=== PATIENT | female | born 1975 | race Caucasian/White ===

== ENCOUNTER → 2019-11-30 | Outpatient (CLI) | payer OTHER ==
[2019-11-30 09:51] LABS: Basophils # (A) 0.1 k/uL (0-0.2); Basophils % (A) 1 %; Eosinophils # (A) 0.3 k/uL (0-0.7); Eosinophils % (A) 4 %; HCT 34.2 % (34.0-46.0); HGB 10.5 gm/dL (11.4-16.0); Hypochromasia Moderate; Lymphocytes # (A) 1.7 k/uL (1.0-4.8); Lymphocytes % (A) 20 %; MCH 25.1 pg (25.0-35.0); MCHC 30.8 g/dL (31.0-37.0); MCV 81.4 fL (80.0-100.0); Monocytes # (A) 0.3 k/uL (0-1.0); Monocytes % (A) 4 %; Neutrophils % (A) 71 %; Platelet Count 238 k/uL (150-450); RDW 15.2 % (11.5-15.5); WBC 8.4 k/uL (3.8-10.6)
[2019-11-30 18:05] LABS: ALT 19 U/L (8-44); AST 10 U/L (13-35); African American GFR (CKD) 105.4 (60.0-200.0); Albumin/Globulin Ratio 1.91 (1.60-3.17); Alkaline Phosphatase 87 U/L (41-126); Calcium 9.3 mg/dL (8.7-10.3); Chloride 103 mmol/L (96-109); Chol/HDL Ratio 2.47; Cholesterol 126 mg/dL (0-200); Globulin 2.3 g/dL (1.6-3.3); Glucose 94 mg/dL (70-110); Non-African American GFR(CKD) 90.9 (60.0-200.0); Potassium 4.3 mmol/L (3.5-5.5); Sodium 139 mmol/L (135-145); Total Bilirubin 0.6 mg/dL (0.2-1.2); Total Protein 6.7 g/dL (6.2-8.2); Triglycerides <50.0 mg/dL (0.0-149.0)
== END | disposition home or self-care (01) ==
LOC: LABWHC1 08:51
PROVIDERS: ATTEND Midwife
DX: Z00.00 Encounter for general adult medical examination without abnormal findings (principal)
CPT/HCPCS: 36415; 80053; 80061; 84439; 84443; 85025

== ENCOUNTER → 2019-12-29 | Outpatient (CLI) | payer OTHER ==
--- NOTE | 2019-12-30 13:33 | MM ---
Reason for exam: screening (asymptomatic). Last mammogram was performed 4 years and 10 months ago. History: Family history of breast cancer in mother at age 58. Physical Findings: A clinical breast exam by your physician is recommended on an annual basis and results should be correlated with mammographic findings. MG 3D Screening Mammo W/Cad Bilateral CC and MLO view(s) were taken. XCCL and XCCM view(s) were taken of the left breast. Prior study comparison: March 01, 2015, bilateral MG screening mammo w CAD. There are scattered fibroglandular densities. No suspicious abnormality. Bilateral intramammary lymph nodes. No significant changes when compared with prior studies. ASSESSMENT: Negative, BI-RAD 1 RECOMMENDATION: Routine screening mammogram of both breasts in 1 year.
== END | disposition home or self-care (01) ==
LOC: RADMAMWWP 07:38
PROVIDERS: ATTEND Family Medicine
DX: Z12.31 Encounter for screening mammogram for malignant neoplasm of breast (principal)
CPT/HCPCS: 77063; 77067

== ENCOUNTER → 2022-05-17 | Outpatient (CLI) | payer OTHER ==
--- NOTE | 2022-05-17 09:19 | US ---
EXAMINATION TYPE: US venous doppler duplex LE DATE OF EXAM: 05/17/2022 8:54 AM COMPARISON: NONE CLINICAL HISTORY: R600 LOCALIZED EDEMA. SIDE PERFORMED: Bilateral TECHNIQUE: The lower extremity deep venous system is examined utilizing real time linear array sonog jero with graded compression, doppler sonography and color-flow sonography. VESSELS IMAGED: Common Femoral Vein Deep Femoral Vein Greater Saphenous Vein * Femoral Vein Popliteal Vein Small Saphenous Vein * Proximal Calf Veins (* superficial vessels) Right Leg: Negative for DVT Left Leg: Negative for DVT Scanning was performed over lump right calf, there is thrombosed varicosities noted with partial flow . IMPRESSION: No evidence for DVT at this time.
== END | disposition home or self-care (01) ==
LOC: RADUSWWP 08:33
PROVIDERS: ATTEND Family Medicine
DX: R60.0 Localized edema (principal)
CPT/HCPCS: 93970

== ENCOUNTER 2022-09-11 11:02 | Emergency (ER) | payer OTHER ==
[2022-09-11 11:09] VITALS: PULSE 105; RESP 20; TEMP 96.2
[2022-09-11 11:22] VITALS: BP 177/120
[2022-09-11] MEDS ORDERED: CEPHALEXIN 500 MG CAP PO STA (11:28)
[2022-09-11] MEDS ORDERED: SULFAMETHOX-TMP 800-160MG 1 EACH TAB PO STA (11:28)
[2022-09-11] MEDS ORDERED: MUPIROCIN 2% OINT 22 GM TUBE TOPICAL ONE (11:37)
--- NOTE | 2022-09-11 11:39 | ED ---
Skin/Abscess/FB HPI - General Chief complaint: Skin/Abscess/Foreign Body Stated complaint: cellulitis Time Seen by Provider: 09/11/22 11:15 Source: patient, family, RN notes reviewed Mode of arrival: ambulatory Limitations: no limitations - History of Present Illness Initial comments: This is a 46 year old female who presents to the emergency department for a bilateral lower extremity cellulitis. States that last week, she had scabs on her legs and began picking at them. Shortly afterwards, her legs became swollen and red. Believes that she is starting to get a cellulitis on both legs. There is only pain to the left leg. States that the infections are oozing on both legs. She has been applying zinc cream and keeping them wrapped. Denies any fevers, shortness of breath, nausea, or vomiting. She attributes her elevated blood pressure here to being anxious. Denies any fevers, chills, sore throat, cough, dyspnea, chest pain, pa lpitations, abdominal pain, nausea, vomiting, diarrhea, back pain, or headaches. MD complaint: rash Onset/Timin -: days(s) Tetanus Up to Date: yes Location: LLE, RLE Treatments Prior to Arrival: bandages, OTC topical medication - Related Data Home Medications Medication Instructions Recorded Confirmed Atorvastatin [Lipitor] 20 mg PO W/LUNCH 09/11/22 09/11/22 Dulaglutide [Trulicity] 0.75 mg SQ MO 09/11/22 09/11/22 Furosemide [Lasix] 20 mg PO DAILY 09/11/22 09/11/22 Furosemide [Lasix] 40 mg PO DAILY@1500 09/11/22 09/11/22 Losartan [Cozaar] 25 mg PO W/SUPPER 09/11/22 09/11/22 Losartan [Cozaar] 50 mg PO DAILY 09/11/22 09/11/22 metFORMIN HCL [Glucophage] 500 mg PO BID-W/MEALS 09/11/22 09/11/22 Previous Rx's Medication Instructions Recorded Mupirocin 2% Oint [Bactroban 2% 1 applic TOPICAL TID #22 gm 09/11/22 Oint] Sulfamethox-Tmp 800-160Mg [Bactrim 1 tab PO Q12HR 10 Days #20 tab 09/11/22 DS 800-160 mg] Allergies Allergy/AdvReac Type Severity Reaction Status Date / Time No Known Allergies Allergy Verified 09/11/22 12:38 Review of Systems ROS Statement: Those systems with pertinent positive or pertinent negative responses have been documented in the HPI. ROS Other: All systems not noted in ROS Statement are negative. Past Medical History Past Medical History: Heart Failure, Hypertension, Pneumonia History of Any Multi-Drug Resistant Organisms: None Reported Past Surgical History: Section, Coronary Bypass/CABG Additional Past Surgical History / Comment(s): open heart at age 7 Past Psychological History: Anxiety Smoking Status: Former smoker Past Alcohol Use History: None Reported Past Drug Use History: None Reported General Exam Limitations: no limitations General appearance: alert, in no apparent distress Head exam: Present: atraumatic, normocephalic, normal inspection Respiratory exam: Present: normal lung sounds bilaterally. Absent: respiratory distress, wheezes, rales, rhonchi, stridor Cardiovascular Exam: Present: regular rate, normal rhythm, normal heart sounds. Absent: systolic murmur, diastolic murmur, rubs, gallop, clicks Extremities exam: Present: other (Swelling, erythema, and increased heat to the bilateral lower extremities. There are open wounds on the anterior aspect of both legs minor active drainage. 2+ dorsalis pedis and tibialis posterior pulses bilaterally. Capillary refill less than 2 seconds.) Neurological exam: Present: alert, oriented X3, CN II-XII intact Psychiatric exam: Present: normal affect, normal mood Course Vital Signs 09/11/22 09/11/22 11:05 11:21 Temperature 96.2 F L Pulse Rate 105 H Respiratory 20 Rate Blood Pressure 201/89 177/120 O2 Sat by Pulse 95 Oximetry Medical Decision Making - Medical Decision Making This is a 46-year-old female who presents to the emergency department for bilateral lower extremity cellulitis. Lab work reveals no signs of leukocytosis, however inflammatory markers are elevated. Wound cultures were obtained and are pending. X-ray of the bilateral lower extremities obtained, and my interpretation of this revealed bilateral soft tissue edema. I see no evidence of subcutaneous gas or osseous erosion to suggest a necrotizing fasciitis or osteonecrosis. She was given a dose of Bactrim and Keflex in the emergency department, and her wounds were covered with mupirocin ointment and the dressings were changed. Rx for 10 day course of Bactrim provided along with mupirocin ointment. She is instructed to apply the mupirocin ointment when she changes her bandages. Discussed with the patient that due to the extent of the cellulitis and her multiple comorbidities, admission can be discussed, however the patient declined at this time. She was given very strict return parameters, in that if she develops fevers, chills, nausea, vomiting, or feels otherwise unwell, she should return immediately. Return precautions reviewed in depth, the patient is instructed to return to the emergency department with any new, worsening, or concerning symptoms. Patient verbalized understanding. This case was discussed in detail with the attending ED physician. Presentation, findings, and treatment plan discussed in detail as well. - Lab Data Result diagrams: 09/11/22 11:32 09/11/22 11:32 Lab Results 09/11/22 09/11/22 Range/Units : 11:32 WBC 8.7 (3.8-10.6) k/uL RBC 4.82 (3.80-5.40) m/uL Hgb 12.7 (11.4-16.0) gm/dL Hct 41.4 (34.0-46.0) % MCV 85.9 (80.0-100.0) fL MCH 26.3 (25.0-35.0) pg MCHC 30.7 L (31.0-37.0) g/dL RDW 15.9 H (11.5-15.5) % Plt Count 251 (150-450) k/uL MPV 9.3 Hypochromasia Marked Sodium 137 (137-145) mmol/L Potassium 4.1 (3.5-5.1) mmol/L Chloride 101 (98-107) mmol/L Carbon Dioxide 28 (22-30) mmol/L Anion Gap 8 mmol/L BUN 11 (7-17) mg/dL Creatinine 0.74 (0.52-1.04) mg/dL Est GFR (CKD-EPI)AfAm >90 (>60 ml/min/1.73 sqM) Est GFR (CKD-EPI)NonAf >90 (>60 ml/min/1.73 sqM) Glucose 120 H (74-99) mg/dL Calcium 9.0 (8.4-10.2) mg/dL Total Bilirubin 1.9 H (0.2-1.3) mg/dL AST 12 L (14-36) U/L ALT 20 (4-34) U/L Alkaline Phosphatase 147 H (38-126) U/L C-Reactive Protein 1.9 H (<1.0) mg/dL Total Protein 7.4 (6.3-8.2) g/dL Albumin 4.0 (3.5-5.0) g/dL - Radiology Data Radiology results: report reviewed, image reviewed Disposition Clinical Impression: Cellulitis Disposition: HOME SELF-CARE Instructions (If sedation given, give patient instructions): Cellulitis (ED) Additional Instructions: Return to the emergency department with any new, worsening, or concerning symptoms and if you develop fevers, chills, nausea, vomiting, or feel otherwise unwell. Take the Bactrim as prescribed for 10 days. Apply mupirocin ointment each time you change the dressings. Follow up with your primary care provider in 1-2 days. Prescriptions: Sulfamethox-Tmp 800-160Mg [Bactrim DS 800-160 mg] 1 tab PO Q12HR 10 Days #20 tab Mupirocin 2% Oint [Bactroban 2% Oint] 1 applic TOPICAL TID #22 gm Is patient prescribed a controlled substance at d/c from ED?: No Referrals: Stalin Robles MD [Primary Care Provider] - 1-2 days
[2022-09-11 11:54] LABS: Potassium 4.1 mmol/L (3.5-5.1)
[2022-09-11 11:55] LABS: ALT 20 U/L (4-34); AST 12 U/L (14-36); African American GFR (CKD) >90 (>60 ml/min/1.73 sqM); Alkaline Phosphatase 147 U/L (38-126); Anion Gap 8 mmol/L; Blood Urea Nitrogen 11 mg/dL (7-17); C Reactive Protein 1.9 mg/dL (<1.0); Carbon Dioxide 28 mmol/L (22-30); Chloride 101 mmol/L (98-107); Glucose 120 mg/dL (74-99); Non-African American GFR(CKD) >90 (>60 ml/min/1.73 sqM); Sodium 137 mmol/L (137-145); Total Bilirubin 1.9 mg/dL (0.2-1.3); Total Protein 7.4 g/dL (6.3-8.2)
[2022-09-11 11:58] LABS: HCT 41.4 % (34.0-46.0); HGB 12.7 gm/dL (11.4-16.0); Hypochromasia Marked; MCH 26.3 pg (25.0-35.0); MCHC 30.7 g/dL (31.0-37.0); MCV 85.9 fL (80.0-100.0); Mean Platelet Volume 9.3; Platelet Count 251 k/uL (150-450); RBC 4.82 m/uL (3.80-5.40); RDW 15.9 % (11.5-15.5); WBC 8.7 k/uL (3.8-10.6)
--- NOTE | 2022-09-11 12:13 | XR ---
EXAMINATION TYPE: XR tibia fibula bilateral DATE OF EXAM: 09/11/2022 12:01 PM INDICATION: Patient age:Female; 46 years old; Reason for study: Redness, swelling; COMPARISON: None TECHNIQUE: The bilateral tibia/fibula was examined in AP and lateral projections. FINDINGS: Diffuse soft tissue edema throughout the lower extremities. No evidence of fracture. No baljeet dence of osseous erosion or subcutaneous gas. Achilles calcaneal enthesophyte bilaterally calcaneal p lantar spurring on the left. There is degeneration changes with osteophyte formation of the knees inc luding tibial plateau and the patella. IMPRESSION: 1. No evidence of acute fracture. 2. Soft tissue edema throughout the visualized legs. 3. Moderate bilateral knee osteoarthrosis changes.
[2022-09-11 13:46] LABS: Eosinophils # (M) 0.17 k/uL (0-0.7); Lymphocytes # (M) 0.78 k/uL (1.0-4.8); Neutrophils # (M) 7.05 k/uL (1.3-7.7); Neutrophils % (M) 81 %; Nucleated Red Blood Cells 0 /100 WBC (0-0); Total Cells Counted 100
[2022-09-11 13:50] LABS: Anisocytosis (M) Present
[2022-09-11 14:03] LABS: Erythrocyte Sedimentation Rate 9 mm/hr (0-20)
== END 2022-09-11 14:25 | disposition home or self-care (01) ==
LOC: EC 11:02
DX: L03.115 Cellulitis of right lower limb (principal); L03.116 Cellulitis of left lower limb; I11.0 Hypertensive heart disease with heart failure; I50.9 Heart failure, unspecified; F41.9 Anxiety disorder, unspecified; Z87.891 Personal history of nicotine dependence; Z79.811 Long term (current) use of aromatase inhibitors; Z79.899 Other long term (current) drug therapy
CPT/HCPCS: 36415; 80053; 85025; 85652; 86140; 87070; 87075; 87205; 99283

== ENCOUNTER 2023-01-20 18:31 | Inpatient (IN) | payer OTHER ==
[2023-01-20] MEDS ORDERED: LORazepam 2 MG/ML INJ IV STA (19:09)
[2023-01-20 20:09] LABS: INR 1.2 (<1.2); Partial Thromboplastin Time 23.3 sec (22.0-30.0); Prothrombin Time 12.6 sec (9.0-12.0)
[2023-01-20 20:10] LABS: Anisocytosis Slight; Basophils % (A) 0 %; Eosinophils # (A) 0.1 k/uL (0-0.7); Eosinophils % (A) 1 %; HCT 41.6 % (34.0-46.0); Hypochromasia Slight; Lymphocytes % (A) 13 %; MCH 26.9 pg (25.0-35.0); MCHC 31.2 g/dL (31.0-37.0); MCV 86.4 fL (80.0-100.0); Mean Platelet Volume 8.7; Monocytes # (A) 0.3 k/uL (0-1.0); Monocytes % (A) 4 %; Neutrophils # (A) 5.7 k/uL (1.3-7.7); Neutrophils % (A) 79 %; Platelet Count 226 k/uL (150-450); RBC 4.82 m/uL (3.80-5.40); RDW 18.4 % (11.5-15.5); WBC 7.3 k/uL (3.8-10.6)
[2023-01-20 20:12] LABS: ALT 19 U/L (4-34); AST 14 U/L (14-36); African American GFR (CKD) >90 (>60 ml/min/1.73 sqM); Alkaline Phosphatase 156 U/L (38-126); Amylase 31 U/L (30-110); Anion Gap 8 mmol/L; Blood Urea Nitrogen 14 mg/dL (7-17); Calcium 9.2 mg/dL (8.4-10.2); Carbon Dioxide 28 mmol/L (22-30); Chloride 100 mmol/L (98-107); Glucose 97 mg/dL (74-99); Lipase 155 U/L (23-300); Non-African American GFR(CKD) >90 (>60 ml/min/1.73 sqM); Potassium 4.3 mmol/L (3.5-5.1); Sodium 136 mmol/L (137-145); Total Protein 7.7 g/dL (6.3-8.2)
--- NOTE | 2023-01-20 20:32 | ED ---
General Adult HPI - General Chief complaint: Skin/Abscess/Foreign Body Stated complaint: poss blood clot Time Seen by Provider: 01/20/23 18:43 Source: patient Mode of arrival: wheelchair Limitations: no limitations - History of Present Illness Initial comments: Patient is a 47-year-old female with history of hypertension, hyperlipidemia, diabetes presenting with multiple complaints. Patient states that at home she has a scab near the right knee that was profusely bleeding. Patient is not on any blood thinners. Patient applied a dressing which she bled through and reported to the ER for evaluation. She was concerned that she had a blood clot because she was bleeding so much. Patient also has sores and cellulitis to the bilateral lower legs which has been ongoing since August. She was on oral antibiotics back in August but has not been on any antibiotics since then. She is also complaining of massive swelling to the abdomen as well as swelling to the bilateral lower extremities. She denies any chest pain or difficulty breathing. No palpitations or weakness. No fevers or chills. No nausea or vomiting. - Related Data Home Medications Medication Instructions Recorded Confirmed Atorvastatin [Lipitor] 20 mg PO W/LUNCH 09/11/22 01/20/23 Furosemide [Lasix] 20 mg PO DAILY 09/11/22 01/20/23 Furosemide [Lasix] 40 mg PO DAILY@1500 09/11/22 01/20/23 Losartan [Cozaar] 25 mg PO W/SUPPER 09/11/22 01/20/23 Losartan [Cozaar] 50 mg PO DAILY 09/11/22 01/20/23 metFORMIN HCL [Glucophage] 500 mg PO BID-W/MEALS 09/11/22 01/20/23 Silver Sulfadiazine [SSD 1% Cream] 1 applic TOPICAL DAILY PRN 01/20/23 01/20/23 Allergies Allergy/AdvReac Type Severity Reaction Status Date / Time No Known Allergies Allergy Verified 01/20/23 19:24 Review of Systems ROS Statement: Those systems with pertinent positive or pertinent negative responses have been documented in the HPI. ROS Other: All systems not noted in ROS Statement are negative. Past Medical History Past Medical History: Heart Failure, Hypertension, Pneumonia History of Any Multi-Drug Resistant Organisms: None Reported Past Surgical History: Section, Coronary Bypass/CABG Additional Past Surgical History / Comment(s): open heart at age 7 Past Psychological History: Anxiety Smoking Status: Former smoker Past Alcohol Use History: None Reported Past Drug Use History: None Reported General Exam Limitations: no limitations General appearance: alert, anxious Head exam: Present: atraumatic, normocephalic, normal inspection Eye exam: Present: normal appearance Neck exam: Present: normal inspection Respiratory exam: Present: normal lung sounds bilaterally. Absent: respiratory distress, wheezes, rales, rhonchi, stridor Cardiovascular Exam: Present: normal rhythm, tachycardia, normal heart sounds. Absent: systolic murmur, diastolic murmur, rubs, gallop, clicks GI/Abdominal exam: Present: distended. Absent: tenderness, guarding, rebound Expanded GI/Abdominal exam: Present: ascites Neurological exam: Present: alert, oriented X3, CN II-XII intact Psychiatric exam: Present: anxious Skin exam: Present: erythema Course Vital Signs 01/20/23 01/20/23 18:35 23:07 Temperature 97.7 F Pulse Rate 107 H Respiratory 18 Rate Blood Pressure 153/91 O2 Sat by Pulse 95 94 L Oximetry EKG Findings - EKG Comments: EKG Findings:: Sinus rhythm ventricular rate 89. MD interval 160. QRS 124. QT 373. QTC 420. Right bundle branch block. Indeterminate axis. T-wave inversion in leads 2, 3, aVF and V1 through V6. No previous EKG for comparison. Medical Decision Making - Medical Decision Making Was pt. sent in by a medical professional or institution ([facility], HOME DEPOT REP, urgent care, hospital, or correction...) When possible be specific @ -No Did you speak to anyone other than the patient for history (EMS, parent, family, police, friend...)? What history was obtained from this source @ -No Did you review nursing and triage notes (agree or disagree)? Why? @ -I reviewed and agree with nursing and triage notes Were old charts reviewed (outside hosp., previous admission, EMS record, old EKG, old radiological studies, urgent care reports/EKG's, correction records)? Report findings @ -No old charts were reviewed Differential Diagnosis (chest pain, altered mental status, abdominal pain women, abdominal pain men, vaginal bleeding, weakness, fever, dyspnea, syncope, headache, dizziness, GI bleed, back pain, seizure, CVA, palpatations, mental health, musculoskeletal)? @ -Differential includes CHF, cirrhosis, renal failure, this is not an all inclusive list EKG interpreted by me (3pts min.). @ -As above X-rays interpreted by me (1pt min.). @ -Chest x-ray shows mild coarsening of the interstitial markings could be some pulmonary fibrosis. No significant change. Stable cardiomegaly. CT interpreted by me (1pt min.). @ -There is moderate abdominal ascites. There is significant subcutaneous edema around the abdomen and pelvis. Hepatosplenomegaly. No dilated ducts. Mild pulmonary interstitial infiltrates. U/S interpreted by me (1pt. min.). @ -None done What testing was considered but not performed or refused? (CT, X-rays, U/S, labs)? Why? @ -None What meds were considered but not given or refused? Why? @ -None Did you discuss the management of the patient with other professionals (professionals i.e. , PA, HOME DEPOT REP, lab, RT, psych nurse, clinical social worker, cap coverer, teacher, vice squad police officer, case management specialist)? Give summary @ -Discussed with admitting ISAIAS Nirali Burnette Was smoking cessation discussed for >3mins.? @ -No Was critical care preformed (if so, how long)? @ -No Were there social determinants of health that impacted care today? How? (Homelessness, low income, unemployed, alcoholism, drug addiction, transportation, low edu. Level, literacy, decrease access to med. care, long-term, rehab)? @ -No Was there de-escalation of care discussed even if they declined (Discuss DNR or withdrawal of care, Hospice)? DNR status @ -No What co-morbidities impacted this encounter? (DM, HTN, Smoking, COPD, CAD, Cancer, CVA, ARF, Chemo, Hep., AIDS, mental health diagnosis, sleep apnea, morbid obesity)? @ -Diabetes, hypertension, hyperlipidemia, heart failure Was patient admitted / discharged? Hospital course, mention meds given and route, prescriptions, significant lab abnormalities, going to OR and other pertinent info. @ -Patient is a 47-year-old female presenting with multiple complaints. Patie nt states earlier she had a scab that was continuously bleeding that she was unable to get under control. Patient has multiple wounds as well as redness and swelling to the bilateral lower extremities. She is also having an increase in abdominal swelling that is drastically worsened over the last week. Lab work shows no leukocytosis or anemia. EKG shows T-wave inversion in the inferior and lateral leads. Troponin is less than 0.012. Patient is not having any chest pain or difficulty breathing. BNP 2880. Chest x-ray shows no overt heart failure. Patient will be admitted for cellulitis and anasarca. I spoke with admitting ISAIAS Nirali Burentte from [facility] accepted admission. Patient is agreeable with this plan. I discussed this case with my attending Dr. Cheema. Undiagnosed new problem with uncertain prognosis? @ -No Drug Therapy requiring intensive monitoring for toxicity (Heparin, Nitro, Insulin, Cardizem)? @ -No Were any procedures done? @ -No Diagnosis/symptom? @ -Cellulitis Acute, or Chronic, or Acute on Chronic? @ -Acute Uncomplicated (without systemic symptoms) or Complicated (systemic symptoms)? @ -Complicated Side effects of treatment? @ -No Exacerbation, Progression, or Severe Exacerbation? @ -No Poses a threat to life or bodily function? How? (Chest pain, [place], [place], pneumonia, PE, COPD, DKA, ARF, appy, cholecystitis, CVA, Diverticulitis, Homicidal, Suicidal, threat to staff... and all critical care pts) @ -Yes - Lab Data Result diagrams: 01/20/23 19:34 01/20/23 19:34 Lab Results 01/20/23 01/20/23 01/20/23 Range/Units 19:34 19:34 19:34 WBC 7.3 (3.8-10.6) k/uL RBC 4.82 (3.80-5.40) m/uL Hgb 13.0 (11.4-16.0) gm/dL Hct 41.6 (34.0-46.0) % MCV 86.4 (80.0-100.0) fL MCH 26.9 (25.0-35.0) pg MCHC 31.2 (31.0-37.0) g/dL RDW 18.4 H (11.5-15.5) % Plt Count 226 (150-450) k/uL MPV 8.7 Neutrophils % 79 % Lymphocytes % 13 % Monocytes % 4 % Eosinophils % 1 % Basophils % 0 % Neutrophils # 5.7 (1.3-7.7) k/uL Lymphocytes # 1.0 (1.0-4.8) k/uL Monocytes # 0.3 (0-1.0) k/uL Eosinophils # 0.1 (0-0.7) k/uL Basophils # 0.0 (0-0.2) k/uL Hypochromasia Slight Anisocytosis Slight PT (9.0-12.0) sec INR (<1.2) APTT (22.0-30.0) sec Sodium 136 L (137-145) mmol/L Potassium 4.3 (3.5-5.1) mmol/L Chloride 100 (98-107) mmol/L Carbon Dioxide 28 (22-30) mmol/L Anion Gap 8 mmol/L BUN 14 (7-17) mg/dL Creatinine 0.63 (0.52-1.04) mg/dL Est GFR (CKD-EPI)AfAm >90 (>60 ml/min/1.73 sqM) Est GFR (CKD-EPI)NonAf >90 (>60 ml/min/1.73 sqM) Glucose 97 (74-99) mg/dL Plasma Lactic Acid Jordon 0.9 (0.7-2.0) mmol/L Calcium 9.2 (8.4-10.2) mg/dL Total Bilirubin 2.0 H (0.2-1.3) mg/dL AST 14 (14-36) U/L ALT 19 (4-34) U/L Alkaline Phosphatase 156 H (38-126) U/L Troponin I (0.000-0.034) ng/mL NT-Pro-B Natriuret Pep pg/mL Total Protein 7.7 (6.3-8.2) g/dL Albumin 4.0 (3.5-5.0) g/dL Amylase 31 (30-110) U/L Lipase 155 (23-300) U/L 01/20/23 01/20/23 01/20/23 Range/Units 19:34 19:34 20:32 WBC (3.8-10.6) k/uL RBC (3.80-5.40) m/uL Hgb (11.4-16.0) gm/dL Hct (34.0-46.0) % MCV (80.0-100.0) fL MCH (25.0-35.0) pg MCHC (31.0-37.0) g/dL RDW (11.5-15.5) % Plt Count (150-450) k/uL MPV Neutrophils % % Lymphocytes % % Monocytes % % Eosinophils % % Basophils % % Neutrophils # (1.3-7.7) k/uL Lymphocytes # (1.0-4.8) k/uL Monocytes # (0-1.0) k/uL Eosinophils # (0-0.7) k/uL Basophils # (0-0.2) k/uL Hypochromasia Anisocytosis PT 12.6 H (9.0-12.0) sec INR 1.2 H (<1.2) APTT 23.3 (22.0-30.0) sec Sodium (137-145) mmol/L Potassium (3.5-5.1) mmol/L Chloride (98-107) mmol/L Carbon Dioxide (22-30) mmol/L Anion Gap mmol/L BUN (7-17) mg/dL Creatinine (0.52-1.04) mg/dL Est GFR (CKD-EPI)AfAm (>60 ml/min/1.73 sqM) Est GFR (CKD-EPI)NonAf (>60 ml/min/1.73 sqM) Glucose (74-99) mg/dL Plasma Lactic Acid Jordon (0.7-2.0) mmol/L Calcium (8.4-10.2) mg/dL Total Bilirubin (0.2-1.3) mg/dL AST (14-36) U/L ALT (4-34) U/L Alkaline Phosphatase (38-126) U/L Troponin I <0.012 (0.000-0.034) ng/mL NT-Pro-B Natriuret Pep 2880 pg/mL Total Protein (6.3-8.2) g/dL Albumin (3.5-5.0) g/dL Amylase (30-110) U/L Lipase (23-300) U/L Disposition Clinical Impression: Cellulitis, Anasarca Disposition: ADMITTED IP TO THIS [facility] Condition: Fair Time of Disposition: 21:54
--- NOTE | 2023-01-20 20:52 | XR ---
EXAMINATION TYPE: XR chest 2V DATE OF EXAM: 01/20/2023 COMPARISON: 04/16/2022 HISTORY: Short of breath TECHNIQUE: 2 views FINDINGS: Heart appears slightly enlarged. No heart failure. There is mild coarsening of the intersti tial markings. There are chest leads. No pleural effusion. Bony thorax is intact. IMPRESSION: Mild coarsening of the interstitial markings could be some pulmonary fibrosis. No signifi cant change. Stable cardiomegaly.
--- NOTE | 2023-01-20 21:36 | CT ---
EXAMINATION TYPE: CT abdomen pelvis w con DATE OF EXAM: 01/20/2023 COMPARISON: None HISTORY: ASCITES CT DLP: 4135.9 mGycm Automated exposure control for dose reduction was used. CONTRAST: Performed with IV Contrast, patient injected with 100 mL of Isovue 300. The lung bases show mild increased interstitial density. No pleural effusion. Heart is enlarged. No p ericardial effusion. There is subcutaneous edema around the abdomen. There is moderate abdominal ascites fluid. Liver is s ignificantly enlarged and measures 25 cm. Spleen is intact. Spleen enlarged and measures 15 cm. No pa ncreatic mass. Gallbladder is intact. The stomach is intact. There is no adrenal mass. Kidneys show satisfactory contrast opacification. No hydronephrosis. Ureter s are not dilated. Delayed images show normal renal excretion. No retroperitoneal adenopathy. Bladder distends smoothly. Uterus is intact. No evidence of a bowel obstruction. There is normal enhancement of the portal venous system. No evide nce of thrombosis. No evidence of free air. Appendix not seen. The lumbar vertebra appear intact. No compression fracture. Posterior elements are intact. The bony p inés is intact. The hip joints are intact. Sacroiliac joints are intact. IMPRESSION: There is moderate abdominal ascites. There is significant subcutaneous edema around the abdomen and p inés. Hepatosplenomegaly. No dilated ducts. Mild pulmonary interstitial infiltrates.
[2023-01-20] MEDS ORDERED: VANCOMYCIN IV PER PHARMACY 1 EACH MISC MISCELLANE PRN (21:52)
[2023-01-20] MEDS ORDERED: VANCOMYCIN 2,000 MG in SODIUM CHLORIDE 0.9% 500 ML 500 ML IVPB STA (22:05)
[2023-01-20] MEDS ORDERED: NALOXONE 0.4 MG/ML 1 ML VIAL IV PRN (22:32)
[2023-01-21] MEDS: KETOROLAC 15 MG/ML 1 ML VIAL IVP PRN ×2 (00:12→13:40)
[2023-01-21 02:45] LABS: Appearance,Urine Clear (Clear); Bilirubin,Urine Negative (Negative); Blood,Urine Negative (Negative); Color,Urine Yellow; Glucose,Urine (UA) Negative (Negative); Ketones,Urine Negative (Negative); Leukocyte Esterase,Urine Negative (Negative); Nitrite,Urine Negative (Negative); Protein,Urine Negative (Negative); Specific Gravity,Urine 1.032 (1.001-1.035)
[2023-01-21] MEDS ORDERED: DEXTROSE 50% SYRINGE 50 ML IVP PRN ×2 (06:50)
[2023-01-21 07:32] LABS: Glucose,Whole Blood 115 mg/dL (70-110)
[2023-01-21] MEDS: INSULIN ASPART (NovoLOG) 100 UNIT/ML VIAL SQ SCH ×4 (08:35→20:40)
[2023-01-21] MEDS: FUROSEMIDE 20 MG TAB PO SCH (09:24)
[2023-01-21] MEDS: LOSARTAN 50 MG TAB PO SCH (09:24)
[2023-01-21 10:16] LABS: African American GFR (CKD) >90 (>60 ml/min/1.73 sqM); Non-African American GFR(CKD) >90 (>60 ml/min/1.73 sqM)
[2023-01-21 11:38] LABS: Glucose,Whole Blood 119 mg/dL (70-110)
[2023-01-21] MEDS ORDERED: VANCOMYCIN 2,000 MG in SODIUM CHLORIDE 0.9% 500 ML 500 ML IVPB SCH (12:00)
[2023-01-21] MEDS: ATORVASTATIN 20 MG TAB PO SCH (12:30)
[2023-01-21] MEDS: FUROSEMIDE 10 MG/ML 4 ML VIAL IV SCH ×2 (13:40→20:07)
[2023-01-21] MEDS ORDERED: FUROSEMIDE 40 MG TAB PO SCH (15:00)
--- NOTE | 2023-01-21 16:05 | P.HPIM ---
History of Present Illness H&P Date: 01/21/23 This is a pleasant 47-year-old female with medical history of congestive heart failure, chronic lower extremity edema and cellulitis, hypertension, open-heart surgery at the age of 7 secondary to coarctation of the aorta, former smoker quit about 1 month ago. Patient presents to the hospital with concern for increasing lower extremity edema and possible cellulitis bilaterally. Patient also reports a small area on the left knee that was bleeding profusely and reports loosing "quit a bit of blood". Patient has been following with her PCP and has been utilizing silvadene to lower extremities. Patient also reports abdominal distention. Denying chest pain, patient does report having increased shortness of breath with activity and unable to tolerate ambulating for long distances. Patient follows with cardiology and also pulmonary services. She reports having an outpatient echocardiogram done last january, she is maintained on lasix daily. Chest xray on admission is completed showing coarsening of the interstitial markings could be some pulmonary fibrosis. Stable cardiomegaly. Patient had abdominal pelvis CT showing moderate abdominal ascites. Significant subcutaneous edema around the abdomen and pelvis. Hepatosplenomegaly. No dilated ducts. Mild pulmonary interstitial infiltrates. There is pitting edema from the patients feet up to the umbilicus. Lower extremities reveal chronic skin c hanges, weeping serous fluid and also on the left mckeon there is some excoriation with sloughing. This will be cultured. INR is elevated at 1.2. Total bilirubin is elevated at 2.0 and alk phos is elevated. Troponin negative and proBNP 2880. Infectious disease is consulted and patient started on IV antibiotics. Patient will be started on IV lasix. REVIEW OF SYSTEMS: CONSTITUTIONAL: No fever, no malaise, no fatigue. HEENT: No recent visual problems or hearing problems. Denied any sore throat. CARDIOVASCULAR: No chest pain, orthopnea, PND, no palpitations, no syncope. PULMONARY: Reports shortness of breath, no cough, no hemoptysis. GASTROINTESTINAL: No diarrhea, no nausea, no vomiting, no abdominal pain. NEUROLOGICAL: No headaches, no weakness, no numbness. HEMATOLOGICAL: Denies any bleeding or petechiae. GENITOURINARY: Denies any burning micturition, frequency, or urgency. MUSCULOSKELETAL/RHEUMATOLOGICAL: Denies any joint pain, swelling, or any muscle pain. Reports lower extremity edema and weeping. ENDOCRINE: Denies any polyuria or polydipsia. The rest of the 14-point review of systems is negative. PHYSICAL EXAMINATION: GENERAL: The patient is alert and oriented x3, not in any acute distress. Well developed, well nourished. Obese. HEENT: Pupils are round and equally reacting to light. EOMI. No scleral icterus. No conjunctival pallor. Normocephalic, atraumatic. No pharyngeal erythema. No thyromegaly. CARDIOVASCULAR: S1 and S2 present. No murmurs, rubs, or gallops. PULMONARY: Chest is clear to auscultation, no wheezing or crackles. ABDOMEN: Soft, nontender, nondistended, normoactive bowel sounds. No palpable organomegaly. Edematous. MUSCULOSKELETAL: No joint swelling or deformity. EXTREMITIES: No cyanosis, clubbing, +3 pitting lower extremity edema NEUROLOGICAL: Gross neurological examination did not reveal any focal deficits. SKIN: redness to bilateral lower extremities with some sloughing/excoriation to the left mckeon. Weeping. Assessment and Plan Assessment Acute heart failure exacerbation unclear whether systolic or diastolic Bilateral acute on chronic lower extremity edema and cellulitis secondary to above Elevated bilirubin, alk phos likely from hepatic steatosis Hepatosplenomegaly Abdominal ascites likely from volume overload Hypertension Diabetes Mellitus type 2 maintained on metformin Congenital heart disease with open heart age 7 Former smoker Anxiety Obesity GI prophylaxis DVT prophylaxis Full Code Plan Continue on IV antibiotics and infectious disease consultation Wound culture Continue on IV lasix Q12 and recommend daily weight with strict intake and output monitoring Resume appropriate home medications Echocardiogram ordered and pending AM labs The impression and plan of care has been dictated by Katharine Sales, Nurse Practitioner as directed. Dr. Brandi MD I have performed a history and physical examination and medical decision making of this patient, discussed the same with the dictator, and agree with the dictators assessment and plan as written, documented as a scribe. Based on total visit time, I have performed more than 50% of this visit. Past Medical History Past Medical History: Heart Failure, Hypertension, Pneumonia History of Any Multi-Drug Resistant Organisms: None Reported Past Surgical History: Section, Coronary Bypass/CABG Additional Past Surgical History / Comment(s): open heart at age 7 Past Anesthesia/Blood Transfusion Reactions: No Reported Reaction Past Psychological History: Anxiety Smoking Status: Former smoker Past Alcohol Use History: None Reported Past Drug Use History: None Reported Medications and Allergies Home Medications Medication Instructions Recorded Confirmed Type Atorvastatin [Lipitor] 20 mg PO W/LUNCH 09/11/22 01/20/23 History Furosemide [Lasix] 20 mg PO DAILY 09/11/22 01/20/23 History Furosemide [Lasix] 40 mg PO DAILY@1500 09/11/22 01/20/23 History Losartan [Cozaar] 25 mg PO W/SUPPER 09/11/22 01/20/23 History Losartan [Cozaar] 50 mg PO DAILY 09/11/22 01/20/23 History metFORMIN HCL [Glucophage] 500 mg PO BID-W/MEALS 09/11/22 01/20/23 History Silver Sulfadiazine [SSD 1% Cream] 1 applic TOPICAL DAILY PRN 01/20/23 01/20/23 History Allergies Allergy/AdvReac Type Severity Reaction Status Date / Time No Known Allergies Allergy Verified 01/20/23 19:24 Physical Exam Vitals: Vital Signs Temp Pulse Pulse Resp BP BP Pulse Ox 01/21/23 07:31 97.7 F 95 20 145/92 92 L 01/21/23 01:18 97.5 F L 96 22 144/96 92 L 01/20/23 23:36 97.7 F 98 22 153/101 93 L 01/20/23 23:07 94 L 01/20/23 18:35 97.7 F 107 H 18 153/91 95 Intake and Output 01/21/23 01/21/23 01/21/23 06:59 14:59 22:59 Intake Total 118 Output Total 400 Balance -400 118 Intake: Oral 118 Output: Urine 400 Other: Voiding Method Bedside Commode Weight 151.953 kg Results CBC & Chem 7: 01/20/23 19:34 01/21/23 09:39 Labs: Abnormal Lab Results - Last 24 Hours (Table) 01/20/23 01/20/23 01/20/23 Range/Units 19:34 19:34 19:34 RDW 18.4 H (11.5-15.5) % PT 12.6 H (9.0-12.0) sec INR 1.2 H (<1.2) Sodium 136 L (137-145) mmol/L POC Glucose (mg/dL) (70-110) mg/dL Hemoglobin A1c (0.0-6.0) % Total Bilirubin 2.0 H (0.2-1.3) mg/dL Alkaline Phosphatase 156 H (38-126) U/L Creatine Kinase (30-135) U/L 01/20/23 01/21/23 01/21/23 Range/Units 19:34 07:30 09:39 RDW (11.5-15.5) % PT (9.0-12.0) sec INR (<1.2) Sodium (137-145) mmol/L POC Glucose (mg/dL) 115 H (70-110) mg/dL Hemoglobin A1c 6.4 H (0.0-6.0) % Total Bilirubin (0.2-1.3) mg/dL Alkaline Phosphatase (38-126) U/L Creatine Kinase 25 L (30-135) U/L 01/21/23 Range/Units 11:37 RDW (11.5-15.5) % PT (9.0-12.0) sec INR (<1.2) Sodium (137-145) mmol/L POC Glucose (mg/dL) 119 H (70-110) mg/dL Hemoglobin A1c (0.0-6.0) % Total Bilirubin (0.2-1.3) mg/dL Alkaline Phosphatase (38-126) U/L Creatine Kinase (30-135) U/L Thrombosis Risk Factor Assmnt - Choose All That Apply Any of the Below Risk Factors Present?: Yes Each Factor Represents 1 point: Age 41-60 years, Obesity (BMI >25), Swollen legs (current) Thrombosis Risk Factor Assessment Total Risk Factor Score: 3 Thrombosis Risk Factor Assessment Level: Moderate Risk Assessment and Plan Time with Patient: Greater than 30
[2023-01-21 16:50] LABS: Glucose,Whole Blood 128 mg/dL (70-110)
[2023-01-21] MEDS: LOSARTAN 25 MG TAB PO SCH (17:03)
[2023-01-21 20:40] LABS: Glucose,Whole Blood 92 mg/dL (70-110)
--- NOTE | 2023-01-21 22:43 | P.CONS ---
History of Present Illness - Reason for Consult Consult date: 01/21/23 Cellulitis Requesting physician: William Paz - Chief Complaint Bilateral lower extremity swelling and redness x days - History of Present Illness Patient is a 47-year-old female with a past medical history significant for hypertension hyperlipidemia diabetes mellitus presenting to the hospital with increasing swelling and redness to bilateral lower extremity especially the left lower leg, currently the patient did have a scab near the kneecap that was profusely bleeding subsequently patient noticed to have increasing swelling and redness patient complaining of pain to the lower extremity to be more of a sharp in nature 7-8 out of 10 in duration with associated swelling redness and minimal drainage patient did have some chills however no fever has been recorded during the hospital stay patient did have a normal white count kidney function has been normal patient liver exams are normal urine was negative blood cultures obtained which are currently pending patient did have a chest x-ray mild coarsening of the interstitial markings could be pulmonary fibrosis patient did have a CT abdominal pelvis moderate abdominal ascites significant subcutaneous edema patient was started on vancomycin infectious disease was consulted for further management of antibiotic therapy Review of Systems Positive point has been mentioned in the HPI rest of the systems are negative Past Medical History Past Medical History: Heart Failure, Hypertension, Pneumonia History of Any Multi-Drug Resistant Organisms: None Reported Past Surgical History: Section, Coronary Bypass/CABG Additional Past Surgical History / Comment(s): open heart at age 7 Past Anesthesia/Blood Transfusion Reactions: No Reported Reaction Past Psychological History: Anxiety Smoking Status: Former smoker Past Alcohol Use History: None Reported Past Drug Use History: None Reported Medications and Allergies Home Medications Medication Instructions Recorded Confirmed Type Atorvastatin [Lipitor] 20 mg PO W/LUNCH 09/11/22 01/20/23 History Losartan [Cozaar] 25 mg PO W/SUPPER 09/11/22 01/20/23 History Losartan [Cozaar] 50 mg PO DAILY 09/11/22 01/20/23 History metFORMIN HCL [Glucophage] 500 mg PO BID-W/MEALS 09/11/22 01/20/23 History Silver Sulfadiazine [SSD 1% Cream] 1 applic TOPICAL DAILY PRN 01/20/23 01/20/23 History Bumetanide [BUMEX] 2 mg PO BID #60 tab 01/23/23 Rx Sildenafil [Revatio] 20 mg PO TID #90 tab 01/23/23 Rx Cephalexin [Keflex] 500 mg PO Q8HR 10 Days #30 cap 01/24/23 Rx Ciprofloxacin HCl [Cipro] 500 mg PO BID 10 Days #20 tab 01/24/23 Rx Allergies Allergy/AdvReac Type Severity Reaction Status Date / Time No Known Allergies Allergy Verified 01/20/23 19:24 Physical Exam Vitals: Vital Signs Temp Pulse Pulse Resp BP BP Pulse Ox 01/21/23 07:31 97.7 F 95 20 145/92 92 L 01/21/23 01:18 97.5 F L 96 22 144/96 92 L 01/20/23 23:36 97.7 F 98 22 153/101 93 L 01/20/23 23:07 94 L 01/20/23 18:35 97.7 F 107 H 18 153/91 95 Intake and Output 01/20/23 01/21/23 01/21/23 22:59 06:59 14:59 Intake Total 118 Output Total 400 Balance -400 118 Intake: Oral 118 Output: Urine 400 Other: Voiding Method Bedside Commode Weight 151.953 kg 151.953 kg GENERAL DESCRIPTION: Middle-aged female lying in bed, no distress. No tachypnea or accessory muscle of respiration use. HEENT: Shows Pallor , no scleral icterus. Oral mucous membrane is dry. NECK: Trachea central, no thyromegaly. LUNGS: Unlabored breathing. Clear to auscultation anteriorly. No wheeze or crackle. HEART: S1, S2, regular rate and rhythm. No loud murmur ABDOMEN: Soft, no tenderness , guarding or rigidity, no organomegaly EXTREMITIES: Bilateral lower extremity with swelling redness and superficial ulceration no foul-smelling drainage SKIN: No rash, no masses palpable. NEUROLOGICAL: The patient is awake, alert, oriented x3, mood and affect normal. Results CBC & Chem 7: 01/24/23 06:47 01/24/23 06:47 Labs: Abnormal Lab Results - Last 24 Hours (Table) 01/20/23 01/20/23 01/20/23 Range/Units 19:34 19:34 19:34 RDW 18.4 H (11.5-15.5) % PT 12.6 H (9.0-12.0) sec INR 1.2 H (<1.2) Sodium 136 L (137-145) mmol/L POC Glucose (mg/dL) (70-110) mg/dL Hemoglobin A1c (0.0-6.0) % Total Bilirubin 2.0 H (0.2-1.3) mg/dL Alkaline Phosphatase 156 H (38-126) U/L Creatine Kinase (30-135) U/L 01/20/23 01/21/23 01/21/23 Range/Units 19:34 07:30 09:39 RDW (11.5-15.5) % PT (9.0-12.0) sec INR (<1.2) Sodium (137-145) mmol/L POC Glucose (mg/dL) 115 H (70-110) mg/dL Hemoglobin A1c 6.4 H (0.0-6.0) % Total Bilirubin (0.2-1.3) mg/dL Alkaline Phosphatase (38-126) U/L Creatine Kinase 25 L (30-135) U/L 01/21/23 Range/Units 11:37 RDW (11.5-15.5) % PT (9.0-12.0) sec INR (<1.2) Sodium (137-145) mmol/L POC Glucose (mg/dL) 119 H (70-110) mg/dL Hemoglobin A1c (0.0-6.0) % Total Bilirubin (0.2-1.3) mg/dL Alkaline Phosphatase (38-126) U/L Creatine Kinase (30-135) U/L Assessment and Plan (1) Bilateral lower leg cellulitis Status: Acute Code(s): L03.116 - CELLULITIS OF LEFT LOWER LIMB; L03.115 - CELLULITIS OF RIGHT LOWER LIMB SNOMED Code(s): 351312268 Plan: 1patient with bilateral lower extremity cellulitis left greater than the right in this patient who did have evidence of fluid overload likely from underlying cardiac etiology with diffuse swelling redness likely streptococcal disease clinically doubt MRSA infection 2-discontinue vancomycin 3-start the patient on cefazolin 2 g every 8 hours We will follow on clinical condition and cultures to further adjust medication if needed Thank you for this consultation we will follow the patient along with you Time with Patient: Greater than 30
[2023-01-22] MEDS: KETOROLAC 15 MG/ML 1 ML VIAL IVP PRN (01:56)
[2023-01-22 05:58] LABS: Glucose,Whole Blood 107 mg/dL (70-110)
[2023-01-22] MEDS: INSULIN ASPART (NovoLOG) 100 UNIT/ML VIAL SQ SCH ×4 (06:04→20:58)
--- NOTE | 2023-01-22 09:15 | CA ---
Transthoracic Echo Report Name: Fabiola Macias Age: 47 Gender: F : 1975 Exam Date: 01/21/2023 12:52 Exam Location: [facility] Ht (in): 68 Wt (lb): 335 Ordering Physician: Katharine Sales Attending/Referring Phys: Henrry DENNIS [employer] Yousif Flores RDCS Procedure CPT: Indications: chf Cardiac Hx: COPD; Pulm. Emphysema; HTN; CAD; CHF; Varicous Lower Limbs; Technical Quality: Poor Contrast 1: Lumason Total Dose (mL): 4 Contrast 2: Total Dose (mL): MEASUREMENTS (Male / Female) Normal Values 2D ECHO LV Diastolic Diameter PLAX 3.2 cm 4.2 - 5.9 / 3.9 - 5.3 cm LV Systolic Diameter PLAX 2.5 cm LV Fractional Shortening PLAX 22.9 % IVS Diastolic Thickness 1.6 cm 0.6 - 1.0 / 0.6 - 0.9 cm IVS Systolic Thickness 3.3 cm LVPW Diastolic Thickness 1.6 cm 0.6 - 1.0 / 0.6 - 0.9 cm LVPW Systolic Thickness 2.9 cm LV Relative Wall Thickness 1.0 LVOT Diameter 1.9 cm LA Systolic Diameter LX 4.3 cm 3.0 - 4.0 / 2.7 - 3.8 cm LV Diastolic Volume MOD BP 114.1 cm??? 67 - 155 / 56 - 104 cm??? LV Systolic Volume MOD BP 70.7 cm??? 22 - 58 / 19 - 49 cm??? LV Ejection Fraction MOD BP 38.0 % >= 55 % LV Stroke Volume MOD BP 43.3 cm??? LV Diastolic Volume MOD 4C 106.9 cm??? LV Systolic Volume MOD 4C 69.0 cm??? LV Ejection Fraction MOD 4C 35.5 % LV Stroke Volume MOD 4C 38.0 cm??? LV Diastolic Length 4C 8.7 cm LV Systolic Length 4C 6.9 cm LV Diastolic Volume MOD 2C 109.7 cm??? LV Systolic Volume MOD 2C 68.4 cm??? LV Ejection Fraction MOD 2C 37.7 % LV Stroke Volume MOD 2C 41.3 cm??? LV Diastolic Length 2C 7.8 cm LV Systolic Length 2C 6.2 cm Ascending Aorta Diameter 2.6 cm M-MODE Aortic Root Diameter MM 3.1 cm LA Systolic Diameter MM 1.1 cm LA Ao Ratio MM 0.4 AV Cusp Separation MM 1.0 cm DOPPLER AV Peak Velocity 299.0 cm/s AV Peak Gradient 35.8 mmHg AV Mean Velocity 207.2 cm/s AV Mean Gradient 19.4 mmHg AV Velocity Time Integral 73.6 cm LVOT Peak Velocity 97.2 cm/s LVOT Peak Gradient 3.8 mmHg LVOT Mean Velocity 64.5 cm/s LVOT Mean Gradient 2.0 mmHg LVOT Velocity Time Integral 16.7 cm LVOT Stroke Volume 49.2 cm??? LVOT Stroke Volume Index 19.3 ml/m??? AV Area Cont Eq vti 0.7 cm??? AV Area Cont Eq pk 1.0 cm??? MV Peak Velocity 164.3 cm/s MV Peak Gradient 10.8 mmHg MV Mean Velocity 126.3 cm/s MV Mean Gradient 6.8 mmHg MV Velocity Time Integral 37.2 cm MV Deceleration [place] 998.3 cm/s??? MR Peak Velocity 577.6 cm/s MR Peak Gradient 133.5 mmHg MR Mean Velocity 427.6 cm/s MR Mean Gradient 83.2 mmHg MR Velocity Time Integral 145.0 cm Mitral E Point Velocity 149.5 cm/s Mitral A Point Velocity 123.0 cm/s Mitral E to A Ratio 1.2 MV Deceleration Time 149.7 ms MV E' Velocity 6.8 cm/s Mitral E to MV E' Ratio 22.0 TR Peak Velocity 424.8 cm/s TR Peak Gradient 72.2 mmHg Right Ventricular Systolic Press 82.2 mmHg PV Peak Velocity 109.8 cm/s PV Peak Gradient 4.8 mmHg RVOT Peak Velocity 102.4 cm/s RVOT Peak Gradient 4.2 mmHg FINDINGS Left Ventricle Left ventricular ejection fraction is estimated at 50-55%. Moderate concentric left ventricular hypertrophy measuring 1.6cm. Right Ventricle Severe right ventricular dilatation with RV to LV ratio of approximately 2:1. Right ventricular hypertrophy. Septal flattening consistent with right ventricular volume and pressure overload. Thickened moderator band with atypical attatchment near the basal anteroseptal wall. RVSP- 82 mm Hg. Right Atrium Mild to moderate right atrial dilatation. Left Atrium Mild left atrial dilatation. Mitral Valve Moderate mitral annular calcification. Mild to moderate mitral regurgitation. Aortic Valve Trileaflet aortic valve. Diffuse thickening of the aortic valve cusps with reduced excursion. Mild to moderate aortic stenosis with a peak gradient of 35.8 mmHg and a mean gradient of 19.4 mmHg. AVmx-299cm/s Tricuspid Valve Severe tricuspid regurgitation. Pulmonic Valve Mild pulmonic regurgitation. Pericardium Small pericardial effusion. Aorta Normal size aortic root and proximal ascending aorta. CONCLUSIONS Left ventricular ejection fraction 50-55% Moderate concentric left ventricular hypertrophy Severe right ventricular dilation Right ventricular hypertrophy Septal flattening consistent with right ventricular volume and pressure overload Severe pulmonary hypertension Mild to moderate mitral regurgitation Mild to moderate aortic stenosis Severe tricuspid regurgitation Small pericardial effusion Previewed by: Dr. Daniel Hodges DO (Electronically Signed) Final Date: 22 January 2023 09:14
[2023-01-22 09:21] LABS: African American GFR (CKD) 103.2 (60.0-200.0); Anion Gap 10.7 mmol/L (10.00-18.00); BUN/Creat Ratio 16.25 Ratio (12.00-20.00); Carbon Dioxide 24.3 mmol/L (20.0-27.5); Potassium 4.2 mmol/L (3.5-5.5)
[2023-01-22] MEDS: LOSARTAN 50 MG TAB PO SCH (09:23)
[2023-01-22] MEDS: FUROSEMIDE 10 MG/ML 4 ML VIAL IV SCH ×2 (09:23→21:10)
[2023-01-22] MEDS: FUROSEMIDE 20 MG TAB PO SCH (09:30)
[2023-01-22 11:29] LABS: Glucose,Whole Blood 103 mg/dL (70-110)
--- NOTE | 2023-01-22 11:52 | P.CRDCN ---
History of Present Illness History of present illness: HISTORY OF PRESENT ILLNESS: This is a 47 year old female with a past medical history significant for hypertension, open-heart surgery at the age of 7 secondary to coarctation of the aorta( Patient no longer follows with a congenital sales specialist. She said the last time she saw someone was at age 18) , congestive heart failure, and nicotine dependence who recently quit smoking. Patient follows in the office with Dr. Bro. We have been asked to see the patient in consultation for CHF. Patient examined at the bedside. Patient is admitted to the hospital secondary to cellulitis and acute on chronic congestive heart failure. She reports abdominal swelling that started a couple months ago. She reports SOB with ambulation. She currently denies chest pain or pressure. She is currently receiving IV lasix 40mg Q12 hours. She states she has only been taking her lasix once a day at home because she is busy during the day and did not want to have to use the bathroom frequently. It is noted that when the patient saw her primary tax examining technician, Dr. Bro, in March 2022 he recommended that she be referred to [facility] pulmonary hypertension clinic. The patient states that she has not contacted the [facility] for evaluation. * EKG reveals sinus mechanism with right bundle branch block * Chest xray mild coarsening of interstitial markings could be some pulmonary fibrosis. No significant change. Stable cardiomegaly. * CT abdomen pelvis: Moderate abdominal ascites. Significant subcutaneous edema around the abdomen and pelvis. Hepatosplenomegaly. Mild pulmonary interstitial infiltrates * Laboratory data: W BC 7.3. Hemoglobin 13.0. Platelet count 226. Sodium 135. Potassium 4.2. BUN 13. Creatinine 0.80. Troponin negative 1. ProBNP 2880. * Current home cardiac medications include losartan 50 mg in the morning and 25 mg at night, Lasix 40 mg in the afternoon, and Lipitor 20 mg with lunch * Echocardiogram obtained revealing ejection fraction 50-55%, moderate concentric left ventricular hypertrophy, severe right ventricular dilation, right ventricular hypertrophy, septal flattening consistent with right ventricular volume pressure overload, severe pulmonary hypertension, [id number] mitral regurgitation, [id number] aortic stenosis, severe tricuspid regurgitation, and small pericardial effusion REVIEW OF SYSTEMS: At the time of my exam: CONSTITUTIONAL: Denies fever or chills. HEENT: Denies blurred vision, vision changes, or eye pain. Denies hemoptysis CARDIOVASCULAR: Denies chest pain. Denies orthopnea. Denies PND. Denies palpitations RESPIRATORY: Denies shortness of breath. GASTROINTESTINAL: Denies abdominal pain. Denies nausea or vomiting. HEMATOLOGIC: Denies bleeding disorders. GENITOURINARY: Denies any blood in urine. SKIN: Denies pruitis. Denies rash. PHYSICAL EXAM: VITAL SIGNS: Reviewed. GENERAL: Well-developed in no acute distress. HEENT: Head is normocephalic. Pupils are equal, round. Sclerae anicteric. Mucous membranes of the mouth are moist. Neck supple. No JVD or thyromegaly LUNGS: Respirations even and unlabored. Lungs essentially clear to auscultation bilaterally. HEART: Regular rate and rhythm. S1 and S2 heard. ABDOMEN: Distended. Evidence of abdominal ascites present. EXTREMITIES: Normal range of motion. No clubbing or cyanosis. Peripheral pulses intact. Significant bilateral lower extremity edema with cellulitis present. Gauze dressings to bilateral lower extremities NEUROLOGIC: Awake and alert. Oriented x 3. ASSESSMENT: Bilateral lower extremity cellulitis Acute on chronic congestive heart failure with preserved EF, right sided heart failure Severe pulmonary hypertension, RVSP 82 Severe right ventricular dilatation with RV to LV ratio of 2:1 Hdhk-on-padxvfev aortic stenosis Mild to moderate mitral regurgitation Severe tricuspid regurgitation Open-heart surgery at the age of 7 secondary to coarctation of the aorta Hypertension PLAN: -Dr. Hodges spoke in depth with the patient regarding her pulmonary hypertension. Patient somewhat unreceptive to information being presented to her. She is focused on being discharged home so she can leave for vacation to [place] on . She continued to repeat that she needs to be discharged so she can "exercise and eat the right foods to get better". Dr Hodges reinforced significance of patients diagnosis and the recommend treatment. However, she continues to discuss exercising, the food list that her family member gave her, and being discharged to go on vacation. -From a cardiology standpoint, would recommend right heart cath. However patient would require aggressive diuresis prior to this as she is significantly volume overloaded. This would require the patient to stay in the hospital for approximately 3-5 more days and patient is adamant about being discharged tomorrow to on vacation. -Recommend continuing IV Lasix at this time. Daily weights, accurate I&O, and monitoring of kidney function. -We will add Zaroxolyn 5 mg daily and Sildenafil 20 mg 3 times a day -Patient instructed to take her Lasix TWICE A DAY when she is discharged -Patient given the phone number to [facility] to call for evaluation. Patient verbalized understanding. -Further recommendations pending patient course Nurse practitioner note has been reviewed by physician. Signing provider agrees with the documented findings, assessment, and plan of care. Past Medical History Past Medical History: Heart Failure, Hypertension, Pneumonia History of Any Multi-Drug Resistant Organisms: None Reported Past Surgical History: Section, Coronary Bypass/CABG Additional Past Surgical History / Comment(s): open heart at age 7 Past Anesthesia/Blood Transfusion Reactions: No Reported Reaction Past Psychological History: Anxiety Smoking Status: Former smoker Past Alcohol Use History: None Reported Past Drug Use History: None Reported Medications and Allergies Home Medications Medication Instructions Recorded Confirmed Type Atorvastatin [Lipitor] 20 mg PO W/LUNCH 09/11/22 01/20/23 History Furosemide [Lasix] 20 mg PO DAILY 09/11/22 01/20/23 History Furosemide [Lasix] 40 mg PO DAILY@1500 09/11/22 01/20/23 History Losartan [Cozaar] 25 mg PO W/SUPPER 09/11/22 01/20/23 History Losartan [Cozaar] 50 mg PO DAILY 09/11/22 01/20/23 History metFORMIN HCL [Glucophage] 500 mg PO BID-W/MEALS 09/11/22 01/20/23 History Silver Sulfadiazine [SSD 1% Cream] 1 applic TOPICAL DAILY PRN 01/20/23 01/20/23 History Allergies Allergy/AdvReac Type Severity Reaction Status Date / Time No Known Allergies Allergy Verified 01/20/23 19:24 Physical Exam Vitals: Vital Signs Temp Pulse Resp BP Pulse Ox 01/22/23 07:36 97.4 F L 89 17 143/96 91 L 01/22/23 07:15 89 17 01/22/23 01:59 97.6 F 86 24 131/92 93 L 01/21/23 20:28 85 20 01/21/23 19:26 97.3 F L 87 22 142/93 95 01/21/23 14:54 97.7 F 61 19 153/99 93 L Intake and Output 01/21/23 01/22/23 01/22/23 22:59 06:59 14:59 Intake Total 118 1130 Output Total 600 2150 Balance -482 -1020 Intake: Intake, IV Titration 50 Amount ceFAZolin 2 gm In Sodium 50 Chloride 0.9% 50 ml @ 100 mls/hr IVPB Q8HR [facility] Rx# :[id number] Oral 118 1080 Output: Urine 600 2150 Other: Voiding Method Bedside Commode Weight 150.4 kg Results 01/20/23 19:34 01/22/23 06:13 Comprehensive Metabolic Panel 01/22/23 Range/Units 06:13 Sodium 135 (135-145) mmol/L Potassium 4.2 (3.5-5.5) mmol/L Chloride 100 (96-109) mmol/L Carbon Dioxide 24.3 (20.0-27.5) mmol/L BUN 13.0 (9.0-27.0) mg/dL Creatinine 0.8 (0.6-1.5) mg/dL Glucose 94 (70-110) mg/dL Calcium 9.0 (8.7-10.3) mg/dL Current Medications Generic Name Dose Route Start Last Admin Trade Name Freq PRN Reason Stop Dose Admin Atorvastatin Calcium 20 mg 01/21/23 12:30 01/21/23 12:30 Atorvastatin 20 Mg Tab PO 20 mg W/LUNCH SABIHA Administration Dextrose/Water 25 ml 01/21/23 06:50 Dextrose 50% Syringe 50 Ml IVP PER PROTOCOL PRN Hypoglycemia Protocol Dextrose/Water 50 ml 01/21/23 06:50 Dextrose 50% Syringe 50 Ml IVP PER PROTOCOL PRN Hypoglycemia Protocol Furosemide 40 mg 01/21/23 13:30 01/22/23 09:23 Furosemide 10 Mg/Ml 4 Ml Vial IV 40 mg Q12HR SABIHA Administration Cefazolin Sodium 2 gm/ Sodium 50 mls @ 100 mls/hr 01/21/23 16:00 01/22/23 08:30 Chloride IVPB 100 mls/hr Q8HR SABIHA Administration Protocol Insulin Aspart 0 unit 01/21/23 07:30 01/22/23 06:04 Insulin Aspart (Novolog) 100 Unit/Ml Vial SQ Not Given ACHS SABIHA Protocol Lorazepam 0.5 mg 01/20/23 23:24 Lorazepam 0.5 Mg Tab PO Q6HR PRN Anxiety Losartan Potassium 25 mg 01/21/23 17:30 01/21/23 17:03 Losartan 25 Mg Tab PO 25 mg W/SUPPER SABIHA Administration Losartan Potassium 50 mg 01/21/23 09:00 01/22/23 09:23 Losartan 50 Mg Tab PO 50 mg DAILY SABIHA Administration Naloxone HCl 0.2 mg 01/20/23 22:32 Naloxone 0.4 Mg/Ml 1 Ml Vial IV Q2M PRN Opioid Reversal Silver Sulfadiazine 1 applic 01/21/23 06:49 Silver Sulfadiazine 1% Cream 25 Gm Tube TOPICAL DAILY PRN wound care Protocol Intake and Output 01/21/23 01/22/23 01/22/23 22:59 06:59 14:59 Intake Total 118 1130 Output Total 600 2150 Balance -482 1020 Intake: Intake, IV Titration 50 Amount ceFAZolin 2 gm In Sodium 50 Chloride 0.9% 50 ml @ 100 mls/hr IVPB Q8HR [facility] Rx# :[id number] Oral 118 1080 Output: Urine 600 2150 Other: Voiding Method Bedside Commode Weight 150.4 kg 01/20/23 19:34 01/22/23 06:13
[2023-01-22] MEDS: metOLazone 5 MG TAB PO SCH (14:12)
[2023-01-22] MEDS: ATORVASTATIN 20 MG TAB PO SCH (14:12)
[2023-01-22] MEDS: SILDENAFIL 20 MG TAB PO SCH ×3 (14:13→21:10)
--- NOTE | 2023-01-22 14:31 | P.PN ---
Subjective Progress Note Date: 01/22/23 Principal diagnosis: Bilateral lower extremity cellulitis Patient is a 47-year-old female with a past medical history significant for hypertension hyperlipidemia diabetes mellitus presenting to the hospital with increasing swelling and redness to bilateral lower extremity especially the left lower leg, has been diagnosed with bilateral lower extremity cellulitis. On today's evaluation that is 01/22/2023, the patient denies having any fever or any chills, the patient is breathing comfortably and is currently on room air, denies any chest pain shortness of breath or cough overall pain and swelling to the leg has decreased in intensity Objective - Vital Signs Vital signs: Vital Signs Temp 97.4 F L 01/22/23 07:36 Pulse 89 01/22/23 07:36 Resp 17 01/22/23 07:36 BP 143/96 01/22/23 07:36 Pulse Ox 91 L 01/22/23 07:36 FiO2 Intake & Output 01/21/23 01/22/23 01/22/23 18:59 06:59 18:59 Intake Total 236 1130 Output Total 600 2150 1400 Balance -364 -1020 -1400 Weight 150.4 kg Intake: Intake, IV Titration 50 Amount ceFAZolin 2 gm In Sodium 50 Chloride 0.9% 50 ml @ 100 mls/hr IVPB Q8HR [facility] Rx# :[id number] Oral 236 1080 Output: Urine 600 2150 1400 Other: Voiding Method Bedside Commode - Exam GENERAL DESCRIPTION: A middle-age female up in the chair in no distress RESPIRATORY SYSTEM: Unlabored breathing , decreased breath sounds at bases HEART: S1 S2 regular rate and rhythm , ABDOMEN: Soft , no tenderness EXTREMITIES: Bilateral lower extremity swelling redness slightly decreased - Labs CBC & Chem 7: 01/20/23 19:34 01/22/23 06:13 Labs: Abnormal Lab Results - Last 24 Hours (Table) 01/21/23 Range/Units 16:48 POC Glucose (mg/dL) 128 H (70-110) mg/dL Microbiology - Last 24 Hours (Table) 01/21/23 14:20 Gram Stain - Preliminary Leg - Left Wound Culture - Preliminary 01/21/23 14:20 Anaerobic Culture - Preliminary Leg - Left 01/20/23 19:34 Blood Culture - Preliminary Blood No Growth after 24 hours 01/20/23 19:34 Blood Culture - Preliminary Blood No Growth after 24 hours Assessment and Plan (1) Bilateral lower leg cellulitis Current Visit: Yes Status: Acute Code(s): L03.116 - CELLULITIS OF LEFT LOWER LIMB; L03.115 - CELLULITIS OF RIGHT LOWER LIMB SNOMED Code(s): 046982590 Plan: 1patient with bilateral lower extremity cellulitis left greater than the right in this patient who did have evidence of fluid overload likely from underlying cardiac etiology with diffuse swelling redness likely streptococcal disease clinically doubt MRSA infection 2Patient to continue with cefazolin 2 g every 8 hours and monitor clinical course closely Time with Patient: Less than 30
--- NOTE | 2023-01-22 15:13 | P.PN ---
Subjective Progress Note Date: 01/22/23 This is a pleasant 47-year-old female with medical history of congestive heart failure, chronic lower extremity edema and cellulitis, hypertension, open-heart surgery at the age of 7 secondary to coarctation of the aorta, former smoker quit about 1 month ago. Patient presents to the hospital with concern for increasing lower extremity edema and possible cellulitis bilaterally. Patient also reports a small area on the left knee that was bleeding profusely and reports loosing "quit a bit of blood". Patient has been following with her PCP and has been utilizing silvadene to lower extremities. Patient also reports abdominal distention. Denying chest pain, patient does report having increased shortness of breath with activity and unable to tolerate ambulating for long distances. Patient follows with cardiology and also pulmonary services. She reports having an outpatient echocardiogram done last january, she is maintained on lasix daily. Chest xray on admission is completed showing coarsening of the interstitial markings could be some pulmonary fibrosis. Stable cardiomegaly. Patient had abdominal pelvis CT showing moderate abdominal ascites. Significant subcutaneous edema around the abdomen and pelvis. Hepatosplenomegaly. No dilated ducts. Mild pulmonary interstitial infiltrates. There is pitting edema from the patients feet up to the umbilicus. Lower extremities reveal chronic skin changes , weeping serous fluid and also on the left mckeon there is some excoriation with sloughing. This will be cultured. INR is elevated at 1.2. Total bilirubin is elevated at 2.0 and alk phos is elevated. Troponin negative and proBNP 2880. Infectious disease is consulted and patient started on IV antibiotics. Patient will be started on IV lasix. 01/22/2023 Patient is evaluated today on medical floor. Patient has been started on IV lasix and diuresed over 2.7 L in the last 24 hours. Cultures are pending at this time. Patient is being followed by infectious disease and antibiotics have been adjusted to IV cefazolin. Echocardiogram has been done showing an EF of 50-55% with severe right ventricular dilation. There is septal flattening consistent with right ventricular volume and pressure overload. Severe pulmonary hypertension, Mild to moderate mitral regurgitation, mild to moderate aortic re gurgitation, Severe tricuspid regurgitation, and small pericardial effusion. Patient was referred to the [facility] pulmonary hypertension clinic in the past and has not followed up. Cardiology has recommended right heart catheterization which will require aggressive diuresis prior and patient is adament about discharge home tomorrow for a family vacation scheduled for . Patient is focused on diet and exercise. Electrolytes are unremarkable today and kidney function remains stable. Patient is afebrile, heart rate 89, blood pressure 143/96, 91% room air. Review of Systems Constitutional: Denied any fatigue denied any fever. Cardio vascular: denied any chest pain, palpitations Gastrointestinal: denied any nausea, vomiting, diarrhea Pulmonary: Denied any shortness of breath at rest cough Neurologic denied any new focal deficits All inpatient medications were reviewed and appropriate changes in these medications as dictated in the interval history and assessment and plan. PHYSICAL EXAMINATION: GENERAL: The patient is alert and oriented x3, not in any acute distress. Well developed, well nourished. Obese. HEENT: Pupils are round and equally reacting to light. EOMI. No scleral icterus. No conjunctival pallor. Normocephalic, atraumatic. No pharyngeal erythema. No thyromegaly. CARDIOVASCULAR: S1 and S2 present. No murmurs, rubs, or gallops. PULMONARY: Chest is clear to auscultation, no wheezing or crackles. ABDOMEN: Soft, nontender, nondistended, normoactive bowel sounds. No palpable organomegaly. Edematous. MUSCULOSKELETAL: No joint swelling or deformity. EXTREMITIES: No cyanosis, clubbing, +3 pitting lower extremity edema NEUROLOGICAL: Gross neurological examination did not reveal any focal deficits. SKIN: redness to bilateral lower extremities with weeping serous drainage Assessment and Plan Assessment Acute on chronic heart failure diastolic dysfunction Severe pulmonary hypertension and severe right ventricular dilation Valvular heart disease and mild to moderate aortic stenosis Bilateral acute on chronic lower extremity edema and cellulitis secondary to above Elevated bilirubin, alk phos likely from hepatic steatosis Hepatosplenomegaly Abdominal ascites likely from volume overload Hypertension and hypertensive cardiovascular disease Diabetes Mellitus type 2 maintained on metformin Congenital heart disease with open heart age 7 Former smoker Anxiety Obesity GI prophylaxis DVT prophylaxis Full Code Plan Continue on IV antibiotics and infectious disease consultation Wound culture and blood culture pending Continue on IV lasix Q12 and recommend daily weight with strict intake and output monitoring Echocardiogram completed and reviewed cardiology has been consulted Patient recommended to continue diuresis with possible right heart carth Patient is recommended to follow up at the [facility] pulmonary hypertension clinic was recommended back in March of 2022 patient has not followed up yet. AM labs The impression and plan of care has been dictated by Katharine Sales, Nurse Practitioner as directed. Dr. Brandi MD I have performed a history and physical examination and medical decision making of this patient, discussed the same with the dictator, and agree with the dictators assessment and plan as written, documented as a scribe. Based on total visit time, I have performed more than 50% of this visit. Objective - Vital Signs Vital signs: Vital Signs Temp 97.4 F L 01/22/23 07:36 Pulse 89 01/22/23 07:36 Resp 17 01/22/23 07:36 BP 143/96 01/22/23 07:36 Pulse Ox 91 L 01/22/23 07:36 FiO2 Intake & Output 01/21/23 01/22/23 01/22/23 18:59 06:59 18:59 Intake Total 236 1130 Output Total 600 2150 Balance -364 -1020 Weight 150.4 kg Intake: Intake, IV Titration 50 Amount ceFAZolin 2 gm In Sodium 50 Chloride 0.9% 50 ml @ 100 mls/hr IVPB Q8HR [facility] Rx# :[id number] Oral 236 1080 Output: Urine 600 2150 - Labs CBC & Chem 7: 01/20/23 19:34 01/22/23 06:13 Labs: Abnormal Lab Results - Last 24 Hours (Table) 01/21/23 01/21/23 01/21/23 Range/Units 09:39 11:37 16:48 POC Glucose (mg/dL) 119 H 128 H (70-110) mg/dL Creatine Kinase 25 L (30-135) U/L Microbiology - Last 24 Hours (Table) 01/21/23 14:20 Gram Stain - Preliminary Leg - Left Wound Culture - Preliminary 01/21/23 14:20 Anaerobic Culture - Preliminary Leg - Left 01/20/23 19:34 Blood Culture - Preliminary Blood No Growth after 24 hours 01/20/23 19:34 Blood Culture - Preliminary Blood No Growth after 24 hours Assessment and Plan Time with Patient: Greater than 30
[2023-01-22 16:31] LABS: Glucose,Whole Blood 121 mg/dL (70-110)
[2023-01-22] MEDS: HEPARIN SODIUM,PORCINE/PF 5,000 UNIT/0.5 ML SYRINGE SQ SCH (17:11)
[2023-01-22] MEDS: LOSARTAN 25 MG TAB PO SCH (17:11)
[2023-01-22 20:42] LABS: Glucose,Whole Blood 109 mg/dL (70-110)
[2023-01-22] MEDS: LORazepam 0.5 MG TAB PO PRN (21:10)
[2023-01-23] MEDS: HEPARIN SODIUM,PORCINE/PF 5,000 UNIT/0.5 ML SYRINGE SQ SCH ×3 (00:47→14:46)
[2023-01-23 06:24] LABS: Glucose,Whole Blood 115 mg/dL (70-110)
[2023-01-23] MEDS: INSULIN ASPART (NovoLOG) 100 UNIT/ML VIAL SQ SCH ×4 (06:25→20:54)
[2023-01-23] MEDS: LORazepam 0.5 MG TAB PO PRN (08:35)
[2023-01-23] MEDS: FUROSEMIDE 10 MG/ML 4 ML VIAL IV SCH ×2 (09:45→21:09)
[2023-01-23] MEDS: metOLazone 5 MG TAB PO SCH (09:46)
[2023-01-23] MEDS: LOSARTAN 50 MG TAB PO SCH (09:46)
[2023-01-23] MEDS: SILDENAFIL 20 MG TAB PO SCH ×3 (09:46→22:18)
[2023-01-23] MEDS: FAMOTIDINE 20 MG TAB PO SCH (09:46)
[2023-01-23 09:55] LABS: African American GFR (CKD) 103.2 (60.0-200.0); Albumin 3.9 g/dL (3.8-4.9); Albumin/Globulin Ratio 1.22 (1.60-3.17); Anion Gap 15.1 mmol/L (10.00-18.00); Blood Urea Nitrogen 11.2 mg/dL (9.0-27.0); Calcium 9.4 mg/dL (8.7-10.3); Carbon Dioxide 24.9 mmol/L (20.0-27.5); Globulin 3.2 g/dL (1.6-3.3); Potassium 3.7 mmol/L (3.5-5.5); Total Bilirubin 1.4 mg/dL (0.30-1.20); Total Protein 7.1 g/dL (6.2-8.2)
--- NOTE | 2023-01-23 09:59 | P.PN ---
Subjective Progress Note Date: 01/23/23 HISTORY OF PRESENT ILLNESS: This is a 47 year old female with a past medical history significant for hypertension, open-heart surgery at the age of 7 secondary to coarctation of the aorta( Patient no longer follows with a congenital biology specialist. She said the last time she saw someone was at age 18) , congestive heart failure, and nicotine dependence who recently quit smoking. Patient follows in the office with Dr. Bro. We have been asked to see the patient in consultation for CHF. Patient examined at the bedside. Patient is admitted to the hospital secondary to cellulitis and acute on chronic congestive heart failure. She reports abdominal swelling that started a couple months ago. She reports SOB with ambulation. She currently denies chest pain or pressure. She is currently receiving IV lasix 40mg Q12 hours. She states she has only been taking her lasix once a day at home because she is busy during the day and did not want to have to use the bathroom frequently. It is noted that when the patient saw her primary varnish finisher, Dr. Bro, in March 2022 he recommended that she be referred to [facility] pulmonary hypertension clinic. The patient s tates that she has not contacted the [facility] for evaluation. * EKG reveals sinus mechanism with right bundle branch block * Chest xray mild coarsening of interstitial markings could be some pulmonary fibrosis. No significant change. Stable cardiomegaly. * CT abdomen pelvis: Moderate abdominal ascites. Significant subcutaneous edema around the abdomen and pelvis. Hepatosplenomegaly. Mild pulmonary interstitial infiltrates * Laboratory data: W BC 7.3. Hemoglobin 13.0. Platelet count 226. Sodium 135. Potassium 4.2. BUN 13. Creatinine 0.80. Troponin negative 1. ProBNP 288 0. * Current home cardiac medications include losartan 50 mg in the morning and 25 mg at night, Lasix 40 mg in the afternoon, and Lipitor 20 mg with lunch * Echocardiogram obtained revealing ejection fraction 50-55%, moderate concentric left ventricular hypertrophy, severe right ventricular dilation, right ventricular hypertrophy, septal flattening consistent with right ventricular volume pressure overload, severe pulmonary hypertension, bemk-hv-jskhokjo mitral regurgitation, gyld-co-kegmbsmi aortic stenosis, severe tricuspid regurgitation, and small pericardial effusion 01/23/2023 Patient examined this morning at the bedside. Patient denies chest pain or pressure. Denies SOB. She remains on IV lasix. Patient is adament about being discharged home today. PHYSICAL EXAM: VITAL SIGNS: Reviewed. GENERAL: Well-developed in no acute distress. HEENT: Head is normocephalic. Pupils are equal, round. Sclerae anicteric. Mucous membranes of the mouth are moist. Neck supple. No JVD or thyromegaly LUNGS: Respirations even and unlabored. Lungs essentially clear to auscultation bilaterally. HEART: Regular rate and rhythm. S1 and S2 heard. ABDOMEN: Distended. Evidence of abdominal ascites present. EXTREMITIES: Normal range of motion. No clubbing or cyanosis. Peripheral pulses intact. Significant bilateral lower extremity edema with cellulitis pres ent. Gauze dressings to bilateral lower extremities NEUROLOGIC: Awake and alert. Oriented x 3. ASSESSMENT: Bilateral lower extremity cellulitis Acute on chronic congestive heart failure with preserved EF, right sided heart failure Severe pulmonary hypertension, RVSP 82 Severe right ventricular dilatation with RV to LV ratio of 2:1 Enky-kb-nnomfxew aortic stenosis Mild to moderate mitral regurgitation Severe tricuspid regurgitation Open-heart surgery at the age of 7 secondary to coarctation of the aorta Hypertension PLAN: Plan dated 01/22/2023 -Dr. Hodges spoke in depth with the patient regarding her pulmonary hypertension. Patient somewhat unreceptive to information being presented to her. She is focused on being discharged home so she can leave for vacation to [place] on . She continued to repeat that she needs to be discharged so she can "exercise and eat the right foods to get better". Dr Hodges reinforced significance of patients diagnosis and the recommend treatment. However, she continues to discuss exercising, the food list that her family member gave her, and being discharged to go on vacation. -From a cardiology standpoint, would recommend right heart cath. However patient would require aggressive diuresis prior to this as she is significantly volume overloaded. This would require the patient to stay in the hospital for approximately 3-5 more days and patient is adamant about being discharged tomorrow to on vacation. -Recommend continuing IV Lasix at this time. Daily weights, accurate I&O, and monitoring of kidney function. -We will add Zaroxolyn 5 mg daily and Sildenafil 20 mg 3 times a day -Patient instructed to take her Lasix TWICE A DAY when she is discharged -Patient given the phone number to [facility] to call for evaluation. Patient verbalized understanding. -Further recommendations pending patient course Plan dated 01/23/2023 Continue current cardiac medications Transition to Bumex 2mg BID at discharge instead of Lasix Patient states she did not call [facility] yesterday although she was given the phone number. Patient once again encouraged to do so. Patient adament about being discharged today as she has some family issues going on with her daughter who is living in some unsafe and poor conditions and patient is leaving for vacation tomorrow. Will defer discharge to primary medicine. Nurse practitioner note has been reviewed by physician. Signing provider agrees with the documented findings, assessment, and plan of care. Objective - Vital Signs Vital signs: Vital Signs Temp 97.7 F 01/23/23 02:12 Pulse 87 01/23/23 07:40 Resp 16 01/23/23 07:40 BP 120/80 01/23/23 02:12 Pulse Ox 90 L 01/23/23 02:12 FiO2 Intake & Output 01/22/23 01/23/23 01/23/23 18:59 06:59 18:59 Intake Total 1130 Output Total 3400 2600 Balance -3400 -1470 Weight 143.4 kg Intake: Intake, IV Titration 50 Amount ceFAZolin 2 gm In Sodium 50 Chloride 0.9% 50 ml @ 100 mls/hr IVPB Q8HR [facility] Rx# :[id number] Oral 1080 Output: Urine 3400 2600 Other: Voiding Method Bedside Commode Toilet Toilet # Voids 3 - Labs CBC & Chem 7: 01/20/23 19:34 01/22/23 06:13 Labs: Abnormal Lab Results - Last 24 Hours (Table) 01/22/23 01/23/23 Range/Units 16:30 06:22 POC Glucose (mg/dL) 121 H 115 H (70-110) mg/dL Microbiology - Last 24 Hours (Table) 01/21/23 14:20 Gram Stain - Preliminary Leg - Left Wound Culture - Preliminary Gram Neg Bacilli Presumptive Staph aureus 01/20/23 19:34 Blood Culture - Preliminary Blood No Growth after 48 hours 01/20/23 19:34 Blood Culture - Preliminary Blood No Growth after 48 hours
[2023-01-23 11:41] LABS: Glucose,Whole Blood 113 mg/dL (70-110)
[2023-01-23] MEDS: CEFEPIME 2 GM in SODIUM CHLORIDE 0.9% 100 ML IVPB SCH ×2 (12:15→21:08)
[2023-01-23] MEDS: ATORVASTATIN 20 MG TAB PO SCH (12:15)
[2023-01-23 14:20] LABS: HIV 2 AB Non-Reactive (Non-Reactive); HIV AB P24 Non-Reactive (Non-Reactive); HIV P24 AG Non-Reactive (Non-Reactive)
[2023-01-23 16:33] LABS: Glucose,Whole Blood 104 mg/dL (70-110)
[2023-01-23] MEDS: LOSARTAN 25 MG TAB PO SCH (16:51)
--- NOTE | 2023-01-23 18:33 | P.PN ---
Subjective Progress Note Date: 01/23/23 Principal diagnosis: Bilateral lower extremity cellulitis Patient is a 47-year-old female with a past medical history significant for hypertension hyperlipidemia diabetes mellitus presenting to the hospital with increasing swelling and redness to bilateral lower extremity especially the left lower leg, has been diagnosed with bilateral lower extremity cellulitis. On today's evaluation that is 01/23/2023, the patient remains to be afebrile, the patient is breathing comfortably on room air, the patient denies any chest pain shortness of breath or cough overall pain and swelling to the leg has decreased in intensity, the patient has been insisting on going home Objective - Vital Signs Vital signs: Vital Signs Temp 98.1 F 01/23/23 08:20 Pulse 73 01/23/23 08:20 Resp 19 01/23/23 08:20 BP 120/75 01/23/23 08:20 Pulse Ox 99 01/23/23 08:20 FiO2 Intake & Output 01/22/23 01/23/23 01/23/23 18:59 06:59 18:59 Intake Total 1130 Output Total 3400 2600 Balance -3400 -1470 Weight 143.4 kg Intake: Intake, IV Titration 50 Amount ceFAZolin 2 gm In Sodium 50 Chloride 0.9% 50 ml @ 100 mls/hr IVPB Q8HR [facility] Rx# :[id number] Oral 1080 Output: Urine 3400 2600 Other: Voiding Method Bedside Commode Toilet Toilet # Voids 3 - Exam GENERAL DESCRIPTION: A middle-age female up in the chair in no distress RESPIRATORY SYSTEM: Unlabored breathing , decreased breath sounds at bases HEART: S1 S2 regular rate and rhythm , ABDOMEN: Soft , no tenderness EXTREMITIES: Bilateral lower extremity swelling redness slightly decreased - Labs CBC & Chem 7: 01/20/23 19:34 01/23/23 05:46 Labs: Abnormal Lab Results - Last 24 Hours (Table) 01/22/23 01/23/23 01/23/23 Range/Units 16:30 05:46 06:22 POC Glucose (mg/dL) 121 H 115 H (70-110) mg/dL Total Bilirubin 1.40 H (0.30-1.20) mg/dL AST 6 L (13-35) U/L Alkaline Phosphatase 144 H (41-126) U/L Albumin/Globulin Ratio 1.22 L (1.60-3.17) g/dL Microbiology - Last 24 Hours (Table) 01/21/23 14:20 Gram Stain - Preliminary Leg - Left Wound Culture - Preliminary Gram Neg Bacilli Presumptive Staph aureus 01/20/23 19:34 Blood Culture - Preliminary Blood No Growth after 48 hours 01/20/23 19:34 Blood Culture - Preliminary Blood No Growth after 48 hours Assessment and Plan (1) Bilateral lower leg cellulitis Current Visit: Yes Status: Acute Code(s): L03.116 - CELLULITIS OF LEFT LOWER LIMB; L03.115 - CELLULITIS OF RIGHT LOWER LIMB SNOMED Code(s): 872167698 Plan: 1patient with bilateral lower extremity cellulitis left greater than the right in this patient who did have evidence of fluid overload likely from underlying cardiac etiology with diffuse swelling redness likely streptococcal disease clinically doubt MRSA infection 2Patient local cultures currently growing staph aureus and gram-negative we will discontinue cefazolin and start the patient on cefepime to cover for both pathogen, patient has been advised to stay in hospital however she seems to be reluctant because of the family issues discussed with WOOD FURNITURE ASSEMBLER if the patient ended up signing AMA to consider oral Ceftin on discharge 10 days Time with Patient: Less than 30
[2023-01-23 20:51] LABS: Glucose,Whole Blood 139 mg/dL (70-110)
[2023-01-24] MEDS: HEPARIN SODIUM,PORCINE/PF 5,000 UNIT/0.5 ML SYRINGE SQ SCH ×3 (00:37→16:34)
[2023-01-24] MEDS: CEFEPIME 2 GM in SODIUM CHLORIDE 0.9% 100 ML IVPB SCH ×2 (05:21→13:29)
[2023-01-24 06:08] LABS: Glucose,Whole Blood 111 mg/dL (70-110)
[2023-01-24] MEDS: INSULIN ASPART (NovoLOG) 100 UNIT/ML VIAL SQ SCH ×2 (06:11→13:31)
[2023-01-24 07:47] LABS: African American GFR (CKD) >90 (>60 ml/min/1.73 sqM); Anion Gap 9 mmol/L; Blood Urea Nitrogen 12 mg/dL (7-17); Calcium 9.4 mg/dL (8.4-10.2); Carbon Dioxide 34 mmol/L (22-30); Chloride 92 mmol/L (98-107); Glucose 107 mg/dL (74-99); Non-African American GFR(CKD) >90 (>60 ml/min/1.73 sqM); Sodium 135 mmol/L (137-145)
[2023-01-24] MEDS: SILDENAFIL 20 MG TAB PO SCH ×2 (09:31→16:35)
[2023-01-24] MEDS: FUROSEMIDE 10 MG/ML 4 ML VIAL IV SCH (09:31)
[2023-01-24] MEDS: FAMOTIDINE 20 MG TAB PO SCH (09:31)
[2023-01-24] MEDS: LOSARTAN 50 MG TAB PO SCH (09:31)
[2023-01-24] MEDS: metOLazone 5 MG TAB PO SCH (09:31)
--- NOTE | 2023-01-24 09:53 | P.PN ---
Subjective Progress Note Date: 01/24/23 HISTORY OF PRESENT ILLNESS: This is a 47 year old female with a past medical history significant for hypertension, open-heart surgery at the age of 7 secondary to coarctation of the aorta( Patient no longer follows with a congenital management specialist. She said the last time she saw someone was at age 18) , congestive heart failure, and nicotine dependence who recently quit smoking. Patient follows in the office with Dr. Bro. We have been asked to see the patient in consultation for CHF. Patient examined at the bedside. Patient is admitted to the hospital secondary to cellulitis and acute on chronic congestive heart failure. She reports abdominal swelling that started a couple months ago. She reports SOB with ambulation. She currently denies chest pain or pressure. She is currently receiving IV lasix 40mg Q12 hours. She states she has only been taking her lasix once a day at home because she is busy during the day and did not want to have to use the bathroom frequently. It is noted that when the patient saw her primary recreation therapist, Dr. Bro, in March 2022 he recommended that she be referred to [facility] pulmonary hypertension clinic. The patient s tates that she has not contacted the [facility] for evaluation. * EKG reveals sinus mechanism with right bundle branch block * Chest xray mild coarsening of interstitial markings could be some pulmonary fibrosis. No significant change. Stable cardiomegaly. * CT abdomen pelvis: Moderate abdominal ascites. Significant subcutaneous edema around the abdomen and pelvis. Hepatosplenomegaly. Mild pulmonary interstitial infiltrates * Laboratory data: W BC 7.3. Hemoglobin 13.0. Platelet count 226. Sodium 135. Potassium 4.2. BUN 13. Creatinine 0.80. Troponin negative 1. ProBNP 288 0. * Current home cardiac medications include losartan 50 mg in the morning and 25 mg at night, Lasix 40 mg in the afternoon, and Lipitor 20 mg with lunch * Echocardiogram obtained revealing ejection fraction 50-55%, moderate concentric left ventricular hypertrophy, severe right ventricular dilation, right ventricular hypertrophy, septal flattening consistent with right ventricular volume pressure overload, severe pulmonary hypertension, lhul-zp-akiudgmp mitral regurgitation, bksf-ji-owcxcktb aortic stenosis, severe tricuspid regurgitation, and small pericardial effusion 01/23/2023 Patient examined this morning at the bedside. Patient denies chest pain or pressure. Denies SOB. She remains on IV lasix. Patient is adament about being discharged home today. 01/24/2023 patient examined this morning. She is sitting up in the chair. Patient denies chest pain or pressure. She denies shortness of breath. patient put out approximately 6 L of urine yesterday with a net fluid balance of -4870 mL. PHYSICAL EXAM: VITAL SIGNS: Reviewed. GENERAL: Well-developed in no acute distress. HEENT: Head is normocephalic. Pupils are equal, round. Sclerae anicteric. Mucous membranes of the mouth are moist. Neck supple. No JVD or thyromegaly LUNGS: Respirations even and unlabored. Lungs essentially clear to auscultation bilaterally. HEART: Regular rate and rhythm. S1 and S2 heard. ABDOMEN: Distended. Evidence of abdominal ascites present. EXTREMITIES: Normal range of motion. No clubbing or cyanosis. Peripheral pulses intact. Bilateral lower extremity edema with cellulitis present. Oz wraps to bilateral lower extremities NEUROLOGIC: Awake and alert. Oriented x 3. ASSESSMENT: Bilateral lower extremity cellulitis Acute on chronic congestive heart failure with preserved EF, right sided heart failure Severe pulmonary hypertension, RVSP 82 Severe right ventricular dilatation with RV to LV ratio of 2:1 Sgck-eq-elpfohrc aortic stenosis Mild to moderate mitral regurgitation Severe tricuspid regurgitation Open-heart surgery at the age of 7 secondary to coarctation of the aorta Hypertension PLAN: Plan dated 01/22/2023 -Dr. Hodges spoke in depth with the patient regarding her pulmonary hypertension. Patient somewhat unreceptive to information being presented to her. She is focused on being discharged home so she can leave for vacation to [place] on . She continued to repeat that she needs to be discharged so she can "exercise and eat the right foods to get better". Dr Hodges reinforced significance of patients diagnosis and the recommend treatment. However, she continues to discuss exercising, the food list that her family member gave her, and being discharged to go on vacation. -From a cardiology standpoint, would recommend right heart cath. However patient would require aggressive diuresis prior to this as she is significantly volume overloaded. This would require the patient to stay in the hospital for approximately 3-5 more days and patient is adamant about being discharged tomorrow to on vacation. -Recommend continuing IV Lasix at this time. Daily weights, accurate I&O, and monitoring of kidney function. -We will add Zaroxolyn 5 mg daily and Sildenafil 20 mg 3 times a day -Patient instructed to take her Lasix TWICE A DAY when she is discharged -Patient given the phone number to [facility] call for evaluation. Patient verbalized understanding. -Further recommendations pending patient course Plan dated 01/23/2023 Continue current cardiac medications Transition to Bumex 2mg BID at discharge instead of Lasix Patient states she did not call [facility] yesterday although she was given the phone number. Patient once again encouraged to do so. Patient adament about being discharged today as she has some family issues going on with her daughter who is living in some unsafe and poor conditions and patient is leaving for vacation tomorrow. Will defer discharge to primary medicine. Plan dated 01/24/2023 Patient on the phone this morning making an appointment for evaluation at [facility]. Referral given to patient. Patient is stable for discharge home today from a cardiac standpoint. Recommend Bumex 2 mg twice a day at the time of discharge. She is to follow up on an outpatient basis with Dr. Bro Nurse practitioner note has been reviewed by physician. Signing provider agrees with the documented findings, assessment, and plan of care. Objective - Vital Signs Vital signs: Vital Signs Temp 97.9 F 01/24/23 07:50 Pulse 99 01/24/23 07:50 Resp 15 01/24/23 07:50 BP 108/71 01/24/23 07:50 Pulse Ox 90 L 01/24/23 08:56 FiO2 Intake & Output 01/23/23 01/24/23 01/24/23 18:59 06:59 18:59 Intake Total 800 Output Total 1400 Balance -600 Weight 143.4 kg Intake: Intake, IV Titration 100 Amount Cefepime 2 gm In Sodium 100 Chloride 0.9% 100 ml @ 25 mls/hr IVPB Q8H [facility] Rx#: [id number] Oral 700 Output: Urine 1400 Other: Voiding Method Toilet Toilet # Bowel Movements 0 - Labs CBC & Chem 7: 01/20/23 19:34 01/24/23 06:47 Labs: Abnormal Lab Results - Last 24 Hours (Table) 01/23/23 01/23/23 01/23/23 Range/Units 05:46 11:39 20:49 Sodium (137-145) mmol/L Chloride (98-107) mmol/L Carbon Dioxide (22-30) mmol/L Glucose (74-99) mg/dL POC Glucose (mg/dL) 113 H 139 H (70-110) mg/dL Total Bilirubin 1.40 H (0.30-1.20) mg/dL AST 6 L (13-35) U/L Alkaline Phosphatase 144 H (41-126) U/L Albumin/Globulin Ratio 1.22 L (1.60-3.17) g/dL 01/24/23 01/24/23 Range/Units 06:06 06:47 Sodium 135 L (137-145) mmol/L Chloride 92 L (98-107) mmol/L Carbon Dioxide 34 H (22-30) mmol/L Glucose 107 H (74-99) mg/dL POC Glucose (mg/dL) 111 H (70-110) mg/dL Total Bilirubin (0.30-1.20) mg/dL AST (13-35) U/L Alkaline Phosphatase (41-126) U/L Albumin/Globulin Ratio (1.60-3.17) g/dL Microbiology - Last 24 Hours (Table) 01/21/23 14:20 Gram Stain - Final Leg - Left Wound Culture - Final Enterobacter cloacae Staphylococcus aureus 01/21/23 14:20 Anaerobic Culture - Preliminary Leg - Left 01/20/23 19:34 Blood Culture - Preliminary Blood No Growth after 72 hours 01/20/23 19:34 Blood Culture - Preliminary Blood No Growth after 72 hours
--- NOTE | 2023-01-24 10:55 | P.PN ---
Subjective Progress Note Date: 01/24/23 Principal diagnosis: Bilateral lower extremity cellulitis Patient is a 47-year-old female with a past medical history significant for hypertension hyperlipidemia diabetes mellitus presenting to the hospital with increasing swelling and redness to bilateral lower extremity especially the left lower leg, has been diagnosed with bilateral lower extremity cellulitis. On today's evaluation that is 01/24/2023, the patient continues to be afebrile, the patient is breathing comfortably on room air, the patient denies any chest pain shortness of breath or cough, the patient pain and swelling to the leg has decreased in intensity and no further drainage no diarrhea with antibiotic therapy Objective - Vital Signs Vital signs: Vital Signs Temp 97.9 F 01/24/23 07:50 Pulse 99 01/24/23 07:50 Resp 15 01/24/23 07:50 BP 108/71 01/24/23 07:50 Pulse Ox 90 L 01/24/23 08:56 FiO2 Intake & Output 01/23/23 01/24/23 01/24/23 18:59 06:59 18:59 Intake Total 800 Output Total 1400 Balance -600 Weight 143.4 kg Intake: Intake, IV Titration 100 Amount Cefepime 2 gm In Sodium 100 Chloride 0.9% 100 ml @ 25 mls/hr IVPB Q8H [facility] Rx#: [id number] Oral 700 Output: Urine 1400 Other: Voiding Method Toilet Toilet # Bowel Movements 0 - Exam GENERAL DESCRIPTION: A middle-age female up in the chair in no distress RESPIRATORY SYSTEM: Unlabored breathing , decreased breath sounds at bases HEART: S1 S2 regular rate and rhythm , ABDOMEN: Soft , no tenderness EXTREMITIES: Bilateral lower extremity currently covered with a Kerlix no drainage - Labs CBC & Chem 7: 01/20/23 19:34 01/24/23 06:47 Labs: Abnormal Lab Results - Last 24 Hours (Table) 01/23/23 01/23/23 01/23/23 Range/Units 05:46 11:39 20:49 Sodium (137-145) mmol/L Chloride (98-107) mmol/L Carbon Dioxide (22-30) mmol/L Glucose (74-99) mg/dL POC Glucose (mg/dL) 113 H 139 H (70-110) mg/dL Total Bilirubin 1.40 H (0.30-1.20) mg/dL AST 6 L (13-35) U/L Alkaline Phosphatase 144 H (41-126) U/L Albumin/Globulin Ratio 1.22 L (1.60-3.17) g/dL 01/24/23 01/24/23 Range/Units 06:06 06:47 Sodium 135 L (137-145) mmol/L Chloride 92 L (98-107) mmol/L Carbon Dioxide 34 H (22-30) mmol/L Glucose 107 H (74-99) mg/dL POC Glucose (mg/dL) 111 H (70-110) mg/dL Total Bilirubin (0.30-1.20) mg/dL AST (13-35) U/L Alkaline Phosphatase (41-126) U/L Albumin/Globulin Ratio (1.60-3.17) g/dL Microbiology - Last 24 Hours (Table) 01/21/23 14:20 Gram Stain - Final Leg - Left Wound Culture - Final Enterobacter cloacae Staphylococcus aureus 01/21/23 14:20 Anaerobic Culture - Preliminary Leg - Left 01/20/23 19:34 Blood Culture - Preliminary Blood No Growth after 72 hours 01/20/23 19:34 Blood Culture - Preliminary Blood No Growth after 72 hours Assessment and Plan (1) Bilateral lower leg cellulitis Current Visit: Yes Status: Acute Code(s): L03.116 - CELLULITIS OF LEFT LOWER LIMB; L03.115 - CELLULITIS OF RIGHT LOWER LIMB SNOMED Code(s): 721247715 Plan: 1patient with bilateral lower extremity cellulitis left greater than the right in this patient who did have evidence of fluid overload likely from underlying cardiac etiology with diffuse swelling redness likely streptococcal disease clinically doubt MRSA infection 2Patient local cultures grew Enterobacter and MSSA patient has been on cefepime she will be able to finish therapy with oral Cipro and Keflex and 10 days dis cussed with the RESIDENT DOCTOR for admitting team working on discharge Time with Patient: Less than 30
[2023-01-24 10:58] LABS: Basophils # (A) 0.05 X 10*3/uL (0.00-0.10); Basophils % (A) 0.6 %; Eosinophils # (A) 0.28 X 10*3/uL (0.04-0.35); Eosinophils % (A) 3.5 %; HCT 37.2 % (37.2-46.3); HGB 11.5 g/dL (12.0-15.0); Immature Grans, Automated 0.3 %; Lymphocytes # (A) 1.02 X 10*3/uL (0.90-5.00); Lymphocytes % (A) 12.8 %; MCH 26.3 pg (27.0-32.0); MCHC 30.9 g/dL (32.0-37.0); MCV 85.1 fL (80.0-97.0); Mean Platelet Volume 10.6 fL (9.5-12.2); Monocytes # (A) 0.65 X 10*3/uL (0.20-1.00); Monocytes % (A) 8.2 %; NRBC Per 100 WBC 0 /100 WBCS (0.0-0.0); Neutrophils # (A) 5.93 X 10*3/uL (1.80-7.70); Neutrophils % (A) 74.6 %; Platelet Count 241 X 10*3/uL (140-440); RBC 4.37 X 10*6/uL (4.10-5.20); RDW 19.6 % (11.5-14.5); WBC 7.95 X 10*3/uL (4.50-10.00)
[2023-01-24 11:49] LABS: Glucose,Whole Blood 105 mg/dL (70-110)
[2023-01-24 12:45] VITALS: BP 99/64; PULSE 93; RESP 18; TEMP 97.5
[2023-01-24] MEDS: ATORVASTATIN 20 MG TAB PO SCH (13:30)
--- NOTE | 2023-01-27 19:38 | P.DS ---
Providers Date of admission: 01/20/23 21:46 Expected date of discharge: 01/24/23 Attending physician: Kamaljit Combs Consults: 01/21/23 11:49 Consult Physician Routine Consulting Provider: Rehan Cannon Consult Reason/Comments: Cellulitis Do you want consulting provider notified?: Yes 01/22/23 09:59 Consult Physician Routine Consulting Provider: Saeid Jacob Consult Reason/Comments: CHF, small pericardial effusion Do you want consulting provider notified?: Yes Primary care physician: Stalin Robles Hospital Course: Final diagnosis Acute on chronic heart failure diastolic dysfunction Severe pulmonary hypertension and severe right ventricular dilation Valvular heart disease and mild to moderate aortic stenosis Bilateral acute on chronic lower extremity edema and cellulitis secondary to above Elevated bilirubin, alk phos likely from hepatic steatosis Hepatosplenomegaly Abdominal ascites likely from volume overload Hypertension and hypertensive cardiovascular disease Diabetes Mellitus type 2 maintained on 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 Patient will follow-up with Dr. Robles in the outpatient setting upon discharge. Patient is to follow-up with cardiology and infectious disease outpatient as scheduled. Patient will continue on oral antibiotics along with Lasix as mentioned below. Total time taken is greater than 35 minutes. Hospital course This is a 47-year-old female who was recently admitted with CHF exacerbation along with bilateral lower extremity cellulitis. Multiple medical consultations including infectious disease and cardiology following and patient was diuresed continuing with extremity edema and cardiology recommending to continue with IV diuresis and possible cardiac catheterization and patient would like to follow- up outpatient. Cultures growing some Enterobacter and staph aureus and will continue on oral medications and close outpatient follow-up with infectious disease. patient was adamant about leaving as she was going out of state where her daughter is as there are issues in her living situation and patient extremely anxious to leave. Patient reports she will follow-up with cardiology and continue on medications. Patient also reported she was driving to [place] and instructed frequent rest periods and getting up out of the car. Patient is high risk for readmission given her multiple comorbidities. Currently no reports of chest pain, shortness of breath, or palpitations. Patient is afebrile. No reports of nausea or vomiting and patient is tolerating diet. Patient will be discharged home today with extremely guarded prognosis as patient had been instructed to continue with current treatment while hospitalized although patient is adamant she has to leave to go help her daughter. A copy of this Dictation will be sent to primary care provider Dr. Stalin Robles Physical exam: Gen: This is a 47-year-old female who is awake, alert and oriented 3, well- developed, well-nourished, morbidly obese HEENT: Head is atraumatic, normocephalic. Pupils equal, round. Sclerae is anicteric. NECK: Supple. No JVD. No lymphadenopathy. No thyromegaly. LUNGS: Clear to auscultation. No wheezes or rhonchi. No intercostal retractions. HEART: Regular rate and rhythm. No murmur. ABDOMEN: Soft. Bowel sounds are present. No masses. No tenderness. EXTREMITIES: Bilateral lower extremity edema with extensive skin sloughing noted. No calf tenderness. NEUROLOGICAL: Patient is awake, alert and oriented x3. Cranial nerves 2 through 12 are grossly intact. Please refer to medication reconciliation sheet for a list of medications. The impression and plan of care has been dictated by Nirali Burnette, Nurse Practitioner as directed. Dr. Katiuska MD I have performed a history and examination and MDM of this patient, discussed the same with the dictator, and agree with the dictator's assessment and plan as written ,documented as a scribe. Based on total visit time, I have performed more than 50% of the visit. Patient Condition at Discharge: Fair Plan - Discharge Summary Discharge Rx Participant: Yes New Discharge Prescriptions: New Bumetanide [BUMEX] 2 mg PO BID #60 tab Sildenafil [Revatio] 20 mg PO TID #90 tab Ciprofloxacin HCl [Cipro] 500 mg PO BID 10 Days #20 tab Cephalexin [Keflex] 500 mg PO Q8HR 10 Days #30 cap Continue metFORMIN HCL [Glucophage] 500 mg PO BID-W/MEALS Losartan [Cozaar] 25 mg PO W/SUPPER Losartan [Cozaar] 50 mg PO DAILY Atorvastatin [Lipitor] 20 mg PO W/LUNCH Silver Sulfadiazine [SSD 1% Cream] 1 applic TOPICAL DAILY PRN PRN Reason: wound care Discontinued Furosemide [Lasix] 40 mg PO DAILY@1500 Furosemide [Lasix] 20 mg PO DAILY Discharge Medication List Atorvastatin [Lipitor] 20 mg PO W/LUNCH 09/11/22 [History] Losartan [Cozaar] 25 mg PO W/SUPPER 09/11/22 [History] Losartan [Cozaar] 50 mg PO DAILY 09/11/22 [History] metFORMIN HCL [Glucophage] 500 mg PO BID-W/MEALS 09/11/22 [History] Silver Sulfadiazine [SSD 1% Cream] 1 applic TOPICAL DAILY PRN 01/20/23 [History] Bumetanide [BUMEX] 2 mg PO BID #60 tab 01/23/23 [Rx] Sildenafil [Revatio] 20 mg PO TID #90 tab 01/23/23 [Rx] Cephalexin [Keflex] 500 mg PO Q8HR 10 Days #30 cap 01/24/23 [Rx] Ciprofloxacin HCl [Cipro] 500 mg PO BID 10 Days #20 tab 01/24/23 [Rx] Follow up Appointment(s)/Referral(s): Stalin Robles MD [Primary Care Provider] - 01/31/23 2:10 pm Isaiah Bro MD [STAFF PHYSICIAN] - 02/03/23 11:45 am Patient Instructions/Handouts: Edema (DC) Activity/Diet/Wound Care/Special Instructions: Activity Limited until follow-up Follow-up with primary care provider on discharge Follow-up with cardiology as discussed Continue taking medications as prescribed Continue heart healthy diabetic diet Discharge/Stand Alone Forms: Work/School Release Discharge Disposition: HOME SELF-CARE
--- NOTE | 2023-01-28 15:11 | CDI ---
Documentation Clarification Form Date: 01/28/2023 2:53:55 PM From: Elisabeth Ngo Admit Date: 01/20/2023 9:46:00 PM Patient Name: Fabiola Macias Visit Number: [id number] Discharge Date: 01/24/2023 4:55:00 PM ATTENTION: The Clinical Documentation Specialists (CDI) and [facility] Coding Staff appreciate your assistance in clarifying documentation. Please respond to the clarification below the line at the bottom and electronically sign. The CDI & [facility] Coding staff will review the response and follow-up if needed. Please note: Queries are made part of the Legal Health Record. If you have any questions, please contact the author of this message via ITS. Dr. William Paz Bilateral lower extremity cellulitis is documented throughout the chart. Patient also has diabetes on Metformin, documented throughout chart and in DCS. Please clarify if there is a relationship between the cellulitis and diabetes. History/Risk Factors: Diabetes, cellulitis Acute and Chronic diastolic CHF Clinical Indicators: Edema Treatment: Kefzol and Cefepime Please clarify the relationship, if any, which is clinically appropriate for this patient: [ ] Bilateral LE cellulitis is a complication of diabetes [ x ] Bilateral LE cellulitis is not a complication of diabetes. [ ] Other explanation of clinical findings (please specify) [ ] Unable to determine (no explanation for clinical findings) MTDD
== END 2023-01-24 16:55 | disposition home or self-care (01) | DRG 194 ==
LOC: EC 18:31 → 4SSUR 21:46
PROVIDERS: ADMIT Hospitalist; ATTEND Hospitalist
DX: I11.0 Hypertensive heart disease with heart failure (principal); L03.116 Cellulitis of left lower limb; L03.115 Cellulitis of right lower limb; R18.8 Other ascites; E66.9 Obesity, unspecified; Z68.42 Body mass index [BMI] 45.0-49.9, adult; E78.5 Hyperlipidemia, unspecified; F41.9 Anxiety disorder, unspecified; I08.3 Combined rheumatic disorders of mitral, aortic and tricuspid valves; I25.10 Atherosclerotic heart disease of native coronary artery without angina pectoris; I27.29 Other secondary pulmonary hypertension; I31.39 Other pericardial effusion (noninflammatory); I45.10 Unspecified right bundle-branch block; I50.33 Acute on chronic diastolic (congestive) heart failure; I50.82 Biventricular heart failure; K76.0 Fatty (change of) liver, not elsewhere classified; E11.9 Type 2 diabetes mellitus without complications; R79.1 Abnormal coagulation profile; Z79.84 Long term (current) use of oral hypoglycemic drugs; Z79.899 Other long term (current) drug therapy; Z87.891 Personal history of nicotine dependence; Z95.1 Presence of aortocoronary bypass graft; Z86.79 Personal history of other diseases of the circulatory system; Z28.310 Unvaccinated for COVID-19
CPT/HCPCS: 36415; 71046; 74177; 80048; 80053; 81003; 82150; 82550; 82565; 83036; 83605; 83690; 83880; 84484; 85025; 85610; 85730; 86038; 86431; 87040; 87070; 87075; 87077; 87186; 87205; 87390; 93005; 93306; 94760; 96374; 99285

== ENCOUNTER 2023-03-20 20:06 | Emergency (ER) | payer OTHER ==
[2023-03-20] MEDS ORDERED: TRANEXAMIC ACID 1,000 MG/10 ML VIAL IRRIGATION ONE (20:30)
--- NOTE | 2023-03-20 21:07 | ED ---
General Adult HPI - General Chief complaint: Skin/Abscess/Foreign Body Stated complaint: RT LEG SQUIRTING BLOOD Time Seen by Provider: 03/20/23 20:18 Source: patient Mode of arrival: ambulatory Limitations: no limitations - History of Present Illness Initial comments: Patient is a 47-year-old female presents to the emergency department for bleeding from scab. Patient was itching scab this afternoon which started bleeding . Patient has been unable to stop the bleed. She does not use blood thinners. - Related Data Home Medications Medication Instructions Recorded Confirmed Atorvastatin [Lipitor] 20 mg PO W/LUNCH 09/11/22 01/20/23 Losartan [Cozaar] 25 mg PO W/SUPPER 09/11/22 01/20/23 Losartan [Cozaar] 50 mg PO DAILY 09/11/22 01/20/23 metFORMIN HCL [Glucophage] 500 mg PO BID-W/MEALS 09/11/22 01/20/23 Silver Sulfadiazine [SSD 1% Cream] 1 applic TOPICAL DAILY PRN 01/20/23 01/20/23 Previous Rx's Medication Instructions Recorded Bumetanide [BUMEX] 2 mg PO BID #60 tab 01/23/23 Sildenafil [Revatio] 20 mg PO TID #90 tab 01/23/23 Cephalexin [Keflex] 500 mg PO Q8HR 10 Days #30 cap 01/24/23 Ciprofloxacin HCl [Cipro] 500 mg PO BID 10 Days #20 tab 01/24/23 Allergies Allergy/AdvReac Type Severity Reaction Status Date / Time No Known Allergies Allergy Verified 03/20/23 20:14 Review of Systems ROS Statement: Those systems with pertinent positive or pertinent negative responses have been documented in the HPI. ROS Other: All systems not noted in ROS Statement are negative. Past Medical History Past Medical History: Heart Failure, Hypertension, Pneumonia Additional Past Medical History / Comment(s): cellulitis History of Any Multi-Drug Resistant Organisms: None Reported Past Surgical History: Section, Coronary Bypass/CABG Additional Past Surgical History / Comment(s): open heart at age 7 Past Anesthesia/Blood Transfusion Reactions: No Reported Reaction Past Psychological History: Anxiety Smoking Status: Former smoker Past Alcohol Use History: None Reported Past Drug Use History: None Reported General Exam Limitations: no limitations General appearance: alert, in no apparent distress Eye exam: Present: normal appearance, PERRL, EOMI. Absent: scleral icterus, conjunctival injection, periorbital swelling Respiratory exam: Present: normal lung sounds bilaterally. Absent: respiratory distress, wheezes, rales, rhonchi, stridor Cardiovascular Exam: Present: regular rate, normal rhythm, normal heart sounds. Absent: systolic murmur, diastolic murmur, rubs, gallop, clicks Extremities exam: Present: other (1 mm bleeding scab right lateral thigh) Neurological exam: Present: alert, oriented X3, CN II-XII intact Psychiatric exam: Present: normal affect, normal mood Skin exam: Present: warm, dry, intact, normal color. Absent: rash Course Vital Signs 03/20/23 03/20/23 20:08 21:27 Temperature 98.2 F Pulse Rate 100 82 Respiratory 18 16 Rate Blood Pressure 152/89 148/82 O2 Sat by Pulse 93 L 97 Oximetry Procedures - Laceration Laceration #1 Site: lower extremity Anesthesia Technique: local infiltration Pre-repair: wound explored, irrigated extensively Size of Sutures: 4-0 Number of Sutures: 1 Technique: simple, interrupted Patient Tolerated Procedure: well, no complications Medical Decision Making - Medical Decision Making Was pt. sent in by a medical professional or institution (, PA, CLERK, urgent care, hospital, or jail...) When possible be specific @ -No Did you speak to anyone other than the patient for history (EMS, parent, family, police, friend...)? What history was obtained from this source @ -No Did you review nursing and triage notes (agree or disagree)? Why? @ -I reviewed and agree with nursing and triage notes Were old charts reviewed (outside hosp., previous admission, EMS record, old EKG, old radiological studies, urgent care reports/EKG's, jail records)? Report findings @ -No old charts were reviewed Differential Diagnosis (chest pain, altered mental status, abdominal pain women, abdominal pain men, vaginal bleeding, weakness, fever, dyspnea, syncope, headache, dizziness, GI bleed, back pain, seizure, CVA, palpatations, mental health)? @ -not applicable EKG interpreted by me (3pts min.). @ -As above X-rays interpreted by me (1pt min.). @ -None done CT interpreted by me (1pt min.). @ -None done U/S interpreted by me (1pt. min.). @ -[None done] What testing was considered but not performed or refused? (CT, X-rays, U/S, labs)? Why? @ -[None] What meds were considered but not given or refused? Why? @ -[None] Did you discuss the management of the patient with other professionals (professionals i.e. Dr., PA, CLERK, lab, RT, psych nurse, clinical social work aide, merchandising assistant, teacher, soil science technical officer, case checker)? Give summary @ -[No] Was smoking cessation discussed for >3mins.? @ -[No] Was critical care preformed (if so, how long)? @ -[No] Were there social determinants of health that impacted care today? How? (Homelessness, low income, unemployed, alcoholism, drug addiction, transpor tation, low edu. Level, literacy, decrease access to med. care, intermediate, rehab)? @ -[No] Was there de-escalation of care discussed even if they declined (Discuss DNR or withdrawal of care, Hospice)? DNR status @ -[No] What co-morbidities impacted this encounter? (DM, HTN, Smoking, COPD, CAD, Cancer, CVA, ARF, Chemo, Hep., AIDS, mental health diagnosis, sleep apnea, morbid obesity)? @ -[None] Was patient admitted / discharged? Hospital course, mention meds given and route, prescriptions, significant lab abnormalities, going to OR and other pertinent info. @ -Discharged. Applied pressure for 15 minutes scab continue to bleed. Then injected lidocaine with epi and did a [id number] suture which controlled bleeding. Patient observed for 15 minutes with no further bleeding. She is discharged with wound instructions. Undiagnosed new problem with uncertain prognosis? @ -[No] Drug Therapy requiring intensive monitoring for toxicity (Heparin, Nitro, Insulin, Cardizem)? @ -[No] Were any procedures done? @ -yes, suturing Diagnosis/symptom? @ -bleeding from wound Acute, or Chronic, or Acute on Chronic? @ -acute Uncomplicated (without systemic symptoms) or Complicated (systemic symptoms)? @ -uncomplicated Side effects of treatment? @ -[No] Exacerbation, Progression, or Severe Exacerbation? @ -[No] Poses a threat to life or bodily function? How? (Chest pain, [place], [place], pneumonia, PE, COPD, DKA, ARF, appy, cholecystitis, CVA, Diverticulitis, Homicidal, Suicidal, threat to staff... and all critical care pts) @No Dr. Mendoza is my attending Disposition Clinical Impression: Bleeding from wound Disposition: HOME SELF-CARE Condition: Good Instructions (If sedation given, give patient instructions): Acute Wound Care (ED) Additional Instructions: Ice and elevate leg. Please follow-up with your primary care provider in 1-2 days. Return to the emergency department if you experience new, concerning, or worsening symptoms. Is patient prescribed a controlled substance at d/c from ED?: No Referrals: Stalin Robles MD [Primary Care Provider] - 1-2 days
[2023-03-20 21:30] VITALS: BP 148/82; PULSE 82; RESP 16; TEMP 98.2
== END 2023-03-20 21:30 | disposition home or self-care (01) ==
LOC: EC 20:06
DX: L76.22 Postprocedural hemorrhage of skin and subcutaneous tissue following other procedure (principal); I11.0 Hypertensive heart disease with heart failure; I50.9 Heart failure, unspecified; F41.9 Anxiety disorder, unspecified; Z87.891 Personal history of nicotine dependence; Z79.899 Other long term (current) drug therapy
CPT/HCPCS: 12001; 99283

== ENCOUNTER 2023-04-04 10:32 | Emergency (ER) | payer OTHER ==
--- NOTE | 2023-04-04 11:51 | ED ---
General Adult HPI - General Chief complaint: Wound/Laceration Stated complaint: head injury/fall Time Seen by Provider: 04/04/23 10:57 Source: patient, family Mode of arrival: ambulatory Limitations: no limitations - History of Present Illness Initial comments: 47-year-old female presenting to the ED with chief complaint of laceration. Patient states that she was going up the stairs when her sandal got caught on her pant leg causing her to fall forward one step and hit her head to the carpet. This was unwitnessed. Denies LOC. Denies nausea or vomiting. Per family patient is acting appropriately. Tetanus status unknown. Patient denies being on blood thinners. Denies headache. Denies neck pain, weakness, or numbness. No other complaints. - Related Data Home Medications Medication Instructions Recorded Confirmed Atorvastatin [Lipitor] 20 mg PO W/LUNCH 09/11/22 01/20/23 Losartan [Cozaar] 25 mg PO W/SUPPER 09/11/22 01/20/23 Losartan [Cozaar] 50 mg PO DAILY 09/11/22 01/20/23 metFORMIN HCL [Glucophage] 500 mg PO BID-W/MEALS 09/11/22 01/20/23 Silver Sulfadiazine [SSD 1% Cream] 1 applic TOPICAL DAILY PRN 01/20/23 01/20/23 Previous Rx's Medication Instructions Recorded Bumetanide [BUMEX] 2 mg PO BID #60 tab 01/23/23 Sildenafil [Revatio] 20 mg PO TID #90 tab 01/23/23 Cephalexin [Keflex] 500 mg PO Q8HR 10 Days #30 cap 01/24/23 Ciprofloxacin HCl [Cipro] 500 mg PO BID 10 Days #20 tab 01/24/23 Allergies Allergy/AdvReac Type Severity Reaction Status Date / Time No Known Allergies Allergy Verified 04/04/23 10:38 Review of Systems ROS Statement: Those systems with pertinent positive or pertinent negative responses have been documented in the HPI. ROS Other: All systems not noted in ROS Statement are negative. Past Medical History Past Medical History: Heart Failure, Hypertension, Pneumonia Additional Past Medical History / Comment(s): cellulitis History of Any Multi-Drug Resistant Organisms: None Reported Past Surgical History: Section, Coronary Bypass/CABG Additional Past Surgical History / Comment(s): open heart at age 7 Past Anesthesia/Blood Transfusion Reactions: No Reported Reaction Past Psychological History: Anxiety Smoking Status: Former smoker Past Alcohol Use History: None Reported Past Drug Use History: None Reported General Exam Limitations: no limitations General appearance: alert, in no apparent distress Head exam: Present: normocephalic, other (this or step-off. No obvious deformity. The nail laceration approximately 7 inches on the forehead involving the dermis. No foreign objects.) Eye exam: Present: PERRL, EOMI ENT exam: Present: normal exam, other (Tongue midline uvula midline.) Neck exam: Present: other (No Midline cervical spinal tenderness to palpation.) Extremities exam: Present: other (Strength and sensation equal and intact in bilateral upper and lower extremities.) Neurological exam: Present: alert, oriented X3, CN II-XII intact Course Vital Signs 04/04/23 04/04/23 10:36 13:18 Temperature 98.1 F 98 F Pulse Rate 86 89 Respiratory 20 16 Rate Blood Pressure 152/85 122/79 O2 Sat by Pulse 99 98 Oximetry Procedures - Laceration Laceration #1 Indication: laceration Site: face Size (cm): 10 Description: linear (No foreign bodies), clean Depth: simple, single layer Anesthetic Used: lidocaine 1%, without epi Anesthesia Technique: local infiltration Amount (mls): 6 Pre-repair: wound explored, irrigated extensively Type of Sutures: vicryl Size of Sutures: 4-0 Number of Sutures: 15 Technique: simple, interrupted Patient Tolerated Procedure: well, no complications Medical Decision Making - Medical Decision Making Was pt. sent in by a medical professional or institution (, PA, BULK MAIL TECHNICIAN, urgent care, hospital, or [facility]...) When possible be specific @ -No Did you speak to anyone other than the patient for history (EMS, parent, family, police, friend...)? What history was obtained from this source @ -No Did you review nursing and triage notes (agree or disagree)? Why? @ -I reviewed and agree with nursing and triage notes Were old charts reviewed (outside hosp., previous admission, EMS record, old EKG, old radiological studies, urgent care reports/EKG's, [facility] records)? Report findings @ -Old charts reviewed showing no history of recent tetanus shot. Differential Diagnosis (chest pain, altered mental status, abdominal pain women, abdominal pain men, vaginal bleeding, weakness, fever, dyspnea, syncope, headache, dizziness, GI bleed, back pain, seizure, CVA, palpatations, mental health, musculoskeletal)? @ -Acute hemorrhage, cervical fracture, skull fracture. This is not meant to be an all-inclusive list. EKG interpreted by me (3pts min.). @ -None X-rays interpreted by me (1pt min.). @ -None done CT interpreted by me (1pt min.). @ -CT head and neck showed no acute findings. U/S interpreted by me (1pt. min.). @ -None done What testing was considered but not performed or refused? (CT, X-rays, U/S, labs)? Why? @ -None What meds were considered but not given or refused? Why? @ -None Did you discuss the management of the patient with other professionals (professionals i.e. , PA, BULK MAIL TECHNICIAN, lab, RT, psych nurse, 7th grade social studies teacher, poker room manager, teacher, licensed mortgage loan officer, embedded case manager)? Give summary @ -No Was smoking cessation discussed for >3mins.? @ -No Was critical care preformed (if so, how long)? @ -No Were there social determinants of health that impacted care today? How? (Homelessness, low income, unemployed, alcoholism, drug addiction, transportation, low edu. Level, literacy, decrease access to med. care, retirement, rehab)? @ -No Was there de-escalation of care discussed even if they declined (Discuss DNR or withdrawal of care, Hospice)? DNR status @ -No What co-morbidities impacted this encounter? (DM, HTN, Smoking, COPD, CAD, Cancer, CVA, ARF, Chemo, Hep., AIDS, mental health diagnosis, sleep apnea, morbid obesity)? @ -None Was patient admitted / discharged? Hospital course, mention meds given and route, prescriptions, significant lab abnormalities, going to OR and other pertinent info. @ -Discharged. Imaging studies as above. She had wound repaired please see procedure notes for further details. Tetanus updated. Discharged in stable condition. Undiagnosed new problem with uncertain prognosis? @ -No Drug Therapy requiring intensive monitoring for toxicity (Heparin, Nitro, Insulin, Cardizem)? @ -No Were any procedures done? @ -Yes, please see procedure note further details Diagnosis/symptom? @ -Laceration Acute, or Chronic, or Acute on Chronic? @ -Acute Uncomplicated (without systemic symptoms) or Complicated (systemic symptoms)? @ -Uncomplicated Side effects of treatment? @ -No Exacerbation, Progression, or Severe Exacerbation? @ -No Poses a threat to life or bodily function? How? (Chest pain, [place], [place], pneumonia, PE, COPD, DKA, ARF, appy, cholecystitis, CVA, Diverticulitis, Homicidal, Suicidal, threat to staff... and all critical care pts) @ -Yes, rule out acute hemorrhage Disposition Clinical Impression: Laceration Disposition: HOME SELF-CARE Additional Instructions: Please return to the Emergency Department if symptoms worsen or any other concerns. Wound care as discussed. Return in 7-10 days or present to PCP for removal. Is patient prescribed a controlled substance at d/c from ED?: No Referrals: Stalin Robles MD [Primary Care Provider] - 1-2 days Decision Time: 13:11
--- NOTE | 2023-04-04 12:03 | CT ---
EXAMINATION TYPE: CT brain lizette wo con DATE OF EXAM: 04/04/2023 COMPARISON: None HISTORY: 47-year-old female with pain after fall CT DLP: 1439.2 mGycm Automated exposure control for dose reduction was used. Technique: Examination of the head was done in axial plane without intravenous contrast. Coronal and sagittal reconstructions performed. CT of the cervical spine was obtained in axial plane without intravenous injection of contrast mater ial. Coronal and sagittal reformatted images were obtained from the axial views for evaluation of f ractures, spinal alignment and canal. FINDINGS: Head: Anterior frontal scalp contusion and laceration. No underlying calvarial fracture. There is no evidence of acute intracranial hemorrhage, acute ischemic changes, mass, mass-effect, or extra-axial fluid collection. There is no effacement of cerebral sulci or basal subarachnoid cister ns. There is no hydrocephalus. There is no midline shift. Hinojosa-white matter distinction is preserv ed. Paranasal sinuses and mastoid air cells are well pneumatized. Orbits and globes are intact. Cervical spine: Mild spondylotic change mid to lower cervical spine. Some straightening of the normal cervical lordos is could be positional or due to muscle spasm. Assessment of the spinal canal from C4 to C5 and below is limited due to artifact from the patient's shoulders. The alignment of the cervical spine is norm al on coronal and reformatted images. There is no cranial vertebral abnormality. Fracture of the cerv ical spine is not seen. Sagittal and coronal reformatted images confirm above findings. COMBINED IMPRESSION: 1. Frontal scalp laceration/contusion. No underlying calvarial fracture. No acute intracranial abnorm ality seen. 2. No acute fracture or malalignment of the cervical spine. Mild spondylotic change.
[2023-04-04] MEDS ORDERED: DIPH,PERTUS(ACELL)TETVAC-LF 0.5 ML VIAL IM ONE (12:08)
[2023-04-04] MEDS ORDERED: LIDOCAINE 1% INJ 10MG/ML (30 ML VIAL-PF) SQ ONE (12:11)
[2023-04-04] MEDS ORDERED: BACITRACIN OINT 1 EACH PACKET TOPICAL ONE (13:09)
[2023-04-04 13:20] VITALS: BP 122/79; PULSE 89; RESP 16; TEMP 98
== END 2023-04-04 13:39 | disposition home or self-care (01) ==
LOC: EC 10:32
DX: S01.01XA Laceration without foreign body of scalp, initial encounter (principal); I11.0 Hypertensive heart disease with heart failure; I50.9 Heart failure, unspecified; F41.9 Anxiety disorder, unspecified; Z79.899 Other long term (current) drug therapy; Z79.84 Long term (current) use of oral hypoglycemic drugs; Z87.891 Personal history of nicotine dependence; Z23 Encounter for immunization; W10.9XXA Fall (on) (from) unspecified stairs and steps, initial encounter
CPT/HCPCS: 72125; 70450; 90715; 99284; 90471; 12011; J2001

== ENCOUNTER 2023-04-14 08:16 | Emergency (ER) | payer OTHER ==
[2023-04-14 08:22] VITALS: BP 141/93; PULSE 95; RESP 20; TEMP 97.4
--- NOTE | 2023-04-14 08:50 | ED ---
Skin/Abscess/FB HPI - General Chief complaint: Skin/Abscess/Foreign Body Stated complaint: Right leg wound Time Seen by Provider: 04/14/23 08:23 Source: patient, RN notes reviewed Mode of arrival: ambulatory Limitations: no limitations - History of Present Illness Initial comments: This is a 47-year-old female who presents to the emergency department for a wound on the back of her right thigh. Patient states that she had a scab to this area that she was treated here for last month, as it would not stop bleeding. The scab was hanging off this morning and she caught it on part of her pants, causing it to bleed again. She subsequently covered the area with paper towel and is unsure if the bleeding has since stopped. She is not taking any blood thinners. Tetanus status is up-to-date. She also needs the sutures on her forehead removed that were placed 10 days ago after she fell. Denies any fevers, chills, sore throat, cough, dyspnea, chest pain, palpitations, abdominal pain, nausea, vomiting, diarrhea, back pain, or headaches. - Related Data Home Medications Medication Instructions Recorded Confirmed Atorvastatin [Lipitor] 20 mg PO W/LUNCH 09/11/22 01/20/23 Losartan [Cozaar] 25 mg PO W/SUPPER 09/11/22 01/20/23 Losartan [Cozaar] 50 mg PO DAILY 09/11/22 01/20/23 metFORMIN HCL [Glucophage] 500 mg PO BID-W/MEALS 09/11/22 01/20/23 Silver Sulfadiazine [SSD 1% Cream] 1 applic TOPICAL DAILY PRN 01/20/23 01/20/23 Previous Rx's Medication Instructions Recorded Bumetanide [BUMEX] 2 mg PO BID #60 tab 01/23/23 Sildenafil [Revatio] 20 mg PO TID #90 tab 01/23/23 Cephalexin [Keflex] 500 mg PO Q8HR 10 Days #30 cap 01/24/23 Ciprofloxacin HCl [Cipro] 500 mg PO BID 10 Days #20 tab 01/24/23 Allergies Allergy/AdvReac Type Severity Reaction Status Date / Time No Known Allergies Allergy Verified 04/14/23 08:21 Review of Systems ROS Statement: Those systems with pertinent positive or pertinent negative responses have been documented in the HPI. ROS Other: All systems not noted in ROS Statement are negative. Past Medical History Past Medical History: Heart Failure, Hypertension, Pneumonia Additional Past Medical History / Comment(s): cellulitis History of Any Multi-Drug Resistant Organisms: None Reported Past Surgical History: Section, Coronary Bypass/CABG Additional Past Surgical History / Comment(s): open heart at age 7 Past Anesthesia/Blood Transfusion Reactions: No Reported Reaction Past Psychological History: Anxiety Smoking Status: Former smoker Past Alcohol Use History: None Reported Past Drug Use History: None Reported General Exam Limitations: no limitations General appearance: alert, in no apparent distress Head exam: Present: other (Sutures in place over the forehead. Surrounding scabbing.) Respiratory exam: Present: normal lung sounds bilaterally. Absent: respiratory distress, wheezes, rales, rhonchi, stridor Cardiovascular Exam: Present: regular rate, normal rhythm, normal heart sounds. Absent: systolic murmur, diastolic murmur, rubs, gallop, clicks Neurological exam: Present: alert, oriented X3, CN II-XII intact Psychiatric exam: Present: normal affect, normal mood Skin exam: Present: other (0.5 cm scab to the posterior aspect of the right upper thigh. No active bleeding.) Course Vital Signs 04/14/23 08:18 Temperature 97.4 F L Pulse Rate 95 Respiratory 20 Rate Blood Pressure 141/93 O2 Sat by Pulse 95 Oximetry Medical Decision Making - Medical Decision Making This is a 47-year-old female who presents to the emergency department for suture removal and a scab on her right leg. Was pt. sent in by a medical professional or institution? @ -No Did you speak to anyone other than the patient for history? @ -No Did you review nursing and triage notes? @ -Yes, and I agree, it is accurate with regards to the patient's symptoms. Were old charts reviewed? @ -No Differential Diagnosis? @ -Not applicable EKG interpreted by me (3pts min.)? @ -Not obtained X-rays interpreted by me (1pt min.)? @ -Not obtained CT interpreted by me (1pt min.)? @ -Not obtained U/S interpreted by me (1pt. min.)? @ -Not obtained What testing was considered but not performed? (CT, X-rays, U/S, labs)? Why? @ -None What meds were considered but not given? Why? @ -None Did you discuss the management of the patient with other professionals? @ -No Did you reconcile home meds? @ -No Was smoking cessation discussed for >3mins.? @ -No Was critical care preformed (if so, how long)? @ -No Were there social determinants of health that impacted care today? How? (Homelessness, low income, unemployed, alcoholism, drug addiction, transportation, low edu. Level, literacy, decrease access to med. care, shelter, rehab)? @ -No Was there de-escalation of care discussed even if they declined? (Discuss DNR or withdrawal of care, Hospice)? @ -No What co-morbidities impacted this encounter? (DM, HTN, Smoking, COPD, CAD, Cancer, CVA, Hep., AIDS, mental health diagnosis, sleep apnea, morbid obesity)? @ -Morbid obesity Was patient admitted / discharged? @ -Discharged. The wound on the back of the right thigh had no active bleeding and was healing well on its own. Advised that at this point there is nothing we need to do to treat this. The sutures on her forehead were removed as well without any problems. She was given Band-Aids and gauze pads for the wound on her thigh. Advised that she can try to keep this covered to reduce the risk of further irritating this area leading to repetitive episodes of bleeding. Undiagnosed new problem with uncertain prognosis? @ -None Drug Therapy requiring intensive monitoring for toxicity (Heparin, Nitro, Insulin, Cardizem)? @ -None Were any procedures done? @ -Suture removal on forehead Diagnosis/symptom? @ -Scab, suture removal Acute, or Chronic, or Acute on Chronic? @ -Acute Uncomplicated (without systemic symptoms) or Complicated (systemic symptoms)? @ -Uncomplicated Side effects of treatment? @ -None Exacerbation, Progression, or Severe Exacerbation] @ -Not applicable Poses a threat to life or bodily function? @ -No Return precautions reviewed in depth, the patient is instructed to return to the emergency department with any new, worsening, or concerning symptoms. Patient verbalized understanding. This case was discussed in detail with the attending ED physician, Dr. Monte. Presentation, findings, and treatment plan discussed in detail as well. Disposition Clinical Impression: Scab, Visit for suture removal Disposition: HOME SELF-CARE Instructions (If sedation given, give patient instructions): Stitches Removal (ED) Additional Instructions: Return to the emergency department with any new, worsening, or concerning symptoms. If the wound on your thigh starts to bleed again, apply pressure dressing to this area. You can also keep it covered with a bandage to avoid having anything rub on this area and cause additional irritation. Follow up with your primary care provider in 1-2 days. Is patient prescribed a controlled substance at d/c from ED?: No Referrals: Stalin Robles MD [Primary Care Provider] - 1-2 days
== END 2023-04-14 09:51 | disposition home or self-care (01) ==
LOC: EC 08:16
DX: Z48.02 Encounter for removal of sutures (principal); L90.5 Scar conditions and fibrosis of skin; I11.0 Hypertensive heart disease with heart failure; I50.9 Heart failure, unspecified; F41.9 Anxiety disorder, unspecified; Z87.891 Personal history of nicotine dependence; Z79.899 Other long term (current) drug therapy
CPT/HCPCS: 99283

== ENCOUNTER 2023-06-04 15:01 | Inpatient (IN) | payer OTHER ==
[2023-06-04] MEDS ORDERED: SODIUM CHLORIDE 0.9% 1,000 ML IV STA ×2 (15:36)
[2023-06-04] MEDS ORDERED: ACETAMINOPHEN TAB 500 MG TAB PO STA (15:36)
[2023-06-04] MEDS ORDERED: SODIUM CHLORIDE 0.9% 500 ML 500 ML IV STA (15:36)
[2023-06-04] MEDS ORDERED: IBUPROFEN 800 MG TAB PO STA (15:36)
--- NOTE | 2023-06-04 15:37 | ED ---
Fever HPI - General Chief Complaint: Dizziness Stated Complaint: Dizziness Time Seen by Provider: 06/04/23 15:36 Source: patient, RN notes reviewed, old records reviewed Mode of arrival: ambulatory Limitations: no limitations - History of Present Illness Initial Comments: This is a 47-year-old female to the ER today for evaluation of severe generally feeling ill. Patient states she hasn't able to eat or drink for 2-3 days. Recently had significant weight loss. Patient states she is also short of breath, has no exertional tolerance and any activity causes her to be short of breath and tired. Patient's recent hospital admission a few months ago for cellulitis of lower extremities which she states her swelling is improved. Currently main complaint is severe dizziness feels like she is given a pass out for the last 3 days. Does have nausea with no appetite no diarrhea. Patient denies any complaints of pain MD Complaint: fever, weakness, other (Lower extremity edema shortness of breath) -: days(s) Temperature Source: subjective Context: sick contacts Associated Symptoms: chills, rigors, myalgias, shortness of breath, nausea, confusion Treatments Prior to Arrival: none - Related Data Home Medications Medication Instructions Recorded Confirmed Atorvastatin [Lipitor] 20 mg PO HS 09/11/22 06/04/23 Losartan [Cozaar] 25 mg PO TID 09/11/22 06/04/23 metFORMIN HCL [Glucophage] 500 mg PO BID-W/MEALS 09/11/22 06/04/23 Previous Rx's Medication Instructions Recorded Bumetanide [BUMEX] 2 mg PO BID #60 tab 01/23/23 Sildenafil [Revatio] 20 mg PO TID #90 tab 01/23/23 Allergies Allergy/AdvReac Type Severity Reaction Status Date / Time No Known Allergies Allergy Verified 06/04/23 17:42 Review of Systems ROS Statement: Those systems with pertinent positive or pertinent negative responses have been documented in the HPI. ROS Other: All systems not noted in ROS Statement are negative. Past Medical History Past Medical History: Heart Failure, Hypertension, Pneumonia Additional Past Medical History / Comment(s): cellulitis History of Any Multi-Drug Resistant Organisms: None Reported Past Surgical History: Section, Coronary Bypass/CABG Additional Past Surgical History / Comment(s): open heart at age 7 Past Anesthesia/Blood Transfusion Reactions: No Reported Reaction Past Psychological History: Anxiety Smoking Status: Former smoker Past Alcohol Use History: None Reported Past Drug Use History: None Reported General Exam Limitations: no limitations, altered mental status General appearance: alert, anxious, in distress, obese Head exam: Present: atraumatic, normocephalic, normal inspection Eye exam: Present: normal appearance, PERRL, EOMI. Absent: scleral icterus, conjunctival injection, periorbital swelling ENT exam: Present: normal exam, mucous membranes moist Neck exam: Present: normal inspection. Absent: tenderness, meningismus, lymphadenopathy Respiratory exam: Present: respiratory distress, rales, rhonchi, decreased breat h sounds, prolonged expiratory. Absent: wheezes, stridor Cardiovascular Exam: Present: normal rhythm, tachycardia, normal heart sounds. Absent: systolic murmur, diastolic murmur, rubs, gallop, clicks GI/Abdominal exam: Present: soft, normal bowel sounds. Absent: distended, tenderness, guarding, rebound, rigid Extremities exam: Present: normal inspection, full ROM, normal capillary refill. Absent: tenderness, pedal edema, joint swelling, calf tenderness Back exam: Present: normal inspection Neurological exam: Present: alert, oriented X3, CN II-XII intact Psychiatric exam: Present: normal affect, normal mood Skin exam: Present: warm, dry, intact, normal color. Absent: rash Course Vital Signs 06/04/23 06/04/23 06/04/23 15:21 15:40 15:42 Temperature 101.4 F H Pulse Rate 118 H Pulse Rate [ Chief Physical Therapist ] Respiratory 24 Rate Blood Pressure 96/57 Blood Pressure [Right Arm Sitting] O2 Sat by Pulse 91 L 87 L 97 Oximetry 06/04/23 06/04/23 06/04/23 15:58 16:40 17:30 Temperature 99.9 F H 98.7 F Pulse Rate 110 H 108 H 100 Pulse Rate [ Chief Physical Therapist ] Respiratory 20 20 27 H Rate Blood Pressure 85/46 90/62 Blood Pressure [Right Arm Sitting] O2 Sat by Pulse 96 97 97 Oximetry 06/04/23 06/04/23 06/04/23 17:40 17:50 17:56 Temperature 98.4 F Pulse Rate 101 H 0 L 97 Pulse Rate [ Chief Physical Therapist ] Respiratory 27 H Rate Blood Pressure 92/58 92/58 83/51 Blood Pressure [Right Arm Sitting] O2 Sat by Pulse 98 Oximetry 06/04/23 06/04/23 06/04/23 18:00 18:10 18:20 Temperature Pulse Rate 93 93 Pulse Rate [ Chief Physical Therapist ] Respiratory 13 16 Rate Blood Pressure 75/60 83/51 85/54 Blood Pressure [Right Arm Sitting] O2 Sat by Pulse 99 98 97 Oximetry 06/04/23 06/04/23 06/04/23 18:23 18:30 18:33 Temperature Pulse Rate 90 93 92 Pulse Rate [ Chief Physical Therapist ] Respiratory 14 Rate Blood Pressure 85/54 Blood Pressure [Right Arm Sitting] O2 Sat by Pulse 99 Oximetry 06/04/23 06/04/23 06/04/23 18:40 18:50 19:00 Temperature Pulse Rate 93 103 H Pulse Rate [ Chief Physical Therapist ] Respiratory 11 L Rate Blood Pressure 79/53 78/45 78/45 Blood Pressure [Right Arm Sitting] O2 Sat by Pulse 98 99 98 Oximetry 06/04/23 06/04/23 06/04/23 19:10 19:20 19:30 Temperature Pulse Rate 0 L Pulse Rate [ Chief Physical Therapist ] Respiratory Rate Blood Pressure 85/60 88/69 88/69 Blood Pressure [Right Arm Sitting] O2 Sat by Pulse 99 99 98 Oximetry 06/04/23 06/04/23 06/04/23 19:40 19:50 20:00 Temperature Pulse Rate Pulse Rate [ Chief Physical Therapist ] Respiratory Rate Blood Pressure 80/47 75/54 75/54 Blood Pressure [Right Arm Sitting] O2 Sat by Pulse 98 99 99 Oximetry 06/04/23 06/04/23 06/04/23 20:10 20:20 20:29 Temperature 97.4 F L Pulse Rate 86 Pulse Rate [ Chief Physical Therapist ] Respiratory 18 Rate Blood Pressure 83/58 81/54 81/59 Blood Pressure [Right Arm Sitting] O2 Sat by Pulse 99 100 98 Oximetry 06/04/23 06/04/23 06/04/23 20:30 20:40 20:50 Temperature Pulse Rate 87 85 Pulse Rate [ Chief Physical Therapist ] Respiratory 21 20 Rate Blood Pressure 85/58 81/59 81/55 Blood Pressure [Right Arm Sitting] O2 Sat by Pulse 98 99 98 Oximetry 06/04/23 06/04/23 06/04/23 21:00 21:07 21:10 Temperature Pulse Rate 85 85 86 Pulse Rate [ Chief Physical Therapist ] Respiratory 12 20 9 L Rate Blood Pressure 81/55 78/56 78/56 Blood Pressure [Right Arm Sitting] O2 Sat by Pulse 99 98 98 Oximetry 06/04/23 06/04/23 06/04/23 21:18 21:20 21:26 Temperature 97.5 F L Pulse Rate 86 84 Pulse Rate [ 87 Chief Physical Therapist ] Respiratory 20 18 18 Rate Blood Pressure 75/54 82/58 Blood Pressure 75/54 [Right Arm Sitting] O2 Sat by Pulse 98 98 98 Oximetry 06/04/23 06/04/23 06/04/23 21:30 21:40 21:50 Temperature Pulse Rate 82 83 90 Pulse Rate [ Chief Physical Therapist ] Respiratory 14 21 20 Rate Blood Pressure 82/58 78/59 94/58 Blood Pressure [Right Arm Sitting] O2 Sat by Pulse 98 98 98 Oximetry 06/04/23 06/04/23 06/04/23 22:00 22:10 22:15 Temperature 97.7 F 97.7 F Pulse Rate 83 85 Pulse Rate [ Chief Physical Therapist ] Respiratory 20 18 Rate Blood Pressure 86/50 84/60 82/53 Blood Pressure [Right Arm Sitting] O2 Sat by Pulse 99 99 99 Oximetry 06/04/23 06/04/23 06/04/23 22:20 22:30 22:40 Temperature Pulse Rate 90 Pulse Rate [ Chief Physical Therapist ] Respiratory 19 Rate Blood Pressure 82/53 82/53 88/56 Blood Pressure [Right Arm Sitting] O2 Sat by Pulse 98 99 97 Oximetry 06/04/23 06/04/23 06/04/23 22:49 22:50 23:00 Temperature Pulse Rate Pulse Rate [ Chief Physical Therapist ] Respiratory Rate Blood Pressure 80/57 80/57 80/57 Blood Pressure [Right Arm Sitting] O2 Sat by Pulse 98 99 Oximetry - Reevaluation(s) Reevaluation #1: 06/04/23 18:10 Medical record is reviewed Reevaluation #2: 06/04/23 18:10 Patient has no improvement in symptoms here in the ER Reevaluation #3: 06/04/23 18:11 Patient informed results and questions answered Reevaluation #4: 06/04/23 18:10 Was pt. sent in by a medical professional or institution (, PA, GRAIN OILSEED OR PASTURE GROWER, urgent care, hospital, or long-term...) When possible be specific @ -no Did you speak to anyone other than the patient for history (EMS, parent, family, police, friend...)? What history was obtained from this source @ -no Did you review nursing and triage notes (agree or disagree)? Why? @ -agree Are old charts reviewed (outside hosp., previous admission, EMS record, old EKG, old radiological studies, urgent care reports/EKG's, long-term records)? Report findings @ -yes Differential Diagnosis (chest pain, altered mental status, abdominal pain women, abdominal pain men, vaginal bleeding, weakness, fever, dyspnea, syncope, headache, dizziness, GI bleed, back pain, seizure, CVA, palpatations, mental health, musculoskeletal)? @ -prior EKG interpreted by me (3pts min.). @ -yes X-rays interpreted by me (1pt min.). @ -yes CT interpreted by me (1pt min.). @ -no U/S interpreted by me (1pt. min.). @ -no What testing was considered but not performed or refused? (CT, X-rays, U/S, labs)? Why? @ -none What meds were considered but not given or refused? Why? @ -none Did you discuss the management of the patient with other professionals (professionals i.e. , PA, G[employer]IN [employer]IL[employer] PASTURE GROWER, lab, RT, psych nurse, school social worker, team psychologist, teacher, loans officer, business case analyst)? Give summary @ -no Was smoking cessation discussed for >3mins.? @ -no Was critical care preformed (if so, how long)? @ -no Were there social determinants of health that impacted care today? How? (Homelessness, low income, unemployed, alcoholism, drug addiction, transportation, low edu. Level, literacy, decrease access to med. care, [facility], rehab)? @ -none Was there de-escalation of care discussed even if they declined (Discuss DNR or withdrawal of care, Hospice)? DNR status @ -no What co-morbidities impacted this encounter? (DM, HTN, Smoking, COPD, CAD, Cancer, CVA, ARF, Chemo, Hep., AIDS, mental health diagnosis, sleep apnea, morbid obesity)? @ -none Was patient admitted / discharged? Hospital course, mention meds given and route, prescriptions, significant lab abnormalities, going to OR and other pertinent info. @ - 47 female to the emergency department for evaluation. Patient presents today to him for evaluation of weakness lightheadedness dizziness. Patient does have multiple abnormal lab values including troponin. Admitted Undiagnosed new problem with uncertain prognosis? @ -no Drug Therapy requiring intensive monitoring for toxicity (Heparin, Nitro, Insulin, Cardizem)? @ -no Were any procedures done? @ -no Diagnosis/symptom? @ -Sepsis, fever, pneumonia Acute, or Chronic, or Acute on Chronic? @ -Acute Uncomplicated (without systemic symptoms) or Complicated (systemic symptoms)? @ -Complicated Side effects of treatment? @ -no Exacerbation, Progression, or Severe Exacerbation? @ -exacerbation Poses a threat to life or bodily function? How? (Chest pain, USA, AR, pneumonia, PE, COPD, DKA, ARF, appy, cholecystitis, CVA, Diverticulitis, Homicidal, S uicidal, threat to staff... and all critical care pts) @ -yes sepsis Reevaluation #5: 06/04/23 18:10 Differential Fever: Pneumonia, viral URI, endocarditis, myocarditis, pericarditis, otitis, sinusitis, peritonsillar Abscess, retropharyngeal Abscess, epiglottitis, peritonitis, appendicitis, Kerri cystitis, diverticulitis, hepatitis, colitis, UTI, PID, TOA, pyelonephritis, prostatitis, epididymitis, meningitis, encephalitis, pulmonary embolism, CVA, thyroid storm, pancreatitis, adrenal crisis, cavernous sinus thrombosis, this is not meant to be an all-inclusive list. Differential Dyspnea: Coronary syndrome, arrhythmia, tamponade, asthma, COPD, pulmonary embolism, pneumonia, pneumothorax, pulmonary effusion, anaphylaxis, diabetic ketoacidosis, flailed chest, pulmonary contusion, diaphragmatic rupture, anemia, neuromuscular, this is not meant to be an all-inclusive list. Differential Weakness: Hypoglycemia, shock, sepsis, hyponatremia, anemia, infection, AR, ETOH, adverse medicine reaction, overdose, stroke, this is not meant to be an all-inclusive list. - Consultations Consultation #1: racquel STROUD who agrees to admit the patient Procedures - Sepsis Sepsis Focused Exam #1 Time Sepsis Criteria Met: 20:00 Sepsis Focused Exam Date: 06/04/23 Sepsis Focused Exam Time: 23:55 Capillary Refill: < 2 Seconds: Fingers, Toes Peripheral Pulses: Normal: Radial (R), Radial (L), Posterior Tibialis (R), Posterior Tibialis (L), Dorsalis Pedis (R), Dorsalis Pedis (L) Skin Color: Flushed, Ashen Respiratory Exam: wheezes, rales, decreased breath sounds Cardiovascular Exam: tachycardia Medical Decision Making - Medical Decision Making 47 female to the emergency department for evaluation. Patient presents today to him for evaluation of weakness lightheadedness dizziness. Patient does have multiple abnormal lab values including troponin. Patient is with fever, pneumonia multiple sources of possible infection. Sepsis - Lab Data Result diagrams: 06/09/23 03:35 06/09/23 03:35 Lab Results 06/04/23 06/04/23 06/04/23 Range/Units 00:44 15:57 15:57 WBC 9.5 (3.8-10.6) k/uL RBC 3.94 (3.80-5.40) m/uL Hgb 10.9 L (11.4-16.0) gm/dL Hct 31.6 L (34.0-46.0) % MCV 80.2 (80.0-100.0) fL MCH 27.7 (25.0-35.0) pg MCHC 34.5 (31.0-37.0) g/dL RDW 16.6 H (11.5-15.5) % Plt Count 105 L (150-450) k/uL MPV 10.0 Neutrophils % 90 % Lymphocytes % 4 % Monocytes % 4 % Eosinophils % 1 % Basophils % 0 % Neutrophils # 8.5 H (1.3-7.7) k/uL Lymphocytes # 0.4 L (1.0-4.8) k/uL Monocytes # 0.4 (0-1.0) k/uL Eosinophils # 0.1 (0-0.7) k/uL Basophils # 0.0 (0-0.2) k/uL Anisocytosis Slight Microcytosis Slight PT 14.7 H (9.0-12.0) sec INR 1.5 H (<1.2) APTT 26.1 (22.0-30.0) sec Sodium (137-145) mmol/L Potassium (3.5-5.1) mmol/L Chloride (98-107) mmol/L Carbon Dioxide (22-30) mmol/L Anion Gap mmol/L BUN (7-17) mg/dL Creatinine (0.52-1.04) mg/dL Est GFR (CKD-EPI)AfAm (>60 ml/min/1.73 sqM) Est GFR (CKD-EPI)NonAf (>60 ml/min/1.73 sqM) Glucose (74-99) mg/dL Plasma Lactic Acid Jordon (0.7-2.0) mmol/L Calcium (8.4-10.2) mg/dL Phosphorus (2.5-4.5) mg/dL Magnesium (1.6-2.3) mg/dL Total Bilirubin (0.2-1.3) mg/dL AST (14-36) U/L ALT (4-34) U/L Alkaline Phosphatase (38-126) U/L Troponin I (0.000-0.034) ng/mL Total Protein (6.3-8.2) g/dL Albumin (3.5-5.0) g/dL Procalcitonin 12.70 H (0.02-0.09) ng/mL Urine Color Urine Appearance (Clear) Urine pH (5.0-8.0) Ur Specific [place] (1.001-1.035) Urine Protein (Negative) Urine Glucose (UA) (Negative) Urine Ketones (Negative) Urine Blood (Negative) Urine Nitrite (Negative) Urine Bilirubin (Negative) Urine Urobilinogen (<2.0) mg/dL Ur Leukocyte Esterase (Negative) Urine RBC (0-5) /hpf Urine WBC (0-5) /hpf Ur Squamous Epith Cells (0-4) /hpf Urine Bacteria (None) /hpf Hyaline Casts (0-2) /lpf Urine Mucus (None) /hpf Influenza Type A (PCR) (Not Detectd) Influenza Type B (PCR) (Not Detectd) RSV (PCR) (Not Detectd) SARS-CoV-2 (PCR) (Not Detectd) 06/04/23 06/04/23 06/04/23 Range/Units 15:57 15:57 15:57 WBC (3.8-10.6) k/uL RBC (3.80-5.40) m/uL Hgb (11.4-16.0) gm/dL Hct (34.0-46.0) % MCV (80.0-100.0) fL MCH (25.0-35.0) pg MCHC (31.0-37.0) g/dL RDW (11.5-15.5) % Plt Count (150-450) k/uL MPV Neutrophils % % Lymphocytes % % Monocytes % % Eosinophils % % Basophils % % Neutrophils # (1.3-7.7) k/uL Lymphocytes # (1.0-4.8) k/uL Monocytes # (0-1.0) k/uL Eosinophils # (0-0.7) k/uL Basophils # (0-0.2) k/uL Anisocytosis Microcytosis PT (9.0-12.0) sec INR (<1.2) APTT (22.0-30.0) sec Sodium 117 L* (137-145) mmol/L Potassium 4.1 (3.5-5.1) mmol/L Chloride 86 L (98-107) mmol/L Carbon Dioxide 20 L (22-30) mmol/L Anion Gap 11 mmol/L BUN 20 H (7-17) mg/dL Creatinine 0.80 (0.52-1.04) mg/dL Est GFR (CKD-EPI)AfAm >90 (>60 ml/min/1.73 sqM) Est GFR (CKD-EPI)NonAf 90 (>60 ml/min/1.73 sqM) Glucose 104 H (74-99) mg/dL Plasma Lactic Acid Jordon (0.7-2.0) mmol/L Calcium 8.0 L (8.4-10.2) mg/dL Phosphorus 2.5 (2.5-4.5) mg/dL Magnesium 1.5 L (1.6-2.3) mg/dL Total Bilirubin 2.7 H (0.2-1.3) mg/dL AST 32 (14-36) U/L ALT 36 H (4-34) U/L Alkaline Phosphatase 100 (38-126) U/L Troponin I 0.367 H* (0.000-0.034) ng/mL Total Protein 6.7 (6.3-8.2) g/dL Albumin 3.3 L (3.5-5.0) g/dL Procalcitonin (0.02-0.09) ng/mL Urine Color Urine Appearance (Clear) Urine pH (5.0-8.0) Ur Specific [place] (1.001-1.035) Urine Protein (Negative) Urine Glucose (UA) (Negative) Urine Ketones (Negative) Urine Blood (Negative) Urine Nitrite (Negative) Urine Bilirubin (Negative) Urine Urobilinogen (<2.0) mg/dL Ur Leukocyte Esterase (Negative) Urine RBC (0-5) /hpf Urine WBC (0-5) /hpf Ur Squamous Epith Cells (0-4) /hpf Urine Bacteria (None) /hpf Hyaline Casts (0-2) /lpf Urine Mucus (None) /hpf Influenza Type A (PCR) Not Detected (Not Detectd) Influenza Type B (PCR) Not Detected (Not Detectd) RSV (PCR) Not Detected (Not Detectd) SARS-CoV-2 (PCR) Not Detected (Not Detectd) 06/04/23 06/04/23 Range/Units 15:58 16:26 WBC (3.8-10.6) k/uL RBC (3.80-5.40) m/uL Hgb (11.4-16.0) gm/dL Hct (34.0-46.0) % MCV (80.0-100.0) fL MCH (25.0-35.0) pg MCHC (31.0-37.0) g/dL RDW (11.5-15.5) % Plt Count (150-450) k/uL MPV Neutrophils % % Lymphocytes % % Monocytes % % Eosinophils % % Basophils % % Neutrophils # (1.3-7.7) k/uL Lymphocytes # (1.0-4.8) k/uL Monocytes # (0-1.0) k/uL Eosinophils # (0-0.7) k/uL Basophils # (0-0.2) k/uL Anisocytosis Microcytosis PT (9.0-12.0) sec INR (<1.2) APTT (22.0-30.0) sec Sodium (137-145) mmol/L Potassium (3.5-5.1) mmol/L Chloride (98-107) mmol/L Carbon Dioxide (22-30) mmol/L Anion Gap mmol/L BUN (7-17) mg/dL Creatinine (0.52-1.04) mg/dL Est GFR (CKD-EPI)AfAm (>60 ml/min/1.73 sqM) Est GFR (CKD-EPI)NonAf (>60 ml/min/1.73 sqM) Glucose (74-99) mg/dL Plasma Lactic Acid Jordon 1.4 (0.7-2.0) mmol/L Calcium (8.4-10.2) mg/dL Phosphorus (2.5-4.5) mg/dL Magnesium (1.6-2.3) mg/dL Total Bilirubin (0.2-1.3) mg/dL AST (14-36) U/L ALT (4-34) U/L Alkaline Phosphatase (38-126) U/L Troponin I (0.000-0.034) ng/mL Total Protein (6.3-8.2) g/dL Albumin (3.5-5.0) g/dL Procalcitonin (0.02-0.09) ng/mL Urine Color Light Red Urine Appearance Cloudy H (Clear) Urine pH 5.5 (5.0-8.0) Ur Specific [place] 1.018 (1.001-1.035) Urine Protein 2+ H (Negative) Urine Glucose (UA) Negative (Negative) Urine Ketones Negative (Negative) Urine Blood Moderate H (Negative) Urine Nitrite Negative (Negative) Urine Bilirubin 1+ H (Negative) Urine Urobilinogen <2.0 (<2.0) mg/dL Ur Leukocyte Esterase Negative (Negative) Urine RBC 3 (0-5) /hpf Urine WBC 4 (0-5) /hpf Ur Squamous Epith Cells 2 (0-4) /hpf Urine Bacteria Rare H (None) /hpf Hyaline Casts 1 (0-2) /lpf Urine Mucus Rare H (None) /hpf Influenza Type A (PCR) (Not Detectd) Influenza Type B (PCR) (Not Detectd) RSV (PCR) (Not Detectd) SARS-CoV-2 (PCR) (Not Detectd) - EKG Data -: EKG Interpreted by Me (EKG is sinus tachycardia 111 OH 132 QRS 123 QTC 390) - Radiology Data Radiology results: report reviewed (Chest x-ray positive for CHF possible underlying pneumonia), image reviewed Critical Care Time Critical Care Time: Yes Total Critical Care Time: 31 Disposition Clinical Impression: Dehydration, Sepsis, Bilateral cellulitis of lower leg, CHF (congestive heart failure), Pneumonia, KIERSTEN (acute kidney injury), Hyponatremia, Anasarca, Cellulitis, Fever, Elevated troponin, Hypomagnesemia, NSTEMI (non-ST elevated myocardial infarction), Non-pressure chronic ulcer of other part of left foot with fat layer exposed, Chronic venous hypertension w/ulcer and inflammation involv left side, Chronic venous hypertension (idiopathic) with inflammation of bilateral lower extremity Disposition: ADMITTED IP TO THIS HOSP Condition: Serious Is patient prescribed a controlled substance at d/c from ED?: No Time of Disposition: 18:05
[2023-06-04 16:26] LABS: ALT 36 U/L (4-34); AST 32 U/L (14-36); African American GFR (CKD) >90 (>60 ml/min/1.73 sqM); Albumin 3.3 g/dL (3.5-5.0); Alkaline Phosphatase 100 U/L (38-126); Anion Gap 11 mmol/L; Blood Urea Nitrogen 20 mg/dL (7-17); Carbon Dioxide 20 mmol/L (22-30); Chloride 86 mmol/L (98-107); Glucose 104 mg/dL (74-99); Magnesium 1.5 mg/dL (1.6-2.3); Non-African American GFR(CKD) 90 (>60 ml/min/1.73 sqM); Phosphorus 2.5 mg/dL (2.5-4.5); Potassium 4.1 mmol/L (3.5-5.1); Total Bilirubin 2.7 mg/dL (0.2-1.3); Total Protein 6.7 g/dL (6.3-8.2)
[2023-06-04 16:33] LABS: Sodium 117 mmol/L (137-145)
[2023-06-04 16:35] LABS: INR 1.5 (<1.2); Partial Thromboplastin Time 26.1 sec (22.0-30.0); Prothrombin Time 14.7 sec (9.0-12.0)
[2023-06-04 16:35] LABS: Appearance,Urine Cloudy (Clear); Bacteria,Urine Rare /hpf; Bilirubin,Urine 1+ (Negative); Blood,Urine Moderate (Negative); Color,Urine Light Red; Glucose,Urine (UA) Negative (Negative); Hyaline Casts,Urine 1 /lpf (0-2); Ketones,Urine Negative (Negative); Leukocyte Esterase,Urine Negative (Negative); Mucus,Urine Rare /hpf; Nitrite,Urine Negative (Negative); PH, Urine 5.5 (5.0-8.0); Protein,Urine 2+ (Negative); RBC,Urine 3 /hpf (0-5); Specific Gravity,Urine 1.018 (1.001-1.035); Squamous Epithelial Cell,Urine 2 /hpf (0-4); Urobilinogen,Urine <2.0 mg/dL (<2.0); WBC,Urine 4 /hpf (0-5)
[2023-06-04 16:37] LABS: Anisocytosis Slight; Basophils % (A) 0 %; Eosinophils # (A) 0.1 k/uL (0-0.7); Eosinophils % (A) 1 %; HCT 31.6 % (34.0-46.0); HGB 10.9 gm/dL (11.4-16.0); Lymphocytes # (A) 0.4 k/uL (1.0-4.8); Lymphocytes % (A) 4 %; MCH 27.7 pg (25.0-35.0); MCHC 34.5 g/dL (31.0-37.0); MCV 80.2 fL (80.0-100.0); Microcytosis Slight; Monocytes # (A) 0.4 k/uL (0-1.0); Monocytes % (A) 4 %; Neutrophils # (A) 8.5 k/uL (1.3-7.7); Neutrophils % (A) 90 %; Platelet Count 105 k/uL (150-450); RBC 3.94 m/uL (3.80-5.40); RDW 16.6 % (11.5-15.5); WBC 9.5 k/uL (3.8-10.6)
--- NOTE | 2023-06-04 16:39 | XR ---
EXAMINATION TYPE: XR chest 2V DATE OF EXAM: 06/04/2023 4:36 PM COMPARISON: Chest radiographs from 01/20/2023 TECHNIQUE: XR chest 2V Frontal and lateral views of the chest. CLINICAL INDICATION:Female, 47 years old with history of Weakness; FINDINGS: Lungs/Pleura: There is no evidence of pleural effusion, focal consolidation, or pneumothorax. Pulmonary vascularity: Mild pulmonary vascular congestion. Heart/mediastinum: Cardiomediastinal silhouette is enlarged and stable. Musculoskeletal: No acute osseous pathology. IMPRESSION: Cardiomegaly and mild pulmonary vascular congestion. Correlate with BNP for congestive heart failure.
[2023-06-04] MEDS ORDERED: LEVOFLOXACIN 750MG-D5W PMX 750 MG in DEXTROSE/WATER 1 150ML.BAG IVPB STA (17:51)
[2023-06-04] MEDS ORDERED: IPRATROPIUM-ALBUTEROL 3 ML NEB INHALATION PRN (17:51)
[2023-06-04] MEDS ORDERED: PNEUMONIA PROTOCOL UTILIZED 1 EACH MISC PO PRN (17:51)
[2023-06-04] MEDS ORDERED: IPRATROPIUM-ALBUTEROL 3 ML NEB INHALATION STA (17:51)
[2023-06-04] MEDS: SODIUM CHLORIDE 0.9% 1,000 ML IV SCH (18:05)
[2023-06-04] MEDS: MAGNESIUM SULFATE-D5W PMX 1 GM in DEXTROSE/WATER 1 100ML.BAG IVPB SCH ×2 (19:50→20:59)
[2023-06-04] MEDS ORDERED: SODIUM CHLORIDE 0.9% 500 ML 500 ML IV ONE (20:39)
[2023-06-04] MEDS ORDERED: SODIUM CHLORIDE 3%(HYPERTONIC) 500 ML IV ONE (20:42)
[2023-06-04 23:10] LABS: Glucose,Whole Blood 183 mg/dL (70-110)
[2023-06-04] MEDS ORDERED: NALOXONE 0.4 MG/ML 1 ML VIAL IV PRN (23:23)
[2023-06-04] MEDS: NOREPINEPHRINE 4 MG in SODIUM CHLORIDE 0.9% 250 ML IV SCH (23:26)
[2023-06-04] MEDS ORDERED: DEXTROSE 50% SYRINGE 50 ML IVP PRN ×2 (23:28)
[2023-06-05] MEDS: HEPARIN SODIUM,PORCINE 5,000 UNIT/ML 1 ML VIAL SQ SCH ×4 (00:24→23:51)
[2023-06-05 02:09] LABS: Sodium 157 mmol/L (137-145)
[2023-06-05 03:33] LABS: Anisocytosis Slight; HCT 33.1 % (34.0-46.0); HGB 11.5 gm/dL (11.4-16.0); MCH 28.2 pg (25.0-35.0); MCHC 34.9 g/dL (31.0-37.0); MCV 80.9 fL (80.0-100.0); Mean Platelet Volume 10.6; Platelet Count 86 k/uL (150-450); RBC 4.09 m/uL (3.80-5.40); RDW 16.7 % (11.5-15.5); WBC 6.7 k/uL (3.8-10.6)
[2023-06-05 03:45] LABS: Band Neutrophils % 18 %; Lymphocytes # (M) 0.13 k/uL (1.0-4.8); Metamyelocytes # (M) 0.07 k/uL (0); Metamyelocytes % 1 %; Monocytes # (M) 0.13 k/uL (0-1.0); Neutrophils % (M) 77 %; Nucleated Red Blood Cells 0 /100 WBC (0-0); Ovalocytes Present; Polychromasia Present; Target Cells Present; Total Cells Counted 100; Toxic Granulation Present; Toxic Vacuolation Present
[2023-06-05 03:46] LABS: Anisocytosis (M) Present
[2023-06-05] MEDS ORDERED: ALPRAZolam 0.25 MG TAB PO STA (04:56)
--- NOTE | 2023-06-05 05:03 | P.CNPUL ---
History of Present Illness Consult date: 06/05/23 Requesting physician: Stalin Pagan Reason for consult: other (ICU management) Chief complaint: Nausea, reduced appetite, generalized malaise History of present illness: Patient is a 47-year-old white female with past medical history significant for diastolic congestive heart failure, coarctation of the aorta status post surgical correction, pulmonary hypertension, essential hypertension, hype rlipidemia, diabetes mellitus, and chronic lower extremity swelling. Patient recently had a hospital admission back in December for CHF exacerbation and cellulitis of the lower extremities. Left lower extremity wound was positive for Enterobacter and MSSA. She completed a course of ciprofloxacin. She was eventually started on Bumex and discharged home. Patient returned to the ER yesterday afternoon with reports of generalized malaise, weakness, and shortness of breath. Her shortness of breath is worse on exertion and when lying flat. She does have severe lower extremity edema. Denies any chest pain, heart palpitation, lightheadedness, syncope. She denies any sick contacts. Denies cough. She was febrile on arrival, with a T-max of 101.4F. Denies genitourinary complaints. Denies abdominal pain, nausea and vomiting. Admits two episodes of diarrhea since being in the hospital. Patient is currently sitting up in bed, on 4 L/m nasal cannula, in no acute distress. Chest x-ray on arrival shows cardiomegaly and mild pulmonary vascular congestion. No focal infiltrates or obvious evidence of pneumonia. Troponins are elevated and trending up at 0.37, 0.59, and 0.6 respectively. NT proBNP is pending. Patient normally does take Bumex on outpatient basis, but did not take her morning dose. She was severely hyponatremic with a sodium of 117. She was initially felt to be hypovolemic and bolused with 2 L of normal saline, and started on a 3% hypertonic saline infusion which is currently at 25 ML's per hour. Most recent sodium is 119. Her hypotension was refractory to fluid replacement, and she was started on norepinephrine which is currently infusing at 0.06 mcg/kg/m. She was empirically started on a combination of Levaquin and Rocephin. She is currently afebrile. CBC on arrival did not show any leukocytosis. WBC count 9.5, hemoglobin 10.9, hematocrit 31.6, platelets 105. BMP on arrival shows a sodium 117, potassium is 4.1, chloride 86, serum bicarb 20, BUN 20, creatinine 0.8, glucose 104. Urinalysis not concerning for UTI. Patient will be monitored in the intensive care unit. Review of Systems REVIEW OF SYSTEMS: CONSTITUTIONAL: Admits significant weight loss after starting diuretic 4 months ago. It's generalized weakness and fatigue EYES: Denies change in vision. EARS, NOSE, MOUTH, THROAT: Denies headaches, denies sore throat. CARDIOVASCULAR: Denies chest pain, palpitations or syncopal episodes. Admits chronic lower extremity edema which is reportedly improved since her last admission RESPIRATORY: Denies cough, congestion or hemoptysis. Admits shortness of breath especially on exertion and when lying down GASTROINTESTINAL: Denies change in appetite, abdominal pain, nausea and vomiting, or diarrhea GENITOURINARY: Denies hematuria, denies infections. MUSKULOSKELETAL: Denies pain, denies swelling. INTEGUMENTARY: Denies rash, denies eczema. It's bilateral lower extremity cellulitis and an open left medial leg ulcer. NEUROLOGICAL: Denies recent memory loss, no recent seizure activity. PSYCHIATRIC: Denies anxiety, denies depression. HEMATOLOGIC/LYMPHATIC: Denies anemia, denies enlarged lymph node Past Medical History Past Medical History: Heart Failure, Hypertension, Pneumonia Additional Past Medical History / Comment(s): cellulitis History of Any Multi-Drug Resistant Organisms: None Reported Past Surgical History: Section, Coronary Bypass/CABG Additional Past Surgical History / Comment(s): open heart at age 7 Past Anesthesia/Blood Transfusion Reactions: No Reported Reaction Past Psychological History: Anxiety Smoking Status: Former smoker Past Alcohol Use History: None Reported Additional Past Alcohol Use History / Comment(s): PT QUIT SMOKING THREE WEEKS AGO WITH ONSET OF SYMPTOMS Past Drug Use History: None Reported Medications and Allergies Home Medications Medication Instructions Recorded Confirmed Type Atorvastatin [Lipitor] 20 mg PO HS 09/11/22 06/04/23 History Losartan [Cozaar] 25 mg PO TID 09/11/22 06/04/23 History metFORMIN HCL [Glucophage] 500 mg PO BID-W/MEALS 09/11/22 06/04/23 History Bumetanide [BUMEX] 2 mg PO BID #60 tab 01/23/23 06/04/23 Rx Sildenafil [Revatio] 20 mg PO TID #90 tab 01/23/23 06/04/23 Rx Allergies Allergy/AdvReac Type Severity Reaction Status Date / Time No Known Allergies Allergy Verified 06/04/23 17:42 Physical Exam Vitals: Vital Signs Temp Pulse Pulse Resp BP BP Pulse Ox 06/05/23 03:00 112 H 31 H 101/80 94 L 06/05/23 02:50 112 H 25 H 94 L 06/05/23 02:40 106 H 15 84/55 96 06/05/23 02:30 104 H 16 84/55 95 06/05/23 02:20 106 H 14 78/49 96 06/05/23 02:10 98 17 85/53 97 06/05/23 02:00 99 14 78/58 97 06/05/23 01:50 110 H 22 78/58 94 L 06/05/23 01:40 100 14 92/57 98 06/05/23 01:30 114 H 29 H 106/53 94 L 06/05/23 01:20 106 H 21 106/53 95 06/05/23 01:10 109 H 24 94/64 06/05/23 01:00 107 H 26 H 109/62 94 L 06/05/23 00:50 100 35 H 109/62 93 L 06/05/23 00:40 113 H 26 H 98/70 95 06/05/23 00:30 98 20 89/56 95 06/05/23 00:20 95 27 H 89/56 95 06/05/23 00:10 93 19 111/61 95 06/05/23 00:00 97.6 F 101 H 112 H 25 H 86/72 93 L 06/04/23 23:50 106 H 24 86/72 96 06/04/23 23:40 90 22 79/59 98 06/04/23 23:30 90 10 L 83/53 99 06/04/23 23:20 93 32 H 83/53 97 06/04/23 23:00 80/57 06/04/23 22:50 80/57 99 06/04/23 22:49 80/57 98 06/04/23 22:40 88/56 97 06/04/23 22:30 90 19 82/53 99 06/04/23 22:20 82/53 98 06/04/23 22:15 97.7 F 85 18 82/53 99 06/04/23 22:10 84/60 99 06/04/23 22:00 97.7 F 83 20 86/50 99 06/04/23 21:50 90 20 94/58 98 06/04/23 21:40 83 21 78/59 98 06/04/23 21:30 82 14 82/58 98 06/04/23 21:26 84 18 82/58 98 06/04/23 21:20 86 18 75/54 98 06/04/23 21:18 97.5 F L 87 20 75/54 98 06/04/23 21:10 86 9 L 78/56 98 06/04/23 21:07 85 20 78/56 98 06/04/23 21:00 85 12 81/55 99 06/04/23 20:50 85 20 81/55 98 06/04/23 20:40 87 21 81/59 99 06/04/23 20:30 85/58 98 06/04/23 20:29 97.4 F L 86 18 81/59 98 06/04/23 20:20 81/54 100 06/04/23 20:10 83/58 99 06/04/23 20:00 75/54 99 06/04/23 19:50 75/54 99 06/04/23 19:40 80/47 98 06/04/23 19:30 88/69 98 06/04/23 19:20 88/69 99 06/04/23 19:10 0 L 85/60 99 06/04/23 19:00 78/45 98 06/04/23 18:50 103 H 78/45 99 06/04/23 18:40 93 11 L 79/53 98 06/04/23 18:33 92 06/04/23 18:30 93 14 85/54 99 06/04/23 18:23 90 06/04/23 18:20 93 16 85/54 97 06/04/23 18:10 93 13 83/51 98 06/04/23 18:00 75/60 99 06/04/23 17:56 98.4 F 97 83/51 98 06/04/23 17:50 0 L 92/58 06/04/23 17:40 101 H 27 H 92/58 06/04/23 17:30 100 27 H 97 06/04/23 16:40 98.7 F 108 H 20 90/62 97 06/04/23 15:58 99.9 F H 110 H 20 85/46 96 06/04/23 15:42 97 06/04/23 15:40 87 L 06/04/23 15:21 101.4 F H 118 H 24 96/57 91 L Intake and Output 06/04/23 06/04/23 06/05/23 14:59 22:59 06:59 Intake Total 113.583 Output Total 250 Balance -136.417 Intake: Intake, IV Titration 113.583 Amount Norepinephrine 4 mg In 38.583 Sodium Chloride 0.9% 250 ml @ 0.03 MCG/KG/MIN 12. 184 mls/hr IV .[id number] [facility] Rx#:[id number] Sodium Chloride 3%( 75 Hypertonic) 500 ml @ 25 mls/hr IV .Q20H ONE Rx#: [id number] Output: Urine 100 Urine/Stool Mix 150 Other: Voiding Method Bedside Commode Weight 106.594 kg GENERAL EXAM: Alert, 47-year-old obese white female, comfortable in no apparent distress. HEAD: Normocephalic and atraumatic EYES: Normal reaction of pupils, equal size. NOSE: Clear with pink turbinates. THROAT: No erythema or exudates. NECK: No masses, no JVD. CHEST: No chest wall deformity. LUNGS: Equal air entry with diminished basilar lung sounds; no crackles, wheeze, rhonchi or dullness. On 4 L/m nasal cannula. No conversational dyspnea or accessory muscle use.. CVS: S1 and S2 normal with no audible murmur, regular rhythm. No extra heart sounds ABDOMEN: Obese abdomen, no hepatosplenomegaly, active bowel sounds, no guarding or rigidity. SPINE: No scoliosis or deformity SKIN: No rashes CENTRAL NERVOUS SYSTEM: No focal deficits, tone is normal in all 4 extremities. EXTREMITIES: There is severe bilateral lower extremity pitting edema with chronic venous stasis changes. Mildly erythemic. Left lower extremity is weeping. There is a small left medial leg ulcer. No clubbing, or cyanosis. Peripheral pulses are intact. Results - Laboratory Findings CBC and BMP: 06/05/23 02:53 06/05/23 02:53 PT/INR, D-dimer PT 14.7 sec (9.0-12.0) H 06/04/23 15:57 INR 1.5 (<1.2) H 06/04/23 15:57 Abnormal lab findings: Abnormal Labs 06/04/23 06/04/23 06/04/23 15:57 15:57 15:57 Hgb 10.9 L Hct 31.6 L RDW 16.6 H Plt Count 105 L Neutrophils # 8.5 H Lymphocytes # 0.4 L PT 14.7 H INR 1.5 H Sodium 117 L* Chloride 86 L Carbon Dioxide 20 L BUN 20 H Glucose 104 H POC Glucose (mg/dL) Calcium 8.0 L Magnesium 1.5 L Total Bilirubin 2.7 H ALT 36 H Troponin I Albumin 3.3 L Urine Appearance Urine Protein Urine Blood Urine Bilirubin Urine Bacteria Urine Mucus 06/04/23 06/04/23 06/04/23 15:57 16:26 18:18 Hgb Hct RDW Plt Count Neutrophils # Lymphocytes # PT INR Sodium Chloride Carbon Dioxide BUN Glucose POC Glucose (mg/dL) Calcium Magnesium Total Bilirubin ALT Troponin I 0.367 H* 0.588 H* Albumin Urine Appearance Cloudy H Urine Protein 2+ H Urine Blood Moderate H Urine Bilirubin 1+ H Urine Bacteria Rare H Urine Mucus Rare H 06/04/23 06/04/23 06/04/23 19:30 21:15 22:44 Hgb Hct RDW Plt Count Neutrophils # Lymphocytes # PT INR Sodium 118 L* 119 L* Chloride Carbon Dioxide BUN Glucose POC Glucose (mg/dL) Calcium Magnesium Total Bilirubin ALT Troponin I 0.605 H* Albumin Urine Appearance Urine Protein Urine Blood Urine Bilirubin Urine Bacteria Urine Mucus 06/04/23 06/05/23 23:09 01:01 Hgb Hct RDW Plt Count Neutrophils # Lymphocytes # PT INR Sodium 157 H Chloride Carbon Dioxide BUN Glucose POC Glucose (mg/dL) 183 H Calcium Magnesium Total Bilirubin ALT Troponin I Albumin Urine Appearance Urine Protein Urine Blood Urine Bilirubin Urine Bacteria Urine Mucus - Diagnostic Findings Chest x-ray: image reviewed Assessment and Plan Assessment: Hypotension and suspected sepsis, refractory to fluid resuscitation, currently requiring vasopressors in the form of norepinephrine. Acute hypoxemic respiratory failure likely secondary to an exacerbation of diastolic congestive heart failure, currently on 4 L/m nasal cannula. Chest x- ray on arrival shows cardiomegaly with mild pulmonary vascular congestion. No focal infiltrates or evidence of pneumonia. Recent echocardiogram from December, shows a preserved ejection fraction of 50-55% with moderate concentric LVH, severe pulmonary hypertension, severe right ventricular dilation, and severe tricuspid regurgitation. Elevated troponins, rule out non-STEMI Bilateral lower extremity cellulitis and chronic lower extremity edema. Recently, treated for cellulites of the lower extremities in December,. Left lower extremity wound was positive for Enterobacter and MSSA. Hyponatremia, currently being corrected with hypertonic saline Diarrhea Pulmonary hypertension History of cortication of the aorta status post open-heart surgery Hyperlipidemia Diabetes mellitus type 2 Obesity, with a BMI of 36 kg/m Plan: Patient's medications, labs, chest x-ray reviewed Continue supplemental oxygen Hyponatremia is being corrected per nephrology, currently on hypertonic saline Sodium rechecked's every 2 hours Serum and urine osmolalities are pending TSH and cortisol levels pending Continue norepinephrine infusion for refractory hypotension Empirically covered on a combination of Rocephin and Levaquin Blood cultures are pending Check C. diff Infectious disease consult Wound care consult was placed Cardiology was consulted for elevated troponins and EKG changes Heparin for DVT prophylaxis Protonix for GI prophylaxis Patient's prognosis is guarded, and the patient will be monitored in the intensive care unit. I have personally seen and examined the patient, performed the documentation and the assessment and plan as written. Number of minutes spent on the visit:20 Pa Time with Patient: Greater than 30
[2023-06-05] MEDS: SODIUM CHLORIDE 0.9% 1,000 ML IV SCH (05:06)
[2023-06-05 05:29] LABS: African American GFR (CKD) 67 (>60 ml/min/1.73 sqM); Anion Gap 16 mmol/L; Blood Urea Nitrogen 26 mg/dL (7-17); Calcium 8.1 mg/dL (8.4-10.2); Carbon Dioxide 16 mmol/L (22-30); Chloride 90 mmol/L (98-107); Glucose 109 mg/dL (74-99); Magnesium 1.8 mg/dL (1.6-2.3); Non-African American GFR(CKD) 58 (>60 ml/min/1.73 sqM); Potassium 3.1 mmol/L (3.5-5.1); Sodium 122 mmol/L (137-145)
[2023-06-05 05:39] LABS: NT-Pro-B-Type Natriuretic Pept 18200 pg/mL
[2023-06-05] MEDS ORDERED: Potassium Replacement Protocol 1 EACH MISC MISCELLANE PRN (06:03)
[2023-06-05] MEDS: NOREPINEPHRINE 4 MG in SODIUM CHLORIDE 0.9% 250 ML IV SCH ×2 (06:19→21:56)
[2023-06-05] MEDS: POTASSIUM CHLORIDE ER 20 MEQ TAB.ER PO SCH ×2 (06:22→07:11)
[2023-06-05 06:27] LABS: Glucose,Whole Blood 116 mg/dL (70-110)
[2023-06-05] MEDS: INSULIN ASPART (NovoLOG) 100 UNIT/ML VIAL SQ SCH ×4 (06:34→21:03)
[2023-06-05] MEDS: PANTOPRAZOLE 40 MG TABLET PO SCH (07:11)
[2023-06-05] MEDS ORDERED: LEVOFLOXACIN 750 MG TAB PO SCH (09:00)
--- NOTE | 2023-06-05 09:48 | P.CRDCN ---
History of Present Illness Consult date: 06/05/23 Consult reason: congestive heart failure History of present illness: The patient is a 47-year-old female with extensive cardiac history who follows in the office with Dr. Bro. She presented to the hospital with increased shortness of breath. The patient on a similar admission back in December, where she was diagnosed with cellulitis. She has completed courses of antibiotics, get continues to have chronic cellulitis in her right lower extremity. DIAGNOSTICS: EKG shows sinus tachycardia with right bundle branch block Chest x-ray shows cardiomegaly and mild pulmonary vascular congestion Lab data: WBC 6.7, hemoglobin 11.5, hematocrit 33.1, platelet 86, sodium 122, potassium 3.1, BUN 26, creatinine 1.15, troponin 0.6, 0.4, BNP 18,200 Echocardiogram in December showed LV function of 50-55% with severe RV dilatation and severe pulmonary hypertension with RVSP at 82 mmHg REVIEW OF SYSTEMS: No fever or chills. No cough or expectoration. Patient denies headache, dizziness, blurred vision, double vision. Patient denies any stomach discomfort. No nausea, vomiting. No hematochezia. No hematemesis. Denies any black stools or blood in his stools. Denies dysuria or hematuria. No muscle weakness or numbness. Positive for back pain. No chest pain or chest pressure. Positive for shortness of breath. PHYSICAL EXAMINATION: This is a 47-year-old female in mild distress. Patient is diaphoretic and anxious. HEENT: Head is atraumatic, normocephalic. Pupils are equal, round. Sclerae anicteric. Conjunctivae are clear. Mucous membranes of the mouth are moist. Neck is supple. There is no jugular venous distention. No carotid bruit is heard. CHEST EXAMINATION: Lungs are diminished to auscultation. No chest wall tenderness is noted on palpation or with deep breathing. HEART EXAMINATION: Heart regular rate and rhythm. S1, S2 heard. Systolic murmur. No gallops or rub. ABDOMEN: Soft, nontender. Bowel sounds are heard. No organomegaly noted. EXTREMITIES: +2 lower extremity edema, bilateral leg wraps. NEUROLOGIC EXAMINATION: Patient is awake, alert and oriented x3. FINAL ASSESSMENT AND PLAN: Septicemia, likely secondary to chronic cellulitis Hypotension Congestive heart failure, acute on chronic History of severe RV dilatation and pulmonary hypertension History of valvular disease History of coarctation of aorta, surgery at age 7 Hyponatremia PLAN: Continue supportive treatment for septicemia Echocardiogram results pending Further recommendations based on clinical course I am dictating on behalf of Dr Isaiah Bro's history/physical and assessment/plan. Past Medical History Past Medical History: Heart Failure, Hypertension, Pneumonia Additional Past Medical History / Comment(s): cellulitis History of Any Multi-Drug Resistant Organisms: None Reported Past Surgical History: Section, Coronary Bypass/CABG Additional Past Surgical History / Comment(s): open heart at age 7 Past Anesthesia/Blood Transfusion Reactions: No Reported Reaction Past Psychological History: Anxiety Smoking Status: Former smoker Past Alcohol Use History: None Reported Additional Past Alcohol Use History / Comment(s): PT QUIT SMOKING THREE WEEKS AGO WITH ONSET OF SYMPTOMS Past Drug Use History: None Reported Medications and Allergies Home Medications Medication Instructions Recorded Confirmed Type Atorvastatin [Lipitor] 20 mg PO HS 09/11/22 06/04/23 History Losartan [Cozaar] 25 mg PO TID 09/11/22 06/04/23 History metFORMIN HCL [Glucophage] 500 mg PO BID-W/MEALS 09/11/22 06/04/23 History Bumetanide [BUMEX] 2 mg PO BID #60 tab 01/23/23 06/04/23 Rx Sildenafil [Revatio] 20 mg PO TID #90 tab 01/23/23 06/04/23 Rx Allergies Allergy/AdvReac Type Severity Reaction Status Date / Time No Known Allergies Allergy Verified 06/04/23 17:42 Physical Exam Vitals: Vital Signs Temp Pulse Pulse Resp BP BP Pulse Ox 06/05/23 07:10 108 H 22 90 L 06/05/23 07:00 113 H 21 109/82 94 L 06/05/23 06:50 108 H 27 H 109/82 93 L 06/05/23 06:40 104 H 14 125/106 94 L 06/05/23 06:30 104 H 15 85/73 94 L 06/05/23 06:20 105 H 19 85/73 94 L 06/05/23 06:10 108 H 18 93/71 94 L 06/05/23 06:00 99 11 L 98/48 95 06/05/23 05:50 107 H 15 98/48 94 L 08/10/23 05:40 105 H 23 93/57 95 06/05/23 05:30 110 H 17 71/51 96 06/05/23 05:20 107 H 23 71/51 96 06/05/23 05:10 110 H 19 95/81 96 06/05/23 05:00 111 H 19 101/42 06/05/23 04:50 106 H 19 101/42 95 06/05/23 04:40 111 H 19 91/67 94 L 06/05/23 04:30 109 H 23 94/52 94 L 06/05/23 04:20 109 H 21 94/52 94 L 06/05/23 04:10 108 H 19 93/37 95 06/05/23 04:00 98.2 F 105 H 110 H 22 70/56 95 06/05/23 03:50 106 H 17 70/56 96 06/05/23 03:40 104 H 16 89/53 96 06/05/23 03:30 111 H 21 83/62 95 06/05/23 03:20 104 H 13 83/62 96 06/05/23 03:10 105 H 20 75/40 94 L 06/05/23 03:00 112 H 31 H 101/80 94 L 06/05/23 02:50 112 H 25 H 94 L 06/05/23 02:40 106 H 15 84/55 96 06/05/23 02:30 104 H 16 84/55 95 06/05/23 02:20 106 H 14 78/49 96 06/05/23 02:10 98 17 85/53 97 06/05/23 02:00 99 14 78/58 97 06/05/23 01:50 110 H 22 78/58 94 L 06/05/23 01:40 100 14 92/57 98 06/05/23 01:30 114 H 29 H 106/53 94 L 06/05/23 01:20 106 H 21 106/53 95 06/05/23 01:10 109 H 24 94/64 06/05/23 01:00 107 H 26 H 109/62 94 L 06/05/23 00:50 100 35 H 109/62 93 L 06/05/23 00:40 113 H 26 H 98/70 95 06/05/23 00:30 98 20 89/56 95 06/05/23 00:20 95 27 H 89/56 95 06/05/23 00:10 93 19 111/61 95 06/05/23 00:00 97.6 F 101 H 112 H 25 H 86/72 93 L 06/04/23 23:50 106 H 24 86/72 96 06/04/23 23:40 90 22 79/59 98 06/04/23 23:30 90 10 L 83/53 99 06/04/23 23:20 93 32 H 83/53 97 06/04/23 23:00 80/57 06/04/23 22:50 80/57 99 06/04/23 22:49 80/57 98 06/04/23 22:40 88/56 97 06/04/23 22:30 90 19 82/53 99 06/04/23 22:20 82/53 98 06/04/23 22:15 97.7 F 85 18 82/53 99 06/04/23 22:10 84/60 99 06/04/23 22:00 97.7 F 83 20 86/50 99 06/04/23 21:50 90 20 94/58 98 06/04/23 21:40 83 21 78/59 98 06/04/23 21:30 82 14 82/58 98 06/04/23 21:26 84 18 82/58 98 06/04/23 21:20 86 18 75/54 98 06/04/23 21:18 97.5 F L 87 20 75/54 98 06/04/23 21:10 86 9 L 78/56 98 06/04/23 21:07 85 20 78/56 98 06/04/23 21:00 85 12 81/55 99 06/04/23 20:50 85 20 81/55 98 06/04/23 20:40 87 21 81/59 99 06/04/23 20:30 85/58 98 06/04/23 20:29 97.4 F L 86 18 81/59 98 06/04/23 20:20 81/54 100 06/04/23 20:10 83/58 99 06/04/23 20:00 75/54 99 06/04/23 19:50 75/54 99 06/04/23 19:40 80/47 98 06/04/23 19:30 88/69 98 06/04/23 19:20 88/69 99 06/04/23 19:10 0 L 85/60 99 08/09/23 19:00 78/45 98 06/04/23 18:50 103 H 78/45 99 06/04/23 18:40 93 11 L 79/53 98 06/04/23 18:33 92 06/04/23 18:30 93 14 85/54 99 06/04/23 18:23 90 06/04/23 18:20 93 16 85/54 97 06/04/23 18:10 93 13 83/51 98 06/04/23 18:00 75/60 99 06/04/23 17:56 98.4 F 97 83/51 98 06/04/23 17:50 0 L 92/58 06/04/23 17:40 101 H 27 H 92/58 06/04/23 17:30 100 27 H 97 06/04/23 16:40 98.7 F 108 H 20 90/62 97 06/04/23 15:58 99.9 F H 110 H 20 85/46 96 06/04/23 15:42 97 06/04/23 15:40 87 L 06/04/23 15:21 101.4 F H 118 H 24 96/57 91 L Intake and Output 06/04/23 06/05/23 06/05/23 22:59 06:59 14:59 Intake Total 295.548 61.731 Output Total 250 Balance 45.548 61.731 Intake: Intake, IV Titration 295.548 61.731 Amount Norepinephrine 4 mg In 195.548 61.731 Sodium Chloride 0.9% 250 ml @ 0.03 MCG/KG/MIN 12. 184 mls/hr IV .[id number] [facility] Rx#:[id number] Sodium Chloride 3%( 100 Hypertonic) 500 ml @ 25 mls/hr IV .Q20H ONE Rx#: [id number] Output: Urine 100 Urine/Stool Mix 150 Other: Voiding Method Bedside Commode # Voids 0 0 Weight 106.594 kg Results 06/05/23 02:53 06/05/23 04:54 Cardiac Enzymes 06/04/23 06/04/23 06/04/23 Range/Units 15:57 15:57 18:18 AST 32 (14-36) U/L Troponin I 0.367 H* 0.588 H* (0.000-0.034) ng/mL 06/04/23 06/05/23 Range/Units 21:15 04:54 AST (14-36) U/L Troponin I 0.605 H* 0.442 H* (0.000-0.034) ng/mL Coagulation 06/04/23 Range/Units 15:57 PT 14.7 H (9.0-12.0) sec APTT 26.1 (22.0-30.0) sec CBC 06/04/23 06/05/23 Range/Units 15:57 02:53 WBC 9.5 6.7 (3.8-10.6) k/uL RBC 3.94 4.09 (3.80-5.40) m/uL Hgb 10.9 L 11.5 (11.4-16.0) gm/dL Hct 31.6 L 33.1 L (34.0-46.0) % Plt Count 105 L 86 L (150-450) k/uL Comprehensive Metabolic Panel 06/04/23 06/04/23 06/04/23 Range/Units 15:57 19:30 22:44 Sodium 117 L* 118 L* 119 L* (137-145) mmol/L Potassium 4.1 (3.5-5.1) mmol/L Chloride 86 L (98-107) mmol/L Carbon Dioxide 20 L (22-30) mmol/L BUN 20 H (7-17) mg/dL Creatinine 0.80 (0.52-1.04) mg/dL Glucose 104 H (74-99) mg/dL Calcium 8.0 L (8.4-10.2) mg/dL AST 32 (14-36) U/L ALT 36 H (4-34) U/L Alkaline Phosphatase 100 (38-126) U/L Total Protein 6.7 (6.3-8.2) g/dL Albumin 3.3 L (3.5-5.0) g/dL 06/05/23 06/05/23 06/05/23 Range/Units 01:01 02:53 04:54 Sodium 157 H 124 L 122 L (137-145) mmol/L Potassium 3.1 L (3.5-5.1) mmol/L Chloride 90 L (98-107) mmol/L Carbon Dioxide 16 L (22-30) mmol/L BUN 26 H (7-17) mg/dL Creatinine 1.15 H (0.52-1.04) mg/dL Glucose 109 H (74-99) mg/dL Calcium 8.1 L (8.4-10.2) mg/dL AST (14-36) U/L ALT (4-34) U/L Alkaline Phosphatase (38-126) U/L Total Protein (6.3-8.2) g/dL Albumin (3.5-5.0) g/dL Current Medications Generic Name Dose Route Start Last Admin Trade Name Freq PRN Reason Stop Dose Admin Acetaminophen 1,000 mg 06/05/23 09:11 Acetaminophen Tab 500 Mg Tab PO Q6HR PRN Fever and/ or Mild Pain Albuterol/Ipratropium 3 ml 06/04/23 17:51 Ipratropium-Albuterol 3 Ml Neb INHALATION RT-QID PRN Shortness Of Breath Or Wheezing Dextrose/Water 25 ml 06/04/23 23:28 Dextrose 50% Syringe 50 Ml IVP PER PROTOCOL PRN Hypoglycemia Protocol Dextrose/Water 50 ml 06/04/23 23:28 Dextrose 50% Syringe 50 Ml IVP PER PROTOCOL PRN Hypoglycemia Protocol Heparin Sodium (Porcine) 5,000 unit 06/05/23 00:00 06/05/23 00:24 Heparin Sodium,Porcine 5,000 Unit/Ml 1 Ml Vial SQ 5,000 unit Q8HR SABIHA Administration Sodium Chloride 1,000 mls @ 100 mls/hr 06/04/23 18:00 06/05/23 05:06 Saline 0.9% IV Not Given .Q10H SABIHA Ceftriaxone Sodium 2 gm/ 50 mls @ 100 mls/hr 06/05/23 09:00 Sodium Chloride IVPB 06/08/23 09:29 Q24HR SABIHA Protocol Sodium Chloride (Hypertonic) 500 mls @ 25 mls/hr 06/04/23 20:42 06/04/23 21:22 Saline 3% (Hypertonic) IV 06/05/23 16:41 25 mls/hr .Q20H ONE Administration Protocol Norepinephrine Bitartrate 4 mg 254 mls @ 12.184 mls/hr 06/04/23 23:15 06/05/23 07:16 / Sodium Chloride IV 0.17 mcg/kg/min .[id number] SABIHA 69.041 mls/hr Titration Protocol 0.03 MCG/KG/MIN Insulin Aspart 0 unit 06/05/23 07:30 06/05/23 06:34 Insulin Aspart (Novolog) 100 Unit/Ml Vial SQ Not Given ACHS [facility] Protocol Levofloxacin 750 mg 06/05/23 09:00 Levofloxacin 750 Mg Tab PO 06/08/23 09:01 DAILY [facility] Protocol Miscellaneous Information 1 each 06/04/23 17:51 Pneumonia Protocol Utilized 1 Each Misc PO ONCE PRN Per Protocol Miscellaneous Information 1 each 06/05/23 06:03 Potassium Replacement Protocol 1 Each Misc MISCELLANE DAILY PRN Per Protocol Protocol Naloxone HCl 0.2 mg 06/04/23 23:23 Naloxone 0.4 Mg/Ml 1 Ml Vial IV Q2M PRN Opioid Reversal Pantoprazole Sodium 40 mg 06/05/23 07:30 06/05/23 07:11 Pantoprazole 40 Mg Tablet PO 40 mg [id number] [facility] Administration Intake and Output 06/04/23 06/05/23 06/05/23 22:59 06:59 14:59 Intake Total 295.548 61.731 Output Total 250 Balance 45.548 61.731 Intake: Intake, IV Titration 295.548 61.731 Amount Norepinephrine 4 mg In 195.548 61.731 Sodium Chloride 0.9% 250 ml @ 0.03 MCG/KG/MIN 12. 184 mls/hr IV .[id number] [facility] Rx#:[id number] Sodium Chloride 3%( 100 Hypertonic) 500 ml @ 25 mls/hr IV .Q20H ONE Rx#: [id number] Output: Urine 100 Urine/Stool Mix 150 Other: Voiding Method Bedside Commode # Voids 0 0 Weight 106.594 kg 06/05/23 02:53 06/05/23 04:54
[2023-06-05 10:09] LABS: African American GFR (CKD) 59 (>60 ml/min/1.73 sqM); Anion Gap 17 mmol/L; Blood Urea Nitrogen 27 mg/dL (7-17); Calcium 8.1 mg/dL (8.4-10.2); Carbon Dioxide 16 mmol/L (22-30); Chloride 90 mmol/L (98-107); Glucose 130 mg/dL (74-99); Non-African American GFR(CKD) 51 (>60 ml/min/1.73 sqM); Potassium 3.6 mmol/L (3.5-5.1); Sodium 123 mmol/L (137-145)
[2023-06-05] MEDS: ACETAMINOPHEN TAB 500 MG TAB PO PRN ×2 (10:17→16:58)
[2023-06-05] MEDS: ONDANSETRON 4 MG/2 ML VIAL IVP PRN (10:20)
--- NOTE | 2023-06-05 10:48 | CA ---
Transthoracic Echo Report Name: Fabiola Macias Age: 47 Gender: F : 1975 Exam Date: 06/05/2023 08:45 Exam Location: [place] [facility] Ht (in): 68 Wt (lb): 235 Ordering Physician: Mert Mendoza DO Attending/Referring Phys: [id number], Kelly Grinder Set Up Operator [employer] Krystal Ratliff RDCS Procedure CPT: Indications: Heart failure Cardiac Hx: Technical Quality: Poor due to patient motion due to back pain Contrast 1: Total Dose (mL): Contrast 2: Total Dose (mL): MEASUREMENTS (Male / Female) Normal Values 2D ECHO LV Diastolic Diameter PLAX 6.1 cm 4.2 - 5.9 / 3.9 - 5.3 cm LV Systolic Diameter PLAX 4.7 cm IVS Diastolic Thickness 1.4 cm 0.6 - 1.0 / 0.6 - 0.9 cm LVPW Diastolic Thickness 1.5 cm 0.6 - 1.0 / 0.6 - 0.9 cm LV Relative Wall Thickness 0.5 RV Internal Dim ED PLAX 4.4 cm LVOT Diameter 1.9 cm LA Systolic Diameter LX 5.2 cm 3.0 - 4.0 / 2.7 - 3.8 cm LV Diastolic Volume MOD 4C 55.2 cm??? LV Systolic Volume MOD 4C 17.8 cm??? LV Ejection Fraction MOD 4C 67.8 % LV Cardiac Index MOD 4C 1494.1 cm???/min???m??? LV Diastolic Length 4C 7.9 cm LV Systolic Length 4C 6.8 cm LA Volume 79.9 cm??? 18 - 58 / 22 - 52 cm??? M-MODE MV E Point Septal Separation 0.5 cm DOPPLER AV Peak Velocity 226.8 cm/s AV Peak Gradient 20.6 mmHg AV Mean Velocity 162.3 cm/s AV Mean Gradient 11.8 mmHg AV Velocity Time Integral 35.9 cm MV Area PHT 4.7 cm??? Mitral E Point Velocity 173.7 cm/s Mitral A Point Velocity 87.8 cm/s Mitral E to A Ratio 2.0 MV Deceleration Time 160.0 ms MV E' Velocity 6.5 cm/s Mitral E to MV E' Ratio 26.5 TR Peak Velocity 332.3 cm/s TR Peak Gradient 44.2 mmHg Right Ventricular Systolic Press 47.8 mmHg FINDINGS Left Ventricle Left ventricular ejection fraction is estimated at 50-55 %. Moderate concentric LV hypertrophy . Mild increased left ventricular diastolic diameter. Flattening of ventricular septum in systole and diastole. Grade II diastolic dysfunction Right Ventricle Severe right ventricular dilatation. Moderate pulmonary hypertension. Right ventricular systolic pressure estimated at 60 mm Hg. Right Atrium Normal right atrial size. Left Atrium Moderately increase LA volume. Mitral Valve Mild thickening/calcification mitral valve leaflet. Mild mitral annular calcification. Moderate mitral regurgitation. Vegetation cannot be excluded. Aortic Valve Trileaflet aortic valve. Aortic valve sclerosis. Mild aortic stenosis mean gradient of 12 mmHg. Tricuspid Valve Structurally normal tricuspid valve. Thmngkhl-cy-zlzbjv tricuspid regurgitation. Pulmonic Valve Structurally normal pulmonic valve. Trace to mild pulmonic regurgitation. Pericardium No pericardial effusion. Aorta Normal size aortic root and proximal ascending aorta. Suprasternal was attempted but images were poor. Tis was done due to h/o coarctation. CONCLUSIONS Mild LV dilatation with Moderate concentric LV hypertrophy Normal LV systolic function. LVEF estimated at 55% Grade II diastolic dysfunction Severe RV dilatation with evidence of Moderate pulmonary hypertension. Estimated RVSP is 60 mmHg Moderate MR. Possibility of vegetation cannot be excluded. No significant difference when compared to echo from 01/21/23. RV continues to be dilated. Would recommend FREDRICK if suspicion of endocarditis. Also would benefit from RHC for pulmo HTN and RV dilatation Previewed by: Dr [place] (Electronically Signed) Final Date: 05 June 2023 10:47
--- NOTE | 2023-06-05 11:09 | P.CONS ---
History of Present Illness - Reason for Consult Consult date: 06/05/23 wound care - History of Present Illness This is a 47-year-old patient being seen in ICU for nonhealing ulceration to the left lower extremity medial aspect. Patient has past medical history significant for heart failure, hypertension and pneumonia. Patient denies diabetes. She is a former smoker quitting approximately 3 weeks ago. Patient states that the ulceration has been there for about 4 months she has been utili zing Silvadene and recently changed to Vaseline to the site. She has been wrapping it daily. At this time the medial ulceration is epithelialized. Lower extremities shows 1+ edema, hemosiderin staining noted. Review Of Systems: Constitutional: No fever, no chills, no night sweats. No weight change. No weakness, fatigue or lethargy. No daytime sleepiness. Integumentary:reports wounds, no lesions. No rash or pruritus. No unusual bruising. No change in hair or nails. Physical exam: General Appearance: Alert, cooperative, no distress, appears stated age. Skin: See HPI all other Skin color, texture, tugor normal, no rashes or lesions. Neurologic: Alert oriented x3 Assessment: 1. Nonhealing ulceration left lower extremity with fat layer exposure 2. Chronic venous hypertension with inflammation the bilateral lower extremities 3. Chronic hypertension with inflammation and ulceration to the left lower extremity Plan: 1.Apply zinc barrier cream to medial ulceration, wrap with rolled gauze and ananth wrap. Keep legs elevated. Thank you for the consultation any questions please contact the wound care center DNP note has been reviewed and discussed with Dr. Mcghee and the impression and plan of care has been directed as dictated. Past Medical History Past Medical History: Heart Failure, Hypertension, Pneumonia Additional Past Medical History / Comment(s): cellulitis History of Any Multi-Drug Resistant Organisms: None Reported Past Surgical History: Section, Coronary Bypass/CABG Additional Past Surgical History / Comment(s): open heart at age 7 Past Anesthesia/Blood Transfusion Reactions: No Reported Reaction Past Psychological History: Anxiety Smoking Status: Former smoker Past Alcohol Use History: None Reported Additional Past Alcohol Use History / Comment(s): PT QUIT SMOKING THREE WEEKS AGO WITH ONSET OF SYMPTOMS Past Drug Use History: None Reported Medications and Allergies Home Medications Medication Instructions Recorded Confirmed Type Atorvastatin [Lipitor] 20 mg PO HS 09/11/22 06/04/23 History Losartan [Cozaar] 25 mg PO TID 09/11/22 06/04/23 History metFORMIN HCL [Glucophage] 500 mg PO BID-W/MEALS 09/11/22 06/04/23 History Bumetanide [BUMEX] 2 mg PO BID #60 tab 01/23/23 06/04/23 Rx Sildenafil [Revatio] 20 mg PO TID #90 tab 01/23/23 06/04/23 Rx Allergies Allergy/AdvReac Type Severity Reaction Status Date / Time No Known Allergies Allergy Verified 06/04/23 17:42 Physical Exam Vitals: Vital Signs Temp Pulse Pulse Resp BP BP Pulse Ox 06/05/23 07:10 108 H 22 90 L 06/05/23 07:00 113 H 21 109/82 94 L 06/05/23 06:50 108 H 27 H 109/82 93 L 06/05/23 06:40 104 H 14 125/106 94 L 06/05/23 06:30 104 H 15 85/73 94 L 06/05/23 06:20 105 H 19 85/73 94 L 06/05/23 06:10 108 H 18 93/71 94 L 06/05/23 06:00 99 11 L 98/48 95 06/05/23 05:50 107 H 15 98/48 94 L 06/05/23 05:40 105 H 23 93/57 95 06/05/23 05:30 110 H 17 71/51 96 06/05/23 05:20 107 H 23 71/51 96 06/05/23 05:10 110 H 19 95/81 96 06/05/23 05:00 111 H 19 101/42 06/05/23 04:50 106 H 19 101/42 95 06/05/23 04:40 111 H 19 91/67 94 L 06/05/23 04:30 109 H 23 94/52 94 L 06/05/23 04:20 109 H 21 94/52 94 L 06/05/23 04:10 108 H 19 93/37 95 06/05/23 04:00 98.2 F 105 H 110 H 22 70/56 95 06/05/23 03:50 106 H 17 70/56 96 06/05/23 03:40 104 H 16 89/53 96 06/05/23 03:30 111 H 21 83/62 95 06/05/23 03:20 104 H 13 83/62 96 06/05/23 03:10 105 H 20 75/40 94 L 06/05/23 03:00 112 H 31 H 101/80 94 L 06/05/23 02:50 112 H 25 H 94 L 06/05/23 02:40 106 H 15 84/55 96 06/05/23 02:30 104 H 16 84/55 95 06/05/23 02:20 106 H 14 78/49 96 06/05/23 02:10 98 17 85/53 97 06/05/23 02:00 99 14 78/58 97 06/05/23 01:50 110 H 22 78/58 94 L 06/05/23 01:40 100 14 92/57 98 06/05/23 01:30 114 H 29 H 106/53 94 L 06/05/23 01:20 106 H 21 106/53 95 06/05/23 01:10 109 H 24 94/64 06/05/23 01:00 107 H 26 H 109/62 94 L 06/05/23 00:50 100 35 H 109/62 93 L 06/05/23 00:40 113 H 26 H 98/70 95 06/05/23 00:30 98 20 89/56 95 06/05/23 00:20 95 27 H 89/56 95 06/05/23 00:10 93 19 111/61 95 06/05/23 00:00 97.6 F 101 H 112 H 25 H 86/72 93 L 06/04/23 23:50 106 H 24 86/72 96 06/04/23 23:40 90 22 79/59 98 06/04/23 23:30 90 10 L 83/53 99 06/04/23 23:20 93 32 H 83/53 97 06/04/23 23:00 80/57 06/04/23 22:50 80/57 99 06/04/23 22:49 80/57 98 06/04/23 22:40 88/56 97 06/04/23 22:30 90 19 82/53 99 06/04/23 22:20 82/53 98 06/04/23 22:15 97.7 F 85 18 82/53 99 06/04/23 22:10 84/60 99 06/04/23 22:00 97.7 F 83 20 86/50 99 06/04/23 21:50 90 20 94/58 98 06/04/23 21:40 83 21 78/59 98 06/04/23 21:30 82 14 82/58 98 06/04/23 21:26 84 18 82/58 98 06/04/23 21:20 86 18 75/54 98 06/04/23 21:18 97.5 F L 87 20 75/54 98 06/04/23 21:10 86 9 L 78/56 98 06/04/23 21:07 85 20 78/56 98 06/04/23 21:00 85 12 81/55 99 06/04/23 20:50 85 20 81/55 98 06/04/23 20:40 87 21 81/59 99 06/04/23 20:30 85/58 98 06/04/23 20:29 97.4 F L 86 18 81/59 98 06/04/23 20:20 81/54 100 06/04/23 20:10 83/58 99 06/04/23 20:00 75/54 99 06/04/23 19:50 75/54 99 06/04/23 19:40 80/47 98 06/04/23 19:30 88/69 98 06/04/23 19:20 88/69 99 06/04/23 19:10 0 L 85/60 99 06/04/23 19:00 78/45 98 06/04/23 18:50 103 H 78/45 99 06/04/23 18:40 93 11 L 79/53 98 06/04/23 18:33 92 06/04/23 18:30 93 14 85/54 99 06/04/23 18:23 90 06/04/23 18:20 93 16 85/54 97 06/04/23 18:10 93 13 83/51 98 06/04/23 18:00 75/60 99 06/04/23 17:56 98.4 F 97 83/51 98 06/04/23 17:50 0 L 92/58 06/04/23 17:40 101 H 27 H 92/58 06/04/23 17:30 100 27 H 97 06/04/23 16:40 98.7 F 108 H 20 90/62 97 06/04/23 15:58 99.9 F H 110 H 20 85/46 96 06/04/23 15:42 97 06/04/23 15:40 87 L 06/04/23 15:21 101.4 F H 118 H 24 96/57 91 L Intake and Output 06/04/23 06/05/23 06/05/23 22:59 06:59 14:59 Intake Total 295.548 61.731 Output Total 250 Balance 45.548 61.731 Intake: Intake, IV Titration 295.548 61.731 Amount Norepinephrine 4 mg In 195.548 61.731 Sodium Chloride 0.9% 250 ml @ 0.03 MCG/KG/MIN 12. 184 mls/hr IV .[id number] [facility] Rx#:[id number] Sodium Chloride 3%( 100 Hypertonic) 500 ml @ 25 mls/hr IV .Q20H ONE Rx#: [id number] Output: Urine 100 Urine/Stool Mix 150 Other: Voiding Method Bedside Commode # Voids 0 0 Weight 106.594 kg Results CBC & Chem 7: 06/05/23 02:53 06/05/23 09:27 Labs: Abnormal Lab Results - Last 24 Hours (Table) 06/04/23 06/04/23 06/04/23 Range/Units 00:44 15:57 15:57 Hgb 10.9 L (11.4-16.0) gm/dL Hct 31.6 L (34.0-46.0) % RDW 16.6 H (11.5-15.5) % Plt Count 105 L (150-450) k/uL Neutrophils # 8.5 H (1.3-7.7) k/uL Lymphocytes # 0.4 L (1.0-4.8) k/uL Lymphocytes # (Manual) (1.0-4.8) k/uL Metamyelocytes # (Man) (0) k/uL PT 14.7 H (9.0-12.0) sec INR 1.5 H (<1.2) Sodium (137-145) mmol/L Potassium (3.5-5.1) mmol/L Chloride (98-107) mmol/L Carbon Dioxide (22-30) mmol/L BUN (7-17) mg/dL Creatinine (0.52-1.04) mg/dL Glucose (74-99) mg/dL POC Glucose (mg/dL) (70-110) mg/dL Osmolality (280-301) mosm/kg Calcium (8.4-10.2) mg/dL Magnesium (1.6-2.3) mg/dL Total Bilirubin (0.2-1.3) mg/dL ALT (4-34) U/L Troponin I (0.000-0.034) ng/mL Albumin (3.5-5.0) g/dL Procalcitonin 12.70 H (0.02-0.09) ng/mL Urine Appearance (Clear) Urine Protein (Negative) Urine Blood (Negative) Urine Bilirubin (Negative) Urine Bacteria (None) /hpf Urine Mucus (None) /hpf 06/04/23 06/04/23 06/04/23 Range/Units 15:57 15:57 16:26 Hgb (11.4-16.0) gm/dL Hct (34.0-46.0) % RDW (11.5-15.5) % Plt Count (150-450) k/uL Neutrophils # (1.3-7.7) k/uL Lymphocytes # (1.0-4.8) k/uL Lymphocytes # (Manual) (1.0-4.8) k/uL Metamyelocytes # (Man) (0) k/uL PT (9.0-12.0) sec INR (<1.2) Sodium 117 L* (137-145) mmol/L Potassium (3.5-5.1) mmol/L Chloride 86 L (98-107) mmol/L Carbon Dioxide 20 L (22-30) mmol/L BUN 20 H (7-17) mg/dL Creatinine (0.52-1.04) mg/dL Glucose 104 H (74-99) mg/dL POC Glucose (mg/dL) (70-110) mg/dL Osmolality (280-301) mosm/kg Calcium 8.0 L (8.4-10.2) mg/dL Magnesium 1.5 L (1.6-2.3) mg/dL Total Bilirubin 2.7 H (0.2-1.3) mg/dL ALT 36 H (4-34) U/L Troponin I 0.367 H* (0.000-0.034) ng/mL Albumin 3.3 L (3.5-5.0) g/dL Procalcitonin (0.02-0.09) ng/mL Urine Appearance Cloudy H (Clear) Urine Protein 2+ H (Negative) Urine Blood Moderate H (Negative) Urine Bilirubin 1+ H (Negative) Urine Bacteria Rare H (None) /hpf Urine Mucus Rare H (None) /hpf 06/04/23 06/04/23 06/04/23 Range/Units 18:18 19:30 21:15 Hgb (11.4-16.0) gm/dL Hct (34.0-46.0) % RDW (11.5-15.5) % Plt Count (150-450) k/uL Neutrophils # (1.3-7.7) k/uL Lymphocytes # (1.0-4.8) k/uL Lymphocytes # (Manual) (1.0-4.8) k/uL Metamyelocytes # (Man) (0) k/uL PT (9.0-12.0) sec INR (<1.2) Sodium 118 L* (137-145) mmol/L Potassium (3.5-5.1) mmol/L Chloride (98-107) mmol/L Carbon Dioxide (22-30) mmol/L BUN (7-17) mg/dL Creatinine (0.52-1.04) mg/dL Glucose (74-99) mg/dL POC Glucose (mg/dL) (70-110) mg/dL Osmolality (280-301) mosm/kg Calcium (8.4-10.2) mg/dL Magnesium (1.6-2.3) mg/dL Total Bilirubin (0.2-1.3) mg/dL ALT (4-34) U/L Troponin I 0.588 H* 0.605 H* (0.000-0.034) ng/mL Albumin (3.5-5.0) g/dL Procalcitonin (0.02-0.09) ng/mL Urine Appearance (Clear) Urine Protein (Negative) Urine Blood (Negative) Urine Bilirubin (Negative) Urine Bacteria (None) /hpf Urine Mucus (None) /hpf 06/04/23 06/04/23 06/05/23 Range/Units 22:44 23:09 01:01 Hgb (11.4-16.0) gm/dL Hct (34.0-46.0) % RDW (11.5-15.5) % Plt Count (150-450) k/uL Neutrophils # (1.3-7.7) k/uL Lymphocytes # (1.0-4.8) k/uL Lymphocytes # (Manual) (1.0-4.8) k/uL Metamyelocytes # (Man) (0) k/uL PT (9.0-12.0) sec INR (<1.2) Sodium 119 L* 157 H (137-145) mmol/L Potassium (3.5-5.1) mmol/L Chloride (98-107) mmol/L Carbon Dioxide (22-30) mmol/L BUN (7-17) mg/dL Creatinine (0.52-1.04) mg/dL Glucose (74-99) mg/dL POC Glucose (mg/dL) 183 H (70-110) mg/dL Osmolality 330 H* (280-301) mosm/kg Calcium (8.4-10.2) mg/dL Magnesium (1.6-2.3) mg/dL Total Bilirubin (0.2-1.3) mg/dL ALT (4-34) U/L Troponin I (0.000-0.034) ng/mL Albumin (3.5-5.0) g/dL Procalcitonin (0.02-0.09) ng/mL Urine Appearance (Clear) Urine Protein (Negative) Urine Blood (Negative) Urine Bilirubin (Negative) Urine Bacteria (None) /hpf Urine Mucus (None) /hpf 06/05/23 06/05/23 06/05/23 Range/Units 02:53 02:53 04:54 Hgb (11.4-16.0) gm/dL Hct 33.1 L (34.0-46.0) % RDW 16.7 H (11.5-15.5) % Plt Count 86 L (150-450) k/uL Neutrophils # (1.3-7.7) k/uL Lymphocytes # (1.0-4.8) k/uL Lymphocytes # (Manual) 0.13 L (1.0-4.8) k/uL Metamyelocytes # (Man) 0.07 H (0) k/uL PT (9.0-12.0) sec INR (<1.2) Sodium 124 L 122 L (137-145) mmol/L Potassium 3.1 L (3.5-5.1) mmol/L Chloride 90 L (98-107) mmol/L Carbon Dioxide 16 L (22-30) mmol/L BUN 26 H (7-17) mg/dL Creatinine 1.15 H (0.52-1.04) mg/dL Glucose 109 H (74-99) mg/dL POC Glucose (mg/dL) (70-110) mg/dL Osmolality (280-301) mosm/kg Calcium 8.1 L (8.4-10.2) mg/dL Magnesium (1.6-2.3) mg/dL Total Bilirubin (0.2-1.3) mg/dL ALT (4-34) U/L Troponin I (0.000-0.034) ng/mL Albumin (3.5-5.0) g/dL Procalcitonin (0.02-0.09) ng/mL Urine Appearance (Clear) Urine Protein (Negative) Urine Blood (Negative) Urine Bilirubin (Negative) Urine Bacteria (None) /hpf Urine Mucus (None) /hpf 06/05/23 06/05/23 06/05/23 Range/Units 04:54 06:25 09:27 Hgb (11.4-16.0) gm/dL Hct (34.0-46.0) % RDW (11.5-15.5) % Plt Count (150-450) k/uL Neutrophils # (1.3-7.7) k/uL Lymphocytes # (1.0-4.8) k/uL Lymphocytes # (Manual) (1.0-4.8) k/uL Metamyelocytes # (Man) (0) k/uL PT (9.0-12.0) sec INR (<1.2) Sodium 123 L (137-145) mmol/L Potassium (3.5-5.1) mmol/L Chloride 90 L (98-107) mmol/L Carbon Dioxide 16 L (22-30) mmol/L BUN 27 H (7-17) mg/dL Creatinine 1.27 H (0.52-1.04) mg/dL Glucose 130 H (74-99) mg/dL POC Glucose (mg/dL) 116 H (70-110) mg/dL Osmolality (280-301) mosm/kg Calcium 8.1 L (8.4-10.2) mg/dL Magnesium (1.6-2.3) mg/dL Total Bilirubin (0.2-1.3) mg/dL ALT (4-34) U/L Troponin I 0.442 H* (0.000-0.034) ng/mL Albumin (3.5-5.0) g/dL Procalcitonin (0.02-0.09) ng/mL Urine Appearance (Clear) Urine Protein (Negative) Urine Blood (Negative) Urine Bilirubin (Negative) Urine Bacteria (None) /hpf Urine Mucus (None) /hpf Assessment and Plan (1) Non-pressure chronic ulcer of other part of left foot with fat layer exposed Current Visit: Yes Status: Acute Code(s): L97.522 - NON-PRS CHRONIC ULCER OTH PRT LEFT FOOT W FAT LAYER EXPOSED SNOMED Code(s): 43198361142356402 (2) Chronic venous hypertension w/ulcer and inflammation involv left side Current Visit: Yes Status: Acute Code(s): I87.332 - CHRONIC VENOUS HTN W ULCER AND INFLAMMATION OF L LOW EXTREM SNOMED Code(s): 370905440 (3) Chronic venous hypertension (idiopathic) with inflammation of bilateral lower extremity Current Visit: Yes Status: Acute Code(s): I87.323 - CHRONIC VENOUS HTN W INFLAMMATION OF BILATERAL LOW EXTRM SNOMED Code(s): 939614069
[2023-06-05 11:22] VITALS: BMI 35.7
[2023-06-05] MEDS ORDERED: SODIUM BICARB 8.4% 50 ML SYR (1 MEQ/ML) IV STA (11:30)
--- NOTE | 2023-06-05 11:34 | P.NPCON ---
History of Present Illness - Reason for Consult hyponatremia - History of Present Illness Reason for consultation: Hyponatremia History of present illness: Patient is a 47-year-old female seen in consultation for hyponatremia. Patient's sodium level on admission 06/04/2023 at 3:57 PM was 117. Patient re ceived 2 L normal saline bolus and then was started on 3% saline. Sodium level CXXIII this morning. Patient came to the hospital due to generally not feeling well and dizziness. He was also complaining of shortness of breath. Patient has history of diastolic CHF and mild to moderate mitral regurgitation and aortic stenosis as well as severe tricuspid regurgitation and pulmonary hypertension. Patient does admit to drinking over half a gallon of water every day. She denies any personal history of malignancy. She was taking 3 mg of Bumex daily at home. Urine output over the last 8 hours has been about 300 mL. She's been treated for Lotrimin a cellulitis. She is on Levophed. She denies history of coronary artery disease. She does have history of diabetes. Denies family history of renal disease. She does admit to taking Motrin 3-4 times in the last 1 week. She's been having some diarrhea here in the hospital but denies any prior to admission. Vital signs are stable. General: No acute distress. HEENT: Head exam is unremarkable. LUNGS: No audible rhonchi or wheezes. HEART: Rate and Rhythm are regular. ABDOMEN: Soft, obese. EXTREMITITES: 1+ edema. Erythema noted. Chronic kidney disease noted. No drainage. Past Medical History Past Medical History: Heart Failure, Hypertension, Pneumonia Additional Past Medical History / Comment(s): cellulitis History of Any Multi-Drug Resistant Organisms: None Reported Past Surgical History: Section, Coronary Bypass/CABG Additional Past Surgical History / Comment(s): open heart at age 7 Past Anesthesia/Blood Transfusion Reactions: No Reported Reaction Past Psychological History: Anxiety Smoking Status: Former smoker Past Alcohol Use History: None Reported Additional Past Alcohol Use History / Comment(s): PT QUIT SMOKING THREE WEEKS AGO WITH ONSET OF SYMPTOMS Past Drug Use History: None Reported Medications and Allergies Home Medications Medication Instructions Recorded Confirmed Type Atorvastatin [Lipitor] 20 mg PO HS 09/11/22 06/04/23 History Losartan [Cozaar] 25 mg PO TID 09/11/22 06/04/23 History metFORMIN HCL [Glucophage] 500 mg PO BID-W/MEALS 09/11/22 06/04/23 History Bumetanide [BUMEX] 2 mg PO BID #60 tab 01/23/23 06/04/23 Rx Sildenafil [Revatio] 20 mg PO TID #90 tab 01/23/23 06/04/23 Rx Allergies Allergy/AdvReac Type Severity Reaction Status Date / Time No Known Allergies Allergy Verified 06/04/23 17:42 Physical Exam Vitals: Vital Signs Temp Pulse Pulse Resp BP BP Pulse Ox 06/05/23 07:10 108 H 22 90 L 06/05/23 07:00 113 H 21 109/82 94 L 06/05/23 06:50 108 H 27 H 109/82 93 L 06/05/23 06:40 104 H 14 125/106 94 L 06/05/23 06:30 104 H 15 85/73 94 L 06/05/23 06:20 105 H 19 85/73 94 L 06/05/23 06:10 108 H 18 93/71 94 L 06/05/23 06:00 99 11 L 98/48 95 06/05/23 05:50 107 H 15 98/48 94 L 06/05/23 05:40 105 H 23 93/57 95 06/05/23 05:30 110 H 17 71/51 96 06/05/23 05:20 107 H 23 71/51 96 06/05/23 05:10 110 H 19 95/81 96 06/05/23 05:00 111 H 19 101/42 06/05/23 04:50 106 H 19 101/42 95 06/05/23 04:40 111 H 19 91/67 94 L 06/05/23 04:30 109 H 23 94/52 94 L 06/05/23 04:20 109 H 21 94/52 94 L 06/05/23 04:10 108 H 19 93/37 95 06/05/23 04:00 98.2 F 105 H 110 H 22 70/56 95 06/05/23 03:50 106 H 17 70/56 96 06/05/23 03:40 104 H 16 89/53 96 06/05/23 03:30 111 H 21 83/62 95 06/05/23 03:20 104 H 13 83/62 96 06/05/23 03:10 105 H 20 75/40 94 L 06/05/23 03:00 112 H 31 H 101/80 94 L 06/05/23 02:50 112 H 25 H 94 L 06/05/23 02:40 106 H 15 84/55 96 06/05/23 02:30 104 H 16 84/55 95 06/05/23 02:20 106 H 14 78/49 96 06/05/23 02:10 98 17 85/53 97 06/05/23 02:00 99 14 78/58 97 06/05/23 01:50 110 H 22 78/58 94 L 06/05/23 01:40 100 14 92/57 98 06/05/23 01:30 114 H 29 H 106/53 94 L 06/05/23 01:20 106 H 21 106/53 95 06/05/23 01:10 109 H 24 94/64 06/05/23 01:00 107 H 26 H 109/62 94 L 06/05/23 00:50 100 35 H 109/62 93 L 06/05/23 00:40 113 H 26 H 98/70 95 06/05/23 00:30 98 20 89/56 95 06/05/23 00:20 95 27 H 89/56 95 06/05/23 00:10 93 19 111/61 95 06/05/23 00:00 97.6 F 101 H 112 H 25 H 86/72 93 L 06/04/23 23:50 106 H 24 86/72 96 06/04/23 23:40 90 22 79/59 98 06/04/23 23:30 90 10 L 83/53 99 06/04/23 23:20 93 32 H 83/53 97 06/04/23 23:00 80/57 06/04/23 22:50 80/57 99 06/04/23 22:49 80/57 98 06/04/23 22:40 88/56 97 06/04/23 22:30 90 19 82/53 99 06/04/23 22:20 82/53 98 06/04/23 22:15 97.7 F 85 18 82/53 99 06/04/23 22:10 84/60 99 06/04/23 22:00 97.7 F 83 20 86/50 99 06/04/23 21:50 90 20 94/58 98 06/04/23 21:40 83 21 78/59 98 06/04/23 21:30 82 14 82/58 98 06/04/23 21:26 84 18 82/58 98 06/04/23 21:20 86 18 75/54 98 06/04/23 21:18 97.5 F L 87 20 75/54 98 06/04/23 21:10 86 9 L 78/56 98 06/04/23 21:07 85 20 78/56 98 06/04/23 21:00 85 12 81/55 99 06/04/23 20:50 85 20 81/55 98 06/04/23 20:40 87 21 81/59 99 06/04/23 20:30 85/58 98 06/04/23 20:29 97.4 F L 86 18 81/59 98 06/04/23 20:20 81/54 100 06/04/23 20:10 83/58 99 06/04/23 20:00 75/54 99 06/04/23 19:50 75/54 99 06/04/23 19:40 80/47 98 06/04/23 19:30 88/69 98 06/04/23 19:20 88/69 99 06/04/23 19:10 0 L 85/60 99 06/04/23 19:00 78/45 98 06/04/23 18:50 103 H 78/45 99 06/04/23 18:40 93 11 L 79/53 98 06/04/23 18:33 92 06/04/23 18:30 93 14 85/54 99 06/04/23 18:23 90 06/04/23 18:20 93 16 85/54 97 06/04/23 18:10 93 13 83/51 98 06/04/23 18:00 75/60 99 06/04/23 17:56 98.4 F 97 83/51 98 06/04/23 17:50 0 L 92/58 06/04/23 17:40 101 H 27 H 92/58 06/04/23 17:30 100 27 H 97 06/04/23 16:40 98.7 F 108 H 20 90/62 97 06/04/23 15:58 99.9 F H 110 H 20 85/46 96 06/04/23 15:42 97 06/04/23 15:40 87 L 06/04/23 15:21 101.4 F H 118 H 24 96/57 91 L Intake and Output 06/04/23 06/05/23 06/05/23 22:59 06:59 14:59 Intake Total 295.548 61.731 Output Total 250 Balance 45.548 61.731 Intake: Intake, IV Titration 295.548 61.731 Amount Norepinephrine 4 mg In 195.548 61.731 Sodium Chloride 0.9% 250 ml @ 0.03 MCG/KG/MIN 12. 184 mls/hr IV .[id number] [facility] Rx#:[id number] Sodium Chloride 3%( 100 Hypertonic) 500 ml @ 25 mls/hr IV .Q20H ONE Rx#: [id number] Output: Urine 100 Urine/Stool Mix 150 Other: Voiding Method Bedside Commode # Voids 0 0 Weight 106.594 kg 106.594 kg Results - Lab Results Most recent lab results Calcium 8.1 mg/dL (8.4-10.2) L 06/05/23 09:27 Phosphorus 2.5 mg/dL (2.5-4.5) 06/04/23 15:57 Magnesium 2.0 mg/dL (1.6-2.3) 06/05/23 09:27 06/05/23 02:53 06/05/23 09:27 Assessment and Plan Plan: Assessment: 1. Hypovolemic hyponatremia with component of excess fluid intake. Sodium level 117 on admission and up to 123 this morning. Now off 3% saline. TSH normal. Cortisol level not low. 2. Acute kidney injury secondary to ATN secondary to sepsis/hypotension. Cre atinine 1.27 today. 3. Metabolic acidosis secondary to acute kidney injury, IV fluids and GI losses . 4. Chronic diastolic CHF and mild to moderate mitral regurgitation, aortic stenosis and severe tricuspid regurgitation and pulmonary hypertension. 5. Lower extremity cellulitis on antibiotics. 6. Diabetes mellitus. Plan: Wean Levophed. Add midodrine 10 mg 3 times daily. Hold for systolic blood pressure greater than 110. Check urine osmolality and urine sodium level. 1200 mL fluid restriction. Add oral bicarb. Encouraged oral intake. Avoid nephrotoxins. Continue to monitor renal function and urine output. Check sodium level this afternoon. Thank you for the consultation. I will continue to follow the patient with you during her hospital stay.
[2023-06-05] MEDS: SODIUM BICARBONATE TAB 650 MG TAB PO SCH ×3 (12:14→20:37)
[2023-06-05] MEDS: MIDODRINE 5 MG TAB PO SCH ×2 (12:14→16:59)
--- NOTE | 2023-06-05 12:54 | P.HPIM ---
History of Present Illness H&P Date: 06/05/23 History of present illness; patient is a 47-year-old lady with past medical hist ory significant for diastolic congestive heart failure, coarctation of the aorta status post surgical correction, pulmonary hypertension, essential hypertension, hyperlipidemia, diabetes mellitus, and chronic lower extremity swelling who presented to the ER with complaints of not feeling well for the last few days. She stated that for the last few days she has not been able to eat anything, complaining of weight loss. Also complaining of shortness of breath on minimal exertion. Complaining of orthopnea. Patient has chronic swelling of lower extremities, recently treated for cellulitis Denies any fever or chills. Denies any chest pain. Because of these symptoms, patient came to the ER Initial lab work done in the ER showed WBC 9.5, hemoglobin 10.9, platelet count 105, sodium 117, potassium 4.1, BUN 20, creatinine 0.8, glucose 104, lactic acid 1.4, calcium 8, phosphorus 2.5, magnesium 1.5, troponin 0.367 Chest x-ray on arrival shows cardiomegaly and mild pulmonary vascular congestion. No focal infiltrates or obvious evidence of pneumonia. In the ER, patient was started on broad-spectrum antibiotics and was given fluid resuscitation in suspicion of sepsis, Patient was admitted to ICU REVIEW OF SYSTEMS: CONSTITUTIONAL: As mentioned in HPI HEENT: No recent visual problems or hearing problems. Denied any sore throat. CARDIOVASCULAR: No chest pain, orthopnea, PND, no palpitations, no syncope. PULMONARY: Mentioned in HPI GASTROINTESTINAL: No diarrhea, no nausea, no vomiting, no abdominal pain. NEUROLOGICAL: No headaches, no weakness, no numbness. HEMATOLOGICAL: Denies any bleeding or petechiae. GENITOURINARY: Denies any burning micturition, frequency, or urgency. MUSCULOSKELETAL/RHEUMATOLOGICAL: Denies any joint pain, swelling, or any muscle pain. ENDOCRINE: Denies any polyuria or polydipsia. The rest of the 14-point review of systems is negative. PHYSICAL EXAMINATION: GENERAL: The patient is alert and oriented x3, not in any acute distress. Sick looking HEENT: Pupils are round and equally reacting to light. EOMI. No scleral icterus. No conjunctival pallor. Normocephalic, atraumatic. No pharyngeal erythema. No thyromegaly. CARDIOVASCULAR: S1 and S2 present. No murmurs, rubs, or gallops. PULMONARY: Coarse breath sounds bilaterally, no crackles ABDOMEN: Soft, nontender, nondistended, normoactive bowel sounds. No palpable organomegaly. MUSCULOSKELETAL: No joint swelling or deformity. EXTREMITIES: 1+ pitting edema of lower extremities, right lower extremity bandaged NEUROLOGICAL: Gross neurological examination did not reveal any focal deficits. SKIN: No rashes. Assessment and plan Septic shock Hyponatremia Dehydration Hypomagnesemia Acute hypoxemic respiratory failure Acute on on chronic diastolic congestive heart failure, currently on 4 L/m nasal cannula. Elevated troponins, rule out non-STEMI Bilateral lower extremity cellulitis and chronic lower extremity edema. Recently, treated for cellulites of the lower extremities in December,. Left lower extremity wound was positive for Enterobacter and MSSA. Diarrhea Pulmonary hypertension History of cortication of the aorta status post open-heart surgery Hyperlipidemia Diabetes mellitus type 2 Obesity, with a BMI of 36 kg/m Monitor vital signs Monitor CBC Monitor CMP Continue telemetry monitoring Trend troponin Ordered 2-D echo Follow-up on blood cultures Follow-up on sodium levels. Add oral bicarb. Encouraged oral intake. Avoid nephrotoxins. Continue IV Rocephin and Levaquin. Nephrology consulted Cardiology consulted ID consulted Critical care Following Labs and medication were reviewed.. Continue same treatment. Continue with s ymptomatic treatment. Resume home medication. Monitor labs and vitals. DVT and GI prophylaxis. Further recommendations as per clinical course of the patient Dictation was produced using Via dictation software. please excuse any grammatical, word or spelling errors. Past Medical History Past Medical History: Heart Failure, Hypertension, Pneumonia Additional Past Medical History / Comment(s): cellulitis History of Any Multi-Drug Resistant Organisms: None Reported Past Surgical History: Section, Coronary Bypass/CABG Additional Past Surgical History / Comment(s): open heart at age 7 Past Anesthesia/Blood Transfusion Reactions: No Reported Reaction Past Psychological History: Anxiety Smoking Status: Former smoker Past Alcohol Use History: None Reported Additional Past Alcohol Use History / Comment(s): PT QUIT SMOKING THREE WEEKS AGO WITH ONSET OF SYMPTOMS Past Drug Use History: None Reported Medications and Allergies Home Medications Medication Instructions Recorded Confirmed Type Atorvastatin [Lipitor] 20 mg PO HS 09/11/22 06/04/23 History Losartan [Cozaar] 25 mg PO TID 09/11/22 06/04/23 History metFORMIN HCL [Glucophage] 500 mg PO BID-W/MEALS 09/11/22 06/04/23 History Bumetanide [BUMEX] 2 mg PO BID #60 tab 01/23/23 06/04/23 Rx Sildenafil [Revatio] 20 mg PO TID #90 tab 01/23/23 06/04/23 Rx Allergies Allergy/AdvReac Type Severity Reaction Status Date / Time No Known Allergies Allergy Verified 06/04/23 17:42 Physical Exam Vitals: Vital Signs Temp Pulse Pulse Resp BP BP Pulse Ox 06/05/23 07:10 108 H 22 90 L 06/05/23 07:00 113 H 21 109/82 94 L 06/05/23 06:50 108 H 27 H 109/82 93 L 06/05/23 06:40 104 H 14 125/106 94 L 06/05/23 06:30 104 H 15 85/73 94 L 06/05/23 06:20 105 H 19 85/73 94 L 06/05/23 06:10 108 H 18 93/71 94 L 06/05/23 06:00 99 11 L 98/48 95 06/05/23 05:50 107 H 15 98/48 94 L 06/05/23 05:40 105 H 23 93/57 95 06/05/23 05:30 110 H 17 71/51 96 06/05/23 05:20 107 H 23 71/51 96 06/05/23 05:10 110 H 19 95/81 96 06/05/23 05:00 111 H 19 101/42 06/05/23 04:50 106 H 19 101/42 95 06/05/23 04:40 111 H 19 91/67 94 L 06/05/23 04:30 109 H 23 94/52 94 L 06/05/23 04:20 109 H 21 94/52 94 L 06/05/23 04:10 108 H 19 93/37 95 06/05/23 04:00 98.2 F 105 H 110 H 22 70/56 95 06/05/23 03:50 106 H 17 70/56 96 06/05/23 03:40 104 H 16 89/53 96 06/05/23 03:30 111 H 21 83/62 95 06/05/23 03:20 104 H 13 83/62 96 06/05/23 03:10 105 H 20 75/40 94 L 06/05/23 03:00 112 H 31 H 101/80 94 L 06/05/23 02:50 112 H 25 H 94 L 06/05/23 02:40 106 H 15 84/55 96 06/05/23 02:30 104 H 16 84/55 95 06/05/23 02:20 106 H 14 78/49 96 06/05/23 02:10 98 17 85/53 97 06/05/23 02:00 99 14 78/58 97 06/05/23 01:50 110 H 22 78/58 94 L 06/05/23 01:40 100 14 92/57 98 06/05/23 01:30 114 H 29 H 106/53 94 L 06/05/23 01:20 106 H 21 106/53 95 06/05/23 01:10 109 H 24 94/64 06/05/23 01:00 107 H 26 H 109/62 94 L 06/05/23 00:50 100 35 H 109/62 93 L 06/05/23 00:40 113 H 26 H 98/70 95 06/05/23 00:30 98 20 89/56 95 06/05/23 00:20 95 27 H 89/56 95 06/05/23 00:10 93 19 111/61 95 06/05/23 00:00 97.6 F 101 H 112 H 25 H 86/72 93 L 06/04/23 23:50 106 H 24 86/72 96 06/04/23 23:40 90 22 79/59 98 06/04/23 23:30 90 10 L 83/53 99 06/04/23 23:20 93 32 H 83/53 97 06/04/23 23:00 80/57 06/04/23 22:50 80/57 99 06/04/23 22:49 80/57 98 06/04/23 22:40 88/56 97 06/04/23 22:30 90 19 82/53 99 06/04/23 22:20 82/53 98 06/04/23 22:15 97.7 F 85 18 82/53 99 06/04/23 22:10 84/60 99 06/04/23 22:00 97.7 F 83 20 86/50 99 06/04/23 21:50 90 20 94/58 98 06/04/23 21:40 83 21 78/59 98 06/04/23 21:30 82 14 82/58 98 06/04/23 21:26 84 18 82/58 98 06/04/23 21:20 86 18 75/54 98 06/04/23 21:18 97.5 F L 87 20 75/54 98 06/04/23 21:10 86 9 L 78/56 98 06/04/23 21:07 85 20 78/56 98 06/04/23 21:00 85 12 81/55 99 06/04/23 20:50 85 20 81/55 98 06/04/23 20:40 87 21 81/59 99 06/04/23 20:30 85/58 98 06/04/23 20:29 97.4 F L 86 18 81/59 98 06/04/23 20:20 81/54 100 06/04/23 20:10 83/58 99 06/04/23 20:00 75/54 99 06/04/23 19:50 75/54 99 06/04/23 19:40 80/47 98 06/04/23 19:30 88/69 98 06/04/23 19:20 88/69 99 06/04/23 19:10 0 L 85/60 99 06/04/23 19:00 78/45 98 06/04/23 18:50 103 H 78/45 99 06/04/23 18:40 93 11 L 79/53 98 06/04/23 18:33 92 06/04/23 18:30 93 14 85/54 99 06/04/23 18:23 90 06/04/23 18:20 93 16 85/54 97 06/04/23 18:10 93 13 83/51 98 06/04/23 18:00 75/60 99 06/04/23 17:56 98.4 F 97 83/51 98 06/04/23 17:50 0 L 92/58 06/04/23 17:40 101 H 27 H 92/58 06/04/23 17:30 100 27 H 97 06/04/23 16:40 98.7 F 108 H 20 90/62 97 06/04/23 15:58 99.9 F H 110 H 20 85/46 96 06/04/23 15:42 97 06/04/23 15:40 87 L 06/04/23 15:21 101.4 F H 118 H 24 96/57 91 L Intake and Output 06/04/23 06/05/23 06/05/23 22:59 06:59 14:59 Intake Total 295.548 61.731 Output Total 250 Balance 45.548 61.731 Intake: Intake, IV Titration 295.548 61.731 Amount Norepinephrine 4 mg In 195.548 61.731 Sodium Chloride 0.9% 250 ml @ 0.03 MCG/KG/MIN 12. 184 mls/hr IV .[id number] [facility] Rx#:[id number] Sodium Chloride 3%( 100 Hypertonic) 500 ml @ 25 mls/hr IV .Q20H ONE Rx#: [id number] Output: Urine 100 Urine/Stool Mix 150 Other: Voiding Method Bedside Commode # Voids 0 0 Weight 106.594 kg Results CBC & Chem 7: 06/05/23 02:53 06/05/23 09:27 Labs: Abnormal Lab Results - Last 24 Hours (Table) 06/04/23 06/04/23 06/04/23 Range/Units 15:57 15:57 15:57 Hgb 10.9 L (11.4-16.0) gm/dL Hct 31.6 L (34.0-46.0) % RDW 16.6 H (11.5-15.5) % Plt Count 105 L (150-450) k/uL Neutrophils # 8.5 H (1.3-7.7) k/uL Lymphocytes # 0.4 L (1.0-4.8) k/uL Lymphocytes # (Manual) (1.0-4.8) k/uL Metamyelocytes # (Man) (0) k/uL PT 14.7 H (9.0-12.0) sec INR 1.5 H (<1.2) Sodium 117 L* (137-145) mmol/L Potassium (3.5-5.1) mmol/L Chloride 86 L (98-107) mmol/L Carbon Dioxide 20 L (22-30) mmol/L BUN 20 H (7-17) mg/dL Creatinine (0.52-1.04) mg/dL Glucose 104 H (74-99) mg/dL POC Glucose (mg/dL) (70-110) mg/dL Osmolality (280-301) mosm/kg Calcium 8.0 L (8.4-10.2) mg/dL Magnesium 1.5 L (1.6-2.3) mg/dL Total Bilirubin 2.7 H (0.2-1.3) mg/dL ALT 36 H (4-34) U/L Troponin I (0.000-0.034) ng/mL Albumin 3.3 L (3.5-5.0) g/dL Urine Appearance (Clear) Urine Protein (Negative) Urine Blood (Negative) Urine Bilirubin (Negative) Urine Bacteria (None) /hpf Urine Mucus (None) /hpf 06/04/23 06/04/23 06/04/23 Range/Units 15:57 16:26 18:18 Hgb (11.4-16.0) gm/dL Hct (34.0-46.0) % RDW (11.5-15.5) % Plt Count (150-450) k/uL Neutrophils # (1.3-7.7) k/uL Lymphocytes # (1.0-4.8) k/uL Lymphocytes # (Manual) (1.0-4.8) k/uL Metamyelocytes # (Man) (0) k/uL PT (9.0-12.0) sec INR (<1.2) Sodium (137-145) mmol/L Potassium (3.5-5.1) mmol/L Chloride (98-107) mmol/L Carbon Dioxide (22-30) mmol/L BUN (7-17) mg/dL Creatinine (0.52-1.04) mg/dL Glucose (74-99) mg/dL POC Glucose (mg/dL) (70-110) mg/dL Osmolality (280-301) mosm/kg Calcium (8.4-10.2) mg/dL Magnesium (1.6-2.3) mg/dL Total Bilirubin (0.2-1.3) mg/dL ALT (4-34) U/L Troponin I 0.367 H* 0.588 H* (0.000-0.034) ng/mL Albumin (3.5-5.0) g/dL Urine Appearance Cloudy H (Clear) Urine Protein 2+ H (Negative) Urine Blood Moderate H (Negative) Urine Bilirubin 1+ H (Negative) Urine Bacteria Rare H (None) /hpf Urine Mucus Rare H (None) /hpf 06/04/23 06/04/23 06/04/23 Range/Units 19:30 21:15 22:44 Hgb (11.4-16.0) gm/dL Hct (34.0-46.0) % RDW (11.5-15.5) % Plt Count (150-450) k/uL Neutrophils # (1.3-7.7) k/uL Lymphocytes # (1.0-4.8) k/uL Lymphocytes # (Manual) (1.0-4.8) k/uL Metamyelocytes # (Man) (0) k/uL PT (9.0-12.0) sec INR (<1.2) Sodium 118 L* 119 L* (137-145) mmol/L Potassium (3.5-5.1) mmol/L Chloride (98-107) mmol/L Carbon Dioxide (22-30) mmol/L BUN (7-17) mg/dL Creatinine (0.52-1.04) mg/dL Glucose (74-99) mg/dL POC Glucose (mg/dL) (70-110) mg/dL Osmolality (280-301) mosm/kg Calcium (8.4-10.2) mg/dL Magnesium (1.6-2.3) mg/dL Total Bilirubin (0.2-1.3) mg/dL ALT (4-34) U/L Troponin I 0.605 H* (0.000-0.034) ng/mL Albumin (3.5-5.0) g/dL Urine Appearance (Clear) Urine Protein (Negative) Urine Blood (Negative) Urine Bilirubin (Negative) Urine Bacteria (None) /hpf Urine Mucus (None) /hpf 06/04/23 06/05/23 06/05/23 Range/Units 23:09 01:01 02:53 Hgb (11.4-16.0) gm/dL Hct 33.1 L (34.0-46.0) % RDW 16.7 H (11.5-15.5) % Plt Count 86 L (150-450) k/uL Neutrophils # (1.3-7.7) k/uL Lymphocytes # (1.0-4.8) k/uL Lymphocytes # (Manual) 0.13 L (1.0-4.8) k/uL Metamyelocytes # (Man) 0.07 H (0) k/uL PT (9.0-12.0) sec INR (<1.2) Sodium 157 H (137-145) mmol/L Potassium (3.5-5.1) mmol/L Chloride (98-107) mmol/L Carbon Dioxide (22-30) mmol/L BUN (7-17) mg/dL Creatinine (0.52-1.04) mg/dL Glucose (74-99) mg/dL POC Glucose (mg/dL) 183 H (70-110) mg/dL Osmolality 330 H* (280-301) mosm/kg Calcium (8.4-10.2) mg/dL Magnesium (1.6-2.3) mg/dL Total Bilirubin (0.2-1.3) mg/dL ALT (4-34) U/L Troponin I (0.000-0.034) ng/mL Albumin (3.5-5.0) g/dL Urine Appearance (Clear) Urine Protein (Negative) Urine Blood (Negative) Urine Bilirubin (Negative) Urine Bacteria (None) /hpf Urine Mucus (None) /hpf 06/05/23 06/05/23 06/05/23 Range/Units 02:53 04:54 04:54 Hgb (11.4-16.0) gm/dL Hct (34.0-46.0) % RDW (11.5-15.5) % Plt Count (150-450) k/uL Neutrophils # (1.3-7.7) k/uL Lymphocytes # (1.0-4.8) k/uL Lymphocytes # (Manual) (1.0-4.8) k/uL Metamyelocytes # (Man) (0) k/uL PT (9.0-12.0) sec INR (<1.2) Sodium 124 L 122 L (137-145) mmol/L Potassium 3.1 L (3.5-5.1) mmol/L Chloride 90 L (98-107) mmol/L Carbon Dioxide 16 L (22-30) mmol/L BUN 26 H (7-17) mg/dL Creatinine 1.15 H (0.52-1.04) mg/dL Glucose 109 H (74-99) mg/dL POC Glucose (mg/dL) (70-110) mg/dL Osmolality (280-301) mosm/kg Calcium 8.1 L (8.4-10.2) mg/dL Magnesium (1.6-2.3) mg/dL Total Bilirubin (0.2-1.3) mg/dL ALT (4-34) U/L Troponin I 0.442 H* (0.000-0.034) ng/mL Albumin (3.5-5.0) g/dL Urine Appearance (Clear) Urine Protein (Negative) Urine Blood (Negative) Urine Bilirubin (Negative) Urine Bacteria (None) /hpf Urine Mucus (None) /hpf 06/05/23 Range/Units 06:25 Hgb (11.4-16.0) gm/dL Hct (34.0-46.0) % RDW (11.5-15.5) % Plt Count (150-450) k/uL Neutrophils # (1.3-7.7) k/uL Lymphocytes # (1.0-4.8) k/uL Lymphocytes # (Manual) (1.0-4.8) k/uL Metamyelocytes # (Man) (0) k/uL PT (9.0-12.0) sec INR (<1.2) Sodium (137-145) mmol/L Potassium (3.5-5.1) mmol/L Chloride (98-107) mmol/L Carbon Dioxide (22-30) mmol/L BUN (7-17) mg/dL Creatinine (0.52-1.04) mg/dL Glucose (74-99) mg/dL POC Glucose (mg/dL) 116 H (70-110) mg/dL Osmolality (280-301) mosm/kg Calcium (8.4-10.2) mg/dL Magnesium (1.6-2.3) mg/dL Total Bilirubin (0.2-1.3) mg/dL ALT (4-34) U/L Troponin I (0.000-0.034) ng/mL Albumin (3.5-5.0) g/dL Urine Appearance (Clear) Urine Protein (Negative) Urine Blood (Negative) Urine Bilirubin (Negative) Urine Bacteria (None) /hpf Urine Mucus (None) /hpf Thrombosis Risk Factor Assmnt - Choose All That Apply Each Factor Represents 1 point: Age 41-60 years, Medical pt on bed rest, Swollen legs (current) Thrombosis Risk Factor Assessment Total Risk Factor Score: 3 Thrombosis Risk Factor Assessment Level: Moderate Risk
[2023-06-05 18:10] LABS: Glucose,Whole Blood 171 mg/dL (70-110)
[2023-06-05 20:41] LABS: Glucose,Whole Blood 126 mg/dL (70-110)
[2023-06-05] MEDS ORDERED: FUROSEMIDE 10 MG/ML 2 ML VIAL IV ONE (21:14)
--- NOTE | 2023-06-05 21:41 | P.CONS ---
History of Present Illness - Reason for Consult Consult date: 06/05/23 - History of Present Illness Patient is a 47-year-old female with a past medical history significant for hypertension diastolic congestive heart failure pulmonary hypertension hyperlipidemia diabetes mellitus presenting to the hospital for evaluation of increasing shortness of breath, patient complaining of shortness of breath on minimal exertion even at rest patient denies having any chest pain she did have cough mild to moderate has not been having any sputum no nausea no vomiting no abdominal pain no diarrhea or urinary symptoms. Significant swelling to bilateral lower extremities with some erythema patient did have some superficial ulceration to the left lower extremity there is almost healed and no drainage with the site of the patient has been evaluated by the ER physician on presentation to the hospital patient did have a fever of 101.4 F patient was tachycardic mildly hypotensive requiring admission to the ICU patient was also hypoxic requiring supplemental oxygen currently on 3 L nasal cannula oxygen patient did have a normal white count with a left shift BUN/creatinine mildly elevated troponin was elevated bilirubin is mildly elevated procalcitonin is 12.70 urine is negative influenza RSV and COVID testing was negative patient did have a chest x-ray cardiomegaly mild pulm vascular congestion and correlated the BNP patient was started on Rocephin and Levaquin admitted to the ICU infectious was consulted for further management of antibiotic therapy patient blood culture did came back positive with MSSA Past Medical History Past Medical History: Heart Failure, Hypertension, Pneumonia Additional Past Medical History / Comment(s): cellulitis History of Any Multi-Drug Resistant Organisms: None Reported Past Surgical History: Section, Coronary Bypass/CABG Additional Past Surgical History / Comment(s): open heart at age 7 Past Anesthesia/Blood Transfusion Reactions: No Reported Reaction Past Psychological History: Anxiety Smoking Status: Former smoker Past Alcohol Use History: None Reported Additional Past Alcohol Use History / Comment(s): PT QUIT SMOKING THREE WEEKS AGO WITH ONSET OF SYMPTOMS Past Drug Use History: None Reported Medications and Allergies Home Medications Medication Instructions Recorded Confirmed Type Atorvastatin [Lipitor] 20 mg PO HS 09/11/22 06/04/23 History Losartan [Cozaar] 25 mg PO TID 09/11/22 06/04/23 History metFORMIN HCL [Glucophage] 500 mg PO BID-W/MEALS 09/11/22 06/04/23 History Bumetanide [BUMEX] 2 mg PO BID #60 tab 01/23/23 06/04/23 Rx Sildenafil [Revatio] 20 mg PO TID #90 tab 01/23/23 06/04/23 Rx Allergies Allergy/AdvReac Type Severity Reaction Status Date / Time No Known Allergies Allergy Verified 06/04/23 17:42 Physical Exam Vitals: Vital Signs Temp Pulse Pulse Resp BP BP Pulse Ox 06/05/23 07:10 108 H 22 90 L 06/05/23 07:00 113 H 21 109/82 94 L 06/05/23 06:50 108 H 27 H 109/82 93 L 06/05/23 06:40 104 H 14 125/106 94 L 06/05/23 06:30 104 H 15 85/73 94 L 06/05/23 06:20 105 H 19 85/73 94 L 06/05/23 06:10 108 H 18 93/71 94 L 06/05/23 06:00 99 11 L 98/48 95 06/05/23 05:50 107 H 15 98/48 94 L 06/05/23 05:40 105 H 23 93/57 95 06/05/23 05:30 110 H 17 71/51 96 06/05/23 05:20 107 H 23 71/51 96 06/05/23 05:10 110 H 19 95/81 96 06/05/23 05:00 111 H 19 101/42 06/05/23 04:50 106 H 19 101/42 95 06/05/23 04:40 111 H 19 91/67 94 L 06/05/23 04:30 109 H 23 94/52 94 L 06/05/23 04:20 109 H 21 94/52 94 L 06/05/23 04:10 108 H 19 93/37 95 06/05/23 04:00 98.2 F 105 H 110 H 22 70/56 95 06/05/23 03:50 106 H 17 70/56 96 06/05/23 03:40 104 H 16 89/53 96 06/05/23 03:30 111 H 21 83/62 95 06/05/23 03:20 104 H 13 83/62 96 06/05/23 03:10 105 H 20 75/40 94 L 06/05/23 03:00 112 H 31 H 101/80 94 L 06/05/23 02:50 112 H 25 H 94 L 06/05/23 02:40 106 H 15 84/55 96 06/05/23 02:30 104 H 16 84/55 95 06/05/23 02:20 106 H 14 78/49 96 06/05/23 02:10 98 17 85/53 97 06/05/23 02:00 99 14 78/58 97 06/05/23 01:50 110 H 22 78/58 94 L 06/05/23 01:40 100 14 92/57 98 06/05/23 01:30 114 H 29 H 106/53 94 L 06/05/23 01:20 106 H 21 106/53 95 06/05/23 01:10 109 H 24 94/64 06/05/23 01:00 107 H 26 H 109/62 94 L 06/05/23 00:50 100 35 H 109/62 93 L 06/05/23 00:40 113 H 26 H 98/70 95 06/05/23 00:30 98 20 89/56 95 06/05/23 00:20 95 27 H 89/56 95 06/05/23 00:10 93 19 111/61 95 06/05/23 00:00 97.6 F 101 H 112 H 25 H 86/72 93 L 06/04/23 23:50 106 H 24 86/72 96 06/04/23 23:40 90 22 79/59 98 06/04/23 23:30 90 10 L 83/53 99 06/04/23 23:20 93 32 H 83/53 97 06/04/23 23:00 80/57 06/04/23 22:50 80/57 99 06/04/23 22:49 80/57 98 06/04/23 22:40 88/56 97 06/04/23 22:30 90 19 82/53 99 06/04/23 22:20 82/53 98 06/04/23 22:15 97.7 F 85 18 82/53 99 06/04/23 22:10 84/60 99 06/04/23 22:00 97.7 F 83 20 86/50 99 06/04/23 21:50 90 20 94/58 98 06/04/23 21:40 83 21 78/59 98 06/04/23 21:30 82 14 82/58 98 06/04/23 21:26 84 18 82/58 98 06/04/23 21:20 86 18 75/54 98 06/04/23 21:18 97.5 F L 87 20 75/54 98 06/04/23 21:10 86 9 L 78/56 98 06/04/23 21:07 85 20 78/56 98 06/04/23 21:00 85 12 81/55 99 06/04/23 20:50 85 20 81/55 98 06/04/23 20:40 87 21 81/59 99 06/04/23 20:30 85/58 98 06/04/23 20:29 97.4 F L 86 18 81/59 98 06/04/23 20:20 81/54 100 06/04/23 20:10 83/58 99 06/04/23 20:00 75/54 99 06/04/23 19:50 75/54 99 06/04/23 19:40 80/47 98 06/04/23 19:30 88/69 98 06/04/23 19:20 88/69 99 06/04/23 19:10 0 L 85/60 99 06/04/23 19:00 78/45 98 06/04/23 18:50 103 H 78/45 99 06/04/23 18:40 93 11 L 79/53 98 06/04/23 18:33 92 06/04/23 18:30 93 14 85/54 99 06/04/23 18:23 90 06/04/23 18:20 93 16 85/54 97 06/04/23 18:10 93 13 83/51 98 06/04/23 18:00 75/60 99 06/04/23 17:56 98.4 F 97 83/51 98 06/04/23 17:50 0 L 92/58 06/04/23 17:40 101 H 27 H 92/58 06/04/23 17:30 100 27 H 97 06/04/23 16:40 98.7 F 108 H 20 90/62 97 06/04/23 15:58 99.9 F H 110 H 20 85/46 96 06/04/23 15:42 97 06/04/23 15:40 87 L 06/04/23 15:21 101.4 F H 118 H 24 96/57 91 L Intake and Output 06/04/23 06/05/23 06/05/23 22:59 06:59 14:59 Intake Total 295.548 61.731 Output Total 250 Balance 45.548 61.731 Intake: Intake, IV Titration 295.548 61.731 Amount Norepinephrine 4 mg In 195.548 61.731 Sodium Chloride 0.9% 250 ml @ 0.03 MCG/KG/MIN 12. 184 mls/hr IV .[id number] [facility] Rx#:[id number] Sodium Chloride 3%( 100 Hypertonic) 500 ml @ 25 mls/hr IV .Q20H [facility] Rx#: [id number] Output: Urine 100 Urine/Stool Mix 150 Other: Voiding Method Bedside Commode # Voids 0 0 Weight 106.594 kg Results CBC & Chem 7: 06/05/23 02:53 06/05/23 20:02 Labs: Abnormal Lab Results - Last 24 Hours (Table) 06/04/23 06/04/23 06/04/23 Range/Units 00:44 15:57 15:57 Hgb 10.9 L (11.4-16.0) gm/dL Hct 31.6 L (34.0-46.0) % RDW 16.6 H (11.5-15.5) % Plt Count 105 L (150-450) k/uL Neutrophils # 8.5 H (1.3-7.7) k/uL Lymphocytes # 0.4 L (1.0-4.8) k/uL Lymphocytes # (Manual) (1.0-4.8) k/uL Metamyelocytes # (Man) (0) k/uL PT 14.7 H (9.0-12.0) sec INR 1.5 H (<1.2) Sodium (137-145) mmol/L Potassium (3.5-5.1) mmol/L Chloride (98-107) mmol/L Carbon Dioxide (22-30) mmol/L BUN (7-17) mg/dL Creatinine (0.52-1.04) mg/dL Glucose (74-99) mg/dL POC Glucose (mg/dL) (70-110) mg/dL Osmolality (280-301) mosm/kg Calcium (8.4-10.2) mg/dL Magnesium (1.6-2.3) mg/dL Total Bilirubin (0.2-1.3) mg/dL ALT (4-34) U/L Troponin I (0.000-0.034) ng/mL Albumin (3.5-5.0) g/dL Procalcitonin 12.70 H (0.02-0.09) ng/mL Urine Appearance (Clear) Urine Protein (Negative) Urine Blood (Negative) Urine Bilirubin (Negative) Urine Bacteria (None) /hpf Urine Mucus (None) /hpf 06/04/23 06/04/23 06/04/23 Range/Units 15:57 15:57 16:26 Hgb (11.4-16.0) gm/dL Hct (34.0-46.0) % RDW (11.5-15.5) % Plt Count (150-450) k/uL Neutrophils # (1.3-7.7) k/uL Lymphocytes # (1.0-4.8) k/uL Lymphocytes # (Manual) (1.0-4.8) k/uL Metamyelocytes # (Man) (0) k/uL PT (9.0-12.0) sec INR (<1.2) Sodium 117 L* (137-145) mmol/L Potassium (3.5-5.1) mmol/L Chloride 86 L (98-107) mmol/L Carbon Dioxide 20 L (22-30) mmol/L BUN 20 H (7-17) mg/dL Creatinine (0.52-1.04) mg/dL Glucose 104 H (74-99) mg/dL POC Glucose (mg/dL) (70-110) mg/dL Osmolality (280-301) mosm/kg Calcium 8.0 L (8.4-10.2) mg/dL Magnesium 1.5 L (1.6-2.3) mg/dL Total Bilirubin 2.7 H (0.2-1.3) mg/dL ALT 36 H (4-34) U/L Troponin I 0.367 H* (0.000-0.034) ng/mL Albumin 3.3 L (3.5-5.0) g/dL Procalcitonin (0.02-0.09) ng/mL Urine Appearance Cloudy H (Clear) Urine Protein 2+ H (Negative) Urine Blood Moderate H (Negative) Urine Bilirubin 1+ H (Negative) Urine Bacteria Rare H (None) /hpf Urine Mucus Rare H (None) /hpf 06/04/23 06/04/23 06/04/23 Range/Units 18:18 19:30 21:15 Hgb (11.4-16.0) gm/dL Hct (34.0-46.0) % RDW (11.5-15.5) % Plt Count (150-450) k/uL Neutrophils # (1.3-7.7) k/uL Lymphocytes # (1.0-4.8) k/uL Lymphocytes # (Manual) (1.0-4.8) k/uL Metamyelocytes # (Man) (0) k/uL PT (9.0-12.0) sec INR (<1.2) Sodium 118 L* (137-145) mmol/L Potassium (3.5-5.1) mmol/L Chloride (98-107) mmol/L Carbon Dioxide (22-30) mmol/L BUN (7-17) mg/dL Creatinine (0.52-1.04) mg/dL Glucose (74-99) mg/dL POC Glucose (mg/dL) (70-110) mg/dL Osmolality (280-301) mosm/kg Calcium (8.4-10.2) mg/dL Magnesium (1.6-2.3) mg/dL Total Bilirubin (0.2-1.3) mg/dL ALT (4-34) U/L Troponin I 0.588 H* 0.605 H* (0.000-0.034) ng/mL Albumin (3.5-5.0) g/dL Procalcitonin (0.02-0.09) ng/mL Urine Appearance (Clear) Urine Protein (Negative) Urine Blood (Negative) Urine Bilirubin (Negative) Urine Bacteria (None) /hpf Urine Mucus (None) /hpf 06/04/23 06/04/23 06/05/23 Range/Units 22:44 23:09 01:01 Hgb (11.4-16.0) gm/dL Hct (34.0-46.0) % RDW (11.5-15.5) % Plt Count (150-450) k/uL Neutrophils # (1.3-7.7) k/uL Lymphocytes # (1.0-4.8) k/uL Lymphocytes # (Manual) (1.0-4.8) k/uL Metamyelocytes # (Man) (0) k/uL PT (9.0-12.0) sec INR (<1.2) Sodium 119 L* 157 H (137-145) mmol/L Potassium (3.5-5.1) mmol/L Chloride (98-107) mmol/L Carbon Dioxide (22-30) mmol/L BUN (7-17) mg/dL Creatinine (0.52-1.04) mg/dL Glucose (74-99) mg/dL POC Glucose (mg/dL) 183 H (70-110) mg/dL Osmolality 330 H* (280-301) mosm/kg Calcium (8.4-10.2) mg/dL Magnesium (1.6-2.3) mg/dL Total Bilirubin (0.2-1.3) mg/dL ALT (4-34) U/L Troponin I (0.000-0.034) ng/mL Albumin (3.5-5.0) g/dL Procalcitonin (0.02-0.09) ng/mL Urine Appearance (Clear) Urine Protein (Negative) Urine Blood (Negative) Urine Bilirubin (Negative) Urine Bacteria (None) /hpf Urine Mucus (None) /hpf 06/05/23 06/05/23 06/05/23 Range/Units 02:53 02:53 04:54 Hgb (11.4-16.0) gm/dL Hct 33.1 L (34.0-46.0) % RDW 16.7 H (11.5-15.5) % Plt Count 86 L (150-450) k/uL Neutrophils # (1.3-7.7) k/uL Lymphocytes # (1.0-4.8) k/uL Lymphocytes # (Manual) 0.13 L (1.0-4.8) k/uL Metamyelocytes # (Man) 0.07 H (0) k/uL PT (9.0-12.0) sec INR (<1.2) Sodium 124 L 122 L (137-145) mmol/L Potassium 3.1 L (3.5-5.1) mmol/L Chloride 90 L (98-107) mmol/L Carbon Dioxide 16 L (22-30) mmol/L BUN 26 H (7-17) mg/dL Creatinine 1.15 H (0.52-1.04) mg/dL Glucose 109 H (74-99) mg/dL POC Glucose (mg/dL) (70-110) mg/dL Osmolality (280-301) mosm/kg Calcium 8.1 L (8.4-10.2) mg/dL Magnesium (1.6-2.3) mg/dL Total Bilirubin (0.2-1.3) mg/dL ALT (4-34) U/L Troponin I (0.000-0.034) ng/mL Albumin (3.5-5.0) g/dL Procalcitonin (0.02-0.09) ng/mL Urine Appearance (Clear) Urine Protein (Negative) Urine Blood (Negative) Urine Bilirubin (Negative) Urine Bacteria (None) /hpf Urine Mucus (None) /hpf 06/05/23 06/05/23 06/05/23 Range/Units 04:54 06:25 09:27 Hgb (11.4-16.0) gm/dL Hct (34.0-46.0) % RDW (11.5-15.5) % Plt Count (150-450) k/uL Neutrophils # (1.3-7.7) k/uL Lymphocytes # (1.0-4.8) k/uL Lymphocytes # (Manual) (1.0-4.8) k/uL Metamyelocytes # (Man) (0) k/uL PT (9.0-12.0) sec INR (<1.2) Sodium 123 L (137-145) mmol/L Potassium (3.5-5.1) mmol/L Chloride 90 L (98-107) mmol/L Carbon Dioxide 16 L (22-30) mmol/L BUN 27 H (7-17) mg/dL Creatinine 1.27 H (0.52-1.04) mg/dL Glucose 130 H (74-99) mg/dL POC Glucose (mg/dL) 116 H (70-110) mg/dL Osmolality (280-301) mosm/kg Calcium 8.1 L (8.4-10.2) mg/dL Magnesium (1.6-2.3) mg/dL Total Bilirubin (0.2-1.3) mg/dL ALT (4-34) U/L Troponin I 0.442 H* (0.000-0.034) ng/mL Albumin (3.5-5.0) g/dL Procalcitonin (0.02-0.09) ng/mL Urine Appearance (Clear) Urine Protein (Negative) Urine Blood (Negative) Urine Bilirubin (Negative) Urine Bacteria (None) /hpf Urine Mucus (None) /hpf Assessment and Plan Plan: 1patient presented hospital with sepsis in this patient with a fever tachycardia hypotension requiring pressor support now with evidence of MSSA bacteremia source likely lower extremity cellulitis patient with right lower extremity and did have some pressure wound to the left leg clinically not behaving as pneumonia and no other focus of this bacteremia 2-blood cultures will be repeated document clearance of bacteremia to make sure no evidence of any endovascular source 3-discontinue Rocephin and Levaquin 4-start the patient on cefazolin 2 g every 8 hours We will follow on clinical condition and cultures to further adjust medication if needed Thank you for this consultation we will follow the patient along with you Dictation was produced using [employer] dictation software. please excuse any grammatical, word or spelling errors. Time with Patient: Greater than 30
[2023-06-06] MEDS: ACETAMINOPHEN TAB 500 MG TAB PO PRN (04:06)
[2023-06-06 05:19] LABS: Anisocytosis Slight; Basophils % (A) 0 %; Eosinophils % (A) 0 %; HCT 38.5 % (34.0-46.0); HGB 12.2 gm/dL (11.4-16.0); Hypochromasia Marked; Lymphocytes # (A) 0.8 k/uL (1.0-4.8); Lymphocytes % (A) 7 %; MCH 27.2 pg (25.0-35.0); MCHC 31.7 g/dL (31.0-37.0); MCV 85.7 fL (80.0-100.0); Mean Platelet Volume 10.8; Monocytes # (A) 0.7 k/uL (0-1.0); Monocytes % (A) 6 %; Neutrophils # (A) 10.1 k/uL (1.3-7.7); Neutrophils % (A) 85 %; Platelet Count 90 k/uL (150-450); RBC 4.49 m/uL (3.80-5.40); RDW 16.3 % (11.5-15.5); WBC 11.9 k/uL (3.8-10.6)
[2023-06-06 05:35] LABS: African American GFR (CKD) 65 (>60 ml/min/1.73 sqM); Anion Gap 12 mmol/L; Blood Urea Nitrogen 35 mg/dL (7-17); Calcium 8.2 mg/dL (8.4-10.2); Carbon Dioxide 23 mmol/L (22-30); Chloride 90 mmol/L (98-107); Glucose 102 mg/dL (74-99); Non-African American GFR(CKD) 56 (>60 ml/min/1.73 sqM); Potassium 3.9 mmol/L (3.5-5.1); Sodium 125 mmol/L (137-145)
[2023-06-06] MEDS ORDERED: POTASSIUM CHLORIDE ER 20 MEQ TAB.ER PO SCH (06:00)
[2023-06-06] MEDS: MIDODRINE 5 MG TAB PO SCH ×3 (06:20→16:46)
[2023-06-06] MEDS: PANTOPRAZOLE 40 MG TABLET PO SCH (06:20)
[2023-06-06] MEDS: INSULIN ASPART (NovoLOG) 100 UNIT/ML VIAL SQ SCH ×4 (07:23→21:04)
[2023-06-06] MEDS: HEPARIN SODIUM,PORCINE 5,000 UNIT/ML 1 ML VIAL SQ SCH ×3 (08:18→23:52)
[2023-06-06] MEDS: SODIUM BICARBONATE TAB 650 MG TAB PO SCH ×3 (08:18→20:07)
--- NOTE | 2023-06-06 09:46 | P.PN ---
Subjective Progress Note Date: 06/06/23 The patient is a 47-year-old female with extensive cardiac history who follows in the office with Dr. Bro. She presented to the hospital with increased shortness of breath. The patient on a similar admission back in December, where she was diagnosed with cellulitis. Recent echocardiogram shows preserved LV function with severe RV dilatation and elevated RVSP at 60 mmHg. Possible vegetation noted on mitral valve. Blood cultures are currently pending. Patient is empiric antibiotic coverage. The patient states she's feeling better in terms of her back discomfort since getting up to recliner chair. She does suffer from anxiety but denies any chest pain or difficulty breathing currently. She states taking short of breath when ambulating to the chair. GENERAL: Ill-appearing, well-nourished. Pale and anxious NECK: Supple without JVD or thyromegaly. LUNGS: Breath sounds clear to auscultation bilaterally. Respiration equal and unlabored. No wheezes, rales or rhonchi. HEART: Regular rate and rhythm. Systolic murmur. No rubs or gallops. S1 and S2 heard. EXTREMITIES: Normal range of motion, no edema. No clubbing or cyanosis. Peripheral pulses intact and strong. TELEMETRY: Sinus rhythm overnight IMPRESSION: Septicemia, likely secondary to chronic cellulitis Hypotension Congestive heart failure, acute on chronic History of severe RV dilatation and pulmonary hypertension History of valvular disease History of coarctation of aorta, surgery at age 7 Hyponatremia PLAN: Continue supportive treatment for septicemia Awaiting results of blood cultures Nothing by mouth after midnight on Friday in preparation for transesophageal echocardiogram on Friday Further recommendations based on clinical course I am dictating on behalf of Dr Isaiah Bro's history/physical and assessment /plan. Objective - Vital Signs Vital signs: Vital Signs Temp 97.5 F L 06/06/23 04:00 Pulse 87 06/06/23 07:15 Resp 16 06/06/23 07:15 BP 92/64 06/06/23 07:15 Pulse Ox 97 06/06/23 07:15 FiO2 Intake & Output 06/05/23 06/06/23 06/06/23 18:59 06:59 18:59 Intake Total 904.000 0.541 373.193 Output Total 435 660 40 Balance 469.000 -659.459 333.193 Weight 106.594 kg 122.4 kg Intake: IV 150 cefTRIAXone 2 gm In 150 Sodium Chloride 0.9% 50 ml @ 100 mls/hr IVPB Q24HR [facility] Rx#:[id number] Intake, IV Titration 254.000 0.541 123.193 Amount Norepinephrine 4 mg In 254.000 0.541 123.193 Sodium Chloride 0.9% 250 ml @ 0.03 MCG/KG/MIN 12. 184 mls/hr IV .[id number] [facility] Rx#:[id number] Oral 500 250 Output: Urine 435 660 40 Other: Voiding Method Indwelling Catheter Indwelling Catheter # Voids 1 # Bowel Movements 2 - Labs CBC & Chem 7: 06/06/23 04:23 06/06/23 04:23 Labs: Abnormal Lab Results - Last 24 Hours (Table) 06/04/23 06/05/23 06/05/23 Range/Units 00:44 09:27 09:27 WBC (3.8-10.6) k/uL RDW (11.5-15.5) % Plt Count (150-450) k/uL Neutrophils # (1.3-7.7) k/uL Lymphocytes # (1.0-4.8) k/uL Sodium 123 L (137-145) mmol/L Chloride 90 L (98-107) mmol/L Carbon Dioxide 16 L (22-30) mmol/L BUN 27 H (7-17) mg/dL Creatinine 1.27 H (0.52-1.04) mg/dL Glucose 130 H (74-99) mg/dL POC Glucose (mg/dL) (70-110) mg/dL Hemoglobin A1c 6.5 H (<=6.0) % Calcium 8.1 L (8.4-10.2) mg/dL Procalcitonin 12.70 H (0.02-0.09) ng/mL Ur Random Sodium (40-220) mmol/L 06/05/23 06/05/23 06/05/23 Range/Units 13:57 18:09 18:24 WBC (3.8-10.6) k/uL RDW (11.5-15.5) % Plt Count (150-450) k/uL Neutrophils # (1.3-7.7) k/uL Lymphocytes # (1.0-4.8) k/uL Sodium 124 L (137-145) mmol/L Chloride (98-107) mmol/L Carbon Dioxide (22-30) mmol/L BUN (7-17) mg/dL Creatinine (0.52-1.04) mg/dL Glucose (74-99) mg/dL POC Glucose (mg/dL) 171 H (70-110) mg/dL Hemoglobin A1c (<=6.0) % Calcium (8.4-10.2) mg/dL Procalcitonin (0.02-0.09) ng/mL Ur Random Sodium <20 L (40-220) mmol/L 06/05/23 06/05/23 06/06/23 Range/Units 20:02 20:40 04:23 WBC 11.9 H (3.8-10.6) k/uL RDW 16.3 H (11.5-15.5) % Plt Count 90 L (150-450) k/uL Neutrophils # 10.1 H (1.3-7.7) k/uL Lymphocytes # 0.8 L (1.0-4.8) k/uL Sodium 124 L (137-145) mmol/L Chloride (98-107) mmol/L Carbon Dioxide (22-30) mmol/L BUN (7-17) mg/dL Creatinine (0.52-1.04) mg/dL Glucose (74-99) mg/dL POC Glucose (mg/dL) 126 H (70-110) mg/dL Hemoglobin A1c (<=6.0) % Calcium (8.4-10.2) mg/dL Procalcitonin (0.02-0.09) ng/mL Ur Random Sodium (40-220) mmol/L 06/06/23 Range/Units 04:23 WBC (3.8-10.6) k/uL RDW (11.5-15.5) % Plt Count (150-450) k/uL Neutrophils # (1.3-7.7) k/uL Lymphocytes # (1.0-4.8) k/uL Sodium 125 L (137-145) mmol/L Chloride 90 L (98-107) mmol/L Carbon Dioxide (22-30) mmol/L BUN 35 H (7-17) mg/dL Creatinine 1.17 H (0.52-1.04) mg/dL Glucose 102 H (74-99) mg/dL POC Glucose (mg/dL) (70-110) mg/dL Hemoglobin A1c (<=6.0) % Calcium 8.2 L (8.4-10.2) mg/dL Procalcitonin (0.02-0.09) ng/mL Ur Random Sodium (40-220) mmol/L Microbiology - Last 24 Hours (Table) 06/04/23 18:00 Blood Culture Gram Stain - Preliminary Blood
--- NOTE | 2023-06-06 10:40 | P.PN ---
Subjective Patient is seen in follow-up for hyponatremia. Sodium level 125 this morning. Remains on Levophed. Did receive 1 dose of IV Lasix last night. Nonoliguric. Oral intake poor. Vital signs are stable. On vasopressor support. General: No acute distress. HEENT: Head exam is unremarkable. On nasocannula. LUNGS: No audible rhonchi or wheezes. HEART: Rate and Rhythm are regular. ABDOMEN: Nontender, obese. EXTREMITITES: Lower extremities wrapped. Erythema noted. No drainage. 1+ edema. Objective - Vital Signs Vital signs: Vital Signs Temp 97.5 F L 06/06/23 08:00 Pulse 86 06/06/23 10:00 Resp 12 06/06/23 10:00 BP 77/46 06/06/23 10:00 Pulse Ox 96 06/06/23 10:00 FiO2 Intake & Output 06/05/23 06/06/23 06/06/23 18:59 06:59 18:59 Intake Total 904.000 0.541 685.377 Output Total 435 660 115 Balance 469.000 -659.459 570.377 Weight 106.594 kg 122.4 kg Intake: IV 150 80 0.9 NS 30 cefTRIAXone 2 gm In 150 50 Sodium Chloride 0.9% 50 ml @ 100 mls/hr IVPB Q24HR [facility] Rx#:[id number] Intake, IV Titration 254.000 0.541 135.377 Amount Norepinephrine 4 mg In 254.000 0.541 135.377 Sodium Chloride 0.9% 250 ml @ 0.03 MCG/KG/MIN 12. 184 mls/hr IV .[id number] [facility] Rx#:[id number] Oral 500 470 Output: Urine 435 660 115 Other: Voiding Method Indwelling Catheter Indwelling Catheter Indwelling Catheter # Voids 1 # Bowel Movements 2 - Labs CBC & Chem 7: 06/06/23 04:23 06/06/23 04:23 Labs: Abnormal Lab Results - Last 24 Hours (Table) 06/04/23 06/05/23 06/05/23 Range/Units 00:44 09:27 13:57 WBC (3.8-10.6) k/uL RDW (11.5-15.5) % Plt Count (150-450) k/uL Neutrophils # (1.3-7.7) k/uL Lymphocytes # (1.0-4.8) k/uL Sodium 124 L (137-145) mmol/L Chloride (98-107) mmol/L BUN (7-17) mg/dL Creatinine (0.52-1.04) mg/dL Glucose (74-99) mg/dL POC Glucose (mg/dL) (70-110) mg/dL Hemoglobin A1c 6.5 H (<=6.0) % Calcium (8.4-10.2) mg/dL Procalcitonin 12.70 H (0.02-0.09) ng/mL Ur Random Sodium (40-220) mmol/L 06/05/23 06/05/23 06/05/23 Range/Units 18:09 18:24 20:02 WBC (3.8-10.6) k/uL RDW (11.5-15.5) % Plt Count (150-450) k/uL Neutrophils # (1.3-7.7) k/uL Lymphocytes # (1.0-4.8) k/uL Sodium 124 L (137-145) mmol/L Chloride (98-107) mmol/L BUN (7-17) mg/dL Creatinine (0.52-1.04) mg/dL Glucose (74-99) mg/dL POC Glucose (mg/dL) 171 H (70-110) mg/dL Hemoglobin A1c (<=6.0) % Calcium (8.4-10.2) mg/dL Procalcitonin (0.02-0.09) ng/mL Ur Random Sodium <20 L (40-220) mmol/L 06/05/23 06/06/23 06/06/23 Range/Units 20:40 04:23 04:23 WBC 11.9 H (3.8-10.6) k/uL RDW 16.3 H (11.5-15.5) % Plt Count 90 L (150-450) k/uL Neutrophils # 10.1 H (1.3-7.7) k/uL Lymphocytes # 0.8 L (1.0-4.8) k/uL Sodium 125 L (137-145) mmol/L Chloride 90 L (98-107) mmol/L BUN 35 H (7-17) mg/dL Creatinine 1.17 H (0.52-1.04) mg/dL Glucose 102 H (74-99) mg/dL POC Glucose (mg/dL) 126 H (70-110) mg/dL Hemoglobin A1c (<=6.0) % Calcium 8.2 L (8.4-10.2) mg/dL Procalcitonin (0.02-0.09) ng/mL Ur Random Sodium (40-220) mmol/L Microbiology - Last 24 Hours (Table) 06/04/23 18:00 Blood Culture Gram Stain - Preliminary Blood Assessment and Plan Plan: Assessment: 1. Hypovolemic hyponatremia with component of excess fluid intake. Sodium level 117 on admission and up to 125 this morning. Now off 3% saline. TSH normal. Cortisol level not low. Urine sodium less than 20 and urine osmolality 507. 2. Acute kidney injury secondary to ATN secondary to sepsis/hypotension. Creatinine 1.17 today. 3. Metabolic acidosis secondary to acute kidney injury, IV fluids and GI losses. On oral bicarb. Improved. 4. Chronic diastolic CHF and mild to moderate mitral regurgitation, aortic stenosis and severe tricuspid regurgitation and pulmonary hypertension. 5. Septic shock secondary to gram-positive bacteremia and Lower extremity cellulitis on antibiotics. On Levophed. 6. Diabetes mellitus. Plan: Wean Levophed. Maintain midodrine. Hold for systolic blood pressure greater than 110. 1200 mL fluid restriction. Encouraged oral intake. Add sodium chloride tablet 1 gram twice daily. Monitor volume status closely. Repeat Lasix if blood pressure able to tolerate. Avoid nephrotoxins. Continue to monitor renal function and urine output.
--- NOTE | 2023-06-06 10:49 | P.PN ---
Subjective Progress Note Date: 06/06/23 Principal diagnosis: Acute hypoxic respiratory failure secondary to acute diastolic congestive heart failure, hypotension secondary to sepsis and possible septic shock Patient is a 47-year-old white female with past medical history significant for diastolic congestive heart failure, coarctation of the aorta status post surgical correction, pulmonary hypertension, essential hypertension, hyperlipidemia, diabetes mellitus, and chronic lower extremity swelling. Patient recently had a hospital admission back in December for CHF exacerbation and cellulitis of the lower extremities. Left lower extremity wound was positive for Enterobacter and MSSA. She completed a course of ciprofloxacin. She was eventually started on Bumex and discharged home. Patient returned to the ER yest erd afternoon with reports of generalized malaise, weakness, and shortness of breath. Her shortness of breath is worse on exertion and when lying flat. She does have severe lower extremity edema. Denies any chest pain, heart palpitation, lightheadedness, syncope. She denies any sick contacts. Denies cough. She was febrile on arrival, with a T-max of 101.4F. Denies genitourinary complaints. Denies abdominal pain, nausea and vomiting. Admits two episodes of diarrhea since being in the hospital. Patient is currently sitting up in bed, on 4 L/m nasal cannula, in no acute distress. Chest x-ray on arrival shows cardiomegaly and mild pulmonary vascular congestion. No focal infiltrates or obvious evidence of pneumonia. Troponins are elevated and trending up at 0.37, 0.59, and 0.6 respectively. NT proBNP is pending. Patient normally does take Bumex on outpatient basis, but did not take her morning dose. She was severely hyponatremic with a sodium of 117. She was initially felt to be hypovolemic and bolused with 2 L of normal saline, and started on a 3% hypertonic saline infusion which is currently at 25 ML's per hour. Most recent sodium is 119. Her hypotension was refractory to fluid replacement, and she was started on norepinephrine which is currently infusing at 0.06 mcg/kg/m. She was empirically started on a combination of Levaquin and Rocephin. She is currently afebrile. CBC on arrival did not show any leukocytosis. WBC count 9.5, hemoglobin 10.9, hematocrit 31.6, platelets 105. BMP on arrival shows a sodium 117, potassium is 4.1, chloride 86, serum bicarb 20, BUN 20, creatinine 0.8, glucose 104. Urinalysis not concerning for UTI. Patient will be monitored in the intensive care unit. Patient was seen again on 06/06/2023, remains in the ICU today, she is still requiring a small dose of norepinephrine at 0.04 mcg/kg/m her sodium is up to 125, and her blood cultures are positive for MSSA, patient is on Kefzol as per infectious disease on the case. Pulmonary-andrews doing better breathing easier today her WBC count is 11.9 hemoglobin is 12.2 sodium is up to 125 BUN is 35 creatinine 1.17, improved compared to yesterday. Patient is now on 3% saline. She did receive 1 dose of Lasix yesterday 20 mg IV push. Still receiving oral bicarb. Blood pressure remains marginal in spite of midodrine and in spite of norepinephrine. A chest x-ray was done today, however her admission chest x-ray showed cardiomegaly and interstitial edema Objective - Vital Signs Vital signs: Vital Signs Temp 97.5 F L 06/06/23 08:00 Pulse 86 06/06/23 10:00 Resp 12 06/06/23 10:00 BP 77/46 06/06/23 10:00 Pulse Ox 96 06/06/23 10:00 FiO2 Intake & Output 06/05/23 06/06/23 06/06/23 18:59 06:59 18:59 Intake Total 904.000 0.541 685.377 Output Total 435 660 115 Balance 469.000 -659.459 570.377 Weight 106.594 kg 122.4 kg Intake: IV 150 80 0.9 NS 30 cefTRIAXone 2 gm In 150 50 Sodium Chloride 0.9% 50 ml @ 100 mls/hr IVPB Q24HR [facility] Rx#:[id number] Intake, IV Titration 254.000 0.541 135.377 Amount Norepinephrine 4 mg In 254.000 0.541 135.377 Sodium Chloride 0.9% 250 ml @ 0.03 MCG/KG/MIN 12. 184 mls/hr IV .[id number] [facility] Rx#:[id number] Oral 500 470 Output: Urine 435 660 115 Other: Voiding Method Indwelling Catheter Indwelling Catheter Indwelling Catheter # Voids 1 # Bowel Movements 2 - Exam Physical Exam: Revealed 47-year-old female in no distress, on few liters nasal cannula. HEENT:[Neck is supple.] [No neck masses.] [No thyromegaly.] [No JVD.] Chest: [Symmetrical chest expansion fine crackles at the bases Cardiac Exam: [Normal S1 and S2, no S3 gallop, 2/6 systolic murmur throughout the precordium Abdomen: [Soft, nontender, no megaly, no rebound, no guarding, normal bowel sounds.] Extremities: [No clubbing, no edema, no cyanosis.] Neurological Exam: [No focal neurologic deficit.] Alert oriented 3 Psychiatric: Normal mood affect and normal mental status examination. Skin continues to have a strapping of the lower extremities due to severe cellulitis. Musculoskeletal: No deformities and no limitation in range of motion - Labs CBC & Chem 7: 06/06/23 04:23 06/06/23 04:23 Labs: Abnormal Lab Results - Last 24 Hours (Table) 06/04/23 06/05/23 06/05/23 Range/Units 00:44 09:27 13:57 WBC (3.8-10.6) k/uL RDW (11.5-15.5) % Plt Count (150-450) k/uL Neutrophils # (1.3-7.7) k/uL Lymphocytes # (1.0-4.8) k/uL Sodium 124 L (137-145) mmol/L Chloride (98-107) mmol/L BUN (7-17) mg/dL Creatinine (0.52-1.04) mg/dL Glucose (74-99) mg/dL POC Glucose (mg/dL) (70-110) mg/dL Hemoglobin A1c 6.5 H (<=6.0) % Calcium (8.4-10.2) mg/dL Procalcitonin 12.70 H (0.02-0.09) ng/mL Ur Random Sodium (40-220) mmol/L 06/05/23 06/05/23 06/05/23 Range/Units 18:09 18:24 20:02 WBC (3.8-10.6) k/uL RDW (11.5-15.5) % Plt Count (150-450) k/uL Neutrophils # (1.3-7.7) k/uL Lymphocytes # (1.0-4.8) k/uL Sodium 124 L (137-145) mmol/L Chloride (98-107) mmol/L BUN (7-17) mg/dL Creatinine (0.52-1.04) mg/dL Glucose (74-99) mg/dL POC Glucose (mg/dL) 171 H (70-110) mg/dL Hemoglobin A1c (<=6.0) % Calcium (8.4-10.2) mg/dL Procalcitonin (0.02-0.09) ng/mL Ur Random Sodium <20 L (40-220) mmol/L 06/05/23 06/06/23 06/06/23 Range/Units 20:40 04:23 04:23 WBC 11.9 H (3.8-10.6) k/uL RDW 16.3 H (11.5-15.5) % Plt Count 90 L (150-450) k/uL Neutrophils # 10.1 H (1.3-7.7) k/uL Lymphocytes # 0.8 L (1.0-4.8) k/uL Sodium 125 L (137-145) mmol/L Chloride 90 L (98-107) mmol/L BUN 35 H (7-17) mg/dL Creatinine 1.17 H (0.52-1.04) mg/dL Glucose 102 H (74-99) mg/dL POC Glucose (mg/dL) 126 H (70-110) mg/dL Hemoglobin A1c (<=6.0) % Calcium 8.2 L (8.4-10.2) mg/dL Procalcitonin (0.02-0.09) ng/mL Ur Random Sodium (40-220) mmol/L Microbiology - Last 24 Hours (Table) 06/04/23 18:00 Blood Culture Gram Stain - Preliminary Blood Assessment and Plan Assessment: Impression: Acute hypoxic respiratory failure secondary to acute on chronic diastolic conge stive heart failure Acute hypervolemic hyponatremia Acute on chronic diastolic congestive heart failure Acute sepsis, septic shock, and gram-positive bacteremia most likely source is chronic cellulitis of lower extremities secondary to MSSA Lower extremity cellulitis Type 2 diabetes without complications Acute kidney injury with ATN secondary to sepsis and hypotension, improving Pulmonary hypertension History of coarctation of the aorta status post open-heart surgery Dyslipidemia Valvular heart disease Obesity with BMI of 36 Recommendation: Continue antibiotics/L Continue fluid restrictions Monitor sodium closely Titrate the norepinephrine and possibly discontinue in the next 24 hours Continue midodrine Patient is scheduled to undergo transesophageal echocardiogram to rule out vegetations Continue GI and DVT prophylaxis We will continue to follow Time with Patient: Less than 30
[2023-06-06 11:41] LABS: Glucose,Whole Blood 119 mg/dL (70-110)
[2023-06-06] MEDS: SODIUM CHLORIDE TAB 1 GM TAB PO SCH ×2 (11:51→20:07)
[2023-06-06] MEDS: NOREPINEPHRINE 4 MG in SODIUM CHLORIDE 0.9% 250 ML IV SCH (15:16)
--- NOTE | 2023-06-06 15:35 | P.PN ---
Subjective Progress Note Date: 06/06/23 patient is a 47-year-old lady with past medical history significant for di astolic congestive heart failure, coarctation of the aorta status post surgical correction, pulmonary hypertension, essential hypertension, hyperlipidemia, diabetes mellitus, and chronic lower extremity swelling who presented to the ER with complaints of not feeling well for the last few days. She stated that for the last few days she has not been able to eat anything, complaining of weight loss. Also complaining of shortness of breath on minimal exertion. Complaining of orthopnea. Patient has chronic swelling of lower extremities, recently treated for cellulitis Denies any fever or chills. Denies any chest pain. Because of these symptoms, patient came to the ER Initial lab work done in the ER showed WBC 9.5, hemoglobin 10.9, platelet count 105, sodium 117, potassium 4.1, BUN 20, creatinine 0.8, glucose 104, lactic acid 1.4, calcium 8, phosphorus 2.5, magnesium 1.5, troponin 0.367 Chest x-ray on arrival shows cardiomegaly and mild pulmonary vascular congestion. No focal infiltrates or obvious evidence of pneumonia. In the ER, patient was started on broad-spectrum antibiotics and was given fluid resuscitation in suspicion of sepsis, Patient was admitted to ICU 06/06. Patient seen and examined WBC 11.9, hemoglobin 12.2, platelet count 98, sodium 35, potassium 3.9, BUN 35, creatinine 1.17,. States she feels much bett er compared to yesterday. Gets short of breath on exertion REVIEW OF SYSTEMS: CONSTITUTIONAL: No fever, no malaise,. CARDIOVASCULAR: No chest pain, no palpitations, no syncope. PULMONARY: As mentioned above GASTROINTESTINAL: No diarrhea, no nausea, no vomiting, no abdominal pain. NEUROLOGICAL: No headaches, no weakness, PHYSICAL EXAMINATION: GENERAL: The patient is alert and oriented x3, not in any acute distress. Sick looking HEENT: Pupils are round and equally reacting to light. EOMI. No scleral icterus. No conjunctival pallor. Normocephalic, atraumatic. No pharyngeal erythema. No thyromegaly. CARDIOVASCULAR: S1 and S2 present. No murmurs, rubs, or gallops. PULMONARY: Coarse breath sounds bilaterally, no crackles ABDOMEN: Soft, nontender, nondistended, normoactive bowel sounds. No palpable organomegaly. MUSCULOSKELETAL: No joint swelling or deformity. EXTREMITIES: 1+ pitting edema of lower extremities, right lower extremity bandaged NEUROLOGICAL: Gross neurological examination did not reveal any focal deficits. SKIN: No rashes. Assessment and plan Septic shock MSSA bacteremia Hyponatremia Dehydration Hypomagnesemia Acute hypoxemic respiratory failure Acute on on chronic diastolic congestive heart failure, currently on 4 L/m nasal cannula. Elevated troponins, rule out non-STEMI Bilateral lower extremity cellulitis and chronic lower extremity edema. Recently, treated for cellulites of the lower extremities in December,. Left lower extremity wound was positive for Enterobacter and MSSA. Diarrhea Pulmonary hypertension History of cortication of the aorta status post open-heart surgery Hyperlipidemia Diabetes mellitus type 2 Obesity, with a BMI of 36 kg/m Monitor vital signs Monitor CBC Monitor CMP Continue telemetry monitoring 2-D echo done showed mild LV dilatation with moderate concentric left medical hypertrophy, normal LV function, LVEF of 55%, grade 2 diastolic dysfunction, moderate MR, moderate pulmonary hypertension Patient being scheduled for [facility] Follow-up on blood cultures, initial blood culture growing MSSA Follow-up on sodium levels. Continue oral bicarb. Encouraged oral intake. Avoid nephrotoxins. Antibiotics changed to IV cefazolin Follow-up on nephrology recommendations Follow up with ID recommendations Follow-up on cardiology recommendations Critical care Following Labs and medication were reviewed.. Continue same treatment. Continue with symptomatic treatment. Resume home medication. Monitor labs and vitals. DVT and GI prophylaxis. Further recommendations as per clinical course of the patient Dictation was produced using [employer] dictation software. please excuse any grammatical, word or spelling errors. Objective - Vital Signs Vital signs: Vital Signs Temp 97.5 F L 06/06/23 04:00 Pulse 87 06/06/23 07:15 Resp 16 06/06/23 07:15 BP 92/64 06/06/23 07:15 Pulse Ox 97 06/06/23 07:15 FiO2 Intake & Output 06/05/23 06/06/23 06/06/23 18:59 06:59 18:59 Intake Total 904.000 0.541 373.193 Output Total 435 660 40 Balance 469.000 -659.459 333.193 Weight 106.594 kg 122.4 kg Intake: IV 150 cefTRIAXone 2 gm In 150 Sodium Chloride 0.9% 50 ml @ 100 mls/hr IVPB Q24HR [facility] Rx#:[id number] Intake, IV Titration 254.000 0.541 123.193 Amount Norepinephrine 4 mg In 254.000 0.541 123.193 Sodium Chloride 0.9% 250 ml @ 0.03 MCG/KG/MIN 12. 184 mls/hr IV .[id number] [facility] Rx#:[id number] Oral 500 250 Output: Urine 435 660 40 Other: Voiding Method Indwelling Catheter Indwelling Catheter # Voids 1 # Bowel Movements 2 - Labs CBC & Chem 7: 06/06/23 04:23 06/06/23 04:23 Labs: Abnormal Lab Results - Last 24 Hours (Table) 06/04/23 06/05/23 06/05/23 Range/Units 00:44 09:27 09:27 WBC (3.8-10.6) k/uL RDW (11.5-15.5) % Plt Count (150-450) k/uL Neutrophils # (1.3-7.7) k/uL Lymphocytes # (1.0-4.8) k/uL Sodium 123 L (137-145) mmol/L Chloride 90 L (98-107) mmol/L Carbon Dioxide 16 L (22-30) mmol/L BUN 27 H (7-17) mg/dL Creatinine 1.27 H (0.52-1.04) mg/dL Glucose 130 H (74-99) mg/dL POC Glucose (mg/dL) (70-110) mg/dL Hemoglobin A1c 6.5 H (<=6.0) % Calcium 8.1 L (8.4-10.2) mg/dL Procalcitonin 12.70 H (0.02-0.09) ng/mL Ur Random Sodium (40-220) mmol/L 06/05/23 06/05/23 06/05/23 Range/Units 13:57 18:09 18:24 WBC (3.8-10.6) k/uL RDW (11.5-15.5) % Plt Count (150-450) k/uL Neutrophils # (1.3-7.7) k/uL Lymphocytes # (1.0-4.8) k/uL Sodium 124 L (137-145) mmol/L Chloride (98-107) mmol/L Carbon Dioxide (22-30) mmol/L BUN (7-17) mg/dL Creatinine (0.52-1.04) mg/dL Glucose (74-99) mg/dL POC Glucose (mg/dL) 171 H (70-110) mg/dL Hemoglobin A1c (<=6.0) % Calcium (8.4-10.2) mg/dL Procalcitonin (0.02-0.09) ng/mL Ur Random Sodium <20 L (40-220) mmol/L 06/05/23 06/05/23 06/06/23 Range/Units 20:02 20:40 04:23 WBC 11.9 H (3.8-10.6) k/uL RDW 16.3 H (11.5-15.5) % Plt Count 90 L (150-450) k/uL Neutrophils # 10.1 H (1.3-7.7) k/uL Lymphocytes # 0.8 L (1.0-4.8) k/uL Sodium 124 L (137-145) mmol/L Chloride (98-107) mmol/L Carbon Dioxide (22-30) mmol/L BUN (7-17) mg/dL Creatinine (0.52-1.04) mg/dL Glucose (74-99) mg/dL POC Glucose (mg/dL) 126 H (70-110) mg/dL Hemoglobin A1c (<=6.0) % Calcium (8.4-10.2) mg/dL Procalcitonin (0.02-0.09) ng/mL Ur Random Sodium (40-220) mmol/L 06/06/23 Range/Units 04:23 WBC (3.8-10.6) k/uL RDW (11.5-15.5) % Plt Count (150-450) k/uL Neutrophils # (1.3-7.7) k/uL Lymphocytes # (1.0-4.8) k/uL Sodium 125 L (137-145) mmol/L Chloride 90 L (98-107) mmol/L Carbon Dioxide (22-30) mmol/L BUN 35 H (7-17) mg/dL Creatinine 1.17 H (0.52-1.04) mg/dL Glucose 102 H (74-99) mg/dL POC Glucose (mg/dL) (70-110) mg/dL Hemoglobin A1c (<=6.0) % Calcium 8.2 L (8.4-10.2) mg/dL Procalcitonin (0.02-0.09) ng/mL Ur Random Sodium (40-220) mmol/L Microbiology - Last 24 Hours (Table) 06/04/23 18:00 Blood Culture Gram Stain - Preliminary Blood
--- NOTE | 2023-06-06 15:58 | P.PN ---
Subjective Progress Note Date: 06/06/23 Principal diagnosis: Bacteremia and cellulitis Patient is a 47-year-old female with a past medical history significant for hypertension diastolic congestive heart failure pulmonary hypertension hyperlipidemia diabetes mellitus presenting to the hospital for evaluation of increasing shortness of breath, along with lower extremity swelling and some redness and did have wound to the left lower leg area concerning for cellulitis blood culture Were positive with MSSA On today's evaluation that is 06/06/2023, patient is afebrile, the patient is breathing comfortably on a 2 L nasal cannula oxygen patient denies having any chest pain minimal,impression no nausea no vomiting no abdominal pain no diarrhea/having some swelling Patient did have white 11.9 with a left shift creatinine is 1.17, blood culture positive for MSSA Objective - Vital Signs Vital signs: Vital Signs Temp 97.5 F L 06/06/23 08:00 Pulse 86 06/06/23 10:00 Resp 12 06/06/23 10:00 BP 77/46 06/06/23 10:00 Pulse Ox 100 06/06/23 11:47 FiO2 Intake & Output 06/05/23 06/06/23 06/06/23 18:59 06:59 18:59 Intake Total 904.000 0.541 685.377 Output Total 435 660 115 Balance 469.000 -659.459 570.377 Weight 106.594 kg 122.4 kg Intake: IV 150 80 0.9 NS 30 cefTRIAXone 2 gm In 150 50 Sodium Chloride 0.9% 50 ml @ 100 mls/hr IVPB Q24HR [facility] Rx#:[id number] Intake, IV Titration 254.000 0.541 135.377 Amount Norepinephrine 4 mg In 254.000 0.541 135.377 Sodium Chloride 0.9% 250 ml @ 0.03 MCG/KG/MIN 12. 184 mls/hr IV .[id number] [facility] Rx#:[id number] Oral 500 470 Output: Urine 435 660 115 Other: Voiding Method Indwelling Catheter Indwelling Catheter Indwelling Catheter # Voids 1 # Bowel Movements 2 - Exam GENERAL DESCRIPTION: Middle-aged female in bed in no distress RESPIRATORY SYSTEM: Unlabored breathing , decreased breath sounds at bases HEART: S1 S2 regular rate and rhythm , ABDOMEN: Soft , no tenderness EXTREMITIES: Bilateral lower extremity currently wrapped in Oz wrap - Labs CBC & Chem 7: 06/06/23 04:23 06/06/23 04:23 Labs: Abnormal Lab Results - Last 24 Hours (Table) 06/05/23 06/05/23 06/05/23 Range/Units 09:27 13:57 18:09 WBC (3.8-10.6) k/uL RDW (11.5-15.5) % Plt Count (150-450) k/uL Neutrophils # (1.3-7.7) k/uL Lymphocytes # (1.0-4.8) k/uL Sodium 124 L (137-145) mmol/L Chloride (98-107) mmol/L BUN (7-17) mg/dL Creatinine (0.52-1.04) mg/dL Glucose (74-99) mg/dL POC Glucose (mg/dL) 171 H (70-110) mg/dL Hemoglobin A1c 6.5 H (<=6.0) % Calcium (8.4-10.2) mg/dL Ur Random Sodium (40-220) mmol/L 06/05/23 06/05/23 06/05/23 Range/Units 18:24 20:02 20:40 WBC (3.8-10.6) k/uL RDW (11.5-15.5) % Plt Count (150-450) k/uL Neutrophils # (1.3-7.7) k/uL Lymphocytes # (1.0-4.8) k/uL Sodium 124 L (137-145) mmol/L Chloride (98-107) mmol/L BUN (7-17) mg/dL Creatinine (0.52-1.04) mg/dL Glucose (74-99) mg/dL POC Glucose (mg/dL) 126 H (70-110) mg/dL Hemoglobin A1c (<=6.0) % Calcium (8.4-10.2) mg/dL Ur Random Sodium <20 L (40-220) mmol/L 06/06/23 06/06/23 06/06/23 Range/Units 04:23 04:23 11:40 WBC 11.9 H (3.8-10.6) k/uL RDW 16.3 H (11.5-15.5) % Plt Count 90 L (150-450) k/uL Neutrophils # 10.1 H (1.3-7.7) k/uL Lymphocytes # 0.8 L (1.0-4.8) k/uL Sodium 125 L (137-145) mmol/L Chloride 90 L (98-107) mmol/L BUN 35 H (7-17) mg/dL Creatinine 1.17 H (0.52-1.04) mg/dL Glucose 102 H (74-99) mg/dL POC Glucose (mg/dL) 119 H (70-110) mg/dL Hemoglobin A1c (<=6.0) % Calcium 8.2 L (8.4-10.2) mg/dL Ur Random Sodium (40-220) mmol/L Microbiology - Last 24 Hours (Table) 06/04/23 18:00 Blood Culture Gram Stain - Preliminary Blood Blood Culture - Preliminary Presumptive Staph aureus Assessment and Plan (1) MSSA bacteremia Current Visit: Yes Status: Acute Code(s): R78.81 - BACTEREMIA; B95.61 - M ETHICILLIN SUSCEP STAPH INFCT CAUSING DIS CLASSD [id number] SNOMED Code(s): 4 07890213 (2) Bilateral lower leg cellulitis Current Visit: Yes Status: Acute Code(s): L03.116 - CELLULITIS OF LEFT LOWER LIMB; L03.115 - CELLULITIS OF RIGHT LOWER LIMB SNOMED Code(s): 926492798 Plan: 1patient presented hospital with sepsis in this patient with a fever tachycardia hypotension requiring pressor support now with evidence of MSSA bacteremia source likely lower extremity cellulitis patient with right lower extremity and did have some pressure wound to the left leg clinically not behaving as pneumonia and no other focus of this bacteremia 2-blood cultures has been be repeated to document clearance of bacteremia to make sure no evidence of any endovascular source 3Patient to continue with cefazolin 2 g every 8 hours and monitor clinical course closely Dictation was produced using [employer] dictation software. please excuse any grammatical, word or spelling errors. Time with Patient: Less than 30
[2023-06-06 16:13] LABS: Glucose,Whole Blood 138 mg/dL (70-110)
[2023-06-06 20:07] LABS: Glucose,Whole Blood 135 mg/dL (70-110)
[2023-06-06] MEDS: ONDANSETRON 4 MG/2 ML VIAL IVP PRN (20:13)
[2023-06-07] MEDS: MIDODRINE 5 MG TAB PO SCH ×3 (06:44→16:46)
[2023-06-07] MEDS: PANTOPRAZOLE 40 MG TABLET PO SCH (06:44)
[2023-06-07 06:45] LABS: Glucose,Whole Blood 137 mg/dL (70-110)
[2023-06-07 06:45] LABS: African American GFR (CKD) 83 (>60 ml/min/1.73 sqM); Anion Gap 8 mmol/L; Blood Urea Nitrogen 36 mg/dL (7-17); Calcium 8.2 mg/dL (8.4-10.2); Carbon Dioxide 28 mmol/L (22-30); Chloride 93 mmol/L (98-107); Glucose 99 mg/dL (74-99); Non-African American GFR(CKD) 72 (>60 ml/min/1.73 sqM); Potassium 4.4 mmol/L (3.5-5.1); Sodium 129 mmol/L (137-145)
[2023-06-07] MEDS: INSULIN ASPART (NovoLOG) 100 UNIT/ML VIAL SQ SCH ×4 (06:49→20:30)
[2023-06-07] MEDS: SODIUM BICARBONATE TAB 650 MG TAB PO SCH (08:12)
[2023-06-07] MEDS: SODIUM CHLORIDE TAB 1 GM TAB PO SCH ×2 (08:12→20:30)
[2023-06-07] MEDS: HEPARIN SODIUM,PORCINE 5,000 UNIT/ML 1 ML VIAL SQ SCH ×3 (08:13→23:58)
--- NOTE | 2023-06-07 09:44 | P.PN ---
Subjective Progress Note Date: 06/07/23 Principal diagnosis: Acute hypoxic respiratory failure secondary to acute diastolic congestive heart failure, hypotension secondary to sepsis and possible septic shock Patient is a 47-year-old white female with past medical history significant for diastolic congestive heart failure, coarctation of the aorta status post surgical correction, pulmonary hypertension, essential hypertension, hyperlipidemia, diabetes mellitus, and chronic lower extremity swelling. Patient recently had a hospital admission back in December for CHF exacerbation and cellulitis of the lower extremities. Left lower extremity wound was positive for Enterobacter and MSSA. She completed a course of ciprofloxacin. She was eventually started on Bumex and discharged home. Patient returned to the ER yest erd afternoon with reports of generalized malaise, weakness, and shortness of breath. Her shortness of breath is worse on exertion and when lying flat. She does have severe lower extremity edema. Denies any chest pain, heart palpitation, lightheadedness, syncope. She denies any sick contacts. Denies cough. She was febrile on arrival, with a T-max of 101.4F. Denies genitourinary complaints. Denies abdominal pain, nausea and vomiting. Admits two episodes of diarrhea since being in the hospital. Patient is currently sitting up in bed, on 4 L/m nasal cannula, in no acute distress. Chest x-ray on arrival shows cardiomegaly and mild pulmonary vascular congestion. No focal infiltrates or obvious evidence of pneumonia. Troponins are elevated and trending up at 0.37, 0.59, and 0.6 respectively. NT proBNP is pending. Patient normally does take Bumex on outpatient basis, but did not take her morning dose. She was severely hyponatremic with a sodium of 117. She was initially felt to be hypovolemic and bolused with 2 L of normal saline, and started on a 3% hypertonic saline infusion which is currently at 25 ML's per hour. Most recent sodium is 119. Her hypotension was refractory to fluid replacement, and she was started on norepinephrine which is currently infusing at 0.06 mcg/kg/m. She was empirically started on a combination of Levaquin and Rocephin. She is currently afebrile. CBC on arrival did not show any leukocytosis. WBC count 9.5, hemoglobin 10.9, hematocrit 31.6, platelets 105. BMP on arrival shows a sodium 117, potassium is 4.1, chloride 86, serum bicarb 20, BUN 20, creatinine 0.8, glucose 104. Urinalysis not concerning for UTI. Patient will be monitored in the intensive care unit. Patient was seen again on 06/06/2023, remains in the ICU today, she is still requiring a small dose of norepinephrine at 0.04 mcg/kg/m her sodium is up to 125, and her blood cultures are positive for MSSA, patient is on Kefzol as per infectious disease on the case. Pulmonary-andrews doing better breathing easier today her WBC count is 11.9 hemoglobin is 12.2 sodium is up to 125 BUN is 35 creatinine 1.17, improved compared to yesterday. Patient is now on 3% saline. She did receive 1 dose of Lasix yesterday 20 mg IV push. Still receiving oral bicarb. Blood pressure remains marginal in spite of midodrine and in spite of norepinephrine. A chest x-ray was done today, however her admission chest x-ray showed cardiomegaly and interstitial edema Reevaluated today on 06/07/2023, patient remains in the ICU, she is hemodynamically stable, off norepinephrine, he is on 2 L nasal cannula, sodium is up to 129, good urine output, hemodynamically stable in spite of being off norepinephrine. Remains on cefazolin for gram-positive bacteremia/MSSA. Patient is scheduled to have FREDRICK on Friday. Patient had episodes of nausea and vomiting earlier but she is feeling fine today. Electrolytes are normal renal profile is normal blood sugar is 137, last BNP level II days ago was over 18,000 chest x-ray on admission did show evidence of cardiomegaly and mild pulmonary vascular congestion patient remains on fluid restriction in the meantime Objective - Vital Signs Vital signs: Vital Signs Temp 98.5 F 06/07/23 08:00 Pulse 93 06/07/23 09:00 Resp 16 06/07/23 09:00 BP 102/65 06/07/23 09:00 Pulse Ox 92 L 06/07/23 09:00 FiO2 Intake & Output 06/06/23 06/07/23 06/07/23 18:59 06:59 18:59 Intake Total 1213.174 425.383 280 Output Total 555 740 275 Balance 658.174 -314.617 5 Weight 123.2 kg Intake: IV 160 220 80 0.9 NS 110 120 30 ceFAZolin 2 gm In Sodium 100 50 Chloride 0.9% 50 ml @ 100 mls/hr IVPB Q8HR [facility] Rx# :[id number] cefTRIAXone 2 gm In 50 Sodium Chloride 0.9% 50 ml @ 100 mls/hr IVPB Q24HR [facility] Rx#:[id number] Intake, IV Titration 188.174 105.383 Amount Norepinephrine 4 mg In 188.174 105.383 Sodium Chloride 0.9% 250 ml @ 0.03 MCG/KG/MIN 12. 184 mls/hr IV .[id number] [facility] Rx#:[id number] Oral 865 100 200 Output: Urine 555 740 275 Other: Voiding Method Indwelling Catheter Indwelling Catheter Indwelling Catheter - Exam Physical Exam: Revealed 47-year-old female in no distress, on 2 L nasal cannula HEENT:[Neck is supple.] [No neck masses.] [No thyromegaly.] [No JVD.] Chest: [Symmetrical chest expansion fine crackles at the bases Cardiac Exam: [Normal S1 and S2, no S3 gallop, 2/6 systolic murmur throughout the precordium Abdomen: [Soft, nontender, no megaly, no rebound, no guarding, normal bowel sounds.] Extremities: [No clubbing, no edema, no cyanosis.] Neurological Exam: [No focal neurologic deficit.] Alert oriented 3 Psychiatric: Normal mood affect and normal mental status examination. Skin continues to have Oz wraps of the lower extremities due to severe cellulitis. Musculoskeletal: No deformities and no limitation in range of motion - Labs CBC & Chem 7: 06/06/23 04:23 06/07/23 05:29 Labs: Abnormal Lab Results - Last 24 Hours (Table) 06/06/23 06/06/23 06/06/23 Range/Units 11:40 16:11 17:08 Sodium 126 L (137-145) mmol/L Chloride (98-107) mmol/L BUN (7-17) mg/dL POC Glucose (mg/dL) 119 H 138 H (70-110) mg/dL Calcium (8.4-10.2) mg/dL 06/06/23 06/07/23 06/07/23 Range/Units 20:05 05:29 06:42 Sodium 129 L (137-145) mmol/L Chloride 93 L (98-107) mmol/L BUN 36 H (7-17) mg/dL POC Glucose (mg/dL) 135 H 137 H (70-110) mg/dL Calcium 8.2 L (8.4-10.2) mg/dL Microbiology - Last 24 Hours (Table) 06/04/23 18:00 Blood Culture Gram Stain - Preliminary Blood Blood Culture - Preliminary Presumptive Staph aureus Assessment and Plan Assessment: Impression: Acute hypoxic respiratory failure secondary to acute on chronic diastolic congestive heart failure Acute hypervolemic hyponatremia Acute on chronic diastolic congestive heart failure Acute sepsis, septic shock, and gram-positive bacteremia most likely source is chronic cellulitis of lower extremities secondary to MSSA Lower extremity cellulitis Type 2 diabetes without complications Acute kidney injury with ATN secondary to sepsis and hypotension, improving Pulmonary hypertension History of coarctation of the aorta status post open-heart surgery Dyslipidemia Valvular heart disease Obesity with BMI of 36 Recommendation: Continue antibiotics/cefazolin Continue fluid restrictions Monitor sodium closely, improving today slowly. Discontinue norepinephrine Continue midodrine Patient is scheduled to undergo transesophageal echocardiogram next Friday Continue GI and DVT prophylaxis We will continue to follow
[2023-06-07 11:09] LABS: Glucose,Whole Blood 120 mg/dL (70-110)
--- NOTE | 2023-06-07 11:13 | P.PN ---
Subjective Progress Note Date: 06/07/23 This is West Rubio NP, I'm dictating on behalf of Dr. Bro's H&P and A&P. Patient was interviewed and examined. Patient is a 47-year-old female with extensive cardiac history who follows in the office with Dr. Bro. She presented to the hospital with increased shortness of breath. The patient had a similar admission back in December, where she was diagnosed with cellulitis. Recent echocardiogram shows preserved LV function with severe RV dilatation and elevated RVSP at 60 mmHg. Possible veg etation noted on mitral valve. Blood cultures are currently pending. Patient is on empiric antibiotic coverage. Patient states that she is feeling slightly better today. She reports that her shortness of breath has improved significantly. She is denying chest pain and palpitations at this time. She is reporting some nausea, and nursing reports she's not eating very well. Nursing does report that she recently was discontinued off her Levophed, as her blood pressures appear to be improving. GENERAL: Ill-appearing, well-nourished and in no acute distress. NECK: Supple without JVD or thyromegaly. LUNGS: Breath sounds clear to auscultation bilaterally. Respiration equal and unlabored. No wheezes, rales or rhonchi. HEART: Regular rate and rhythm, systolic murmur present, no rubs or gallops. S1 and S2 heard. EXTREMITIES: Normal range of motion, no edema. No clubbing or cyanosis. Pe ripheral pulses intact and strong. VITALS: Temp 98.5, pulse 91, respirations 18, blood pressure 103/70, O2 saturation 93% on 4 L TELEMETRY: Normal sinus rhythm, heart rate 93 LABS: Sodium 129, potassium 4.4, B1 36, creatinine 0.96, calcium 8.2 IMPRESSION: 1. Septicemia, likely secondary to chronic cellulitis 2. Hypotension 3. Congestive heart failure, acute on chronic 4. History of severe RV dilatation and pulmonary hypertension 5. History of valvular disease 6. History of coarctation of aorta, surgery at age 7 7. Hyponatremia PLAN: Continue supportive treatment for septicemia. Awaiting results of blood cultures. Nothing by mouth after midnight on Friday, for transesophageal echocardiogram on Friday. This is been ordered. Further recommendations based on patient's clinical course. Objective - Vital Signs Vital signs: Vital Signs Temp 98.5 F 06/07/23 08:00 Pulse 93 06/07/23 09:00 Resp 16 06/07/23 09:00 BP 102/65 06/07/23 09:00 Pulse Ox 92 L 06/07/23 09:00 FiO2 Intake & Output 06/06/23 06/07/23 06/07/23 18:59 06:59 18:59 Intake Total 1213.174 425.383 280 Output Total 555 740 275 Balance 658.174 -314.617 5 Weight 123.2 kg Intake: IV 160 220 80 0.9 NS 110 120 30 ceFAZolin 2 gm In Sodium 100 50 Chloride 0.9% 50 ml @ 100 mls/hr IVPB Q8HR [facility] Rx# :[id number] cefTRIAXone 2 gm In 50 Sodium Chloride 0.9% 50 ml @ 100 mls/hr IVPB Q24HR [facility] Rx#:[id number] Intake, IV Titration 188.174 105.383 Amount Norepinephrine 4 mg In 188.174 105.383 Sodium Chloride 0.9% 250 ml @ 0.03 MCG/KG/MIN 12. 184 mls/hr IV .[id number] [facility] Rx#:[id number] Oral 865 100 200 Output: Urine 555 740 275 Other: Voiding Method Indwelling Catheter Indwelling Catheter Indwelling Catheter - Labs CBC & Chem 7: 06/06/23 04:23 06/07/23 05:29 Labs: Abnormal Lab Results - Last 24 Hours (Table) 06/06/23 06/06/23 06/06/23 Range/Units 11:40 16:11 17:08 Sodium 126 L (137-145) mmol/L Chloride (98-107) mmol/L BUN (7-17) mg/dL POC Glucose (mg/dL) 119 H 138 H (70-110) mg/dL Calcium (8.4-10.2) mg/dL 06/06/23 06/07/23 06/07/23 Range/Units 20:05 05:29 06:42 Sodium 129 L (137-145) mmol/L Chloride 93 L (98-107) mmol/L BUN 36 H (7-17) mg/dL POC Glucose (mg/dL) 135 H 137 H (70-110) mg/dL Calcium 8.2 L (8.4-10.2) mg/dL Microbiology - Last 24 Hours (Table) 06/04/23 18:00 Blood Culture Gram Stain - Preliminary Blood Blood Culture - Preliminary Presumptive Staph aureus
--- NOTE | 2023-06-07 12:39 | P.PN ---
Subjective Patient is seen for follow-up for hyponatremia. She continues to complain of weakness. Currently off of levo fed. Sodium is up to 129 today. Patient is maintained on sodium chloride tabs. She is also on sodium bicarb for metabolic acidosis which has improved. Objective - Vital Signs Vital signs: Vital Signs Temp 98.5 F 06/07/23 08:00 Pulse 90 06/07/23 12:00 Resp 22 06/07/23 12:00 BP 103/67 06/07/23 12:00 Pulse Ox 94 L 06/07/23 12:00 FiO2 Intake & Output 06/06/23 06/07/23 06/07/23 18:59 06:59 18:59 Intake Total 1213.174 425.383 310 Output Total 555 740 455 Balance 658.174 -314.617 -145 Weight 123.2 kg Intake: IV 160 220 110 0.9 NS 110 120 60 ceFAZolin 2 gm In Sodium 100 50 Chloride 0.9% 50 ml @ 100 mls/hr IVPB Q8HR [facility] Rx# :[id number] cefTRIAXone 2 gm In 50 Sodium Chloride 0.9% 50 ml @ 100 mls/hr IVPB Q24HR [facility] Rx#:[id number] Intake, IV Titration 188.174 105.383 Amount Norepinephrine 4 mg In 188.174 105.383 Sodium Chloride 0.9% 250 ml @ 0.03 MCG/KG/MIN 12. 184 mls/hr IV .[id number] [facility] Rx#:[id number] Oral 865 100 200 Output: Urine 555 740 455 Other: Voiding Method Indwelling Catheter Indwelling Catheter Indwelling Catheter - Exam Patient is awake, comfortable, week. Answers simple questions. Examination of the heart S1 and S2 Examination of the lungs bilateral breath sounds are heard Abdomen is soft nontender Examination of lower extremities shows bilateral extremities to be wrapped. [employer] exam grossly intact. - Labs CBC & Chem 7: 06/06/23 04:23 06/07/23 05:29 Labs: Abnormal Lab Results - Last 24 Hours (Table) 06/06/23 06/06/23 06/06/23 Range/Units 16:11 17:08 20:05 Sodium 126 L (137-145) mmol/L Chloride (98-107) mmol/L BUN (7-17) mg/dL POC Glucose (mg/dL) 138 H 135 H (70-110) mg/dL Calcium (8.4-10.2) mg/dL 06/07/23 06/07/23 06/07/23 Range/Units 05:29 06:42 11:08 Sodium 129 L (137-145) mmol/L Chloride 93 L (98-107) mmol/L BUN 36 H (7-17) mg/dL POC Glucose (mg/dL) 137 H 120 H (70-110) mg/dL Calcium 8.2 L (8.4-10.2) mg/dL Microbiology - Last 24 Hours (Table) 06/04/23 18:00 Blood Culture Gram Stain - Preliminary Blood Blood Culture - Preliminary Presumptive Staph aureus Assessment and Plan Assessment: 1. Hypovolemic hyponatremia with component of excess fluid intake. Sodium level 117 on admission and up to 129 this morning. Now off 3% saline. TSH normal. Cortisol level not low. Urine sodium less than 20 and urine osmolality 507. 2. Acute kidney injury secondary to ATN secondary to sepsis/hypotension. Creatinine 0.9 today. 3. Metabolic acidosis secondary to acute kidney injury, IV fluids and GI losses. On oral bicarb. Improved. 4. Chronic diastolic CHF and mild to moderate mitral regurgitation, aortic stenosis and severe tricuspid regurgitation and pulmonary hypertension. 5. Septic shock secondary to gram-positive bacteremia and Lower extremity cellulitis on antibiotics. Being weaned off of Levophed. 6. Diabetes mellitus. Plan: DC sodium bicarb Okay to change fluid restriction to 1.5 L Repeat labs in a.m. Continue with sodium chloride tabs Continue with midodrine
--- NOTE | 2023-06-07 13:27 | P.PN ---
Subjective Progress Note Date: 06/07/23 patient is a 47-year-old lady with past medical history significant for di astolic congestive heart failure, coarctation of the aorta status post surgical correction, pulmonary hypertension, essential hypertension, hyperlipidemia, diabetes mellitus, and chronic lower extremity swelling who presented to the ER with complaints of not feeling well for the last few days. She stated that for the last few days she has not been able to eat anything, complaining of weight loss. Also complaining of shortness of breath on minimal exertion. Complaining of orthopnea. Patient has chronic swelling of lower extremities, recently treated for cellulitis Denies any fever or chills. Denies any chest pain. Because of these symptoms, patient came to the ER Initial lab work done in the ER showed WBC 9.5, hemoglobin 10.9, platelet count 105, sodium 117, potassium 4.1, BUN 20, creatinine 0.8, glucose 104, lactic acid 1.4, calcium 8, phosphorus 2.5, magnesium 1.5, troponin 0.367 Chest x-ray on arrival shows cardiomegaly and mild pulmonary vascular congestion. No focal infiltrates or obvious evidence of pneumonia. In the ER, patient was started on broad-spectrum antibiotics and was given fluid resuscitation in suspicion of sepsis, Patient was admitted to ICU 06/06. Patient seen and examined WBC 11.9, hemoglobin 12.2, platelet count 98, sodium 35, potassium 3.9, BUN 35, creatinine 1.17,. States she feels much bett er compared to yesterday. Gets short of breath on exertion 06/07. Patient seen and examined. States she is lethargic. Shortness of breath not present at rest, only on exertion. Patient is off Levophed REVIEW OF SYSTEMS: CONSTITUTIONAL: No fever, no malaise,. CARDIOVASCULAR: No chest pain, no palpitations, no syncope. PULMONARY: As mentioned above GASTROINTESTINAL: No diarrhea, no nausea, no vomiting, no abdominal pain. NEUROLOGICAL: No headaches, no weakness, PHYSICAL EXAMINATION: GENERAL: The patient is alert and oriented x3, not in any acute distress. Sick looking HEENT: Pupils are round and equally reacting to light. EOMI. No scleral icterus. No conjunctival pallor. Normocephalic, atraumatic. No pharyngeal erythema. No thyromegaly. CARDIOVASCULAR: S1 and S2 present. No murmurs, rubs, or gallops. PULMONARY: Coarse breath sounds bilaterally, no crackles ABDOMEN: Soft, nontender, nondistended, normoactive bowel sounds. No palpable organomegaly. MUSCULOSKELETAL: No joint swelling or deformity. EXTREMITIES: 1+ pitting edema of lower extremities, right lower extremity bandaged, left lower extremity bandaged seen as well NEUROLOGICAL: Gross neurological examination did not reveal any focal deficits. SKIN: No rashes. Assessment and plan Septic shock MSSA bacteremia Hyponatremia Dehydration Hypomagnesemia Acute hypoxemic respiratory failure Acute on on chronic diastolic congestive heart failure, currently on 4 L/m nasal cannula. Elevated troponins, rule out non-STEMI Bilateral lower extremity cellulitis and chronic lower extremity edema. Recentl y, treated for cellulites of the lower extremities in December,. Left lower extremity wound was positive for Enterobacter and MSSA. Diarrhea Pulmonary hypertension History of cortication of the aorta status post open-heart surgery Hyperlipidemia Diabetes mellitus type 2 Obesity, with a BMI of 36 kg/m Monitor vital signs Monitor CBC Monitor CMP Continue telemetry monitoring 2-D echo done showed mild LV dilatation with moderate concentric left medical hypertrophy, normal LV function, LVEF of 55%, grade 2 diastolic dysfunction, moderate MR, moderate pulmonary hypertension Patient being scheduled for FREDRICK on Friday Follow-up on blood cultures, blood culture growing MSSA Follow-up on sodium levels. Continue oral bicarb. Encouraged oral intake. Avoid nephrotoxins. Antibiotics changed to IV cefazolin Follow-up on nephrology recommendations Follow up with ID recommendations Follow-up on cardiology recommendations Critical care Following Labs and medication were reviewed.. Continue same treatment. Continue with symptomatic treatment. Resume home medication. Monitor labs and vitals. DVT and GI prophylaxis. Further recommendations as per clinical course of the patient Dictation was produced using [employer] dictation software. please excuse any grammatical, word or spelling errors. Objective - Vital Signs Vital signs: Vital Signs Temp 98.5 F 06/07/23 08:00 Pulse 90 06/07/23 12:00 Resp 22 06/07/23 12:00 BP 103/67 06/07/23 12:00 Pulse Ox 94 L 06/07/23 12:00 FiO2 Intake & Output 06/06/23 06/07/23 06/07/23 18:59 06:59 18:59 Intake Total 1213.174 425.383 321.168 Output Total 555 740 455 Balance 658.174 -314.617 -133.832 Weight 123.2 kg Intake: IV 160 220 110 0.9 NS 110 120 60 ceFAZolin 2 gm In Sodium 100 50 Chloride 0.9% 50 ml @ 100 mls/hr IVPB Q8HR [facility] Rx# :[id number] cefTRIAXone 2 gm In 50 Sodium Chloride 0.9% 50 ml @ 100 mls/hr IVPB Q24HR [facility] Rx#:[id number] Intake, IV Titration 188.174 105.383 11.168 Amount Norepinephrine 4 mg In 188.174 105.383 11.168 Sodium Chloride 0.9% 250 ml @ 0.03 MCG/KG/MIN 12. 184 mls/hr IV .[id number] [facility] Rx#:[id number] Oral 865 100 200 Output: Urine 555 740 455 Other: Voiding Method Indwelling Catheter Indwelling Catheter Indwelling Catheter - Labs CBC & Chem 7: 06/06/23 04:23 06/07/23 05:29 Labs: Abnormal Lab Results - Last 24 Hours (Table) 06/06/23 06/06/23 06/06/23 Range/Units 16:11 17:08 20:05 Sodium 126 L (137-145) mmol/L Chloride (98-107) mmol/L BUN (7-17) mg/dL POC Glucose (mg/dL) 138 H 135 H (70-110) mg/dL Calcium (8.4-10.2) mg/dL 06/07/23 06/07/23 06/07/23 Range/Units 05:29 06:42 11:08 Sodium 129 L (137-145) mmol/L Chloride 93 L (98-107) mmol/L BUN 36 H (7-17) mg/dL POC Glucose (mg/dL) 137 H 120 H (70-110) mg/dL Calcium 8.2 L (8.4-10.2) mg/dL Microbiology - Last 24 Hours (Table) 06/04/23 18:00 Blood Culture Gram Stain - Preliminary Blood Blood Culture - Preliminary Presumptive Staph aureus
[2023-06-07] MEDS: ACETAMINOPHEN TAB 500 MG TAB PO PRN (14:31)
[2023-06-07 16:05] LABS: Glucose,Whole Blood 159 mg/dL (70-110)
[2023-06-07 20:14] LABS: Glucose,Whole Blood 182 mg/dL (70-110)
[2023-06-08 04:24] LABS: African American GFR (CKD) >90 (>60 ml/min/1.73 sqM); Anion Gap 7 mmol/L; Blood Urea Nitrogen 34 mg/dL (7-17); Calcium 8.6 mg/dL (8.4-10.2); Carbon Dioxide 29 mmol/L (22-30); Chloride 96 mmol/L (98-107); Glucose 121 mg/dL (74-99); Non-African American GFR(CKD) >90 (>60 ml/min/1.73 sqM); Potassium 4.7 mmol/L (3.5-5.1); Sodium 132 mmol/L (137-145)
[2023-06-08] MEDS: ACETAMINOPHEN TAB 500 MG TAB PO PRN (05:28)
[2023-06-08 06:39] LABS: Glucose,Whole Blood 131 mg/dL (70-110)
[2023-06-08] MEDS: INSULIN ASPART (NovoLOG) 100 UNIT/ML VIAL SQ SCH ×4 (06:40→21:12)
[2023-06-08] MEDS: PANTOPRAZOLE 40 MG TABLET PO SCH (06:42)
[2023-06-08] MEDS: HEPARIN SODIUM,PORCINE 5,000 UNIT/ML 1 ML VIAL SQ SCH ×3 (07:44→23:55)
[2023-06-08] MEDS: MIDODRINE 5 MG TAB PO SCH ×3 (07:56→16:45)
--- NOTE | 2023-06-08 08:23 | XR ---
EXAMINATION TYPE: XR chest 1V portable DATE OF EXAM: 06/08/2023 COMPARISON: 06/04/2023 HISTORY: Chest pain TECHNIQUE: Single frontal view of the chest is obtained. FINDINGS: Increasing patchy density right mid and right lower lung zone felt to reflect pneumonia however there is also pulmonary venous congestion and cardiomegaly. Correlate with BNP. The osseous structures are intact. IMPRESSION: 1. Correlate for CHF with the possible right lower lobe pneumonia and effusion.
[2023-06-08] MEDS ORDERED: FUROSEMIDE 10 MG/ML 4 ML VIAL IV STA (09:12)
[2023-06-08] MEDS: SODIUM CHLORIDE TAB 1 GM TAB PO SCH (09:22)
[2023-06-08] MEDS: NOREPINEPHRINE 4 MG in SODIUM CHLORIDE 0.9% 250 ML IV SCH (09:25)
--- NOTE | 2023-06-08 09:45 | P.PN ---
Subjective Progress Note Date: 06/07/23 Principal diagnosis: Bacteremia and cellulitis Patient is a 47-year-old female with a past medical history significant for hypertension diastolic congestive heart failure pulmonary hypertension hyperlipidemia diabetes mellitus presenting to the hospital for evaluation of increasing shortness of breath, along with lower extremity swelling and some redness and did have wound to the left lower leg area concerning for cellulitis blood culture Were positive with MSSA On today's evaluation that is 06/07/2023 patient is afebrile, patient is breathing comfortably on 4 L nasal cannula oxygen slightly lethargic today no vomiting diarrhea or any other changes reported by the nursing staff. Patient did have a creatinine 0.96 no CBC was done today blood cultures with MSSA blood culture repeated on 06/06/2023 so far negative Objective - Vital Signs Vital signs: Vital Signs Temp 98.5 F 06/07/23 08:00 Pulse 95 06/07/23 15:00 Resp 19 06/07/23 15:00 BP 111/70 06/07/23 15:00 Pulse Ox 93 L 06/07/23 15:00 FiO2 Intake & Output 06/06/23 06/07/23 06/07/23 18:59 06:59 18:59 Intake Total 1213.174 425.383 801.168 Output Total 555 740 600 Balance 658.174 -314.617 201.168 Weight 123.2 kg Intake: IV 160 220 140 0.9 NS 110 120 90 ceFAZolin 2 gm In Sodium 100 50 Chloride 0.9% 50 ml @ 100 mls/hr IVPB Q8HR [facility] Rx# :[id number] cefTRIAXone 2 gm In 50 Sodium Chloride 0.9% 50 ml @ 100 mls/hr IVPB Q24HR [facility] Rx#:[id number] Intake, IV Titration 188.174 105.383 11.168 Amount Norepinephrine 4 mg In 188.174 105.383 11.168 Sodium Chloride 0.9% 250 ml @ 0.03 MCG/KG/MIN 12. 184 mls/hr IV .[id number] [facility] Rx#:[id number] Oral 865 100 650 Output: Urine 555 740 600 Other: Voiding Method Indwelling Catheter Indwelling Catheter Indwelling Catheter - Exam GENERAL DESCRIPTION: Middle-aged female in bed in no distress RESPIRATORY SYSTEM: Unlabored breathing , decreased breath sounds at bases HEART: S1 S2 regular rate and rhythm , ABDOMEN: Soft , no tenderness EXTREMITIES: Bilateral lower extremity currently wrapped in Oz wrap - Labs CBC & Chem 7: 06/06/23 04:23 06/08/23 03:47 Labs: Abnormal Lab Results - Last 24 Hours (Table) 06/06/23 06/06/23 06/06/23 Range/Units 16:11 17:08 20:05 Sodium 126 L (137-145) mmol/L Chloride (98-107) mmol/L BUN (7-17) mg/dL POC Glucose (mg/dL) 138 H 135 H (70-110) mg/dL Calcium (8.4-10.2) mg/dL 06/07/23 06/07/23 06/07/23 Range/Units 05:29 06:42 11:08 Sodium 129 L (137-145) mmol/L Chloride 93 L (98-107) mmol/L BUN 36 H (7-17) mg/dL POC Glucose (mg/dL) 137 H 120 H (70-110) mg/dL Calcium 8.2 L (8.4-10.2) mg/dL Microbiology - Last 24 Hours (Table) 06/04/23 18:00 Blood Culture Gram Stain - Final Blood Blood Culture - Final Staphylococcus aureus Assessment and Plan (1) MSSA bacteremia Current Visit: Yes Status: Acute Code(s): R78.81 - BACTEREMIA; B95.61 - METHICILLIN SUSCEP STAPH INFCT CAUSING DIS CLASSD ELSR SNOMED Code(s): 871387940 (2) Bilateral lower leg cellulitis Current Visit: Yes Status: Acute Code(s): L03.116 - CELLULITIS OF LEFT LOWER LIMB; L03.115 - CELLULITIS OF RIGHT LOWER LIMB SNOMED Code(s): 723422938 Plan: 1patient presented hospital with sepsis in this patient with a fever tachycardia hypotension requiring pressor support now with evidence of MSSA bacteremia source likely lower extremity cellulitis patient with right lower extremity and did have some pressure wound to the left leg clinically not behaving as pneumonia and no other focus of this bacteremia 2-blood cultures has been repeated to document clearance of bacteremia and to make sure no evidence of any endovascular source 3patient seem to have shown some clinical improvement the patient continue with the cefazolin while waiting for the work-up to be completed and monitor clinical course closely Dictation was produced using dragon dictation software. please excuse any gra mmatical, word or spelling errors. Time with Patient: Less than 30
--- NOTE | 2023-06-08 10:35 | P.PN ---
Subjective Patient is seen for follow-up for hyponatremia. She continues to complain of weakness and is currently sleeping. Remains off of levo fed but maintained on midodrine. Sodium is up to 132 today. Patient is maintained on sodium chloride tabs. Plans for FREDRICK tomorrow Objective - Vital Signs Vital signs: Vital Signs Temp 98.3 F 06/08/23 08:00 Pulse 90 06/08/23 10:00 Resp 19 06/08/23 10:00 BP 121/75 06/08/23 10:00 Pulse Ox 92 L 06/08/23 10:00 FiO2 Intake & Output 06/07/23 06/08/23 06/08/23 18:59 06:59 18:59 Intake Total 1151.168 170 190 Output Total 765 990 295 Balance 386.168 -820 -105 Weight 123.6 kg Intake: IV 220 170 90 0.9 NS 120 120 40 ceFAZolin 2 gm In Sodium 100 50 50 Chloride 0.9% 50 ml @ 100 mls/hr IVPB Q8HR [facility] Rx# :[id number] Intake, IV Titration 11.168 Amount Norepinephrine 4 mg In 11.168 Sodium Chloride 0.9% 250 ml @ 0.03 MCG/KG/MIN 12. 184 mls/hr IV .[id number] [facility] Rx#:[id number] Oral 920 100 Output: Urine 765 990 295 Other: Voiding Method Indwelling Catheter Indwelling Catheter Indwelling Catheter - Exam Patient is sleeping but arousable, comfortable, weak. Answers simple questions. Examination of the heart S1 and S2 Examination of the lungs bilateral breath sounds are heard Abdomen is soft nontender Examination of lower extremities shows bilateral extremities to be wrapped. [employer] exam grossly intact. - Labs CBC & Chem 7: 06/06/23 04:23 06/08/23 03:47 Labs: Abnormal Lab Results - Last 24 Hours (Table) 06/07/23 06/07/23 06/07/23 Range/Units 11:08 16:03 20:12 Sodium (137-145) mmol/L Chloride (98-107) mmol/L BUN (7-17) mg/dL Glucose (74-99) mg/dL POC Glucose (mg/dL) 120 H 159 H 182 H (70-110) mg/dL 06/08/23 06/08/23 Range/Units 03:47 06:37 Sodium 132 L (137-145) mmol/L Chloride 96 L (98-107) mmol/L BUN 34 H (7-17) mg/dL Glucose 121 H (74-99) mg/dL POC Glucose (mg/dL) 131 H (70-110) mg/dL Microbiology - Last 24 Hours (Table) 06/06/23 12:23 Blood Culture Gram Stain - Preliminary Blood Blood Culture - Preliminary 06/04/23 18:00 Blood Culture Gram Stain - Final Blood Blood Culture - Final Staphylococcus aureus Assessment and Plan Assessment: 1. Hypovolemic hyponatremia with component of excess fluid intake. Sodium level 117 on admission and up to 132 this morning. Status post 3% saline. Maintained on sodium chloride tablets. TSH normal. Cortisol level not low. Urine sodium less than 20 and urine osmolality 507. 2. Acute kidney injury secondary to ATN secondary to sepsis/hypotension. Cr eatinine 0.6 today. 3. Metabolic acidosis secondary to acute kidney injury, IV fluids and GI losses . On oral bicarb. Improved. 4. Chronic diastolic CHF and mild to moderate mitral regurgitation, aortic stenosis and severe tricuspid regurgitation and pulmonary hypertension. 5. Septic shock secondary to gram-positive bacteremia and Lower extremity cellulitis on antibiotics. Blood cultures are growing MSSA. There is concern for endocarditis. Patient is scheduled to have a FREDRICK tomorrow. 6. Diabetes mellitus. Plan: Can't DC fluid restriction Repeat labs in a.m. Continue with sodium chloride tabs. Decrease to once a day Continue with midodrine
--- NOTE | 2023-06-08 11:07 | P.PN ---
Subjective Progress Note Date: 06/08/23 This is [place] Rubio NP, I'm dictating on behalf of Dr. Bro's H&P and A&P. Patient was interviewed and examined. Patient is a pleasant 47-year-old female presented to hospital with sepsis, pneumonia, and cellulitis and increased shortness of breath. Patient states that she is tired today. Her blood pressure is stable at this time. Vital signs appear to be improving. Labs are also improving. Patient's blood cultures did grow Staphylococcus aureus, and it appears that her antibiotics have been changed to reflect this. GENERAL: Well-appearing, well-nourished and in no acute distress. NECK: Supple without JVD or thyromegaly. LUNGS: Breath sounds clear to auscultation bilaterally. Respiration equal and unlabored. No wheezes, rales or rhonchi. HEART: Regular rate and rhythm without murmurs, rubs or gallops. S1 and S2 heard. EXTREMITIES: Normal range of motion, no edema. No clubbing or cyanosis. Peripheral pulses intact and strong. VITALS: Temp 98.3, pulse 86, respirations 18, blood pressure 115/70, O2 saturation 94% on 4 L TELEMETRY: Normal sinus rhythm LABS: Sodium 132, potassium 4.7, B1 34, creatinine 0.67, calcium 8.6 IMPRESSION: 1. Septicemia, likely secondary to chronic cellulitis 2. Hypotension 3. Congestive heart failure, acute on chronic 4. History of severe RV dilatation and pulmonary hypertension 5. History of valvular disease 6. History of coarctation of aorta, surgery at age 7 7. Hyponatremia PLAN: Continue current supportive treatment. Blood cultures grew Staphylococcus aureus. Nothing by mouth at midnight, patient is scheduled for FREDRICK tomorrow morning. Further recommendations based on patient's clinical course. Objective - Vital Signs Vital signs: Vital Signs Temp 98.3 F 06/08/23 08:00 Pulse 90 06/08/23 10:00 Resp 19 06/08/23 10:00 BP 121/75 06/08/23 10:00 Pulse Ox 92 L 06/08/23 10:00 FiO2 Intake & Output 06/07/23 06/08/23 06/08/23 18:59 06:59 18:59 Intake Total 1151.168 170 190 Output Total 765 990 295 Balance 386.168 -820 -105 Weight 123.6 kg Intake: IV 220 170 90 0.9 NS 120 120 40 ceFAZolin 2 gm In Sodium 100 50 50 Chloride 0.9% 50 ml @ 100 mls/hr IVPB Q8HR [facility] Rx# :[id number] Intake, IV Titration 11.168 Amount Norepinephrine 4 mg In 11.168 Sodium Chloride 0.9% 250 ml @ 0.03 MCG/KG/MIN 12. 184 mls/hr IV .[id number] [facility] Rx#:[id number] Oral 920 100 Output: Urine 765 990 295 Other: Voiding Method Indwelling Catheter Indwelling Catheter Indwelling Catheter - Labs CBC & Chem 7: 06/06/23 04:23 06/08/23 03:47 Labs: Abnormal Lab Results - Last 24 Hours (Table) 06/07/23 06/07/23 06/07/23 Range/Units 11:08 16:03 20:12 Sodium (137-145) mmol/L Chloride (98-107) mmol/L BUN (7-17) mg/dL Glucose (74-99) mg/dL POC Glucose (mg/dL) 120 H 159 H 182 H (70-110) mg/dL 06/08/23 06/08/23 Range/Units 03:47 06:37 Sodium 132 L (137-145) mmol/L Chloride 96 L (98-107) mmol/L BUN 34 H (7-17) mg/dL Glucose 121 H (74-99) mg/dL POC Glucose (mg/dL) 131 H (70-110) mg/dL Microbiology - Last 24 Hours (Table) 06/06/23 12:23 Blood Culture Gram Stain - Preliminary Blood Blood Culture - Preliminary 06/04/23 18:00 Blood Culture Gram Stain - Final Blood Blood Culture - Final Staphylococcus aureus
[2023-06-08 11:22] LABS: Glucose,Whole Blood 127 mg/dL (70-110)
--- NOTE | 2023-06-08 12:12 | P.PN ---
Subjective Progress Note Date: 06/08/23 Principal diagnosis: Acute hypoxic respiratory failure secondary to acute diastolic congestive heart failure, hypotension secondary to sepsis and possible septic shock Patient is a 47-year-old white female with past medical history significant for diastolic congestive heart failure, coarctation of the aorta status post surgical correction, pulmonary hypertension, essential hypertension, hyperlipidemia, diabetes mellitus, and chronic lower extremity swelling. Patient recently had a hospital admission back in December for CHF exacerbation and cellulitis of the lower extremities. Left lower extremity wound was positive for Enterobacter and MSSA. She completed a course of ciprofloxacin. She was eventually started on Bumex and discharged home. Patient returned to the ER yest erd afternoon with reports of generalized malaise, weakness, and shortness of breath. Her shortness of breath is worse on exertion and when lying flat. She does have severe lower extremity edema. Denies any chest pain, heart palpitation, lightheadedness, syncope. She denies any sick contacts. Denies cough. She was febrile on arrival, with a T-max of 101.4F. Denies genitourinary complaints. Denies abdominal pain, nausea and vomiting. Admits two episodes of diarrhea since being in the hospital. Patient is currently sitting up in bed, on 4 L/m nasal cannula, in no acute distress. Chest x-ray on arrival shows cardiomegaly and mild pulmonary vascular congestion. No focal infiltrates or obvious evidence of pneumonia. Troponins are elevated and trending up at 0.37, 0.59, and 0.6 respectively. NT proBNP is pending. Patient normally does take Bumex on outpatient basis, but did not take her morning dose. She was severely hyponatremic with a sodium of 117. She was initially felt to be hypovolemic and bolused with 2 L of normal saline, and started on a 3% hypertonic saline infusion which is currently at 25 ML's per hour. Most recent sodium is 119. Her hypotension was refractory to fluid replacement, and she was started on norepinephrine which is currently infusing at 0.06 mcg/kg/m. She was empirically started on a combination of Levaquin and Rocephin. She is currently afebrile. CBC on arrival did not show any leukocytosis. WBC count 9.5, hemoglobin 10.9, hematocrit 31.6, platelets 105. BMP on arrival shows a sodium 117, potassium is 4.1, chloride 86, serum bicarb 20, BUN 20, creatinine 0.8, glucose 104. Urinalysis not concerning for UTI. Patient will be monitored in the intensive care unit. Patient was seen again on 06/06/2023, remains in the ICU today, she is still requiring a small dose of norepinephrine at 0.04 mcg/kg/m her sodium is up to 125, and her blood cultures are positive for MSSA, patient is on Kefzol as per infectious disease on the case. Pulmonary-andrews doing better breathing easier today her WBC count is 11.9 hemoglobin is 12.2 sodium is up to 125 BUN is 35 creatinine 1.17, improved compared to yesterday. Patient is now on 3% saline. She did receive 1 dose of Lasix yesterday 20 mg IV push. Still receiving oral bicarb. Blood pressure remains marginal in spite of midodrine and in spite of norepinephrine. A chest x-ray was done today, however her admission chest x-ray showed cardiomegaly and interstitial edema Reevaluated today on 06/07/2023, patient remains in the ICU, she is hemodynamically stable, off norepinephrine, he is on 2 L nasal cannula, sodium is up to 129, good urine output, hemodynamically stable in spite of being off norepinephrine. Remains on cefazolin for gram-positive bacteremia/MSSA. Patient is scheduled to have FREDRICK on Friday. Patient had episodes of nausea and vomiting earlier but she is feeling fine today. Electrolytes are normal renal profile is normal blood sugar is 137, last BNP level II days ago was over 18,000 chest x-ray on admission did show evidence of cardiomegaly and mild pulmonary vascular congestion patient remains on fluid restriction in the meantime Reevaluated today on 06/08/2023, patient remains in the ICU, he seems to be a bit lethargic today, and weak, but overall the patient has been better compared to baseline. Patient is being treated for cellulitis and sepsis with bacteremia chronic congestive heart failure, hypotension and hyponatremia and she does have valvular heart disease and pulmonary hypertension. Patient is improving overall compared to baseline, had a blood cultures came negative for MSSA, patient remains on cefazolin, and she is scheduled to have a FREDRICK tomorrow. Repeat blood cultures on 06/06 are positive again for MSSA and there were also positive on 06/04 considering the loud murmur she has in the valvular heart disease she has I believe the patient has endocarditis unless proven otherwise and this is strongly suspected. Chest x-ray is still showing evidence of congestive heart failure, difficult to rule out underlying infiltrate in the right lower lobe but I believe clinically this is a picture of congestive heart failure unless for otherwise. Objective - Vital Signs Vital signs: Vital Signs Temp 98.3 F 06/08/23 08:00 Pulse 90 06/08/23 10:00 Resp 19 06/08/23 10:00 BP 121/75 06/08/23 10:00 Pulse Ox 92 L 06/08/23 10:00 FiO2 Intake & Output 06/07/23 06/08/23 06/08/23 18:59 06:59 18:59 Intake Total 1151.168 170 190 Output Total 765 990 295 Balance 386.168 -820 -105 Weight 123.6 kg Intake: IV 220 170 90 0.9 NS 120 120 40 ceFAZolin 2 gm In Sodium 100 50 50 Chloride 0.9% 50 ml @ 100 mls/hr IVPB Q8HR [facility] Rx# :[id number] Intake, IV Titration 11.168 Amount Norepinephrine 4 mg In 11.168 Sodium Chloride 0.9% 250 ml @ 0.03 MCG/KG/MIN 12. 184 mls/hr IV .[id number] [facility] Rx#:[id number] Oral 920 100 Output: Urine 765 990 295 Other: Voiding Method Indwelling Catheter Indwelling Catheter Indwelling Catheter - Exam Physical Exam: Revealed 47-year-old female in no distress, on 4 L nasal cannula HEENT:[Neck is supple.] [No neck masses.] [No thyromegaly.] [No JVD.] Chest: [Symmetrical chest expansion bibasilar crackles persists. Cardiac Exam: [Normal S1 and S2, no S3 gallop, 2/6 systolic murmur throughout the precordium Abdomen: [Soft, nontender, no megaly, no rebound, no guarding, normal bowel sounds.] Extremities: [No clubbing, no edema, no cyanosis.] Neurological Exam: [No focal neurologic deficit.] Alert oriented 3 Psychiatric: Normal mood affect and normal mental status examination. Skin continues to have Oz wraps of the lower extremities due to severe cellu litis. Musculoskeletal: No deformities and no limitation in range of motion - Labs CBC & Chem 7: 06/06/23 04:23 06/08/23 03:47 Labs: Abnormal Lab Results - Last 24 Hours (Table) 06/07/23 06/07/23 06/08/23 Range/Units 16:03 20:12 03:47 Sodium 132 L (137-145) mmol/L Chloride 96 L (98-107) mmol/L BUN 34 H (7-17) mg/dL Glucose 121 H (74-99) mg/dL POC Glucose (mg/dL) 159 H 182 H (70-110) mg/dL 06/08/23 06/08/23 Range/Units 06:37 11:21 Sodium (137-145) mmol/L Chloride (98-107) mmol/L BUN (7-17) mg/dL Glucose (74-99) mg/dL POC Glucose (mg/dL) 131 H 127 H (70-110) mg/dL Microbiology - Last 24 Hours (Table) 06/06/23 12:23 Blood Culture Gram Stain - Preliminary Blood Blood Culture - Preliminary 06/04/23 18:00 Blood Culture Gram Stain - Final Blood Blood Culture - Final Staphylococcus aureus Assessment and Plan Assessment: Impression: 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 Acute hypoxic respiratory failure secondary to acute on chronic diastolic congestive heart failure Acute hypervolemic hyponatremia Acute on chronic diastolic congestive heart failure Acute sepsis, septic shock, and gram-positive bacteremia most likely source is chronic cellulitis of lower extremities secondary to MSSA Lower extremity cellulitis Type 2 diabetes without complications Acute kidney injury with ATN secondary to sepsis and hypotension, improving Pulmonary hypertension History of coarctation of the aorta status post open-heart surgery Dyslipidemia Valvular heart disease Obesity with BMI of 36 Recommendation: Continue to monitor in the ICU Gentle diuresis FREDRICK to be done tomorrow and rule out endocarditis Continue antibiotics/cefazolin Continue fluid restrictions Monitor sodium closely, improving today slowly. Continue midodrine Prognosis remains relatively guarded and again I strongly suspect that we are dealing with endocarditis unless proven otherwise Continue GI and DVT prophylaxis We will continue to follow Time with Patient: Less than 30
--- NOTE | 2023-06-08 12:22 | P.PN ---
Subjective Progress Note Date: 06/08/23 patient is a 47-year-old lady with past medical history significant for di astolic congestive heart failure, coarctation of the aorta status post surgical correction, pulmonary hypertension, essential hypertension, hyperlipidemia, diabetes mellitus, and chronic lower extremity swelling who presented to the ER with complaints of not feeling well for the last few days. She stated that for the last few days she has not been able to eat anything, complaining of weight loss. Also complaining of shortness of breath on minimal exertion. Complaining of orthopnea. Patient has chronic swelling of lower extremities, recently treated for cellulitis Denies any fever or chills. Denies any chest pain. Because of these symptoms, patient came to the ER Initial lab work done in the ER showed WBC 9.5, hemoglobin 10.9, platelet count 105, sodium 117, potassium 4.1, BUN 20, creatinine 0.8, glucose 104, lactic acid 1.4, calcium 8, phosphorus 2.5, magnesium 1.5, troponin 0.367 Chest x-ray on arrival shows cardiomegaly and mild pulmonary vascular congestion. No focal infiltrates or obvious evidence of pneumonia. In the ER, patient was started on broad-spectrum antibiotics and was given fluid resuscitation in suspicion of sepsis, Patient was admitted to ICU 06/06. Patient seen and examined WBC 11.9, hemoglobin 12.2, platelet count 98, sodium 35, potassium 3.9, BUN 35, creatinine 1.17,. States she feels much bett er compared to yesterday. Gets short of breath on exertion 06/07. Patient seen and examined. States she is lethargic. Shortness of breath not present at rest, only on exertion. Patient is off Levophed 06/08. Patient seen and examined. Sodium this morning is 132, potassium is 4.7, BUN is 34, creatinine 0.67. Currently on 4 L of oxygen. Patient is lethargic. Repeat blood cultures from 06/06 are also positive for gram-positive cocci REVIEW OF SYSTEMS: CONSTITUTIONAL: No fever, no malaise,. CARDIOVASCULAR: No chest pain, no palpitations, no syncope. PULMONARY: As mentioned above GASTROINTESTINAL: No diarrhea, no nausea, no vomiting, no abdominal pain. NEUROLOGICAL: No headaches, no weakness, PHYSICAL EXAMINATION: GENERAL: The patient is alert but lethargic, not in any acute distress. Sick looking HEENT: Pupils are round and equally reacting to light. EOMI. No scleral icterus. No conjunctival pallor. Normocephalic, atraumatic. No pharyngeal erythema. No thyromegaly. CARDIOVASCULAR: S1 and S2 present. No murmurs, rubs, or gallops. PULMONARY: Coarse breath sounds bilaterally, no crackles ABDOMEN: Soft, nontender, nondistended, normoactive bowel sounds. No palpable organomegaly. MUSCULOSKELETAL: No joint swelling or deformity. EXTREMITIES: 1+ pitting edema of lower extremities, right lower extremity bandaged, left lower extremity bandaged seen as well NEUROLOGICAL: Gross neurological examination did not reveal any focal deficits. SKIN: No rashes. Assessment and plan Septic shock MSSA bacteremia Hyponatremia Dehydration Hypomagnesemia Acute hypoxemic respiratory failure Acute on on chronic diastolic congestive heart failure, currently on 4 L/m nasal cannula. Elevated troponins, rule out non-STEMI Bilateral lower extremity cellulitis and chronic lower extremity edema. Recently, treated for cellulites of the lower extremities in December,. Left lower extremity wound was positive for Enterobacter and MSSA. Diarrhea Pulmonary hypertension History of cortication of the aorta status post open-heart surgery Hyperlipidemia Diabetes mellitus type 2 Obesity, with a BMI of 36 kg/m Monitor vital signs Monitor CBC Monitor CMP Continue telemetry monitoring 2-D echo done showed mild LV dilatation with moderate concentric left medical hypertrophy, normal LV function, LVEF of 55%, grade 2 diastolic dysfunction, moderate MR, moderate pulmonary hypertension Patient being scheduled for FREDRICK on Friday Follow-up on blood cultures, blood culture growing MSSA Follow-up on sodium levels. Continue sodium chloride tablets Continue midodrine Encouraged oral intake. Avoid nephrotoxins. Continue IV cefazolin Follow-up on nephrology recommendations Follow up with ID recommendations Follow-up on cardiology recommendations Critical care Following Labs and medication were reviewed.. Continue same treatment. Continue with symptomatic treatment. Resume home medication. Monitor labs and vitals. DVT and GI prophylaxis. Further recommendations as per clinical course of the patient Dictation was produced using [employer] dictation software. please excuse any grammatical, word or spelling errors. Objective - Vital Signs Vital signs: Vital Signs Temp 98.3 F 06/08/23 08:00 Pulse 86 06/08/23 08:00 Resp 18 06/08/23 08:00 BP 115/70 06/08/23 08:00 Pulse Ox 94 L 06/08/23 08:00 FiO2 Intake & Output 06/07/23 06/08/23 06/08/23 18:59 06:59 18:59 Intake Total 1151.168 170 70 Output Total 765 990 120 Balance 386.168 -820 -50 Weight 123.6 kg Intake: IV 220 170 70 0.9 NS 120 120 20 ceFAZolin 2 gm In Sodium 100 50 50 Chloride 0.9% 50 ml @ 100 mls/hr IVPB Q8HR [facility] Rx# :[id number] Intake, IV Titration 11.168 Amount Norepinephrine 4 mg In 11.168 Sodium Chloride 0.9% 250 ml @ 0.03 MCG/KG/MIN 12. 184 mls/hr IV .[id number] [facility] Rx#:[id number] Oral 920 Output: Urine 765 990 120 Other: Voiding Method Indwelling Catheter Indwelling Catheter Indwelling Catheter - Labs CBC & Chem 7: 06/06/23 04:23 06/08/23 03:47 Labs: Abnormal Lab Results - Last 24 Hours (Table) 06/07/23 06/07/23 06/07/23 Range/Units 11:08 16:03 20:12 Sodium (137-145) mmol/L Chloride (98-107) mmol/L BUN (7-17) mg/dL Glucose (74-99) mg/dL POC Glucose (mg/dL) 120 H 159 H 182 H (70-110) mg/dL 06/08/23 06/08/23 Range/Units 03:47 06:37 Sodium 132 L (137-145) mmol/L Chloride 96 L (98-107) mmol/L BUN 34 H (7-17) mg/dL Glucose 121 H (74-99) mg/dL POC Glucose (mg/dL) 131 H (70-110) mg/dL Microbiology - Last 24 Hours (Table) 06/06/23 12:23 Blood Culture Gram Stain - Preliminary Blood Blood Culture - Preliminary 06/04/23 18:00 Blood Culture Gram Stain - Final Blood Blood Culture - Final Staphylococcus aureus
[2023-06-08] MEDS: HYDROcodone/APAP 5-325MG 1 EACH TAB PO PRN (12:54)
--- NOTE | 2023-06-08 15:59 | P.PN ---
Subjective Progress Note Date: 06/08/23 Principal diagnosis: Bacteremia and cellulitis Patient is a 47-year-old female with a past medical history significant for hypertension diastolic congestive heart failure pulmonary hypertension hyperlipidemia diabetes mellitus presenting to the hospital for evaluation of increasing shortness of breath, along with lower extremity swelling and some redness and did have wound to the left lower leg area concerning for cellulitis blood culture Were positive with MSSA On today's evaluation that is 06/08/2023 patient remains to be afebrile, the patient is breathing comfortably on 4 L nasal cannula oxygen , the patient is slightly lethargic and not a good historian, no vomiting diarrhea or any other changes reported by the nursing staff. Patient did have a creatinine 0.67 no CBC was done today, blood cultures with MSSA blood culture repeated on 06/06/2023 coming back positive as well, blood culture done 06/07/2023 so far negative Objective - Vital Signs Vital signs: Vital Signs Temp 97 F L 06/08/23 12:00 Pulse 93 06/08/23 15:00 Resp 14 06/08/23 15:00 BP 111/68 06/08/23 15:00 Pulse Ox 95 06/08/23 15:00 FiO2 Intake & Output 06/07/23 06/08/23 06/08/23 18:59 06:59 18:59 Intake Total 1151.168 170 240 Output Total 754 511 5648 Balance 386.168 820 -845 Weight 123.6 kg Intake: IV 220 170 140 0.9 NS 120 120 90 ceFAZolin 2 gm In Sodium 100 50 50 Chloride 0.9% 50 ml @ 100 mls/hr IVPB Q8HR [facility] Rx# :[id number] Intake, IV Titration 11.168 Amount Norepinephrine 4 mg In 11.168 Sodium Chloride 0.9% 250 ml @ 0.03 MCG/KG/MIN 12. 184 mls/hr IV .[id number] [facility] Rx#:[id number] Oral 920 100 Output: Urine 732 758 6839 Other: Voiding Method Indwelling Catheter Indwelling Catheter Indwelling Catheter - Exam GENERAL DESCRIPTION: Middle-aged female in bed in no distress RESPIRATORY SYSTEM: Unlabored breathing , decreased breath sounds at bases HEART: S1 S2 regular rate and rhythm , ABDOMEN: Soft , no tenderness EXTREMITIES: Bilateral lower extremity currently wrapped in Oz wrap - Labs CBC & Chem 7: 06/06/23 04:23 06/08/23 03:47 Labs: Abnormal Lab Results - Last 24 Hours (Table) 06/07/23 06/07/23 06/08/23 Range/Units 16:03 20:12 03:47 Sodium 132 L (137-145) mmol/L Chloride 96 L (98-107) mmol/L BUN 34 H (7-17) mg/dL Glucose 121 H (74-99) mg/dL POC Glucose (mg/dL) 159 H 182 H (70-110) mg/dL 06/08/23 06/08/23 Range/Units 06:37 11:21 Sodium (137-145) mmol/L Chloride (98-107) mmol/L BUN (7-17) mg/dL Glucose (74-99) mg/dL POC Glucose (mg/dL) 131 H 127 H (70-110) mg/dL Microbiology - Last 24 Hours (Table) 06/07/23 05:29 Blood Culture - Preliminary Blood 06/06/23 12:23 Blood Culture Gram Stain - Preliminary Blood Blood Culture - Preliminary 06/04/23 18:00 Blood Culture Gram Stain - Final Blood Blood Culture - Final Staphylococcus aureus Assessment and Plan (1) MSSA bacteremia Current Visit: Yes Status: Acute Code(s): R78.81 - BACTEREMIA; B95.61 - METHICILLIN SUSCEP STAPH INFCT CAUSING DIS CLASSD [id number] SNOMED Code(s): 595461672 (2) Bilateral lower leg cellulitis Current Visit: Yes Status: Acute Code(s): L03.116 - CELLULITIS OF LEFT LOWER LIMB; L03.115 - CELLULITIS OF RIGHT LOWER LIMB SNOMED Code(s): 334457561 Plan: 1patient presented hospital with sepsis in this patient with a fever tachycard ia hypotension requiring pressor support now with evidence of MSSA bacteremia source likely lower extremity cellulitis patient with right lower extremity and did have some pressure wound to the left leg clinically not behaving as pneumonia and no other focus of this bacteremia 2-blood cultures has been repeated did came back positive, patient scheduled for FREDRICK in the morning to make sure no evidence of any endovascular source 3we will continue the patient on cefazolin while waiting for the work-up to be completed and monitor clinical course closely Dictation was produced using [employer] dictation software. please excuse any grammatical, word or spelling errors. Time with Patient: Less than 30
[2023-06-08 16:17] LABS: Glucose,Whole Blood 107 mg/dL (70-110)
[2023-06-08 19:38] LABS: Glucose,Whole Blood 114 mg/dL (70-110)
[2023-06-09] MEDS: HYDROcodone/APAP 5-325MG 1 EACH TAB PO PRN ×2 (03:47→11:31)
[2023-06-09 04:28] LABS: Anisocytosis Slight; Basophils % (A) 0 %; Eosinophils # (A) 0.1 k/uL (0-0.7); Eosinophils % (A) 1 %; HCT 40.8 % (34.0-46.0); HGB 12.2 gm/dL (11.4-16.0); Hypochromasia Marked; Lymphocytes % (A) 11 %; MCH 26.7 pg (25.0-35.0); MCHC 29.9 g/dL (31.0-37.0); MCV 89.3 fL (80.0-100.0); Monocytes # (A) 0.8 k/uL (0-1.0); Monocytes % (A) 9 %; Neutrophils % (A) 76 %; Platelet Count 122 k/uL (150-450); RBC 4.57 m/uL (3.80-5.40); RDW 16.1 % (11.5-15.5); WBC 9.2 k/uL (3.8-10.6)
[2023-06-09 04:55] LABS: African American GFR (CKD) >90 (>60 ml/min/1.73 sqM); Anion Gap 8 mmol/L; Blood Urea Nitrogen 30 mg/dL (7-17); Calcium 8.8 mg/dL (8.4-10.2); Carbon Dioxide 29 mmol/L (22-30); Chloride 98 mmol/L (98-107); Glucose 102 mg/dL (74-99); Non-African American GFR(CKD) >90 (>60 ml/min/1.73 sqM); Potassium 4.8 mmol/L (3.5-5.1); Sodium 135 mmol/L (137-145)
[2023-06-09 06:45] LABS: Glucose,Whole Blood 110 mg/dL (70-110)
[2023-06-09] MEDS: INSULIN ASPART (NovoLOG) 100 UNIT/ML VIAL SQ SCH ×4 (07:03→20:29)
[2023-06-09] MEDS ORDERED: MIDAZOLAM 1 MG/ML 5 ML VIAL IV STA (07:26)
[2023-06-09] MEDS ORDERED: fentaNYL (PF) 50 MCG/ML 2 ML AMP IVP ONE (07:48)
--- NOTE | 2023-06-09 08:34 | P.PN ---
Subjective Progress Note Date: 06/09/23 Principal diagnosis: Infective endocarditis This is a 47-year-old female patient with history of prior cardiac surgery/possible coarctation of the aorta surgery who was admitted to the hospital with cellulitis/sepsis. Blood culture showed evidence of Staphylococcus aureus. Transthoracic echocardiogram revealed evidence of possible mitral valve vegetation. Subsequently the patient underwent transesophageal echocardiogram earlier on today and that revealed evidence of infective endocarditis was large vegetation involving the mitral valve was severe mitral regurgitation. June [id number] The patient was evaluated this morning. She is lethargic. She received earlier today some sedation for the transesophageal echocardiogram. She is hemodynamically stable. Currently she is on antibiotic. The plan is to consult cardiothoracic surgery for the infective endocarditis giving that the vegetation was large. Meanwhile continue the current medical regimen. The patient also might benefit from transfer into tertiary facility The examination is remarkable for regular rhythm with pansystolic murmur appears to be quite prominent. Assessment Infective endocarditis Severe pulmonary hypertension Severe right ventricular dilated dictation History of prior surgery/cortication of the aorta surgery Multiple comorbid conditions Plan Continue the current medical regimen Consider transferring the patient Consider consulting surgery Follow-up with the patient Objective - Vital Signs Vital signs: Vital Signs Temp 97.8 F 06/09/23 04:00 Pulse 99 06/09/23 07:00 Resp 20 06/09/23 07:00 BP 127/75 06/09/23 07:00 Pulse Ox 93 L 06/09/23 07:00 FiO2 Intake & Output 06/08/23 06/09/23 06/09/23 18:59 06:59 18:59 Intake Total 320 120 Output Total 1310 755 Balance -990 -635 Intake: IV 220 120 0.9 NS 120 120 ceFAZolin 2 gm In Sodium 100 Chloride 0.9% 50 ml @ 100 mls/hr IVPB Q8HR [facility] Rx# :[id number] Oral 100 Output: Urine 1310 755 Other: Voiding Method Indwelling Catheter Indwelling Catheter - Labs CBC & Chem 7: 06/09/23 03:35 06/09/23 03:35 Labs: Abnormal Lab Results - Last 24 Hours (Table) 06/08/23 06/08/23 06/09/23 Range/Units 11:21 19:37 03:35 MCHC 29.9 L (31.0-37.0) g/dL RDW 16.1 H (11.5-15.5) % Plt Count 122 L (150-450) k/uL Sodium (137-145) mmol/L BUN (7-17) mg/dL Glucose (74-99) mg/dL POC Glucose (mg/dL) 127 H 114 H (70-110) mg/dL 06/09/23 Range/Units 03:35 MCHC (31.0-37.0) g/dL RDW (11.5-15.5) % Plt Count (150-450) k/uL Sodium 135 L (137-145) mmol/L BUN 30 H (7-17) mg/dL Glucose 102 H (74-99) mg/dL POC Glucose (mg/dL) (70-110) mg/dL Microbiology - Last 24 Hours (Table) 06/07/23 05:29 Blood Culture - Preliminary Blood 06/06/23 12:23 Blood Culture Gram Stain - Preliminary Blood Blood Culture - Preliminary
[2023-06-09] MEDS: MIDODRINE 5 MG TAB PO SCH ×3 (08:45→19:04)
[2023-06-09] MEDS: NOREPINEPHRINE 4 MG in SODIUM CHLORIDE 0.9% 250 ML IV SCH (08:45)
--- NOTE | 2023-06-09 09:08 | P.TEE ---
Date of Procedure: 06/09/23 Description of Procedure(s): Procedure performed: 1. Transesophageal Echocardiogram with color flow doppler, pulsed wave doppler and continuous wave doppler, 2. Moderate conscious sedation. Sedation time [25] mins. Indications: [Suspected Infective endocarditis] Consent: I have discussed the risks, benefits and alternative therapies for the above-mentioned procedure. The patient has indicated understanding and acceptance of the risks of the procedure. Signed consent was obtained and was placed in the paper chart. Procedural Steps: Timeout was performed in usual fashion. Patient's heart rate, blood pressure, oxygen saturation and ECG were monitored. Benzocaine was sprayed librally in the back of the throat. Bite block was placed between the jaw. [2] mg of Versed and [50] mcg of Fentanyl were administered intravenously. After achieving appropriate moderate conscious sedation, FREDRICK probe was advanced without difficulty and without any immediate complications to the esophagus. FREDRICK study was performed with color flow Doppler, pulsed wave Doppler and continuous wave doppler. Agitated saline bubbles were injected to assess for any intra- atrial shunt. The probe was then removed. Patient tolerated the procedure well. Patient was transferred to the post procedure area in stable and satisfactory condition. Throughout the procedure patient's heart rate, blood pressure, oxygen saturation and ECG were monitored. Total sedation time [20] mins. Complications: none FINDINGS Left Atrium : Normal Left atrial size. No evidence of mass or thrombus seen Left Atrial Appendage: No evidence of thrombus or mass seen in KADE Inter atrial septum: Intact inter-atrial septum with no right to left shunt on color doppler. Left Ventricle: Normal global LV size and systolic function. Septum is pushed towards left ventricle due to dilate right ventricle. Right Atrium: Severe Right atrial dilatation. Right Ventricle: Severe Right ventricular dilatation. Aortic Valve: Bicuspid aortic valve with fused right and left cusps. Thickening of valve leaflets suggestive of infective endocarditis. No significant stenosis or regurgitation. Mitral Valve: 12mm x 8 mm mobile vegetation attached to atrial aspect of Mitral valve with prolapse of posterior leaflet. Severe mitral regurgitation. Pulmonic Valve: Not well visualized. Tricuspid Valve: Structurally normal. Severe tricuspid regurgitation, likely functional due to annular dilatation Ascending aorta, Aortic root and Aortic arch: [Mild intimal thickening. No evidence of large atheroma or bulky calcification] Desceding aorta: [Mild intimal thickening. No evidence of large atheroma or bulky calcification] CONCLUSION: 1. 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 Severe Mitral regurgitation 3. Bicuspid aortic valve with thickening suggestive of infective endocarditis 4. Severe RA and RV dilatation with evidence of right sided pressure and volume overload [place] MD
[2023-06-09] MEDS: PANTOPRAZOLE 40 MG TABLET PO SCH (10:19)
[2023-06-09] MEDS: SODIUM CHLORIDE TAB 1 GM TAB PO SCH (10:19)
[2023-06-09] MEDS: HEPARIN SODIUM,PORCINE 5,000 UNIT/ML 1 ML VIAL SQ SCH ×3 (10:20→23:55)
--- NOTE | 2023-06-09 10:45 | P.PN ---
Subjective Progress Note Date: 06/09/23 Patient is a 47-year-old white female with past medical history significant for diastolic congestive heart failure, coarctation of the aorta status post surgical correction, pulmonary hypertension, essential hypertension, hyperlipidemia, diabetes mellitus, and chronic lower extremity swelling. Patient recently had a hospital admission back in December for CHF exacerbation and cellulitis of the lower extremities. Left lower extremity wound was positive for Enterobacter and MSSA. She completed a course of ciprofloxacin. She was eventually started on Bumex and discharged home. Patient returned to the ER yesterday afternoon with reports of generalized malaise, weakness, and shortness of breath. Her shortness of breath is worse on exertion and when lying flat. She does have severe lower extremity edema. Denies any chest pain, heart palpitation, lightheadedness, syncope. She denies any sick contacts. Denies cough. She was febrile on arrival, with a T-max of 101.4F. Denies genitourinary complaints. Denies abdominal pain, nausea and vomiting. Admits two episodes of diarrhea since being in the hospital. Patient is currently sitting up in bed, on 4 L/m nasal cannula, in no acute distress. Chest x-ray on arrival shows cardiomegaly and mild pulmonary vascular congestion. No focal infiltrates or obvious evidence of pneumonia. Troponins are elevated and trending up at 0.37, 0.59, and 0.6 respectively. NT proBNP is pending. Patient normally does take Bumex on outpatient basis, but did not take her morning dose. She was severely hyponatremic with a sodium of 117. She was initially felt to be hypovolemic and bolused with 2 L of normal saline, and started on a 3% hypertonic saline infusion which is currently at 25 ML's per hour. Most recent sodium is 119. Her hypotension was refractory to fluid replacement, and she was started on norepinephrine which is currently infusing at 0.06 mcg/kg/m. She was empirically started on a combination of Levaquin and Rocephin. She is currently afebrile. CBC on arrival did not show any leukocytosis. WBC count 9.5, hemoglobin 10.9, hematocrit 31.6, platelets 105. BMP on arrival shows a sodium 117, potassium is 4.1, chloride 86, serum bicarb 20, BUN 20, creatinine 0.8, glucose 104. Urinalysis not concerning for UTI. Patient will be monitored in the intensive care unit. Patient was seen again on 06/06/2023, remains in the ICU today, she is still requiring a small dose of norepinephrine at 0.04 mcg/kg/m her sodium is up to 125, and her blood cultures are positive for MSSA, patient is on Kefzol as per infectious disease on the case. Pulmonary-andrews doing better breathing easier today her WBC count is 11.9 hemoglobin is 12.2 sodium is up to 125 BUN is 35 creatinine 1.17, improved compared to yesterday. Patient is now on 3% saline. She did receive 1 dose of Lasix yesterday 20 mg IV push. Still receiving oral bicarb. Blood pressure remains marginal in spite of midodrine and in spite of norepinephrine. A chest x-ray was done today, however her admission chest x-ray showed cardiomegaly and interstitial edema Reevaluated today on 06/07/2023, patient remains in the ICU, she is hemodynamically stable, off norepinephrine, he is on 2 L nasal cannula, sodium is up to 129, good urine output, hemodynamically stable in spite of being off norepinephrine. Remains on cefazolin for gram-positive bacteremia/MSSA. Patient is scheduled to have FREDRICK on Friday. Patient had episodes of nausea and vomiting earlier but she is feeling fine today. Electrolytes are normal renal profile is normal blood sugar is 137, last BNP level II days ago was over 18,000 chest x-ray on admission did show evidence of cardiomegaly and mild pulmonary vascular congestion patient remains on fluid restriction in the meantime Reevaluated today on 06/08/2023, patient remains in the ICU, he seems to be a bit lethargic today, and weak, but overall the patient has been better compared to baseline. Patient is being treated for cellulitis and sepsis with bacteremia chronic congestive heart failure, hypotension and hyponatremia and she does have valvular heart disease and pulmonary hypertension. Patient is improving overall compared to baseline, had a blood cultures came negative for MSSA, patient remains on cefazolin, and she is scheduled to have a FREDRICK tomorrow. Repeat blood cultures on 06/06 are positive again for MSSA and there were also positive on 06/04 considering the loud murmur she has in the valvular heart disease she has I believe the patient has endocarditis unless proven otherwise and this is strongly suspected. Chest x-ray is still showing evidence of congestive heart failure, difficult to rule out underlying infiltrate in the right lower lobe but I believe clinically this is a picture of congestive heart failure unless for otherwise. The patient is seen today 06/09/2023 in follow-up in the intensive care unit. She remains weak, fatigued. She is maintaining O2 saturations in the 90s on 4 L/m per nasal cannula. Remains slightly tachycardic. Afebrile. Blood cultures are positive for MSSA. FREDRICK today reveals evidence of infective endocarditis with 12 mm x 8 mm vegetation attached to the mitral valve. Severe mitral regurgitation. Bicuspid aortic valve with thickening suggestive of infective endocarditis. Severe RA and RV dilatation with evidence of right-sided pressure and volume overload. White count 9.2. Hemoglobin 12.2. Platelets 122. Sodium 135. Potassium 4.8. Bicarb 29. BUN 30. Creatinine 0.63. Glucose 102. She is continued on cefazolin. Objective - Vital Signs Vital signs: Vital Signs Temp 99.2 F 06/09/23 08:00 Pulse 103 H 06/09/23 09:00 Resp 14 06/09/23 09:00 BP 137/86 06/09/23 09:00 Pulse Ox 95 06/09/23 09:00 FiO2 Intake & Output 06/08/23 06/09/23 06/09/23 18:59 06:59 18:59 Intake Total 320 120 20 Output Total 1310 755 120 Balance -990 -635 -100 Intake: IV 220 120 20 0.9 NS 120 120 20 ceFAZolin 2 gm In Sodium 100 Chloride 0.9% 50 ml @ 100 mls/hr IVPB Q8HR [facility] Rx# :[id number] Oral 100 Output: Urine 1310 755 120 Other: Voiding Method Indwelling Catheter Indwelling Catheter Indwelling Catheter - Exam GENERAL EXAM: Alert, fatigued, weak 47-year-old female, on 4 L nasal cannula, fairly comfortable in no apparent distress. HEAD: Normocephalic. EYES: Normal reaction of pupils, equal size. NOSE: Clear with pink turbinates. THROAT: No erythema or exudates. NECK: No masses, no JVD. CHEST: No chest wall deformity. LUNGS: Equal air entry with crackles in the posterior bases right greater than. CVS: S1 and S2 normal with no audible murmur, regular rhythm. ABDOMEN: No hepatosplenomegaly, normal bowel sounds, no guarding or rigidity. SPINE: No scoliosis or deformity SKIN: No rashes CENTRAL NERVOUS SYSTEM: No focal deficits, tone is normal in all 4 extremities. EXTREMITIES: There is 1+ peripheral edema. No clubbing, no cyanosis. Peripheral pulses are intact. - Labs CBC & Chem 7: 06/09/23 03:35 06/09/23 03:35 Labs: Abnormal Lab Results - Last 24 Hours (Table) 06/08/23 06/08/23 06/09/23 Range/Units 11:21 19:37 03:35 MCHC 29.9 L (31.0-37.0) g/dL RDW 16.1 H (11.5-15.5) % Plt Count 122 L (150-450) k/uL Sodium (137-145) mmol/L BUN (7-17) mg/dL Glucose (74-99) mg/dL POC Glucose (mg/dL) 127 H 114 H (70-110) mg/dL 06/09/23 Range/Units 03:35 MCHC (31.0-37.0) g/dL RDW (11.5-15.5) % Plt Count (150-450) k/uL Sodium 135 L (137-145) mmol/L BUN 30 H (7-17) mg/dL Glucose 102 H (74-99) mg/dL POC Glucose (mg/dL) (70-110) mg/dL Microbiology - Last 24 Hours (Table) 06/06/23 12:23 Blood Culture Gram Stain - Preliminary Blood Blood Culture - Preliminary Presumptive Staph aureus 06/07/23 05:29 Blood Culture - Preliminary Blood Assessment and Plan Assessment: 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 FREDRICK today 06/09/2023 reveals evidence of infective endocarditis with 12 mm x 8 mm vegetation attached to the mitral valve. Severe mitral regurgitation. Bicuspid aortic valve with thickening suggestive of infective endocarditis. Severe RA and RV dilatation with evidence of right-sided pressure and volume overload. Acute hypoxic respiratory failure secondary to acute on chronic diastolic congestive heart failure Acute hypervolemic hyponatremia Acute on chronic diastolic congestive heart failure Acute sepsis, septic shock, and MSSA bacteremia Lower extremity cellulitis Type 2 diabetes without complications Acute kidney injury with ATN secondary to sepsis and hypotension, improving Pulmonary hypertension History of coarctation of the aorta status post open-heart surgery Dyslipidemia Valvular heart disease Obesity with BMI of 41 Plan: The patient was seen and evaluated FREDRICK report, labs and medications reviewed Continue on cefazolin Cardiothoracic consult Continue to monitor closely here in the ICU We will continue to follow I have personally seen and examined the patient, performed the documentation and the assessment and plan as written. Number of minutes spent on the visit: 10.
--- NOTE | 2023-06-09 11:37 | P.PN ---
Subjective Patient is seen for follow-up for hyponatremia. Remains off of levo fed but maintained on midodrine. Sodium is up to 135 today. Patient is maintained on sodium chloride tabs. FREDRICK shows vegetation on mitral valve. Awaiting cardiothoracic surgery consult. Objective - Vital Signs Vital signs: Vital Signs Temp 99.2 F 06/09/23 08:00 Pulse 98 06/09/23 11:00 Resp 25 H 06/09/23 11:00 BP 131/89 06/09/23 11:00 Pulse Ox 91 L 06/09/23 11:00 FiO2 Intake & Output 06/08/23 06/09/23 06/09/23 18:59 06:59 18:59 Intake Total 320 120 40 Output Total 1310 755 270 Balance -990 -060 -230 Intake: IV 220 120 40 0.9 NS 120 120 40 ceFAZolin 2 gm In Sodium 100 Chloride 0.9% 50 ml @ 100 mls/hr IVPB Q8HR [facility] Rx# :[id number] Oral 100 Output: Urine 1310 755 270 Other: Voiding Method Indwelling Catheter Indwelling Catheter Indwelling Catheter - Exam Patient is awake, comfortable, weak. Answers simple questions. Examination of the heart S1 and S2, systolic murmur Examination of the lungs bilateral breath sounds are heard Abdomen is soft nontender Examination of lower extremities shows bilateral extremities to be wrapped. [employer] exam grossly intact. - Labs CBC & Chem 7: 06/09/23 03:35 06/09/23 03:35 Labs: Abnormal Lab Results - Last 24 Hours (Table) 06/08/23 06/09/23 06/09/23 Range/Units 19:37 03:35 03:35 MCHC 29.9 L (31.0-37.0) g/dL RDW 16.1 H (11.5-15.5) % Plt Count 122 L (150-450) k/uL Sodium 135 L (137-145) mmol/L BUN 30 H (7-17) mg/dL Glucose 102 H (74-99) mg/dL POC Glucose (mg/dL) 114 H (70-110) mg/dL Microbiology - Last 24 Hours (Table) 06/06/23 12:23 Blood Culture Gram Stain - Preliminary Blood Blood Culture - Preliminary Presumptive Staph aureus 06/07/23 05:29 Blood Culture - Preliminary Blood Assessment and Plan Assessment: 1. Hypovolemic hyponatremia with component of excess fluid intake. Sodium level 117 on admission and up to 132 this morning. Status post 3% saline. Maintained on sodium chloride tablets. TSH normal. Cortisol level not low. Urine sodium less than 20 and urine osmolality 507. 2. Acute kidney injury secondary to ATN secondary to sepsis/hypotension. Creatinine 0.6 today. 3. Metabolic acidosis secondary to acute kidney injury, IV fluids and GI losses. On oral bicarb. Improved. 4. Chronic diastolic CHF and mild to moderate mitral regurgitation, aortic stenosis and severe tricuspid regurgitation and pulmonary hypertension. 5. Septic shock secondary to gram-positive bacteremia and Lower extremity cellulitis on antibiotics. Blood cultures are growing MSSA. FREDRICK confirms mitral valve endocarditis Plan: Can DC fluid restriction Repeat labs in a.m. Continue with sodium chloride tabs. Decreased to once a day Continue with midodrine
--- NOTE | 2023-06-09 11:46 | P.GSCN ---
History of Present Illness Consult date: 06/09/23 Reason for Consult: Vegetation on FREDRICK, MSSA bacteremia Requesting physician: Nirali Burnette History of present illness: This is a 47-year-old female who follows outpatient with Dr. Stalin Robles for primary care. She has a previous medical history of hypertension, pulmonary hypertension, type 2 diabetes, chronic diastolic heart failure, open heart surgery as a child for coarctation of the aorta, previous tobacco dependence, bilateral lower extremity cellulitis, and obesity. She reported to the emergency room at [facility] on 06/04/2023 with complaints of dizziness, anorexia, shortness of breath, fever, and generalized ill feeling. States she has been feeling ill for about a week and a half prior to admission, she had not gone to see her primary care physician. She had been unable to eat or drink v aleida much, thus prompting her reporting to the ER. Temperature on admission was 101.4F. She was tachycardic and hypotensive. Chest x-ray was completed demonstrating cardiomegaly and mild pulmonary vascular congestion. Lab work revealed WBC 9.5, hemoglobin 10.9, 18% banded neutrophils, INR 1.5, sodium 119, lactic acid 1.4, troponin 0.605, BNP 18,200, pro-calcitonin 12.7, Covid/RSV/influenza negative. The patient was given IV fluid boluses, started on pressors, started on IV antibiotics and admitted to the intensive care unit for further evaluation and monitoring. 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 Wound care was also put on consult due to the patient's left lower extremity ulcer. Blood cultures were drawn which grew MSSA. Echocardiogram was completed demonstrating normal left ventricular systolic function with EF 50-55%, grade 2 diastolic dysfunction with mild increased left ventricular diastolic diameter and rubens ening of the ventricular septum in systole and diastole, severe right ventricular dilatation with moderate pulmonary hypertension, RVSP 60 mmHg, moderate mitral regurgitation with mild MAC and mild thickening/calcification of the mitral valve leaflet possibly representing vegetation, mild aortic stenosis, moderate to severe tricuspid regurgitation. The patient was eventually weaned off pressor support. She had a transesophageal echocardiogram this morning demonstrating normal LV size and function, intraventricular septum pushed towards the left due to a dilated right ventricle, bicuspid aortic valve with fused right and left cusps, thickening of the valve leaflets suggestive of infective endocarditis, severe tricuspid regurgitation, as well as a 12 mm x 8 mm mobile vegetation attached to the atrial aspect of the mitral valve with prolapse of the posterior leaflet and severe mitral regurgitation. Due to finding of infective endocarditis consultation was placed to cardiothoracic surgery for treatment recommendations. Review of Systems Review of systems was completed with the patient as well as her sister at the bedside and was negative except as noted - Constitutional Reports chills, Reports fatigue, Reports fever, Reports lethargy, Reports malaise, Reports poor appetite, Reports weight loss - Respiratory Reports as per HPI, Reports dyspnea - Integumentary Reports as per HPI, Reports foot/leg ulcers, Reports wounds Past Medical History Past Medical History: Heart Failure, Diabetes Mellitus, Hypertension, Pneumonia Additional Past Medical History / Comment(s): cellulitis; pulmonary hypertension; congenital coarctation of the aorta History of Any Multi-Drug Resistant Organisms: None Reported Past Surgical History: Section Additional Past Surgical History / Comment(s): open heart surgery at age 7 for coarctation of the aorta Past Anesthesia/Blood Transfusion Reactions: No Reported Reaction Past Psychological History: Anxiety Smoking Status: Former smoker Past Alcohol Use History: None Reported Additional Past Alcohol Use History / Comment(s): PT QUIT SMOKING THREE WEEKS AGO WITH ONSET OF SYMPTOMS Past Drug Use History: None Reported Medications and Allergies Home Medications Medication Instructions Recorded Confirmed Type Atorvastatin [Lipitor] 20 mg PO HS 09/11/22 06/04/23 History Losartan [Cozaar] 25 mg PO TID 09/11/22 06/04/23 History metFORMIN HCL [Glucophage] 500 mg PO BID-W/MEALS 09/11/22 06/04/23 History Bumetanide [BUMEX] 2 mg PO BID #60 tab 01/23/23 06/04/23 Rx Sildenafil [Revatio] 20 mg PO TID #90 tab 01/23/23 06/04/23 Rx Allergies Allergy/AdvReac Type Severity Reaction Status Date / Time No Known Allergies Allergy Verified 06/04/23 17:42 Surgical - Exam Vital Signs Temp Pulse Resp BP Pulse Ox 101.4 F H 118 H 24 96/57 91 L 06/04/23 15:21 06/04/23 15:21 06/04/23 15:21 06/04/23 15:21 06/04/23 15:21 CONSTITUTIONAL: Awake and alert, appears uncomfortable, cooperative, no acute distress EYES: Pupils equal, round, reactive to light, normal ocular movement ENT: Moist mucous membranes without oral lesions present NECK: No masses, no bruits, trachea midline RESPIRATORY: Lungs sounds diminished with faint crackles in the bases. Respirations even, nonlabored. Currently on 4 L nasal cannula with oxygen saturation 93%. Strong cough. CARDIOVASCULAR: S1, S2 present, loud systolic murmur present. Tachycardic but regular rate and rhythm, sinus tach on telemetry. Bilateral lower extremity edema present. No calf pain or tenderness noted GASTROINTESTINAL: Abdomen soft, nontender, nondistended without masses or organomegaly noted. There is no rebound or guarding present. Active bowel sounds present 4 quadrants. GENITOURINARY: Garcia present draining clear yellow urine INTEGUMENTARY: Skin is warm and dry, bilateral lower extremities wrapped NEUROLOGIC: Cranial nerves II through XII intact, normal coordination, no obvious motor or sensory deficits, speech is normal MUSKULOSKELETAL: Able to move all extremities, strength equal bilaterally al though generalized weakness present PSYCHIATRIC: Alert and oriented to person place and time, appropriate affect, intact judgment and insight Results - Labs 06/09/23 03:35 06/09/23 03:35 Abnormal Lab Results - Last 24 Hours (Table) 06/08/23 06/08/23 06/09/23 Range/Units 11:21 19:37 03:35 MCHC 29.9 L (31.0-37.0) g/dL RDW 16.1 H (11.5-15.5) % Plt Count 122 L (150-450) k/uL Sodium (137-145) mmol/L BUN (7-17) mg/dL Glucose (74-99) mg/dL POC Glucose (mg/dL) 127 H 114 H (70-110) mg/dL 06/09/23 Range/Units 03:35 MCHC (31.0-37.0) g/dL RDW (11.5-15.5) % Plt Count (150-450) k/uL Sodium 135 L (137-145) mmol/L BUN 30 H (7-17) mg/dL Glucose 102 H (74-99) mg/dL POC Glucose (mg/dL) (70-110) mg/dL Microbiology - Last 24 Hours (Table) 06/06/23 12:23 Blood Culture Gram Stain - Preliminary Blood Blood Culture - Preliminary Presumptive Staph aureus 06/07/23 05:29 Blood Culture - Preliminary Blood Diabetes panel 06/09/23 Range/Units 03:35 Sodium 135 L (137-145) mmol/L Potassium 4.8 (3.5-5.1) mmol/L Chloride 98 (98-107) mmol/L Carbon Dioxide 29 (22-30) mmol/L BUN 30 H (7-17) mg/dL Creatinine 0.63 (0.52-1.04) mg/dL Glucose 102 H (74-99) mg/dL Calcium 8.8 (8.4-10.2) mg/dL Calcium panel 06/09/23 Range/Units 03:35 Calcium 8.8 (8.4-10.2) mg/dL Pituitary panel 06/09/23 Range/Units 03:35 Sodium 135 L (137-145) mmol/L Potassium 4.8 (3.5-5.1) mmol/L Chloride 98 (98-107) mmol/L Carbon Dioxide 29 (22-30) mmol/L BUN 30 H (7-17) mg/dL Creatinine 0.63 (0.52-1.04) mg/dL Glucose 102 H (74-99) mg/dL Calcium 8.8 (8.4-10.2) mg/dL Adrenal panel 06/09/23 Range/Units 03:35 Sodium 135 L (137-145) mmol/L Potassium 4.8 (3.5-5.1) mmol/L Chloride 98 (98-107) mmol/L Carbon Dioxide 29 (22-30) mmol/L BUN 30 H (7-17) mg/dL Creatinine 0.63 (0.52-1.04) mg/dL Glucose 102 H (74-99) mg/dL Calcium 8.8 (8.4-10.2) mg/dL - Imaging Chest x-ray: report reviewed, image reviewed EKG: image reviewed Assessment and Plan Assessment: MSSA endocarditis Mobile vegetation, 12 mm x 8 mm, attached to the atrial aspect of the mitral valve with prolapse of the posterior leaflet Bicuspid aortic valve with fused right and left cusps, thickening of the valve leaflets suggestive of infective endocarditis Normal LV size and function, severe mitral regurgitation, severe tricuspid regurgitation MSSA bacteremia Severe sepsis on admission Acute and chronic diastolic heart failure Acute hypoxemic respiratory failure Acute hyponatremia present on admission Acute kidney injury present on admission Bilateral lower extremity cellulitis, positive for Enterobacter and MSSA in December 2022 History of hypertension, hypotension this admission requiring pressors, currently normotensive off pressors History of pulmonary hypertension, on Revatio outpatient Type 2 diabetes, hemoglobin A1c 6.5% Chronic diastolic heart failure Open heart surgery as a child for coarctation of the aorta Previous tobacco dependence with recent cessation Obesity Plan: The patient was seen and examined laying in bed in the intensive care unit with generalized malaise and weakness present. Patient is a bit short of breath even with talking. History and details of present illness obtained mostly from sister present at bedside. Chart/diagnostics were reviewed. Currently on IV Kefzol for antibiotic management per infectious disease. Blood cultures from 06/04, 06/06 demonstrate MSSA, blood cultures from 06/07 preliminary negative. T- max in the last 24 hours 99.2F. Currently on 4 L nasal cannula with oxygen saturation in the mid to low 90s, remains slightly tachycardic. The case will be discussed in detail with Dr. Painter from cardiothoracic surgery. Surgical recommendations forthcoming. Continue medical management per internal medicine, cardiology, pulmonology, infectious disease. Thank you for this consult, our recommendations will be forthcoming. I have personally seen and examined the patient, performed the documentation and the assessment and plan as written. Number of minutes spent on the visit: 30. Yanet Bower, TORI
[2023-06-09 11:54] LABS: Glucose,Whole Blood 131 mg/dL (70-110)
[2023-06-09] MEDS: NAFCILLIN 2 GM in DEXTROSE 5% IN WATER 100 ML IVPB SCH ×6 (14:18→22:15)
--- NOTE | 2023-06-09 14:47 | P.PN ---
Subjective Progress Note Date: 06/09/23 patient is a 47-year-old lady with past medical history significant for di astolic congestive heart failure, coarctation of the aorta status post surgical correction, pulmonary hypertension, essential hypertension, hyperlipidemia, diabetes mellitus, and chronic lower extremity swelling who presented to the ER with complaints of not feeling well for the last few days. She stated that for the last few days she has not been able to eat anything, complaining of weight loss. Also complaining of shortness of breath on minimal exertion. Complaining of orthopnea. Patient has chronic swelling of lower extremities, recently treated for cellulitis Denies any fever or chills. Denies any chest pain. Because of these symptoms, patient came to the ER Initial lab work done in the ER showed WBC 9.5, hemoglobin 10.9, platelet count 105, sodium 117, potassium 4.1, BUN 20, creatinine 0.8, glucose 104, lactic acid 1.4, calcium 8, phosphorus 2.5, magnesium 1.5, troponin 0.367 Chest x-ray on arrival shows cardiomegaly and mild pulmonary vascular congestion. No focal infiltrates or obvious evidence of pneumonia. In the ER, patient was started on broad-spectrum antibiotics and was given fluid resuscitation in suspicion of sepsis, Patient was admitted to ICU 06/06. Patient seen and examined WBC 11.9, hemoglobin 12.2, platelet count 98, sodium 35, potassium 3.9, BUN 35, creatinine 1.17,. States she feels much bett er compared to yesterday. Gets short of breath on exertion 06/07. Patient seen and examined. States she is lethargic. Shortness of breath not present at rest, only on exertion. Patient is off Levophed 06/08. Patient seen and examined. Sodium this morning is 132, potassium is 4.7, BUN is 34, creatinine 0.67. Currently on 4 L of oxygen. Patient is lethargic. Repeat blood cultures from 06/06 are also positive for gram-positive cocci FREDRICK done showed the following 2 mm x 8 mm vegetation attached to mitral valve, Severe Mitral regurgitation, Bicuspid aortic valve with thickening suggestive of infective endocarditis REVIEW OF SYSTEMS: CONSTITUTIONAL: No fever, no malaise,. CARDIOVASCULAR: No chest pain, no palpitations, no syncope. PULMONARY: As mentioned above GASTROINTESTINAL: No diarrhea, no nausea, no vomiting, no abdominal pain. NEUROLOGICAL: No headaches, no weakness, PHYSICAL EXAMINATION: GENERAL: The patient is alert but lethargic, not in any acute distress. Sick looking HEENT: Pupils are round and equally reacting to light. EOMI. No scleral icterus. No conjunctival pallor. Normocephalic, atraumatic. No pharyngeal erythema. No th yromegaly. CARDIOVASCULAR: S1 and S2 present. No murmurs, rubs, or gallops. PULMONARY: Coarse breath sounds bilaterally, no crackles ABDOMEN: Soft, nontender, nondistended, normoactive bowel sounds. No palpable organomegaly. MUSCULOSKELETAL: No joint swelling or deformity. EXTREMITIES: 1+ pitting edema of lower extremities, right lower extremity bandaged, left lower extremity bandaged seen as well NEUROLOGICAL: Gross neurological examination did not reveal any focal deficits. SKIN: No rashes. Assessment and plan Septic shock Infective endocarditis Severe pulmonary hypertension MSSA bacteremia Hyponatremia Dehydration Hypomagnesemia Acute hypoxemic respiratory failure Acute on on chronic diastolic congestive heart failure, currently on 4 L/m nasal cannula. Elevated troponins, rule out non-STEMI Bilateral lower extremity cellulitis and chronic lower extremity edema. Rec ently, treated for cellulites of the lower extremities in December,. Left lower extremity wound was positive for Enterobacter and MSSA. Diarrhea Pulmonary hypertension History of cortication of the aorta status post open-heart surgery Hyperlipidemia Diabetes mellitus type 2 Obesity, with a BMI of 36 kg/m Monitor vital signs Monitor CBC Monitor CMP Continue telemetry monitoring 2-D echo done showed mild LV dilatation with moderate concentric left medical hypertrophy, normal LV function, LVEF of 55%, grade 2 diastolic dysfunction, moderate MR, moderate pulmonary hypertension FREDRICK done showed the following 2 mm x 8 mm vegetation attached to mitral valve, Severe Mitral regurgitation, Bicuspid aortic valve with thickening suggestive of infective endocarditis Follow-up on blood cultures, blood culture growing MSSA Follow-up on sodium levels. Continue sodium chloride tablets Continue midodrine Encouraged oral intake. Avoid nephrotoxins. Continue IV cefazolin Follow-up on nephrology recommendations Follow up with ID recommendations Follow-up on cardiology recommendations Critical care Following Consulted CT surgery Labs and medication were reviewed.. Continue same treatment. Continue with symptomatic treatment. Resume home medication. Monitor labs and vitals. DVT and GI prophylaxis. Further recommendations as per clinical course of the patient Dictation was produced using [employer] software. please excuse any grammatical, word or spelling errors. Objective - Vital Signs Vital signs: Vital Signs Temp 99.2 F 06/09/23 08:00 Pulse 103 H 06/09/23 09:00 Resp 14 06/09/23 09:00 BP 137/86 06/09/23 09:00 Pulse Ox 95 06/09/23 09:00 FiO2 Intake & Output 06/08/23 06/09/23 06/09/23 18:59 06:59 18:59 Intake Total 320 120 20 Output Total 1310 755 120 Balance -990 -635 -100 Intake: IV 220 120 20 0.9 NS 120 120 20 ceFAZolin 2 gm In Sodium 100 Chloride 0.9% 50 ml @ 100 mls/hr IVPB Q8HR [facility] Rx# :[id number] Oral 100 Output: Urine 1310 755 120 Other: Voiding Method Indwelling Catheter Indwelling Catheter Indwelling Catheter - Labs CBC & Chem 7: 06/09/23 03:35 06/09/23 03:35 Labs: Abnormal Lab Results - Last 24 Hours (Table) 06/08/23 06/08/23 06/09/23 Range/Units 11:21 19:37 03:35 MCHC 29.9 L (31.0-37.0) g/dL RDW 16.1 H (11.5-15.5) % Plt Count 122 L (150-450) k/uL Sodium (137-145) mmol/L BUN (7-17) mg/dL Glucose (74-99) mg/dL POC Glucose (mg/dL) 127 H 114 H (70-110) mg/dL 06/09/23 Range/Units 03:35 MCHC (31.0-37.0) g/dL RDW (11.5-15.5) % Plt Count (150-450) k/uL Sodium 135 L (137-145) mmol/L BUN 30 H (7-17) mg/dL Glucose 102 H (74-99) mg/dL POC Glucose (mg/dL) (70-110) mg/dL Microbiology - Last 24 Hours (Table) 06/06/23 12:23 Blood Culture Gram Stain - Preliminary Blood Blood Culture - Preliminary Presumptive Staph aureus 06/07/23 05:29 Blood Culture - Preliminary Blood
[2023-06-09 16:36] LABS: Glucose,Whole Blood 138 mg/dL (70-110)
[2023-06-09 19:37] LABS: Glucose,Whole Blood 142 mg/dL (70-110)
[2023-06-09] MEDS: ACETAMINOPHEN TAB 500 MG TAB PO PRN (22:34)
[2023-06-10] MEDS: NAFCILLIN 2 GM in DEXTROSE 5% IN WATER 100 ML IVPB SCH ×10 (01:40→17:32)
[2023-06-10 04:26] LABS: Anisocytosis Slight; Basophils % (A) 0 %; Eosinophils # (A) 0.1 k/uL (0-0.7); Eosinophils % (A) 1 %; HCT 40.6 % (34.0-46.0); HGB 11.8 gm/dL (11.4-16.0); Hypochromasia Marked; Lymphocytes # (A) 1.1 k/uL (1.0-4.8); Lymphocytes % (A) 14 %; MCH 25.4 pg (25.0-35.0); MCV 87.7 fL (80.0-100.0); Monocytes # (A) 0.8 k/uL (0-1.0); Monocytes % (A) 10 %; Neutrophils % (A) 73 %; Platelet Count 149 k/uL (150-450); RBC 4.63 m/uL (3.80-5.40); RDW 16.4 % (11.5-15.5); WBC 8.2 k/uL (3.8-10.6)
[2023-06-10 04:51] LABS: African American GFR (CKD) >90 (>60 ml/min/1.73 sqM); Anion Gap 4 mmol/L; Blood Urea Nitrogen 31 mg/dL (7-17); Calcium 8.8 mg/dL (8.4-10.2); Carbon Dioxide 33 mmol/L (22-30); Chloride 101 mmol/L (98-107); Glucose 129 mg/dL (74-99); Non-African American GFR(CKD) >90 (>60 ml/min/1.73 sqM); Potassium 4.9 mmol/L (3.5-5.1); Sodium 138 mmol/L (137-145)
[2023-06-10 06:42] LABS: Glucose,Whole Blood 125 mg/dL (70-110)
[2023-06-10] MEDS: MIDODRINE 5 MG TAB PO SCH ×4 (06:44→16:47)
[2023-06-10] MEDS: INSULIN ASPART (NovoLOG) 100 UNIT/ML VIAL SQ SCH ×3 (06:44→16:47)
[2023-06-10] MEDS: PANTOPRAZOLE 40 MG TABLET PO SCH (06:45)
--- NOTE | 2023-06-10 07:54 | P.PN ---
Subjective Progress Note Date: 06/10/23 Principal diagnosis: Infective endocarditis This is a 47-year-old female patient with history of prior cardiac surgery/possible coarctation of the aorta surgery who was admitted to the hospital with cellulitis/sepsis. Blood culture showed evidence of Staphylococcus aureus. Transthoracic echocardiogram revealed evidence of possible mitral valve vegetation. Subsequently the patient underwent transesophageal echocardiogram earlier on today and that revealed evidence of infective endocarditis was large vegetation involving the mitral valve was severe mitral regurgitation. June [id number] The patient was evaluated this morning. She is lethargic. She received earlier today some sedation for the transesophageal echocardiogram. She is hemodynamically stable. Currently she is on antibiotic. The plan is to consult cardiothoracic surgery for the infective endocarditis giving that the vegetation was large. Meanwhile continue the current medical regimen. The patient also might benefit from transfer into tertiary facility The examination is remarkable for regular rhythm with pansystolic murmur appears to be quite prominent. 06/10/2023 The patient was seen and evaluated this morning. She remained stable hemodynamically she is in mild heart failure and she is hypoxic and also symptomatic internal shortness of breath. No discomfort in the chest. She was seen yesterday by the cardiothoracic surgery service and they agreed that the patient would benefit from transfer into tertiary center. I would agree with that as well. Meanwhile I'm going to start the patient on Lasix IV at 20 mg twice a day. Continue the current medical regimen and continue monitor the hemoglobin and kidney function and follow-up with the patient. The examination is remarkable for diminished breathing sounds bilaterally was regular rhythm and pansystolic murmur. She has bilateral lower extremity edema noted Assessment Infective endocarditis Severe pulmonary hypertension Severe right ventricular dilated dictation History of prior surgery/cortication of the aorta surgery Multiple comorbid conditions Plan Add Lasix to the current medical regimen Continue the current medical regimen Consider transferring the patient Consider consulting surgery Follow-up with the patient Objective - Vital Signs Vital signs: Vital Signs Temp 97.7 F 06/10/23 04:00 Pulse 97 06/10/23 07:00 Resp 7 L 06/10/23 07:00 BP 128/88 06/10/23 07:00 Pulse Ox 95 06/10/23 07:00 FiO2 Intake & Output 06/09/23 06/10/23 06/10/23 18:59 06:59 18:59 Intake Total 110 290 50 Output Total 715 650 75 Balance -605 -360 -25 Weight 119.7 kg Intake: IV 110 40 0.9 NS 110 40 Intake, IV Titration 250 50 Amount Nafcillin 2 gm In 200 Dextrose 5% in Water 100 ml @ 50 mls/hr IVPB Q4H [facility] Rx#:[id number] Nafcillin 2 gm In 50 50 Dextrose 5% in Water 100 ml @ 50 mls/hr IVPB Q4HR [facility] Rx#:[id number] Output: Urine 710 650 75 Other: Voiding Method Indwelling Catheter Indwelling Catheter - Labs CBC & Chem 7: 06/10/23 04:03 06/10/23 04:03 Labs: Abnormal Lab Results - Last 24 Hours (Table) 06/09/23 06/09/23 06/09/23 Range/Units 11:52 16:34 19:35 MCHC (31.0-37.0) g/dL RDW (11.5-15.5) % Plt Count (150-450) k/uL Carbon Dioxide (22-30) mmol/L BUN (7-17) mg/dL Glucose (74-99) mg/dL POC Glucose (mg/dL) 131 H 138 H 142 H (70-110) mg/dL 06/10/23 06/10/23 06/10/23 Range/Units 04:03 04:03 06:40 MCHC 29.0 L (31.0-37.0) g/dL RDW 16.4 H (11.5-15.5) % Plt Count 149 L (150-450) k/uL Carbon Dioxide 33 H (22-30) mmol/L BUN 31 H (7-17) mg/dL Glucose 129 H (74-99) mg/dL POC Glucose (mg/dL) 125 H (70-110) mg/dL Microbiology - Last 24 Hours (Table) 06/07/23 05:29 Blood Culture - Preliminary Blood 06/06/23 12:23 Blood Culture Gram Stain - Preliminary Blood Blood Culture - Preliminary Presumptive Staph aureus
[2023-06-10] MEDS: NOREPINEPHRINE 4 MG in SODIUM CHLORIDE 0.9% 250 ML IV SCH (08:10)
[2023-06-10] MEDS: HEPARIN SODIUM,PORCINE 5,000 UNIT/ML 1 ML VIAL SQ SCH ×2 (08:12→16:03)
--- NOTE | 2023-06-10 09:02 | XR ---
EXAMINATION TYPE: XR chest 1V portable DATE OF EXAM: 06/10/2023 COMPARISON: 06/08/2023 HISTORY: Shortness of breath FINDINGS: There are bilateral pleural effusions with cardiomegaly and bibasilar infiltrate. There is a diffuse interstitial pattern. Osseous structures intact. Chronic rib deformities. IMPRESSION: 1. Correlate for CHF pulmonary edema otherwise consider diffuse
[2023-06-10] MEDS ORDERED: FUROSEMIDE 10 MG/ML 2 ML VIAL IV SCH (09:15)
[2023-06-10] MEDS: HYDROcodone/APAP 5-325MG 1 EACH TAB PO PRN (09:40)
[2023-06-10] MEDS: SODIUM CHLORIDE TAB 1 GM TAB PO SCH (10:21)
[2023-06-10 11:19] LABS: Glucose,Whole Blood 164 mg/dL (70-110)
--- NOTE | 2023-06-10 11:39 | P.PN ---
Subjective Progress Note Date: 06/10/23 Patient is a 47-year-old white female with past medical history significant for diastolic congestive heart failure, coarctation of the aorta status post surgical correction, pulmonary hypertension, essential hypertension, hyperlipidemia, diabetes mellitus, and chronic lower extremity swelling. Patient recently had a hospital admission back in December for CHF exacerbation and cellulitis of the lower extremities. Left lower extremity wound was positive for Enterobacter and MSSA. She completed a course of ciprofloxacin. She was eventually started on Bumex and discharged home. Patient returned to the ER yesterday afternoon with reports of generalized malaise, weakness, and shortness of breath. Her shortness of breath is worse on exertion and when lying flat. She does have severe lower extremity edema. Denies any chest pain, heart palpitation, lightheadedness, syncope. She denies any sick contacts. Denies cough. She was febrile on arrival, with a T-max of 101.4F. Denies genitourinary complaints. Denies abdominal pain, nausea and vomiting. Admits two episodes of diarrhea since being in the hospital. Patient is currently sitting up in bed, on 4 L/m nasal cannula, in no acute distress. Chest x-ray on arrival shows cardiomegaly and mild pulmonary vascular congestion. No focal infiltrates or obvious evidence of pneumonia. Troponins are elevated and trending up at 0.37, 0.59, and 0.6 respectively. NT proBNP is pending. Patient normally does take Bumex on outpatient basis, but did not take her morning dose. She was severely hyponatremic with a sodium of 117. She was initially felt to be hypovolemic and bolused with 2 L of normal saline, and started on a 3% hypertonic saline infusion which is currently at 25 ML's per hour. Most recent sodium is 119. Her hypotension was refractory to fluid replacement, and she was started on norepinephrine which is currently infusing at 0.06 mcg/kg/m. She was empirically started on a combination of Levaquin and Rocephin. She is currently afebrile. CBC on arrival did not show any leukocytosis. WBC count 9.5, hemoglobin 10.9, hematocrit 31.6, platelets 105. BMP on arrival shows a sodium 117, potassium is 4.1, chloride 86, serum bicarb 20, BUN 20, creatinine 0.8, glucose 104. Urinalysis not concerning for UTI. Patient will be monitored in the intensive care unit. Patient was seen again on 06/06/2023, remains in the ICU today, she is still requiring a small dose of norepinephrine at 0.04 mcg/kg/m her sodium is up to 125, and her blood cultures are positive for MSSA, patient is on Kefzol as per infectious disease on the case. Pulmonary-andrews doing better breathing easier today her WBC count is 11.9 hemoglobin is 12.2 sodium is up to 125 BUN is 35 creatinine 1.17, improved compared to yesterday. Patient is now on 3% saline. She did receive 1 dose of Lasix yesterday 20 mg IV push. Still receiving oral bicarb. Blood pressure remains marginal in spite of midodrine and in spite of norepinephrine. A chest x-ray was done today, however her admission chest x-ray showed cardiomegaly and interstitial edema Reevaluated today on 06/07/2023, patient remains in the ICU, she is hemodynamically stable, off norepinephrine, he is on 2 L nasal cannula, sodium is up to 129, good urine output, hemodynamically stable in spite of being off norepinephrine. Remains on cefazolin for gram-positive bacteremia/MSSA. Patient is scheduled to have FREDRICK on Friday. Patient had episodes of nausea and vomiting earlier but she is feeling fine today. Electrolytes are normal renal profile is normal blood sugar is 137, last BNP level II days ago was over 18,000 chest x-ray on admission did show evidence of cardiomegaly and mild pulmonary vascular congestion patient remains on fluid restriction in the meantime Reevaluated today on 06/08/2023, patient remains in the ICU, he seems to be a bit lethargic today, and weak, but overall the patient has been better compared to baseline. Patient is being treated for cellulitis and sepsis with bacteremia chronic congestive heart failure, hypotension and hyponatremia and she does have valvular heart disease and pulmonary hypertension. Patient is improving overall compared to baseline, had a blood cultures came negative for MSSA, patient remains on cefazolin, and she is scheduled to have a FREDRICK tomorrow. Repeat blood cultures on 06/06 are positive again for MSSA and there were also positive on 06/04 considering the loud murmur she has in the valvular heart disease she has I believe the patient has endocarditis unless proven otherwise and this is strongly suspected. Chest x-ray is still showing evidence of congestive heart failure, difficult to rule out underlying infiltrate in the right lower lobe but I believe clinically this is a picture of congestive heart failure unless for otherwise. The patient is seen today 06/09/2023 in follow-up in the intensive care unit. She remains weak, fatigued. She is maintaining O2 saturations in the 90s on 4 L/m per nasal cannula. Remains slightly tachycardic. Afebrile. Blood cultures are positive for MSSA. FREDRICK today reveals evidence of infective endocarditis with 12 mm x 8 mm vegetation attached to the mitral valve. Severe mitral regurgitation. Bicuspid aortic valve with thickening suggestive of infective endocarditis. Severe RA and RV dilatation with evidence of right-sided pressure and volume overload. White count 9.2. Hemoglobin 12.2. Platelets 122. Sodium 135. Potassium 4.8. Bicarb 29. BUN 30. Creatinine 0.63. Glucose 102. She is continued on cefazolin. The patient is seen today 06/10/2023 in follow-up in the intensive care unit. She is a bit stronger today. Sitting up. Having breakfast. Denies any worsening shortness of breath, cough or congestion. Afebrile. Hemodynamically stable. She is requiring 8 L high flow nasal cannula to maintain O2 saturation in the 90s. She has normal saline KVO. She's been switched to nafcillin. Chest x-ray continues to show diffuse interstitial pattern. Bilateral effusions and cardiomegaly. Blood cultures are showing MSSA. Follow-up cultures pending. White count 8.2. Hemoglobin 11.8. Platelets 149. Sodium 138. Potassium 4.9. Bicarb 33. BUN 31. Creatinine 0.59. Glucose 129. ProBNP 12,700. She remains on IV diuretics. Currently in a -1 L balance. Objective - Vital Signs Vital signs: Vital Signs Temp 97.8 F 06/10/23 08:00 Pulse 98 06/10/23 11:00 Resp 21 06/10/23 11:00 BP 130/96 06/10/23 11:00 Pulse Ox 89 L 06/10/23 11:00 FiO2 Intake & Output 06/09/23 06/10/23 06/10/23 18:59 06:59 18:59 Intake Total 110 290 940 Output Total 079 235 785 Balance -605 -360 155 Weight 119.7 kg Intake: IV 110 40 40 0.9 NS 110 40 40 Intake, IV Titration 250 150 Amount Nafcillin 2 gm In 200 100 Dextrose 5% in Water 100 ml @ 50 mls/hr IVPB Q4H [facility] Rx#:[id number] Nafcillin 2 gm In 50 50 Dextrose 5% in Water 100 ml @ 50 mls/hr IVPB Q4HR [facility] Rx#:[id number] Oral 750 Output: Urine 715 650 785 Other: Voiding Method Indwelling Catheter Indwelling Catheter Indwelling Catheter - Exam GENERAL EXAM: Alert, weak, pleasant 47-year-old female, on 8 L nasal cannula, fairly comfortable in no apparent distress. HEAD: Normocephalic. EYES: Normal reaction of pupils, equal size. NOSE: Clear with pink turbinates. THROAT: No erythema or exudates. NECK: No masses, no JVD. CHEST: No chest wall deformity. LUNGS: Equal air entry with crackles in the posterior bases right greater than. CVS: S1 and S2 normal with an audible murmur, regular rhythm. ABDOMEN: No hepatosplenomegaly, normal bowel sounds, no guarding or rigidity. SPINE: No scoliosis or deformity SKIN: No rashes CENTRAL NERVOUS SYSTEM: No focal deficits, tone is normal in all 4 extremities. EXTREMITIES: There is 1-2+ peripheral edema. No clubbing, no cyanosis. Peripheral pulses are intact. - Labs CBC & Chem 7: 06/10/23 04:03 06/10/23 04:03 Labs: Abnormal Lab Results - Last 24 Hours (Table) 06/09/23 06/09/23 06/09/23 Range/Units 11:52 16:34 19:35 MCHC (31.0-37.0) g/dL RDW (11.5-15.5) % Plt Count (150-450) k/uL Carbon Dioxide (22-30) mmol/L BUN (7-17) mg/dL Glucose (74-99) mg/dL POC Glucose (mg/dL) 131 H 138 H 142 H (70-110) mg/dL 06/10/23 06/10/23 06/10/23 Range/Units 04:03 04:03 06:40 MCHC 29.0 L (31.0-37.0) g/dL RDW 16.4 H (11.5-15.5) % Plt Count 149 L (150-450) k/uL Carbon Dioxide 33 H (22-30) mmol/L BUN 31 H (7-17) mg/dL Glucose 129 H (74-99) mg/dL POC Glucose (mg/dL) 125 H (70-110) mg/dL 06/10/23 Range/Units 11:18 MCHC (31.0-37.0) g/dL RDW (11.5-15.5) % Plt Count (150-450) k/uL Carbon Dioxide (22-30) mmol/L BUN (7-17) mg/dL Glucose (74-99) mg/dL POC Glucose (mg/dL) 164 H (70-110) mg/dL Microbiology - Last 24 Hours (Table) 06/07/23 05:29 Blood Culture - Preliminary Blood 06/06/23 12:23 Blood Culture Gram Stain - Preliminary Blood Blood Culture - Preliminary Presumptive Staph aureus Assessment and Plan Assessment: 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 FREDRICK on 06/09/2023 revealed evidence of infective endocarditis with 12 mm x 8 mm vegetation attached to the mitral valve. Severe mitral regurgitation. Bicuspid aortic valve with thickening suggestive of infective endocarditis. Severe RA and RV dilatation with evidence of right-sided pressure and volume overload. Acute hypoxic respiratory failure secondary to acute on chronic diastolic congestive heart failure Acute hypervolemic hyponatremia Acute on chronic diastolic congestive heart failure Acute sepsis, septic shock, and MSSA bacteremia Lower extremity cellulitis Type 2 diabetes without complications Acute kidney injury with ATN secondary to sepsis and hypotension, improving Pulmonary hypertension History of coarctation of the aorta status post open-heart surgery Dyslipidemia Valvular heart disease Obesity with BMI of 41 Plan: The patient was seen and evaluated Chest x-ray, labs and medications reviewed Currently on nafcillin Initiated on IV diuretics Plan is for transfer to a tertiary care center Continue to monitor closely here in the ICU We will continue to follow I have personally seen and examined the patient, performed the documentation and the assessment and plan as written. Number of minutes spent on the visit: 10.
--- NOTE | 2023-06-10 12:13 | P.PN ---
Subjective Patient is seen for follow-up for hyponatremia. Remains off of levo fed but maintained on midodrine. Sodium is up to 138 today. Patient is maintained on sodium chloride tabs. FREDRICK shows vegetation on mitral valve. Awaiting transfer to tertiary care center. Objective - Vital Signs Vital signs: Vital Signs Temp 97.8 F 06/10/23 08:00 Pulse 98 06/10/23 11:00 Resp 21 06/10/23 11:37 BP 130/96 06/10/23 11:00 Pulse Ox 89 L 06/10/23 11:00 FiO2 Intake & Output 06/09/23 06/10/23 06/10/23 18:59 06:59 18:59 Intake Total 110 290 940 Output Total 715 650 785 Balance -605 -360 155 Weight 119.7 kg Intake: IV 110 40 40 0.9 NS 110 40 40 Intake, IV Titration 250 150 Amount Nafcillin 2 gm In 200 100 Dextrose 5% in Water 100 ml @ 50 mls/hr IVPB Q4H [facility] Rx#:[id number] Nafcillin 2 gm In 50 50 Dextrose 5% in Water 100 ml @ 50 mls/hr IVPB Q4HR [facility] Rx#:[id number] Oral 750 Output: Urine 715 650 785 Other: Voiding Method Indwelling Catheter Indwelling Catheter Indwelling Catheter - Exam Patient is awake, comfortable, weak. Answers simple questions. Examination of the heart S1 and S2, systolic murmur Examination of the lungs bilateral breath sounds are heard Abdomen is soft nontender Examination of lower extremities shows bilateral extremities to be wrapped. [employer] exam grossly intact. - Labs CBC & Chem 7: 06/10/23 04:03 06/10/23 04:03 Labs: Abnormal Lab Results - Last 24 Hours (Table) 06/09/23 06/09/23 06/10/23 Range/Units 16:34 19:35 04:03 MCHC 29.0 L (31.0-37.0) g/dL RDW 16.4 H (11.5-15.5) % Plt Count 149 L (150-450) k/uL Carbon Dioxide (22-30) mmol/L BUN (7-17) mg/dL Glucose (74-99) mg/dL POC Glucose (mg/dL) 138 H 142 H (70-110) mg/dL 06/10/23 06/10/2306/10/23 Range/Units 04:03 06:40 11:18 MCHC (31.0-37.0) g/dL RDW (11.5-15.5) % Plt Count (150-450) k/uL Carbon Dioxide 33 H (22-30) mmol/L BUN 31 H (7-17) mg/dL Glucose 129 H (74-99) mg/dL POC Glucose (mg/dL) 125 H 164 H (70-110) mg/dL Microbiology - Last 24 Hours (Table) 06/07/23 05:29 Blood Culture - Preliminary Blood 06/06/23 12:23 Blood Culture Gram Stain - Preliminary Blood Blood Culture - Preliminary Presumptive Staph aureus Assessment and Plan Assessment: 1. Hypovolemic hyponatremia with component of excess fluid intake. Sodium level 117 on admission and up to 132 this morning. Status post 3% saline. Maintained on sodium chloride tablets. TSH normal. Cortisol level not low. Urine sodium less than 20 and urine osmolality 507. 2. Acute kidney injury secondary to ATN secondary to sepsis/hypotension. Creatinine 0.6 today. 3. Metabolic acidosis secondary to acute kidney injury, IV fluids and GI losses. On oral bicarb. Improved. 4. Chronic diastolic CHF and mild to moderate mitral regurgitation, aortic stenosis and severe tricuspid regurgitation and pulmonary hypertension. 5. Septic shock secondary to gram-positive bacteremia and Lower extremity cellulitis on antibiotics. Blood cultures are growing MSSA. FREDRICK confirms m itral valve endocarditis 6. Hypervolemia started on low-dose Lasix. I will discontinue the sodium chloride tablets as well. Plan: DC sodium chloride tabs Continue with Lasix Repeat labs in a.m. Decrease midodrine
[2023-06-10] MEDS: ONDANSETRON 4 MG/2 ML VIAL IVP PRN (14:47)
--- NOTE | 2023-06-10 14:59 | P.PN ---
Subjective Progress Note Date: 06/09/23 Principal diagnosis: MSSA bacteremia and infective endocarditis Patient is a 47-year-old female with a past medical history significant for hypertension diastolic congestive heart failure pulmonary hypertension hyperlipidemia diabetes mellitus presenting to the hospital for evaluation of increasing shortness of breath, along with lower extremity swelling and some redness and did have wound to the left lower leg area concerning for cellulitis blood culture Were positive with MSSA, Patient did have a FREDRICK completed 06/09/2023 with evidence of mitral valve vegetation 12 mmx8 mm, and also thickening of the bicuspid aortic valve concerning for infective endocarditis. on today's evaluation that is 06/09/2023 patient remains to be afebrile, patient is breathing comfortably on 7 L nasal cannula oxygen the patient slightly lethargic did not provide any history no vomiting diarrhea or other changes reported by the nursing staff. Patient did have a white count of 9.2 hemoglobin is 12.2 creatinine 0.63, blood culture done on 06/04/2023 and 06/06/2023 the positive blood cultures 06/07/2023 so far negative Objective - Vital Signs Vital signs: Vital Signs Temp 99 F 06/09/23 12:00 Pulse 109 H 06/09/23 12:00 Resp 12 06/09/23 12:00 BP 142/91 06/09/23 12:00 Pulse Ox 93 L 06/09/23 12:20 FiO2 Intake & Output 06/08/23 06/09/23 06/09/23 18:59 06:59 18:59 Intake Total 320 120 50 Output Total 1310 755 395 Balance -058 -202 -030 Intake: IV 220 120 50 0.9 NS 120 120 50 ceFAZolin 2 gm In Sodium 100 Chloride 0.9% 50 ml @ 100 mls/hr IVPB Q8HR [facility] Rx# :[id number] Oral 100 Output: Urine 1310 755 395 Other: Voiding Method Indwelling Catheter Indwelling Catheter Indwelling Catheter - Exam GENERAL DESCRIPTION: Middle-aged female in bed in no distress RESPIRATORY SYSTEM: Unlabored breathing , decreased breath sounds at bases HEART: S1 S2 regular rate and rhythm , ABDOMEN: Soft , no tenderness EXTREMITIES: Bilateral lower extremity currently wrapped in Oz wrap - Labs CBC & Chem 7: 06/10/23 04:03 06/10/23 04:03 Labs: Abnormal Lab Results - Last 24 Hours (Table) 06/08/23 06/09/23 06/09/23 Range/Units 19:37 03:35 03:35 MCHC 29.9 L (31.0-37.0) g/dL RDW 16.1 H (11.5-15.5) % Plt Count 122 L (150-450) k/uL Sodium 135 L (137-145) mmol/L BUN 30 H (7-17) mg/dL Glucose 102 H (74-99) mg/dL POC Glucose (mg/dL) 114 H (70-110) mg/dL 06/09/23 Range/Units 11:52 MCHC (31.0-37.0) g/dL RDW (11.5-15.5) % Plt Count (150-450) k/uL Sodium (137-145) mmol/L BUN (7-17) mg/dL Glucose (74-99) mg/dL POC Glucose (mg/dL) 131 H (70-110) mg/dL Microbiology - Last 24 Hours (Table) 06/06/23 12:23 Blood Culture Gram Stain - Preliminary Blood Blood Culture - Preliminary Presumptive Staph aureus 06/07/23 05:29 Blood Culture - Preliminary Blood Assessment and Plan (1) MSSA bacteremia Current Visit: Yes Status: Acute Code(s): R78.81 - BACTEREMIA; B95.61 - METHICILLIN SUSCEP STAPH INFCT CAUSING DIS CLASSD [id number] SNOMED Code(s): 704658746 (2) Bilateral lower leg cellulitis Current Visit: Yes Status: Acute Code(s): L03.116 - CELLULITIS OF LEFT LOWER LIMB; L03.115 - CELLULITIS OF RIGHT LOWER LIMB SNOMED Code(s): 166160080 Plan: 1patient presented hospital with sepsis in this patient with a fever tachycardia hypotension requiring pressor support now with evidence of MSSA bacteremia source likely lower extremity cellulitis patient with right lower extremity and did have some pressure wound to the left leg clinically not behaving as pneumonia and no other focus of this bacteremia 2-blood cultures has been repeated did came back positive, patient is status post FREDRICK with evidence of infective endocarditis involving the mitral valve as well as aortic valve 3patient antibiotic has been adjusted to naficillin and await CT surgery evaluation Dictation was produced using [employer] dictation software. please excuse any grammatical, word or spelling errors. Time with Patient: Less than 30
--- NOTE | 2023-06-10 15:00 | P.PN ---
Subjective Progress Note Date: 06/10/23 Principal diagnosis: MSSA bacteremia and infective endocarditis Patient is a 47-year-old female with a past medical history significant for hypertension diastolic congestive heart failure pulmonary hypertension hyperlipidemia diabetes mellitus presenting to the hospital for evaluation of increasing shortness of breath, along with lower extremity swelling and some redness and did have wound to the left lower leg area concerning for cellulitis blood culture Were positive with MSSA, Patient did have a FREDRICK completed 06/09/2023 with evidence of mitral valve vegetation 12 mmx8 mm, and also thickening of the bicuspid aortic valve concerning for infective endocarditis. on today's evaluation that is 06/10/2023 patient continues to be afebrile, patient is breathing comfortably on 8 L nasal cannula oxygen the patient is more awake and alert today denies any chest pain or cough no nausea noted no abdominal pain and no diarrhea Patient did have a white count of 8.2 hemoglobin is 11.8 creatinine 0.59, blood culture done on 06/04/2023 and 06/06/2023 the positive blood cultures 06/07/2023 so far negative Objective - Vital Signs Vital signs: Vital Signs Temp 98.2 F 06/10/23 12:00 Pulse 106 H 06/10/23 12:00 Resp 17 06/10/23 12:00 BP 125/78 06/10/23 12:00 Pulse Ox 94 L 06/10/23 12:00 FiO2 Intake & Output 06/09/23 06/10/23 06/10/23 18:59 06:59 18:59 Intake Total 971 355 1590 Output Total 715 650 985 Balance -605 -360 215 Weight 119.7 kg Intake: IV 110 40 50 0.9 NS 110 40 50 Intake, IV Titration 250 150 Amount Nafcillin 2 gm In 200 100 Dextrose 5% in Water 100 ml @ 50 mls/hr IVPB Q4H [facility] Rx#:[id number] Nafcillin 2 gm In 50 50 Dextrose 5% in Water 100 ml @ 50 mls/hr IVPB Q4HR [facility] Rx#:[id number] Oral 1000 Output: Urine 715 650 985 Other: Voiding Method Indwelling Catheter Indwelling Catheter Indwelling Catheter - Exam GENERAL DESCRIPTION: Middle-aged female in bed in no distress RESPIRATORY SYSTEM: Unlabored breathing , decreased breath sounds at bases HEART: S1 S2 regular rate and rhythm , ABDOMEN: Soft , no tenderness EXTREMITIES: Bilateral lower extremity currently wrapped in Oz wrap - Labs CBC & Chem 7: 06/10/23 04:03 06/10/23 04:03 Labs: Abnormal Lab Results - Last 24 Hours (Table) 06/09/23 06/09/23 06/10/23 Range/Units 16:34 19:35 04:03 MCHC 29.0 L (31.0-37.0) g/dL RDW 16.4 H (11.5-15.5) % Plt Count 149 L (150-450) k/uL Carbon Dioxide (22-30) mmol/L BUN (7-17) mg/dL Glucose (74-99) mg/dL POC Glucose (mg/dL) 138 H 142 H (70-110) mg/dL 06/10/23 06/10/23 06/10/23 Range/Units 04:03 06:40 11:18 MCHC (31.0-37.0) g/dL RDW (11.5-15.5) % Plt Count (150-450) k/uL Carbon Dioxide 33 H (22-30) mmol/L BUN 31 H (7-17) mg/dL Glucose 129 H (74-99) mg/dL POC Glucose (mg/dL) 125 H 164 H (70-110) mg/dL Microbiology - Last 24 Hours (Table) 06/07/23 05:29 Blood Culture - Preliminary Blood Assessment and Plan (1) MSSA bacteremia Current Visit: Yes Status: Acute Code(s): R78.81 - BACTEREMIA; B95.61 - METHICILLIN SUSCEP STAPH INFCT CAUSING DIS CLASSD [facility] SNOMED Code(s): 473999605 (2) Bilateral lower leg cellulitis Current Visit: Yes Status: Acute Code(s): L03.116 - CELLULITIS OF LEFT LOWER LIMB; L03.115 - CELLULITIS OF RIGHT LOWER LIMB SNOMED Code(s): 573398397 Plan: 1patient presented hospital with sepsis in this patient with a fever tachycardia hypotension requiring pressor support now with evidence of MSSA bacteremia source likely lower extremity cellulitis patient with right lower extremity and did have some pressure wound to the left leg clinically not behavi ng as pneumonia and no other focus of this bacteremia 2-blood cultures has been repeated did came back positive, patient is status post FREDRICK with evidence of infective endocarditis involving the mitral valve as well as aortic valve 3patient to continue with naficillin patient has been evaluated by CT surgery recommended transfer to tertiary care Dictation was produced using [employer] dictation software. please excuse any grammatical, word or spelling errors.
[2023-06-10 16:14] LABS: Glucose,Whole Blood 118 mg/dL (70-110)
--- NOTE | 2023-06-10 16:33 | P.PN ---
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 She stated that for the last few days she has not been able to eat anything, complaining of weight loss. Also complaining of shortness of breath on minimal exertion. Complaining of orthopnea. Patient has chronic swelling of lower extremities, recently treated for cellulitis Denies any fever or chills. Denies any chest pain. Because of these symptoms, patient came to the ER Initial lab work done in the ER showed WBC 9.5, hemoglobin 10.9, platelet count 105, sodium 117, potassium 4.1, BUN 20, creatinine 0.8, glucose 104, lactic acid 1.4, calcium 8, phosphorus 2.5, magnesium 1.5, troponin 0.367 Chest x-ray on arrival shows cardiomegaly and mild pulmonary vascular congestion. No focal infiltrates or obvious evidence of pneumonia. In the ER, patient was started on broad-spectrum antibiotics and was given fluid resuscitation in suspicion of sepsis, Patient was admitted to ICU 06/06. Patient seen and examined WBC 11.9, hemoglobin 12.2, platelet count 98, sodium 35, potassium 3.9, BUN 35, creatinine 1.17,. States she feels much bett er compared to yesterday. Gets short of breath on exertion 06/07. Patient seen and examined. States she is lethargic. Shortness of breath not present at rest, only on exertion. Patient is off Levophed 06/08. Patient seen and examined. Sodium this morning is 132, potassium is 4.7, BUN is 34, creatinine 0.67. Currently on 4 L of oxygen. Patient is lethargic. Repeat blood cultures from 06/06 are also positive for gram-positive cocci FREDRICK done showed the following 2 mm x 8 mm vegetation attached to mitral valve, Severe Mitral regurgitation, Bicuspid aortic valve with thickening suggestive of infective endocarditis 06/10. Patient seen and examined. CT surgery recommending transfer to tertiary care hospital. [facility], they accepted the transfer, waiting on bed availability REVIEW OF SYSTEMS: CONSTITUTIONAL: No fever, no malaise,. CARDIOVASCULAR: No chest pain, no palpitations, no syncope. PULMONARY: As mentioned above GASTROINTESTINAL: No diarrhea, no nausea, no vomiting, no abdominal pain. NEUROLOGICAL: No headaches, no weakness, PHYSICAL EXAMINATION: GENERAL: The patient is alert but lethargic, not in any acute distress. Sick looking HEENT: Pupils are round and equally reacting to light. EOMI. No scleral icterus. No conjunctival pallor. Normocephalic, atraumatic. No pharyngeal erythema. No thyromegaly. CARDIOVASCULAR: S1 and S2 present. No murmurs, rubs, or gallops. PULMONARY: Coarse breath sounds bilaterally, no crackles ABDOMEN: Soft, nontender, nondistended, normoactive bowel sounds. No palpable organomegaly. MUSCULOSKELETAL: No joint swelling or deformity. EXTREMITIES: 1+ pitting edema of lower extremities, right lower extremity bandaged, left lower extremity bandaged seen as well NEUROLOGICAL: Gross neurological examination did not reveal any focal deficits. SKIN: No rashes. Assessment and plan Septic shock Mitral and aortic valve endocarditis Severe pulmonary hypertension Severe MR MSSA bacteremia Hyponatremia Dehydration Hypomagnesemia Acute hypoxemic respiratory failure Acute on on chronic diastolic congestive heart failure, currently on 4 L/m nasal cannula. Elevated troponins, rule out non-STEMI Bilateral lower extremity cellulitis and chronic lower extremity edema. Recently, treated for cellulites of the lower extremities in December,. Left lower extremity wound was positive for Enterobacter and MSSA. Diarrhea Pulmonary hypertension History of cortication of the aorta status post open-heart surgery Hyperlipidemia Diabetes mellitus type 2 Obesity, with a BMI of 36 kg/m Monitor vital signs Monitor CBC Monitor CMP Continue telemetry monitoring 2-D echo done showed mild LV dilatation with moderate concentric left medical hypertrophy, normal LV function, LVEF of 55%, grade 2 diastolic dysfunction, moderate MR, moderate pulmonary hypertension FREDRICK done showed the following 2 mm x 8 mm vegetation attached to mitral valve, Severe Mitral regurgitation, Bicuspid aortic valve with thickening suggestive of infective endocarditis Follow-up on blood cultures, blood culture growing MSSA Follow-up on sodium levels. Continue sodium chloride tablets Continue midodrine Encouraged oral intake. Avoid nephrotoxins. Continue IV nafcillin Follow-up on nephrology recommendations Follow up with ID recommendations Follow-up on cardiology recommendations Critical care Following CT surgery recommending transfer, transfer initiated, accepted at [facility] main Labs and medication were reviewed.. Continue same treatment. Continue with symptomatic treatment. Resume home medication. Monitor labs and vitals. DVT and GI prophylaxis. Further recommendations as per clinical course of the patient Dictation was produced using [employer] dictation software. please excuse any gramm atical, word or spelling errors. Objective - Vital Signs Vital signs: Vital Signs Temp 97.8 F 06/10/23 08:00 Pulse 100 06/10/23 09:00 Resp 16 06/10/23 09:00 BP 126/81 06/10/23 09:00 Pulse Ox 94 L 06/10/23 09:00 FiO2 Intake & Output 06/09/23 06/10/23 06/10/23 18:59 06:59 18:59 Intake Total 110 290 70 Output Total 715 650 185 Balance -194 -360 -115 Weight 119.7 kg Intake: IV 110 40 20 0.9 NS 110 40 20 Intake, IV Titration 250 50 Amount Nafcillin 2 gm In 200 Dextrose 5% in Water 100 ml @ 50 mls/hr IVPB Q4H [facility] Rx#:[id number] Nafcillin 2 gm In 50 50 Dextrose 5% in Water 100 ml @ 50 mls/hr IVPB Q4HR [facility] Rx#:[id number] Output: Urine 715 650 185 Other: Voiding Method Indwelling Catheter Indwelling Catheter Indwelling Catheter - Labs CBC & Chem 7: 06/10/23 04:03 06/10/23 04:03 Labs: Abnormal Lab Results - Last 24 Hours (Table) 06/09/23 06/09/23 06/09/23 Range/Units 11:52 16:34 19:35 MCHC (31.0-37.0) g/dL RDW (11.5-15.5) % Plt Count (150-450) k/uL Carbon Dioxide (22-30) mmol/L BUN (7-17) mg/dL Glucose (74-99) mg/dL POC Glucose (mg/dL) 131 H 138 H 142 H (70-110) mg/dL 06/10/23 06/10/23 06/10/23 Range/Units 04:03 04:03 06:40 MCHC 29.0 L (31.0-37.0) g/dL RDW 16.4 H (11.5-15.5) % Plt Count 149 L (150-450) k/uL Carbon Dioxide 33 H (22-30) mmol/L BUN 31 H (7-17) mg/dL Glucose 129 H (74-99) mg/dL POC Glucose (mg/dL) 125 H (70-110) mg/dL Microbiology - Last 24 Hours (Table) 06/07/23 05:29 Blood Culture - Preliminary Blood 06/06/23 12:23 Blood Culture Gram Stain - Preliminary Blood Blood Culture - Preliminary Presumptive Staph aureus
[2023-06-10 16:46] VITALS: TEMP 98.6
[2023-06-10 19:02] VITALS: BP 116/72; PULSE 100; RESP 6
== END 2023-06-10 19:23 | disposition short-term general hospital (02) | DRG 720 ==
LOC: EC 15:01 → 3SCARD 17:51 → 2SICU 22:06
PROVIDERS: ADMIT Hospitalist; ATTEND Hospitalist
PROC: 3E033XZ Introduction of Vasopressor into Peripheral Vein, Percutaneous Approach (ICD-10-PCS; 2023-06-04)
PROC: B246ZZ4 Ultrasonography of Right and Left Heart, Transesophageal (ICD-10-PCS; principal; 2023-06-09)
DX: A41.01 Sepsis due to Methicillin susceptible Staphylococcus aureus (principal); I11.0 Hypertensive heart disease with heart failure; I50.33 Acute on chronic diastolic (congestive) heart failure; J96.01 Acute respiratory failure with hypoxia; N17.0 Acute kidney failure with tubular necrosis; R65.21 Severe sepsis with septic shock; I21.4 Non-ST elevation (NSTEMI) myocardial infarction; L03.116 Cellulitis of left lower limb; I87.313 Chronic venous hypertension (idiopathic) with ulcer of bilateral lower extremity; L97.922 Non-pressure chronic ulcer of unspecified part of left lower leg with fat layer exposed; L03.115 Cellulitis of right lower limb; L97.522 Non-pressure chronic ulcer of other part of left foot with fat layer exposed; I87.323 Chronic venous hypertension (idiopathic) with inflammation of bilateral lower extremity; I87.329 Chronic venous hypertension (idiopathic) with inflammation of unspecified lower extremity; I08.3 Combined rheumatic disorders of mitral, aortic and tricuspid valves; R01.1 Cardiac murmur, unspecified; E87.20 Acidosis, unspecified; I27.20 Pulmonary hypertension, unspecified; E87.1 Hypo-osmolality and hyponatremia; Z20.822 Contact with and (suspected) exposure to COVID-19; E86.1 Hypovolemia; E11.621 Type 2 diabetes mellitus with foot ulcer; Z68.36 Body mass index [BMI] 36.0-36.9, adult; E66.9 Obesity, unspecified; E11.9 Type 2 diabetes mellitus without complications; E78.5 Hyperlipidemia, unspecified; E83.42 Hypomagnesemia; F41.9 Anxiety disorder, unspecified; I45.10 Unspecified right bundle-branch block; Z79.84 Long term (current) use of oral hypoglycemic drugs; I33.0 Acute and subacute infective endocarditis; Q25.1 Coarctation of aorta; E86.0 Dehydration; Z79.899 Other long term (current) drug therapy; Z87.891 Personal history of nicotine dependence; Z95.1 Presence of aortocoronary bypass graft
CPT/HCPCS: 36415; 71045; 71046; 80048; 80053; 81001; 82533; 83036; 83605; 83735; 83880; 83930; 83935; 84100; 84145; 84295; 84300; 84443; 84484; 85025; 85610; 85730; 87040; 87077; 87186; 87324; 87636; 93005; 93306; 93312; 93320; 93325; 94640; 94760; 96361; 96365; 96366; 96367; 99291